=== PATIENT | male | born 1950 | race Caucasian/White ===

== ENCOUNTER 2018-03-12 13:22 | Inpatient (IN) | payer MEDICARE, OTHER ==
[~2018-03-12] VITALS: Ht 172.7 cm; Wt 83.5 kg
[~2018-03-12 13:22] MED LIST: ACYCLOVIR200 MG PO; AMIODARONE HCL200 MG PO; ATENOLOL50 MG PO; CARVEDILOL12.5 MG PO; FAMOTIDINE10 MG PO; KEFLEX500 MG PO; LASIX40 MG PO; LISINOPRIL10 MG PO; POTASSIUM CHLO20 ME1 PO; REVATIO20 MG PO; TESSALON PERLE100 MG PO; TRAZODONE HCL50 MG PO; WARFARIN SODIUM3 MG PO
--- OUTSIDE RECORDS SUMMARY | 2018-03-12 13:25 | XMS REPORT | Clinical Summary ---
Author Author [facility] Organization [facility] Address Unknown Phone Unavailable Care Team Providers Care Statistical Geneticist Name Role Phone Esequiel Mattson MD PCP Allergies Active Allergy Reactions Severity Noted Date Comments Penicillins Rash Medium 04/01/2017 Patient stated the allergy to Penicillin was when he was 3 years old. Current Medications Prescription Sig. Disp. Refills Start End Date Status Date warfarin (COUMADIN) 6 MG Take 6 mg by mouth daily. Active tablet traMADol (ULTRAM) 50 mg Take 50 mg by mouth every Active tablet 6 (six) hours as needed for moderate pain. lisinopril Take 1 tablet (5 mg 30 tablet 0 08/18/20 Active (PRINIVIL,ZESTRIL) 5 mg total) by mouth daily for 17 tablet 30 days. warfarin (COUMADIN) 6 MG Take one tablet daily. 30 tablet 0 08/18/20 08/18/20 Active tablet 17 18 carvedilol (COREG) 12.5 Take 1 tablet (12.5 mg 60 tablet 0 04/03/20 05/03/20 MG tablet total) by mouth 2 (two) 17 17 times a day for 30 days. lisinopril Take 1 tablet (20 mg 30 tablet 0 04/03/20 06/25/20 Discontin (PRINIVIL,ZESTRIL) 20 mg total) by mouth daily for 17 17 ued tablet 30 days. furosemide (LASIX) 20 mg Take 1 tablet (20 mg 30 tablet 0 04/03/20 05/03/20 tablet total) by mouth daily for 17 17 30 days. potassium chloride Take 1 tablet (8 mEq 30 tablet 0 04/03/20 (KLOR-CON) 8 MEQ CR total) by mouth daily for 17 17 tablet 30 days. sildenafil (REVATIO) 20 Take 1 tablet (20 mg 90 tablet 0 04/03/20 mg tablet total) by mouth 3 (three) 17 17 times a day for 30 days. sildenafil (REVATIO) 20 Take 20 mg by mouth 3 08/18/20 Discontin mg tablet (three) times a day. 17 ued carvedilol (COREG) 12.5 Take 12.5 mg by mouth 2 06/25/20 Discontin MG tablet (two) times a day with 17 ued meals. furosemide (LASIX) 20 mg Take 60 mg by mouth 06/25/20 Discontin tablet daily. 17 ued acetaminophen-codeine Take 1 tablet by mouth 3 08/18/20 Discontin (TYLENOL WITH CODEINE #3) (three) times a day. 17 ued 300-30 mg per tablet potassium chloride Take 20 mEq by mouth 2 08/18/20 Discontin (K-DUR,KLOR-CON) 10 MEQ (two) times a day. 17 ued CR tablet lisinopril Take 1 tablet (5 mg 30 tablet 0 06/25/20 08/18/20 Discontin (PRINIVIL,ZESTRIL) 5 mg total) by mouth daily for 17 17 ued tablet 30 days. nadolol (CORGARD) 20 MG Take 1 tablet (20 mg 60 tablet 0 06/25/20 tablet total) by mouth 2 (two) 17 17 times a day for 30 days. furosemide (LASIX) 40 mg Take 1 tablet (40 mg 60 tablet 0 06/25/20 07/25/20 tablet total) by mouth 2 (two) 17 17 times a day for 30 days. acetaminophen-codeine Take 1-2 tablets by mouth 40 tablet 0 06/25/20 07/05/20 (TYLENOL WITH CODEINE #3) every 4 (four) hours as 17 17 300-30 mg per tablet needed for moderate pain for up to 10 days. furosemide (LASIX) 40 mg Take 1 tablet (40 mg 60 tablet 0 06/25/20 07/25/20 tablet total) by mouth 2 (two) 17 17 times a day for 30 days. potassium chloride Take 2 tablets (20 mEq 120 tablet 0 09/01/20 10/ 01/20 (KLOR-CON) 10 MEQ CR total) by mouth 2 (two) 17 17 tablet times a day for 30 days. albuterol (ACCUNEB) 1.25 Take 1 ampule by 08/18/20 Discontin mg/3 mL nebulizer nebulization every 6 17 ued solution (six) hours as needed for wheezing. ATENOLOL ORAL Take 10 mg by mouth 2 08/18/20 Discontin (two) times a day. 17 ued furosemide (LASIX) 20 mg Take 20 mg by mouth 3 08/18/20 Discontin tablet (three) times a day. 17 ued albuterol (ACCUNEB) 1.25 Take 3 mL (1.25 mg total) 75 mL 12 08/18/20 09/17/20 mg/3 mL nebulizer by nebulization every 6 17 17 solution (six) hours as needed for wheezing for up to 30 days. atenolol (TENORMIN) 25 MG Take 0.5 tablets (12.5 mg 30 tablet 0 09/17/20 tablet total) by mouth 2 (two) 17 17 times a day for 30 days. acetaminophen-codeine Take 1 tablet by mouth 30 tablet 0 08/18/20 (TYLENOL WITH CODEINE #3) every 6 (six) hours as 17 17 300-30 mg per tablet needed for moderate pain for up to 10 days. potassium chloride Take 2 tablets (20 mEq 120 tablet 0 08/18/20 (K-DUR,KLOR-CON) 10 MEQ total) by mouth 2 (two) 17 17 CR tablet times a day for 30 days. sildenafil (REVATIO) 20 Take 1 tablet (20 mg 90 tablet 0 08/18/20 mg tablet total) by mouth 3 (three) 17 17 times a day for 30 days. Active Problems Problem Noted Date Pneumonia due to infectious organism 08/16/2017 Atrial fibrillation with RVR 06/16/2017 ICD (implantable cardioverter-defibrillator) malfunction 04/01/2017 Encounters Date Type Specialty Care Team Description 08/15/2017 [facility] General Internal Medicine Jeffery Freire, Pneumonia due to - Encounter infectious organism, 08/18/2017 Lindsey Ruth unspecified laterality, MD Priscila unspecified part of lung (Primary Dx); SOB (shortness of breath); Acute bronchitis, unspecified organism 06/29/2017 [facility] Hector Dodson, PharmD Outreach 06/18/2017 Procedure Pass Procedural Cardiology 06/18/2017 Surgery Procedural Cardiology Raquel Olmos, Ep ablation av node MD [83815 (CPT )] 06/18/2017 Procedure Pass Procedural Cardiology 06/16/2017 [facility] General Internal Medicine Nayan Saenz MD Atrial fibrillation with - Encounter Lindsey Ruth RVR (Primary Dx); 06/25/2017 MD Priscila Right upper quadrant abdominal pain; Weakness 04/02/2017 Procedure Pass Procedural Cardiology 04/02/2017 Surgery Procedural Cardiology Michael Dhaliwal, Lead Revision and MD generator change out [08405 (CPT )] 04/01/2017 [facility] General Surgery Trisha Banuelos MD - Encounter 04/04/2017 after 03/11/2017 Immunizations Name Dates Previously Given Next Due Pneumococcal Conjugate 06/25/2017 13-Valent Family History Medical History Relation Name Comments Alzheimer's disease Father Leukemia Father Relation Name Status Comments Father Social History Tobacco Use Types Packs/Day Years Used Date Never Smoker Tobacco Cessation: Counseling Given: No Alcohol Use Drinks/Week oz/Week Comments Yes "drinks alcohol frequently." Sex Assigned at Date Recorded Not on file Last Filed Vital Signs Vital Sign Reading Time Taken Blood Pressure 97/53 08/18/2017 3:36 PM CDT Pulse 61 08/18/2017 3:36 PM CDT Temperature 36.4 C (97.5 F) 08/18/2017 3:36 PM CDT Respiratory Rate 18 08/18/2017 3:36 PM CDT Oxygen Saturation 98% 08/18/2017 3:36 PM CDT Inhaled Oxygen - - Concentration Weight 99.1 kg (218 lb 6.4 oz) 08/18/2017 6:27 AM CDT Height 172.7 cm (5' 8") 08/16/2017 4:37 AM CDT Body Mass Index 33.21 08/18/2017 6:27 AM CDT Plan of Treatment Health Maintenance Due Date Last Done Comments COLON CANCER SCREENING 1998 SHINGRIX VACCINE (#1) 1998 ZOSTER VACCINE 2008 PNEUMOCOCCAL 2013 POLYSACCHARIDE VACCINE AGE 65 AND OVER INFLUENZA VACCINE 05/25/2018 PNEUMOCOCCAL-13 Completed 06/25/2017 Implants Implanted Type Area Skin Carver Device Expiration Model / Identifier Date Serial / Lot Durata Df4 - Active Tbp Single Defibrilla N/A: N/A [employer] 2016 [id number] 65 / Shock, Icd Leads, Model 7120q-65 - tors MEDICAL [id number] Devices / Implanted: 04/02/2017 (Quantity not ICD and [id number] on file) Related Products Dariela Zhong Next Generation Dr DAIGLE N/A: N/A [employer] 11/24/2018 [id number] [id number] 40 Df4 Connector - [id number] CARDIAC MEDICAL / Implanted: 04/02/2017 (Quantity not DEFIB [id number] / on file) [id number] Pacemaker Pacemaker Procedures Procedure Name Priority Date/Time Associated Diagnosis Comments [place] [facility]IT[facility], E/M Routine 08/16/2017 Results for this 30-74 MINUTES 3:59 AM CDT procedure are in the results section. EP ABLATION AV NODE Routine 06/18/2017 9:16 AM CDT ECHOCARDIOGRAM 2D Routine 06/17/2017 Results for this COMPLETE W MMODE SPECTRAL 3:58 PM CDT procedure are in the COLOR DOPPLER (70296) results section. EP AICD IMPLANT SINGLE Routine 04/02/2017 DUAL BI VENT 6:53 PM CDT after 03/11/2017 Results * XR Chest 2 Vw (08/18/2017 8:16 AM) Only the most recent of 4 results within the time period is included. Specimen Performing Laboratory [facility] [address] [place] [address] Narrative Examination: XR CHEST 2 VW Clinical history: Pneumonia, SHORTNESS OF BREATH Comparison: August 15 Impression: 1. Marked enlargement of the cardiac silhouette which may be related to cardiac enlargement or pericardial effusion is similar to the prior exam. 2. Vasculature is not frankly congested. There is no significant pleural fluid. 3. There is no confluent infiltrate. 4. Sternal wires and AICD are stable. [id number] Procedure Note Interface, Radiology Results Incoming - 08/18/2017 8:25 AM CDT Examination: XR CHEST 2 VW Clinical history: Pneumonia, SHORTNESS OF BREATH Comparison: August 15 Impression: 1. Marked enlargement of the cardiac silhouette which may be related to cardiac enlargement or pericardial effusion is similar to the prior exam. 2. Vasculature is not frankly congested. There is no significant pleural fluid. 3. There is no confluent infiltrate. 4. Sternal wires and AICD are stable. [id number] * Estimated GFR (08/18/2017 6:25 AM) Only the most recent of 11 results within the time period is included. Component Value Ref Range GFR Non Af Amer 60 mL/min/1.73 m2 GFR Af Amer 73 mL/min/1.73 m2 Comment: Chronic kidney disease: <60 mL/min/1.73m2 Kidney failure: <15 mL/min/1.73m2 The estimated GFR is calculated from the IDMS-traceable Modification of Diet in Renal Disease Equation. The accuracy of the calculation is poor when the creatinine is normal. Calculated values >90 mL/min/1.73m2 are not reported. This equation has not been validated in children (<18 years), women, the elderly (>70 years), or ethnic groups other than Caucasians and Americans. Specimen Performing Laboratory Plasma specimen [facility] [place] DEPARTMENT OF PATHOLOGY AND GENOMIC MEDICINE [address] [place] [address] * Basic metabolic panel (08/18/2017 6:25 AM) Only the most recent of 10 results within the time period is included. Component Value Ref Range Sodium 135 135 - 150 mEq/L Potassium 4.1 3.5 - 5.0 mEq/L Chloride 100 100 - 109 mEq/L CO2 27 24 - 32 mmol/L Anion gap 8 7 - 15 mEq/L Comment: Starting from January , anion gap calculation no longer incorporates potassium. Please note the change. BUN 15 7 - 18 mg/dL Creatinine 1.2 0.8 - 1.5 mg/dL Glucose 113 (H) 65 - 100 mg/dL Calcium 7.8 (L) 8.6 - 10.7 mg/dL Specimen Performing Laboratory Plasma specimen [facility] [place] DEPARTMENT OF PATHOLOGY AND GENOMIC MEDICINE [address] [place] [address] * Prothrombin time with INR (08/17/2017 5:41 AM) Only the most recent of 9 results within the time period is included. Component Value Ref Range Prothrombin time 19.6 (H) 12.0 - 15.0 sec INR 1.63 (H) 0.92 - 1.12 Comment: For patients on anticoagulant therapy, reference ranges below: Indication: INR Value Treatment of Venous Thrombosis, 2.0-3.0 pulmonary emboli, or prophylaxis of a venous thrombosis, or systemic emboli. High dose, high risk patients 3.0-4.5 with mechanical valves. NOTE: INR values over 3.0 are sometimes associated with gastrointestinal hemorrhage, especially values over 4.0. Specimen Performing Laboratory Blood [facility] [place] DEPARTMENT OF PATHOLOGY AND GENOMIC MEDICINE [address] [place] [address] * CBC with platelet and differential (08/17/2017 5:41 AM) Only the most recent of 8 results within the time period is included. Component Value Ref Range WBC 6.4 4.2 - 11.0 k/uL RBC 3.31 (L) 4.04 - 5.86 m/uL HGB 9.2 (L) 13.0 - 17.3 g/dL HCT 28.9 (L) 34.0 - 45.0 % MCV 87.3 80.0 - 98.0 fL MCH 27.8 27.0 - 34.0 pg MCHC 31.8 31.5 - 36.5 g/dL RDW - SD 53.4 (H) 37.0 - 51.0 fL MPV 11.0 (H) 7.4 - 10.4 fL Platelet count 81 (L) 150 - 400 k/uL Nucleated RBC 0.00 /100 WBC Neutrophils 78.9 (H) 36.0 - 66.0 % Lymphocytes 9.8 (L) 24.0 - 44.0 % Monocytes 8.6 (H) 0.0 - 6.0 % Eosinophils 1.9 0.0 - 6.0 % Basophils 0.3 0.0 - 1.2 % Immature granulocytes 0.5 0.0 - 1.0 % Specimen Performing Laboratory Blood [facility] [place] DEPARTMENT OF PATHOLOGY AND GENOMIC MEDICINE [address] [place] [address] * B natriuretic peptide (08/17/2017 5:41 AM) Only the most recent of 2 results within the time period is included. Component Value Ref Range BNP 175 (H) 0 - 100 pg/mL Specimen Performing Laboratory [facility] [place] DEPARTMENT OF PATHOLOGY AND GENOMIC MEDICINE [address] [place] [address] * Anti Xa, unfractionated (08/16/2017 6:48 PM) Only the most recent of 3 results within the time period is included. Component Value Ref Range Anti Xa, unfractionated <0.10 (L)Comment: Therapeutic Range: 0.30 - 0.70 0.30 - 0.70 U/mL U/mL Specimen Performing Laboratory Blood [facility] [place] DEPARTMENT OF PATHOLOGY AND GENOMIC MEDICINE [address] [place] [address] * Troponin (08/16/2017 5:42 AM) Only the most recent of 7 results within the time period is included. Component Value Ref Range Troponin 0.03 0.00 - 0.60 ng/mL Comment: 0.11 - 1.49 ng/ml May indicate increased risk of acute coronary syndrome. >=1.5 ng/ml Consistent with acute myocardial infarction. The diagnostic value of a single normal or non-diagnostic result is questionable. Serial samples at 2-6 hour intervals are required to rule out acute myocardial injury. Specimen Performing Laboratory Plasma specimen [facility] [place] DEPARTMENT OF PATHOLOGY AND GENOMIC MEDICINE [address] [place] [address] * Partial thromboplastin time, activated (08/16/2017 5:42 AM) Only the most recent of 3 results within the time period is included. Component Value Ref Range PTT 26.1 23.0 - 36.0 sec Comment: PTT therapeutic range for unfractionated heparin is 61.0-112.0 seconds which corresponds to Anti-Xa 0.3-0.7 U/ml. Note: Change in Panic Value The PTT Panic Value is changing from 110 sec. to 100 sec. due to new instrumentation and reagents. Correlation studies have been performed to validate this result. Specimen Performing Laboratory Blood [facility] [place] DEPARTMENT OF PATHOLOGY AND GENOMIC MEDICINE [address] [place] [address] * ECG ED Preliminary Interpretation - NOT AN ORDER (08/16/2017 3:59 AM) Only the most recent of 2 results within the time period is included. Mahamed Freire MD 08/16/20173:59 AM ECG ED Preliminary Interpretation - Not an Order Performed by: CHARANJIT FREIRE Authorized by: CHARANJIT FREIRE ECG reviewed by ED Physician in the absence of a unit support representative: yes Previous ECG: Previous ECG:Unavailable Rate: ECG rate:60 ECG rate assessment: normal Rhythm: Rhythm: paced Pacing: Type of pacing:Ventricular Ectopy: Ectopy: none QRS: QRS axis:Normal QRS intervals:Normal Conduction: Conduction: normal ST segments: ST segments:Normal T waves: T waves: normal * CRITICAL CARE (08/16/2017 3:59 AM) Narrative Charanjit Freire MD 08/16/20173:59 AM Critical Care Performed by: CHARANJIT FREIRE Authorized by: CHARANJIT FREIRE Critical care provider statement: Critical care time (minutes):32 Critical care time was exclusive of:Separately billable procedures and treating other patients Critical care was necessary to treat or prevent imminent or life-threatening deterioration of the following conditions:Circulatory failure and dehydration Critical care was time spent personally by me on the following activities:Ordering and review of laboratory studies, ordering and review of radiographic studies, pulse oximetry, re-evaluation of patient's condition, discussions with primary provider and examination of patient * CT Angiogram Pe Chest (08/16/2017 3:28 AM) Specimen Performing Laboratory [facility] [address] [place] [address] Narrative EXAMINATION:CT ANGIOGRAM PE CHEST CLINICAL HISTORY: SHORTNESS OF BREATH, elevated D-Dimer. TECHNIQUE:CT angiographic images of the chest were obtained during intravenous administration of iodinated contrast. Computerized reformatted images and 3-D MIP images were also obtained and archived (CT pulmonary embolus protocol).CT scans are performed using radiation dose reduction techniques.Technical factors are evaluated and adjusted to ensure appropriate moderation of exposure. Automated dose management technology is applied to adjust radiation exposure while achieving a diagnostic quality image. COMPARISON:None. Findings: There are no filling defects within the pulmonary arterial system to suggest a pulmonary embolus. Evaluation for dissection is not possible on this phase of contrast. No consolidation or pleural effusion is seen. No pneumothorax is seen. No pulmonary mass or nodule is seen. No mediastinal lymphadenopathy is seen. Marked left atrial enlargement is unchanged. Visualized upper abdomen shows slight nodular contour of the liver. IMPRESSION: 1. No evidence of pulmonary embolus. 2. Severe left atrial enlargement is unchanged. 3. Otherwise no acute abnormality identified in the chest. 4. Nodular contour of the liver may be related to intrinsic hepatic disease or cirrhosis. [id number] Procedure Note [facility], Radiology Results Incoming - 08/16/2017 3:43 AM CDT EXAMINATION: CT ANGIOGRAM PE CHEST CLINICAL HISTORY: SHORTNESS OF BREATH, elevated D-Dimer. TECHNIQUE: CT angiographic images of the chest were obtained during intravenous administration of iodinated contrast. Computerized reformatted images and 3-D MIP images were also obtained and archived (CT pulmonary embolus protocol). CT scans are performed using radiation dose reduction techniques. Technical factors are evaluated and adjusted to ensure appropriate moderation of exposure. Automated dose management technology is applied to adjust radiation exposure while achieving a diagnostic quality image. COMPARISON: None. Findings: There are no filling defects within the pulmonary arterial system to suggest a pulmonary embolus. Evaluation for dissection is not possible on this phase of contrast. No consolidation or pleural effusion is seen. No pneumothorax is seen. No pulmonary mass or nodule is seen. No mediastinal lymphadenopathy is seen. Marked left atrial enlargement is unchanged. Visualized upper abdomen shows slight nodular contour of the liver. IMPRESSION: 1. No evidence of pulmonary embolus. 2. Severe left atrial enlargement is unchanged. 3. Otherwise no acute abnormality identified in the chest. 4. Nodular contour of the liver may be related to intrinsic hepatic disease or cirrhosis. [id number] * Blood culture, aerobic & anaerobic (08/16/2017 1:28 AM) Only the most recent of 2 results within the time period is included. Component Value Ref Range Blood culture isolate Staphylococcus epidermidis Aer/Nikkie bottles: The performance characteristics of this assay on this isolate were validated by the Microbiology Laboratory at [facility]. This source has not been approved by the U.S. Food and Drug Administration. The results are not intended to be used as the sole means for clinical diagnosis or patient management. The Microbiology Laboratory is authorized under the clinical Laboratory Improvement Amendments of 1988 (CLIA-88) to perform high complexity testing. (A) Comment: Specimen Information Specimen Source: Blood Specimen Site: L Hand Specimen Performing Laboratory Blood [facility] DEPARTMENT OF PATHOLOGY AND GENOMIC MEDICINE [address] [place] [id number] Organism Antibiotic Method Susceptibility Staphylococcus Ampicillin PAUL mcg/mL: Resistant epidermidis Staphylococcus Clindamycin PAUL >2 mcg/mL: Resistant epidermidis Staphylococcus Erythromycin PAUL >4 mcg/mL: Resistant epidermidis Staphylococcus Levofloxacin PAUL >4 mcg/mL: Resistant epidermidis Staphylococcus Linezolid PAUL <=1 mcg/mL: Susceptible epidermidis Staphylococcus Minocycline PAUL <=1 mcg/mL: Susceptible epidermidis Staphylococcus Oxacillin PAUL >1 mcg/mL: Resistant epidermidis Staphylococcus Penicillin G PAUL >1 mcg/mL: Resistant epidermidis Staphylococcus Tetracycline PAUL 1 mcg/mL: Susceptible epidermidis Staphylococcus Vancomycin PAUL 2 mcg/mL: Susceptible epidermidis Staphylococcus Trimethoprim/Sulfamethoxa PAUL >2/38 mcg/mL: Resistant epidermidis isabelle * D-dimer (08/16/2017 12:24 AM) Component Value Ref Range D-dimer 1.11 (H) 0.00 - 0.40 ug/mL FEU Comment: Units are ug/ml Fibrinogen Equivalent Unit. When combined with low clinical probability, D-dimer results of less than 0.5 ug/ml FEU have a good negative predictive value in excluding PE or DVT. For D-dimer results greater than 0.5 ug/ml FEU further testing is indicated if PE or DVT is suspected clinically. Elevated D-dimer results have been reported in DVT, PE, and DIC cases and may indicate the presence of a clot. D-dimer results may be elevated due to old age, , inflammatory diseases, trauma, post-operative states, sepsis, and malignancies. Specimen Performing Laboratory Blood [facility] DEPARTMENT OF PATHOLOGY AND GENOMIC MEDICINE [facility] [place][note 2] [place] [address] * Venous blood gas (08/16/2017 12:24 AM) Component Value Ref Alteration Tailor JPXG Collection site LAC O2 therapy Room Air pH, venous 7.436 (H) 7.320 - 7.420 units pCO2, venous 36.0 (L) 45.0 - 51.0 mmHg pO2, venous 32.9 25.0 - 40.0 mmHg O2 saturation, venous 60.8 40.0 - 70.0 % Bicarbonate 24.2 21.0 - 28.0 mEq/L O2 content 8.0 VOL% FiO2, inspired O2% 21.0 % Carboxyhemoglobin 1.5 (H) 0.0 - 1.4 % Comment: Reference Ranges: Carboxyhemoglobin Non smoker: 0.0 - 2.0% Smoker: 2.1 - 5.0% Heavy smoker: 5.1 - 9% Methemoglobin 0.1 0.0 - 1.0 % Hemoglobin, blood gas 9.4 (L) 14.0 - 18.0 g/dL Specimen Performing Laboratory Blood [facility] DEPARTMENT OF PATHOLOGY AND GENOMIC MEDICINE [address] [place] [address] * Creatine kinase, total (CPK) (08/16/2017 12:24 AM) Component Value Ref Range Creatine kinase 30 (L) 61 - 224 U/L Specimen Performing Laboratory Plasma specimen [facility] DEPARTMENT OF PATHOLOGY AND GENOMIC MEDICINE [address] [facility] [place] [address] * Comprehensive metabolic panel (08/16/2017 12:24 AM) Component Value Ref Range Sodium 132 (L) 135 - 150 mEq/L Potassium 4.7 3.5 - 5.0 mEq/L Chloride 101 100 - 109 mEq/L CO2 24 24 - 32 mmol/L Anion gap 7 7 - 15 mEq/L Comment: Starting from January , anion gap calculation no longer incorporates potassium. Please note the change. BUN 26 (H) 7 - 18 mg/dL Creatinine 1.3 0.8 - 1.5 mg/dL Glucose 121 (H) 65 - 100 mg/dL Calcium 7.8 (L) 8.6 - 10.7 mg/dL Protein 7.5 6.3 - 8.2 g/dL Albumin 3.1 (L) 3.2 - 5.0 g/dL A/G ratio 0.7 0.7 - 3.8 Alkaline phosphatase 95 30 - 120 U/L AST 19 15 - 37 U/L ALT 15 (L) 30 - 65 U/L Total bilirubin 0.7 0.2 - 1.2 mg/dL Specimen Performing Laboratory Plasma specimen [facility] DEPARTMENT OF PATHOLOGY AND GENOMIC MEDICINE [address] [place] [address]. [place] [address] * ECG 12 lead (08/16/2017 12:10 AM) Only the most recent of 7 results within the time period is included. Component Value Ref Range Ventricular rate 60 Atrial rate 62 QRSD interval 154 QT interval 474 QTC interval 474 QRS axis 1 -84 T wave axis 92 EKG impression Electronic ventricular pacemaker-In automated comparison with ECG of 18-JUN-2017 18:08,-No significant change was found- Specimen Performing Laboratory [facility] [address] [place] [address] * Manual differential (06/22/2017 4:40 AM) Only the most recent of 4 results within the time period is included. Component Value Ref Range Manual differential PERFORMED Neutrophils 62.0 36.0 - 66.0 % Lymphocytes 34.0 24.0 - 44.0 % Monocytes 1.0 0.0 - 6.0 % Eosinophils 2.0 0.0 - 6.0 % Basophils 0.0 0.0 - 1.2 % Metamyelocytes 0 0 - 1 % Promyelocytes 0 0 - 1 % Reactive lymphocytes 1.0 Platelet slide review Javy slt decr Anisocytosis slight Ovalocytes few Enlarged platelets rare Specimen Performing Laboratory [facility] [place] DEPARTMENT OF PATHOLOGY AND GENOMIC MEDICINE [address] [place] [address] * CT Cervical Spine Wo Contrast (06/21/2017 6:33 PM) Specimen Performing Laboratory [facility] [address] [place] [address] Narrative EXAMINATION:CT CERVICAL SPINE WO CONTRAST CLINICAL HISTORY:SPINAL STENOSIS COMPARISON:None. TECHNIQUE: Axial helical CT images throughout the cervical spine were performed without IV contrast. Sagittal and coronal reformatted images were generated. All CT images were acquired using low-dose technique with automated exposure control. FINDINGS: There is no evidence of acute fracture, subluxation, or dislocation. There is normal cervical lordosis and alignment. Vertebral bodies are preserved. There is no evidence of paraspinal hematoma. No significant cervical spondylosis is appreciated. There is ankylosis and fusion of the disc space at C5-C6 level. IMPRESSION: No acute cervical spine bony abnormality. [id number] Procedure Note Interface, Radiology Results Incoming - 06/21/2017 6:51 PM CDT EXAMINATION: CT CERVICAL SPINE WO CONTRAST CLINICAL HISTORY: SPINAL STENOSIS COMPARISON: None. TECHNIQUE: Axial helical CT images throughout the cervical spine were performed without IV contrast. Sagittal and coronal reformatted images were generated. All CT images were acquired using low-dose technique with automated exposure control. FINDINGS: There is no evidence of acute fracture, subluxation, or dislocation. There is normal cervical lordosis and alignment. Vertebral bodies are preserved. There is no evidence of paraspinal hematoma. No significant cervical spondylosis is appreciated. There is ankylosis and fusion of the disc space at C5-C6 level. IMPRESSION: No acute cervical spine bony abnormality. [id number] * T3, free (06/20/2017 6:23 AM) Component Value Ref Range T3, free 1.65 (L) 2.18 - 3.98 pmol/L Specimen Performing Laboratory Plasma specimen [facility] [place] DEPARTMENT OF PATHOLOGY AND GENOMIC MEDICINE [address] [place] [address] * Thyroid stimulating hormone (06/20/2017 6:23 AM) Only the most recent of 2 results within the time period is included. Component Value Ref Range TSH 2.30 0.38 - 4.82 uIU/mL Specimen Performing Laboratory Plasma specimen [facility] [place] DEPARTMENT OF PATHOLOGY AND GENOMIC MEDICINE [address] [place] [address] * T4, free (06/20/2017 6:23 AM) Component Value Ref Range T4, free 1.19 0.70 - 1.61 ng/dL Specimen Performing Laboratory Plasma specimen [facility] [place] DEPARTMENT OF PATHOLOGY AND GENOMIC MEDICINE [address] [place] [address] * Cv electrophysiology procedure (06/18/2017 9:16 AM) Specimen Performing Laboratory [facility] [address] [place] [address] * Echocardiogram complete w contrast and 3D if needed (06/17/2017 3:58 PM) Component Value Ref Range AoV Mean PG 4.62 mmHg MV valve area p 1/2 5.48 cm2 method E/A ratio 1.99 E wave decelartion time 138.46 msec LVOT Diam,S 2.38 cm LVOT area 4.45 cm2 AoV Peak PG 8.13 mmHg MV Peak E Harish 1.55 m/s MV stenosis pressure 1/2 40.15 ms time MV Peak A Harish 0.78 m/s AoV Vmax 1.43 m/s Left Atrium Dimension 10.31 cm Anterior RVSP (TR) 66.03 mmHg TR Vpeak 3.89 mm/s MV E A ratio 1.99 mmHg TR pk grad 56.03 mmHg RVSP 66.03 mmHg LA area s A4C 152.73 cm2 LA Vol MOD A4C 1,135.50 ml AoV Vmn 1.02 AoV VTI 0.26 m MV AE ratio 0.50 MAX Pred HR 151.31 85 of MPHR 128.61 Calc MPHR 151.31 bpm MV Decel slope 11.21 m/s2 Pred Exer Dur R1 7.37 Pred METS R1 7.70 Specimen Performing Laboratory [facility] [address] [place] [address] Narrative The left ventricle chamber size is normal. Left Ventricular ejection fraction is 45 - 50%. Left atrium size is severely dilated. 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 The valve is calcified. Right ventricular size is upper limits of normal. Right atrium size moderately dilated. No pericardial effusion Moderate tricuspid valve stenosis. * Urine culture (06/16/2017 10:11 PM) Component Value Ref Range Urine culture SEE COMMENTComment: Bacteriuria screen negative. Specimen Performing Laboratory [facility] [place] DEPARTMENT OF PATHOLOGY AND GENOMIC MEDICINE [address] [address] * Urinalysis screen and microscopy, with reflex to culture (06/16/2017 10:09 PM) Component Value Ref Range Specimen site Clean catch Color, UA Yellow Appearance, UA Clear Specific gravity, UA 1.017 1.001 - 1.035 pH, UA 5.0 5.0 - 8.5 Protein, UA 1+ (A) Negative Glucose, UA Negative Negative Ketones, UA Negative Negative Bilirubin, UA Negative Negative Blood, UA Negative Negative Nitrite, UA Negative Negative Urobilinogen, UA Negative <2.0 Leukocyte esterase, UA Negative Negative WBC, UA <1 0 - 1 /HPF RBC, UA <1 0 - 1 /HPF Bacteria, UA None seen None seen Yeast, UA None seen Yeast with pseudohyphae, None seen UA Hyaline casts, UA 8 /LPF Specimen Performing Laboratory Urine [facility] [place] DEPARTMENT OF PATHOLOGY AND GENOMIC MEDICINE [address] [place] [address] * CT Abdomen Pelvis W Contrast (06/16/2017 8:35 PM) Specimen Performing Laboratory [address] [address] Narrative EXAMINATION:CT ABDOMEN PELVIS W CONTRAST CLINICAL HISTORY:RUQ pain s p cholecystectomy 6 months ago. TECHNIQUE: Multiple axial images of the abdomen and pelvis were obtained following intravenous administration of iodinated contrast. Sagittal and coronal computerized reformatted images were also obtained. Approximately 60 cc of Omnipaque [address] scan performed using radiation dose reduction techniques. Technical factors are evaluated and adjusted to ensure appropriate moderation of exposure. Automated dose management technology is applied to adjust the radiation dose to minimize expose whileachieving a diagnostic quality image. COMPARISON:04/03/2017 FINDINGS: Lung bases: Bibasilar compressive atelectasis is noted.. Cardiomegaly with marked enlargement of the left atrium is seen.. Liver: Nodular in contour of the liver is again seen, suggesting of hepatitic cirrhosis. An approximately 8 mm subcapsular cyst is again seen within the posterior aspect of the right lobe of the liver. No enhancing hepatitic mass is seen. There is no evidence of intrahepatic biliary dilatation.. Gallbladder: Surgically absent. Pancreas: The pancreas is normal in caliber and attenuation. No inflammatory process. The pancreatic duct is within normal limits. Spleen: Collaterals are again noted the splenic hilum. The spleen is otherwise unremarkable.. Kidneys and ureters: The kidneys function symmetrically. An approximately 2.2 cm cortical cyst is seen within the midpole of the right kidney. Another approximately 2.5 cm exophytic cyst is seen within the lower pole of the right kidney. An approximately 1.1 cm exophytic cyst is seen within the anterior aspect of the mid to lower pole of the right kidney. Approximately 1.2 cm hyperdense exophytic cyst is seen within the midpole of the left kidney. Approximately 8 mm exophytic cyst within the lower pole of the left kidney. Approximately 8 mm cortical cyst is seen within the lower pole of the left kidney. These are unchanged compared to prior exam. There is no enhancing renal lesion. No hydronephrosis or renal stone. The ureters are normal in course and caliber. Adrenal glands: Unremarkable. GI tract: The small bowel is normal in course and caliber. Scattered diverticulas are seen of the descending colon. Partial contraction of the descending colon is seen. The colon is otherwise unremarkable. No bowel wall thickening is identified. There is no acute inflammatory process. The appendix is not seen. No right lower quadrant inflammation is seen. The stomach is unremarkable. Ascites: None. Pelvis: The urinary bladder is within normal limits. Limited evaluation of the prostate gland is unremarkable.. Bones: Right iliac wing sclerotic lesion left posterior L4 sclerotic lesion are unchanged.. Retroperitoneum: No retroperitoneal or mesenteric lymphadenopathy is seen. Scattered atherosclerotic disease is seen.The abdominal aorta is normal in course and caliber. The visceral and mesenteric vascular branches are patent. Abdominal wall: Unremarkable. IMPRESSION: Mild diverticulosis. No CT evidence of colitis or bowel obstruction. Stable Bosniak category I/II bilateral renal cysts. Stable hepatitic cirrhosis. [id number] Procedure Note [facility], Radiology Results - 06/16/2017 9:00 PM CDT EXAMINATION: CT ABDOMEN PELVIS W CONTRAST CLINICAL HISTORY: RUQ pain s p cholecystectomy 6 months ago. TECHNIQUE: Multiple axial images of the abdomen and pelvis were obtained following intravenous administration of iodinated contrast. Sagittal and coronal computerized reformatted images were also obtained. Approximately 60 cc of Omnipaque [address] scan performed using radiation dose reduction techniques. Technical factors are evaluated and adjusted to ensure appropriate moderation of exposure. Automated dose management technology is applied to adjust the radiation dose to minimize expose while achieving a diagnostic quality image. COMPARISON: 04/03/2017 FINDINGS: Lung bases: Bibasilar compressive atelectasis is noted.. Cardiomegaly with marked enlargement of the left atrium is seen.. Liver: Nodular in contour of the liver is again seen, suggesting of hepatitic cirrhosis. An approximately 8 mm subcapsular cyst is again seen within the posterior aspect of the right lobe of the liver. No enhancing hepatitic mass is seen. There is no evidence of intrahepatic biliary dilatation.. Gallbladder: Surgically absent. Pancreas: The pancreas is normal in caliber and attenuation. No inflammatory process. The pancreatic duct is within normal limits. Spleen: Collaterals are again noted the splenic hilum. The spleen is otherwise unremarkable.. Kidneys and ureters: The kidneys function symmetrically. An approximately 2.2 cm cortical cyst is seen within the midpole of the right kidney. Another approximately 2.5 cm exophytic cyst is seen within the lower pole of the right kidney. An approximately 1.1 cm exophytic cyst is seen within the anterior aspect of the mid to lower pole of the right kidney. Approximately 1.2 cm hyperdense exophytic cyst is seen within the midpole of the left kidney. Approximately 8 mm exophytic cyst within the lower pole of the left kidney. Approximately 8 mm cortical cyst is seen within the lower pole of the left kidney. These are unchanged compared to prior exam. There is no enhancing renal lesion. No hydronephrosis or renal stone. The ureters are normal in course and caliber. Adrenal glands: Unremarkable. GI tract: The small bowel is normal in course and caliber. Scattered diverticulas are seen of the descending colon. Partial contraction of the descending colon is seen. The colon is otherwise unremarkable. No bowel wall thickening is identified. There is no acute inflammatory process. The appendix is not seen. No right lower quadrant inflammation is seen. The stomach is unremarkable. Ascites: None. Pelvis: The urinary bladder is within normal limits. Limited evaluation of the prostate gland is unremarkable.. Bones: Right iliac wing sclerotic lesion left posterior L4 sclerotic lesion are unchanged.. Retroperitoneum: No retroperitoneal or mesenteric lymphadenopathy is seen. Scattered atherosclerotic disease is seen. The abdominal aorta is normal in course and caliber. The visceral and mesenteric vascular branches are patent. Abdominal wall: Unremarkable. IMPRESSION: Mild diverticulosis. No CT evidence of colitis or bowel obstruction. Stable Bosniak category I/II bilateral renal cysts. Stable hepatitic cirrhosis. [id number] * Magnesium level (06/16/2017 7:20 PM) Only the most recent of 2 results within the time period is included. Component Value Ref Range Magnesium 2.20 1.60 - 2.40 mg/dL Specimen Performing Laboratory Plasma specimen [facility] [place] DEPARTMENT OF PATHOLOGY AND GENOMIC MEDICINE [address] [place] [address] * CT Abdomen Pelvis Wo Contrast (04/03/2017 6:15 PM) Specimen Performing Laboratory [facility] [address] [place] [address] Narrative EXAMINATION:CT ABDOMEN PELVIS WO CONTRAST CLINICAL HISTORY:ABDOMINAL PAIN TECHNIQUE: Multiple axial images of the abdomen and pelvis were obtained without intravenous administration of iodinated contrast. Sagittal and coronal computerized reformatted images were also obtained. The lack of intravenous contrast reduces the sensitivity of detecting solid organ disease. CT imaging was performed with iterative reconstruction technique and/or automated exposure control to reduce radiation dose. COMPARISON:Noncontrast CT abdomen and pelvis December 06, 2016 FINDINGS: Diffuse cardiomyopathy similar in appearance. Minimal linear scarring left lung base unchanged. No free peritoneal air or fluid. Abdomen: Liver remains diminutive in appearance without obvious focal solid lesion. Likely benign 1 cm cyst. The liver margin right lobe segment 5 as on previous. No intra or extrahepatic biliary dilatation. Cholecystectomy clips as before. Spleen grossly normal size. Some prominent splenic vessels about the hilum question varices similar in appearance of previous Adrenal glands normal size. Pancreas grossly unremarkable. No obvious mass. No peripancreatic inflammation or fluid collections. Abdominal aorta normal caliber with extensive atherosclerosis. 2.4 cm benign renal cortical cyst right mid kidney similar to previous. 2.3 cm slightly hyperdense cyst off the inferior pole of the right kidney unchanged measuring 25 Hounsfield units. Hyperdense 13 mm mid right renal cyst unchanged medially. There are 2 benign appearing cortical cyst on the left kidney mid renal level measuring in the 14 mm range similar to previous radiation noted benign- appearing 1 similar cortical cyst left mid kidney laterally is no longer seen. There is some perinephric scarring in this region possibly secondary to cyst rupture. No tract calculi. No obvious solid lesions. Considerable fecal material in the cecum and right colon. No bowel obstruction. No small bowel distention in the abdomen. Pelvis: The appendix is not definitively seen. There is no bowel obstruction. There is moderate scattered fecal material throughout the colon. No diverticulitis. Few scattered diverticular changes in the descending colon. Bladder and prostate grossly unremarkable. No sidewall adenopathy. Dense sclerotic locus posterior aspect of L4 vertebral body to the left measuring 13.9 mm unchanged compared to previous. Dense sclerotic focus right iliac wing measuring 2 cm unchanged. 5.8 mm sclerotic focus left ilium near the SI joint stable IMPRESSION: Cardiomyopathy unchanged. Diminutive appearing liver question cirrhosis. Small benign cyst suspected right lobe inferiorly. No obvious solid lesion. 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 No obvious solid lesion. No calculus or hydronephrosis. Moderate fecal material right colon without evidence of obstruction. Scattered diverticulosis. No diverticulitis. Appendix not seen. Status post cholecystectomy. Sclerotic bony densities in the pelvis and at L4 unchanged. Suspect bone islands. Bone scan correlation to exclude the possibility of blastic bony metastatic lesions may be helpful [id number] Procedure Note [facility], Radiology Results - 04/03/2017 6:58 PM CDT EXAMINATION: CT ABDOMEN PELVIS WO CONTRAST CLINICAL HISTORY: ABDOMINAL PAIN TECHNIQUE: Multiple axial images of the abdomen and pelvis were obtained without intravenous administration of iodinated contrast. Sagittal and coronal computerized reformatted images were also obtained. The lack of intravenous contrast reduces the sensitivity of detecting solid organ disease. CT imaging was performed with iterative reconstruction technique and/or automated exposure control to reduce radiation dose. COMPARISON: Noncontrast CT abdomen and pelvis December 06, 2016 FINDINGS: Diffuse cardiomyopathy similar in appearance. Minimal linear scarring left lung base unchanged. No free peritoneal air or fluid. Abdomen: Liver remains diminutive in appearance without obvious focal solid lesion. Likely benign 1 cm cyst. The liver margin right lobe segment 5 as on previous. No intra or extrahepatic biliary dilatation. Cholecystectomy clips as before. Spleen grossly normal size. Some prominent splenic vessels about the hilum question varices similar in appearance of previous Adrenal glands normal size. Pancreas grossly unremarkable. No obvious mass. No peripancreatic inflammation or fluid collections. Abdominal aorta normal caliber with extensive atherosclerosis. 2.4 cm benign renal cortical cyst right mid kidney similar to previous. 2.3 cm slightly hyperdense cyst off the inferior pole of the right kidney unchanged measuring 25 Hounsfield units. Hyperdense 13 mm mid right renal cyst unchanged medially. There are 2 benign appearing cortical cyst on the left kidney mid renal level measuring in the 14 mm range similar to previous radiation noted benign- appearing 1 similar cortical cyst left mid kidney laterally is no longer seen. There is some perinephric scarring in this region possibly secondary to cyst rupture. No tract calculi. No obvious solid lesions. Considerable fecal material in the cecum and right colon. No bowel obstruction. No small bowel distention in the abdomen. Pelvis: The appendix is not definitively seen. There is no bowel obstruction. There is moderate scattered fecal material throughout the colon. No diverticulitis. Few scattered diverticular changes in the descending colon. Bladder and prostate grossly unremarkable. No sidewall adenopathy. Dense sclerotic locus posterior aspect of L4 vertebral body to the left measuring 13.9 mm unchanged compared to previous. Dense sclerotic focus right iliac wing measuring 2 cm unchanged. 5.8 mm sclerotic focus left ilium near the SI joint stable IMPRESSION: Cardiomyopathy unchanged. Diminutive appearing liver question cirrhosis. Small benign cyst suspected right lobe inferiorly. No obvious solid lesion. 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 No obvious solid lesion. No calculus or hydronephrosis. Moderate fecal material right colon without evidence of obstruction. Scattered diverticulosis. No diverticulitis. Appendix not seen. Status post cholecystectomy. Sclerotic bony densities in the pelvis and at L4 unchanged. Suspect bone islands. Bone scan correlation to exclude the possibility of blastic bony metastatic lesions may be helpful [id number] * XR Chest 1 Vw Portable (04/02/2017 8:13 PM) Specimen Performing Laboratory [facility] [address] [place] [address] Narrative EXAMINATION:XR CHEST 1 VW PORTABLE CLINICAL HISTORY:Pneumothorax, Post device implant COMPARISON:November 12, 2016 chest radiograph IMPRESSION: Gross cardiac enlargement similar to previous. Left lower lobe atelectasis and small effusion similar as well. AICD has been replaced. Leads extend to the right ventricle. No pneumothorax [id number] Procedure Note Interface, Radiology Results Incoming - 04/02/2017 8:19 PM CDT EXAMINATION: XR CHEST 1 VW PORTABLE CLINICAL HISTORY: Pneumothorax, Post device implant COMPARISON: November 12, 2016 chest radiograph IMPRESSION: Gross cardiac enlargement similar to previous. Left lower lobe atelectasis and small effusion similar as well. AICD has been replaced. Leads extend to the right ventricle. No pneumothorax [id number] * Cv electrophysiology procedure (04/02/2017 6:53 PM) Specimen Performing Laboratory [facility] [address] [place] [address] * CBC hemogram (04/01/2017 5:17 PM) Component Value Ref Range WBC 4.5 4.2 - 11.0 k/uL RBC 4.36 4.04 - 5.86 m/uL HGB 12.7 (L) 13.0 - 17.3 g/dL HCT 38.1 34.0 - 45.0 % MCV 87.4 80.0 - 98.0 fL MCH 29.1 27.0 - 34.0 pg MCHC 33.3 31.5 - 36.5 g/dL RDW - SD 45.5 37.0 - 51.0 fL MPV 10.7 (H) 7.4 - 10.4 fL Platelet count 94 (L) 150 - 400 k/uL Nucleated RBC 0.00 /100 WBC Specimen Performing Laboratory Blood [facility] [place] DEPARTMENT OF PATHOLOGY AND GENOMIC MEDICINE [address] [place] [address] after 03/11/2017 Insurance Payer Benefit Subscriber ID Type Phone Address Plan / Group [employer] MEDICARE AETNA xxxxxxxx HMO MEDICARE HMO/PPO [facility] [place] [address]
--- OUTSIDE RECORDS SUMMARY | 2018-03-12 13:26 | XMS REPORT | Clinical Summary ---
Author Author [facility]AC [facility] CenterBlackLine Systems Organization [facility] Address Unknown Phone Unavailable Care Team Providers Care Wool Sorter Name Role Phone PCP Unavailable Allergies Active Allergy Reactions Severity Noted Date Comments Clarithromycin 12/19/2017 Penicillins 12/19/2017 Current Medications Prescription Sig. Disp. Refills Start End Date Status Date ferrous sulfate 325 (65 Take 325 mg by mouth 3 Active FE) MG tablet (three) times daily with meals. multivitamin capsule Take 1 capsule by mouth Active daily. calcium carbonate-vitamin Take 1 tablet by mouth 2 Active D3 (CALCIUM-VITAMIN D) (two) times daily with 500 mg(1,250mg) -200 unit breakfast and dinner. per tablet ascorbic acid, vitamin C, Take 500 mg by mouth 2 Active (ASCORBIC ACID WITH AMISHA (two) times daily. HIPS) 500 MG tablet pantoprazole (PROTONIX) Take 1 tablet (40 mg 01/29/20 Active 40 MG tablet total) by mouth daily. 18 bumetanide (BUMEX) 2 MG Take 0.5 tablets (1 mg 0 02/02/20 02/02/20 Active tablet total) by mouth 2 (two) 18 19 times daily. aspirin 81 MG chewable Take 1 tablet (81 mg 0 02/02/20 02/02/20 Active tablet total) by mouth daily. 18 19 atorvastatin (LIPITOR) 40 Take 1 tablet (40 mg 0 02/02/20 02/02/20 Active MG tablet total) by mouth daily. 18 19 warfarin (COUMADIN) 10 MG Take 1 tablet (10 mg 0 02/02/20 02/02/20 Active tablet total) by mouth daily. 18 19 warfarin (COUMADIN) 6 MG Take 6 mg by mouth daily. 01/14/20 Discontin tablet 18 ued potassium chloride Take 20 mEq by mouth 3 01/14/20 Discontin (KLOR-CON) 20 mEq packet (three) times daily. 18 ued lisinopril Take 20 mg by mouth 01/14/20 Discontin (PRINIVIL,ZESTRIL) 20 MG daily. 18 ued tablet furosemide (LASIX) 20 MG Take 10 mg by mouth 3 01/14/20 Discontin tablet (three) times daily. 18 ued sildenafil Take 20 mg by mouth 3 01/29/20 Discontin (REVATIO,VIAGRA) 20 mg (three) times daily. 18 ued tablet DAPTOmycin (CUBICIN) 500 Inject 6 mg/kg 01/14/20 Discontin mg injection intravenously daily. 18 ued acetaminophen-codeine Take 2 tablets by mouth 30 tablet 0 01/14/20 01/14/20 Discontin (TYLENOL #3) 300-30 mg every 4 (four) hours as 18 18 ued per tablet needed for up to 10 days. Max Daily Amount: 12 tablets albuterol (PROVENTIL) 2.5 Take 0.5 mLs (2.5 mg 0 01/14/20 01/14/20 Discontin mg/0.5 mL Nebu nebulizer total) by nebulization 18 18 ued solution every 4 (four) hours as needed. bisacodyl (DULCOLAX) 5 mg Take 2 tablets (10 mg 30 tablet 0 01/14/20 01/14/20 Discontin EC tablet total) by mouth daily as 18 18 ued needed for Constipation for up to 30 days. warfarin (COUMADIN) 5 MG Take 1 tablet (5 mg 01/14/20 01/14/20 Discontin tablet total) by mouth daily. 18 18 ued sterile water for Inject 2 g intravenously 0 01/14/20 01/14/20 Discontin injection Soln 15 mL with every 8 (eight) hours for 18 18 ued ceFAZolin 1 gram SolR 2 g 19 days. rifAMPin (RIFADIN) 300 MG Take 1 capsule (300 mg 57 capsule 0 01/14/20 Discontin capsule total) by mouth every 8 18 18 ued (eight) hours for 19 days. furosemide (LASIX) 40 MG Take 1 tablet (40 mg 03/22/20 03/22/20 Discontin tablet total) by mouth 2 (two) 18 18 ued times daily. lisinopril Take 1 tablet (10 mg 01/14/20 01/14/20 Discontin (PRINIVIL,ZESTRIL) 10 MG total) by mouth daily. 18 18 ued tablet acetaminophen-codeine Take 2 tablets by mouth 30 tablet 0 01/14/20/04/13 Discontin (TYLENOL #3) 300-30 mg every 4 (four) hours as 18 18 ued per tablet needed for up to 10 days. Max Daily Amount: 12 tablets albuterol (PROVENTIL) 2.5 Take 0.5 mLs (2.5 mg 0 01/14/20 02/02/20 Discontin mg/0.5 mL Nebu nebulizer total) by nebulization 18 18 ued solution every 4 (four) hours as needed. bisacodyl (DULCOLAX) 5 mg Take 2 tablets (10 mg 30 tablet 0 01/14/20 02/13/20 EC tablet total) by mouth daily as 18 18 needed for Constipation for up to 30 days. rifAMPin (RIFADIN) 300 MG Take 1 capsule (300 mg 57 capsule 0 02/02/20 Discontin capsule total) by mouth every 8 18 18 ued (eight) hours for 19 days. sterile water for Inject 2 g intravenously 0 01/14/20 01/20/20 Discontin injection Soln 15 mL with every 8 (eight) hours for 18 18 ued ceFAZolin 1 gram SolR 2 g 19 days. furosemide (LASIX) 40 MG Take 1 tablet (40 mg 0 01/14/20 01/29/20 Discontin tablet total) by mouth 2 (two) 18 18 ued times daily. lisinopril Take 1 tablet (10 mg 0 01/14/20 02/02/20 Discontin (PRINIVIL,ZESTRIL) 10 MG total) by mouth daily. 18 18 ued tablet warfarin (COUMADIN) 5 MG Take 1 tablet (5 mg 0 01/14/20 02/02/20 Discontin tablet total) by mouth daily. 18 18 ued diphenhydrAMINE Take 25 mg by mouth every 02/02/20 Discontin (BENADRYL) 25 mg 6 (six) hours as needed 18 ued capsuleIndications: for Itching. Pruritus of Skin sodium chloride 0.9% (NS) Inject 2 g intravenously 02/02/20 Discontin PF Soln 15 mL with every 8 (eight) hours 18 ued ceFAZolin 1 gram SolR 2 mssa bacteria and gIndications: infected infected ICD x 19 days ICD 01/14-02/02/2018 . multivitamin with Take 1 tablet by mouth 02/02/20 Discontin minerals tablet daily. 18 ued pantoprazole (PROTONIX) Take 20 mg by mouth 01/29/20 Discontin 20 MG tablet daily. 18 ued acetaminophen-codeine Take 2 tablets by mouth 30 tablet 0 01/29/20 02/02/20 Discontin (TYLENOL #3) 300-30 mg every 4 (four) hours as 18 18 ued per tablet needed for up to 10 days. Max Daily Amount: 12 tablets aspirin 81 MG chewable Take 1 tablet (81 mg 0 01/30/20 02/02/20 Discontin tablet total) by mouth daily. 18 18 ued atorvastatin (LIPITOR) 40 Take 1 tablet (40 mg 0 01/30/20 02/02/20 Discontin MG tablet total) by mouth daily. 18 18 ued bumetanide (BUMEX) 2 MG Take 1 tablet (2 mg 0 01/29/20 02/02/20 Discontin tablet total) by mouth 2 (two) 18 18 ued times daily. sterile water for Inject 2 g intravenously 0 01/29/20 02/02/20 Discontin injection Soln 15 mL with every 8 (eight) hours for 18 18 ued ceFAZolin 1 gram SolR 2 g 4 days. metOLazone (ZAROXOLYN) Take 2.5 mg three times a 0 01/29/20 02/02/20 Discontin 2.5 MG tablet week (wed, wed, Wednesday). 18 18 ued mirtazapine (REMERON Take 1 tablet (15 mg 0 01/29/20 02/28/20 THERESA-TAB) 15 MG total) by mouth nightly 18 18 disintegrating tablet for 30 days. sterile water for Inject 2 g intravenously 0 02/02/20 02/02/20 Discontin injection Soln 15 mL with every 8 (eight) hours for 18 18 ued ceFAZolin 1 gram SolR 2 g 1 day. rifAMPin (RIFADIN) 300 MG Take 1 capsule (300 mg 0 02/02/20 02/02/20 Discontin capsule total) by mouth every 8 18 18 ued (eight) hours for 1 day. docusate sodium (COLACE) Take 1 capsule (100 mg 20 capsule 0 02/18/20 02/28/20 100 MG capsule total) by mouth every 12 18 18 (twelve) hours for 10 days. Hospital, Clinic, or Ordered Dose Route Frequency Start End Date Status Other Facility Date Administered Medication bumetanide (BUMEX) 2 MG IV Once 02/18/20 02/18/20 Ended injection 2 mg 18 18 Active Problems Problem Noted Date (HFpEF) heart failure with preserved ejection fraction (HCC) 01/31/2018 Anemia 01/20/2018 H/O cardiac arrest 01/20/2018 Sepsis due to methicillin susceptible Staphylococcus aureus ([facility]) 12/19/2017 ICD (implantable cardioverter-defibrillator) infection ([facility]) 12/19/2017 Moderate protein-calorie malnutrition ([facility]) 12/19/2017 Chronic atrial fibrillation ([facility]) Coronary artery disease Hypertension Ischemic cardiomyopathy Pulmonary hypertension ([facility]) Resolved Problems Problem Noted Date Resolved Date MARIA ISABEL (acute kidney injury) ([facility]) 01/31/2018 02/17/2018 ICD (implantable cardioverter-defibrillator) malfunction 01/20/20182017 Physical deconditioning 01/20/2018 02/17/2018 Chest pain 01/19/2018 02/17/2018 Shock liver 12/23/2017 02/17/2018 MARIA ISABEL (acute kidney injury) ([facility]) 12/23/2017 02/17/2018 Septic shock ([facility]) 12/23/2017 02/17/2018 Cardiac arrest ([facility]) 12/22/2017 01/20/2018 Acute hypoxemic respiratory failure ([facility]) 12/22/2017 02/17/2018 Acute pulmonary edema (HCC) 12/22/2017 02/17/2018 Respiratory insufficiency 12/21/2017 02/17/2018 Sepsis ([facility]) 12/19/2017 02/17/2018 Encounters Date Type Specialty Care Team Description 02/17/2018 Emergency Emergency Medicine Philip Gonzalez MD Generalized abdominal pain (Primary Dx);History of congestive heart failure;History of constipation;CAD in [place] artery;Pulmonary hypertension (HCC) 02/17/2018 Office Visit Cardiology Alexander Bradford NP Acute on chronic diastolic heart failure (HCC) (Primary Dx);SOB (shortness of breath);Lower abdominal pain 02/17/2018 Orders Only General Internal Medicine 01/24/2018 Procedure Pass 01/24/2018 Surgery Shannen Robles R & L HEART CATH ONLY - MD Florentin NO ANGIOS 01/18/2018 [facility] Milton Weiss MD Chest pain, unspecified - Encounter Araseli Ceja MD type (Primary Dx);Chronic 02/01/2018 Theron Donato MD atrial fibrillation Gwendolyn Tirado MD (HCC);AICD (automatic cardioverter/defibrillato r) present;Essential hypertension;Infection involving implantable cardioverter-defibrillato r (ICD), initial encounter (HCC);Ischemic cardiomyopathy;Moderate protein-calorie malnutrition (HCC);Pulmonary hypertension (HCC);Acute pulmonary edema (HCC);Physical deconditioning 01/12/2018 Anesthesia Sanjay Nelson, Event MD 01/12/2018 Procedure Pass 01/12/2018 Surgery Stevie Garcia MD AICD GENERATOR & LEADS - INSERTION W/ GENERAL ANESTHESIA (SING/DUAL/MULT) 01/04/2018 Procedure Pass 01/04/2018 Surgery Stevie Garcia MD LEADLESS PACEMAKER INSERTION W/ MAC ANESTHESIA 01/04/2018 Procedure Pass 12/31/2017 Anesthesia Raquel Ledezma MD Event 12/22/2017 Procedure Pass 12/22/2017 Surgery Stevie Garcia MD PACEMAKER GENERATOR - INSERTION W/ EXISTING LEAD (SINGLE) 12/21/2017 Anesthesia Cardiology Alejandro Macario MD Event 12/21/2017 Anesthesia Sami Sanders, Event AA 12/21/2017 Procedure Pass 12/21/2017 Surgery Stevie Garcia MD LASER EXTRACTION,LEAD 12/19/2017 [facility] Stiven Ramirez MD Sepsis due to methicillin - Encounter Eitan Conner MD susceptible 01/13/2018 Staci, Staphylococcus aureus MD Debbie (HCC);Chronic atrial Kiesha Chirinos MD fibrillation Álvaro Tom MD (HCC);Infection involving implantable cardioverter-defibrillato r (ICD), initial encounter (HCC);Ischemic cardiomyopathy;Pulmonary hypertension (HCC);Respiratory insufficiency;Acute hypoxemic respiratory failure (HCC);Acute pulmonary edema (HCC);Cardiac arrest (HCC);MARIA ISABEL (acute kidney injury) (HCC);Physical deconditioning;Hypoxemia* * 12/19/2017 Orders Only General Internal Medicine after 03/11/2017 Family History Medical History Relation Name Comments Heart disease Sister Relation Name Status Comments Sister Social History Tobacco Use Types Packs/Day Years Used Date Former Smoker Smokeless Tobacco: Never Used Alcohol Use Drinks/Week oz/Week Comments No Sex Assigned at Date Recorded Not on file Last Filed Vital Signs Vital Sign Reading Time Taken Blood Pressure 149/74 02/17/2018 7:40 PM CDT Pulse 60 02/17/2018 7:40 PM CDT Temperature 36.7 C (98 F) 02/17/2018 3:32 PM CDT Respiratory Rate 18 02/17/2018 7:40 PM CDT Oxygen Saturation 98% 02/17/2018 7:40 PM CDT Inhaled Oxygen - - Concentration Weight 77.1 kg (170 lb) 02/17/2018 3:32 PM CDT Height 172.7 cm (5' 8") 02/17/2018 3:32 PM CDT Body Mass Index 25.85 02/17/2018 3:32 PM CDT Plan of Treatment Health Maintenance Due Date Last Done Comments INFLUENZA VACCINE 07/25/2018 Implants Implanted Type Area Fruit Grading Supervisor Device Expiration Model / Identifier Date Serial / Lot Generator Lead Cardiovasc N/A: Heart MEDTRONIC 11/03/2019 / Implanted: Qty: 1 on 01/12/2018 by alex [id number] Stevie Garcia MD / Env Absrb Antibact Tyrx Lg [id number] Cardiovasc N/A: Chest [employer]: CARD 01/22/2018 [id number] / - [id number] alex RHY:DISEASE MGT / Implanted: Qty: 1 on 01/12/2018 by [id number] Stevie Garcia MD Icd Visia Af Mri Surescan Df4 Defibrilla N/A: Chest [employer]:CARD [id number] / [id number] - [id number] tors RHY:DISEASE MGT [id number] Implanted: Qty: 1 on 01/12/2018 by / Stevie Garcia MD Lead Pacemkr Capsur Novus [id number] Pacemaker N/A: Heart [employer]:CARD [id number] / [id number] - [id number] Lead RHY:DISEASE MGT [id number] Implanted: Qty: 1 on 12/21/2017 by / Stevie Garcia MD X Micra Pacemakers Chest [employer] 03/21/2019 [id number] Implanted: Qty: 1 on 01/04/2018 by / Stevie Garcia MD [id number] / Procedures Procedure Name Priority Date/Time Associated Diagnosis Comments R & L HEART CATH ONLY - 01/24/2018 chest pain NO ANGIOS 9:04 PM CDT AICD GENERATOR & LEADS - 01/12/2018 I49.01 INSERTION W/ GENERAL 10:49 AM CDT ANESTHESIA (SING/DUAL/MULT) Case Notes 2CASE [id number] [employer] / SINGLENEW IMPLANT. 574mGy LEADLESS PACEMAKER 01/04/2018 CP INSERTION W/ MAC 10:49 AM CDT ANESTHESIA Case Notes RM [id number] PACEMAKER GENERATOR - 12/22/2017 chest pain INSERTION W/ EXISTING 7:25 AM OIL GAS AND PIPE TESTER LEAD (SINGLE) TIA 12/21/2017 ICD POCKET INFECTION 7:30 AM OIL GAS AND PIPE TESTER LASER EXTRACTION,LEAD 12/21/2017 ICD POCKET INFECTION 7:30 AM OIL GAS AND PIPE TESTER after 03/11/2017 Results * CT abdomen pelvis without contrast (02/17/2018 5:08 PM) Specimen Performing Laboratory [facility] Narrative FINAL REPORT HISTORY : ABDOMINAL PAIN Technique: Multiple axial images of the abdomen and pelvis were performed without the administration of IV or oral contrast. This exam was performed according to our departmental dose optimization program which includes automated exposure control, adjustment of the mA and/or kV according to patient size and/or use of iterative reconstructive technique. COMPARISON :01/10/2018 COMMENT : There is massive cardiomegaly. There is a partially visualized small right-sided pleural effusion. The visualized spleen, adrenal glands, pancreas, stomach and duodenum are within normal limits. In the lower pole of the right kidney, there is an approximately 1.6 cm stable hyperdense lesion that could represent a hemorrhagic cyst. This can be better assessed with a CT/MRI, renal mass protocol, to exclude the possibility of a mass. In the right interpolar kidney, there is a 2.1 cm likely cyst. A larger cyst is seen in the lower pole of the right kidney. There is cirrhotic morphology of the liver. The patient is status post cholecystectomy. There is distention of the IVC and hepatic veins, more likely secondary to right-sided cardiac dysfunction/failure. There is atherosclerotic vascular disease. There is no abdominal, retroperitoneal or pelvic lymphadenopathy. In the right iliac bone, there is a stable sclerotic focus measuring up to 2.0 cm. An additional stable small sclerotic focus is seen in the left iliac bone. Multilevel degenerative disc changes of the lumbar spine are seen. A sclerotic focus is seen in the L4 vertebral body. No free air is identified in the abdomen or pelvis. There is a small amount of free fluid/ascites in the abdomen and pelvis. No findings of any bowel obstruction. The small bowel is within normal limits. There is colonic diverticulosis. There are no CT findings to suggest diverticulitis, however. The appendix is visualized and is within normal limits. The prostate gland as well as the seminal vesicles are within normal limits. There is some nonspecific infiltration of the omentum laterally in the left abdomen of unclear etiology/significance. This could represent some trace localized ascitic fluid in the abdomen. Other omental etiology/processes/masses cannot be entirely excluded. This finding can be either followed or correlated with a PET-CT scan. There is some nonspecific diffuse thickening of the bladder wall that could be related to underdistention. A cystitis or other infiltrative process cannot be entirely excluded. Impression: 1. Examination limited without the administration of IV or oral contrast. 2. Massive cardiomegaly. There are findings suggestive of right-sided cardiac dysfunction/failure. 3. Cirrhotic morphology of the liver. 4. Partially visualized small right-sided pleural effusion. 5. Small amount of abdominal ascites. 6. Right renal cysts. There is also a possible hemorrhagic cyst in the lower pole of the right kidney. Please see above. 7. Nonspecific edema/infiltration of the omentum/peritoneum in the left mid-upper abdomen. Please see above for details. Signed: Lyndsay Ledbetter MD Report Verified Date/Time:02/17/2018 17:19:40 Reading Location: [facility] Diagnostic Imaging Reading Room - [place] [id number] Procedure Note Interface, External Ris In - 02/17/2018 5:21 PM CDT FINAL REPORT HISTORY : ABDOMINAL PAIN Technique: Multiple axial images of the abdomen and pelvis were performed without the administration of IV or oral contrast. This exam was performed according to our departmental dose optimization program which includes automated exposure control, adjustment of the mA and/or kV according to patient size and/or use of iterative reconstructive technique. COMPARISON : 01/10/2018 COMMENT : There is massive cardiomegaly. There is a partially visualized small right-sided pleural effusion. The visualized spleen, adrenal glands, pancreas, stomach and duodenum are within normal limits. In the lower pole of the right kidney, there is an approximately 1.6 cm stable hyperdense lesion that could represent a hemorrhagic cyst. This can be better assessed with a CT/MRI, renal mass protocol, to exclude the possibility of a mass. In the right interpolar kidney, there is a 2.1 cm likely cyst. A larger cyst is seen in the lower pole of the right kidney. There is cirrhotic morphology of the liver. The patient is status post cholecystectomy. There is distention of the IVC and hepatic veins, more likely secondary to right-sided cardiac dysfunction/failure. There is atherosclerotic vascular disease. There is no abdominal, retroperitoneal or pelvic lymphadenopathy. In the right iliac bone, there is a stable sclerotic focus measuring up to 2.0 cm. An additional stable small sclerotic focus is seen in the left iliac bone. Multilevel degenerative disc changes of the lumbar spine are seen. A sclerotic focus is seen in the L4 vertebral body. No free air is identified in the abdomen or pelvis. There is a small amount of free fluid/ascites in the abdomen and pelvis. No findings of any bowel obstruction. The small bowel is within normal limits. There is colonic diverticulosis. There are no CT findings to suggest diverticulitis, however. The appendix is visualized and is within normal limits. The prostate gland as well as the seminal vesicles are within normal limits. There is some nonspecific infiltration of the omentum laterally in the left abdomen of unclear etiology/significance. This could represent some trace localized ascitic fluid in the abdomen. Other omental etiology/processes/masses cannot be entirely excluded. This finding can be either followed or correlated with a PET-CT scan. There is some nonspecific diffuse thickening of the bladder wall that could be related to underdistention. A cystitis or other infiltrative process cannot be entirely excluded. Impression: 1. Examination limited without the administration of IV or oral contrast. 2. Massive cardiomegaly. There are findings suggestive of right-sided cardiac dysfunction/failure. 3. Cirrhotic morphology of the liver. 4. Partially visualized small right-sided pleural effusion. 5. Small amount of abdominal ascites. 6. Right renal cysts. There is also a possible hemorrhagic cyst in the lower pole of the right kidney. Please see above. 7. Nonspecific edema/infiltration of the omentum/peritoneum in the left mid-upper abdomen. Please see above for details. Signed: Lyndsay Ledbetter MD Report Verified Date/Time: 02/17/2018 17:19:40 Reading Location: [facility] Diagnostic Imaging Reading Room - [place] [id number] * XR chest PA or AP 1 view in dept (02/17/2018 5:06 PM) Specimen Performing Laboratory GE RIS Narrative FINAL REPORT AP chest, two images HISTORY: Evaluate for pulmonary edema COMPARISON: 01/21/2018 IMPRESSION: Marked cardiomegaly similar to previous. AICD present with intact leads. No evidence for significant pulmonary edema. No large effusion. No pneumothorax. Signed: Kris Varghese MD Report Verified Date/Time:02/17/2018 17:11:19 Reading Location: [facility] [employer] Reading Room Procedure Note Interface, External Ris In - 02/17/2018 5:13 PM CDT FINAL REPORT AP chest, two images HISTORY: Evaluate for pulmonary edema COMPARISON: 01/21/2018 IMPRESSION: Marked cardiomegaly similar to previous. AICD present with intact leads. No evidence for significant pulmonary edema. No large effusion. No pneumothorax. Signed: Kris Varghese MD Report Verified Date/Time: 02/17/2018 17:11:19 Reading Location: [facility] [place] Reading Room * CBC (Hemogram only) (02/17/2018 3:14 PM) Only the most recent of 16 results within the time period is included. Component Value Ref Range WBC 5.1 3.5 - 10.5 K/ L RBC 3.51 (L) 4.63 - 6.08 M/ L Hemoglobin 10.3 (L) 13.7 - 17.5 GM/DL Hematocrit 33.0 (L) 40.1 - 51.0 % MCV 94.0 (H) 79.0 - 92.2 fL MCH 29.3 25.7 - 32.2 pg MCHC 31.2 (L) 32.3 - 36.5 GM/DL RDW 20.4 (H) 11.6 - 14.4 % Platelets 110 (L) 150 - 450 K/CU MM MPV 10.2 9.4 - 12.4 fL nRBC 0 0 - 0 /100 WBC Specimen Performing Laboratory Blood [address] [address] * B N P (02/17/2018 3:14 PM) Only the most recent of 4 results within the time period is included. Component Value Ref Range BNP 556 (H) 0 - 100 pg/mL Specimen Performing Laboratory Blood [address] [address] * Magnesium (02/17/2018 3:14 PM) Only the most recent of 44 results within the time period is included. Component Value Ref Range Magnesium 2.6 1.6 - 2.6 mg/dL Specimen Performing Laboratory Blood [address] [address] * Basic Metabolic Panel (02/17/2018 3:14 PM) Only the most recent of 39 results within the time period is included. Component Value Ref Range Sodium 141 136 - 145 meq/L Potassium 3.9 3.5 - 5.1 meq/L Chloride 100 98 - 107 meq/L CO2 29 22 - 29 meq/L BUN 33 (H) 7 - 21 mg/dL Creatinine 1.35 (H) 0.57 - 1.25 mg/dL Glucose 135 (H) 70 - 105 mg/dL Calcium 9.4 8.4 - 10.2 mg/dL EGFR 52Comment: ESTIMATED GFR IS NOT ACCURATE mL/min/1.73 sq m CREATININE CLEARANCE IN PREDICTING GLOMERULAR FILTRATION RATE. ESTIMATED GFR IS NOT APPLICABLE FOR DIALYSIS PATIENTS. Specimen Performing Laboratory Blood [address] [address] * ECG 12 lead (02/17/2018 2:34 PM) Only the most recent of 5 results within the time period is included. Specimen Performing Laboratory GE MUSE Narrative Ventricular Rate 66 BPM Atrial Rate 59 BPM QRS Duration 176 ms Q-T Interval 558 ms QTC Calculation(Bazett) 584 ms R En[place] -79 degrees T [place] 103 degrees Ventricular-paced rhythm Abnormal ECG When compared with ECG of 18-JAN-2018 22:30, Vent. rate has increased BY10 BPM Confirmed by MD STEPHANIE, IHAB ([id number]) on 02/17/2018 11:08:42 PM Procedure Note Interface, External Ris In - 02/17/2018 11:08 PM CDT Ventricular Rate 66 BPM Atrial Rate 59 BPM QRS Duration 176 ms Q-T Interval 558 ms QTC Calculation(Bazett) 584 ms R [place] -79 degrees T [place] 103 degrees Ventricular-paced rhythm Abnormal ECG When compared with ECG of 18-JAN-2018 22:30, Vent. rate has increased BY 10 BPM Confirmed by MD STEPHANIE, IHAB ([id number]) on 02/17/2018 11:08:42 PM * ARRYTHMIA IMPLANT REPORT - SCAN (02/04/2018 10:20 AM) Only the most recent of 5 results within the time period is included. * RHYTHM STRIP - SCAN (02/02/2018 11:00 AM) Only the most recent of 4 results within the time period is included. * CBC with platelet count + automated diff (02/01/2018 4:32 AM) Only the most recent of 35 results within the time period is included. Component Value Ref Range WBC 4.2 3.5 - 10.5 K/ L RBC 2.75 (L) 4.63 - 6.08 M/ L Hemoglobin 8.0 (L) 13.7 - 17.5 GM/DL Hematocrit 24.3 (L) 40.1 - 51.0 % MCV 88.4 79.0 - 92.2 fL MCH 29.1 25.7 - 32.2 pg MCHC 32.9 32.3 - 36.5 GM/DL RDW 18.4 (H) 11.6 - 14.4 % Platelets 100 (L) 150 - 450 K/CU MM MPV 10.6 9.4 - 12.4 fL nRBC 0 0 - 0 /100 WBC % Neutros 58 % % Lymphs 22 % % Monos 13 % % Eos 6 % % Baso 0 % # Neutros 2.44 1.78 - 5.38 K/ L # Lymphs 0.94 (L) 1.32 - 3.57 K/ L # Monos 0.56 0.30 - 0.82 K/ L # Eos 0.25 0.04 - 0.54 K/ L # Baso 0.01 0.01 - 0.08 K/ L Immature 1 0 - 1 % Granulocytes-Relative Specimen Performing Laboratory Blood [address] [address] * Daily Prothrombin time/INR while on warfarin (02/01/2018 4:32 AM) Only the most recent of 44 results within the time period is included. Component Value Ref Range Protime 22.6 (H) 11.7 - 14.7 seconds INR 2.0 <=5.9 Specimen Performing Laboratory Blood [address] [address] Narrative RECOMMENDED COUMADIN/WARFARIN INR THERAPY RANGES STANDARD DOSE: 2.0 - 3.0 Includes: PROPHYLAXIS for venous thrombosis, systemic embolization; TREATMENT for venous thrombosis and/or pulmonary embolus. HIGH RISK: Target INR is 2.5-3.5 for patients with mechanical heart valves. While on warfarin. * CBC with platelet count + automated diff (02/01/2018 4:32 AM) Only the most recent of 35 results within the time period is included. Specimen Performing Laboratory Blood Narrative The following orders were created for panel order CBC with platelet count + automated diff. Procedure Abnormality Status --------- - ------ CBC with platelet count ...[[id number]]AbnormalFinal result Please view results for these tests on the individual orders. * CARDIAC CATH REPORT - SCAN (01/27/2018 8:00 PM) Only the most recent of 4 results within the time period is included. * XR chest 1 view portable / bedside (01/21/2018 9:54 AM) Only the most recent of 17 results within the time period is included. Specimen Performing Laboratory [facility] Narrative FINAL REPORT Chest one view INDICATION: Dyspnea COMPARISON: 01/18/2018 IMPRESSION: Median sternotomy changes, pacing device, loop recorder, and left PICC line are again noted. Right greater than left dependent pleural effusions have redistributed or increased with lower lung airspace disease, atelectasis versus pneumonitis. Pulmonary edema is similar in appearance with dilated central pulmonary arteries. The enlarged cardiac silhouette is partially obscured. No pneumothorax is seen. Signed: Aislinn Murphy MD Report Verified Date/Time:01/21/2018 10:10:33 Reading Location: [facility] Radiology Reading Room Procedure Note Interface, External Ris In - 01/22/2018 9:23 AM CDT FINAL REPORT Chest one view INDICATION: Dyspnea COMPARISON: 01/18/2018 IMPRESSION: Median sternotomy changes, pacing device, loop recorder, and left PICC line are again noted. Right greater than left dependent pleural effusions have redistributed or increased with lower lung airspace disease, atelectasis versus pneumonitis. Pulmonary edema is similar in appearance with dilated central pulmonary arteries. The enlarged cardiac silhouette is partially obscured. No pneumothorax is seen. Signed: Aislinn Murphy MD Report Verified Date/Time: 01/21/2018 10:10:33 Reading Location: [facility] Radiology Reading Room * Hepatic function panel (01/21/2018 5:48 AM) Only the most recent of 5 results within the time period is included. Component Value Ref Range Protein, Total 7.4 6.0 - 8.3 gm/dL Albumin 2.5 (L) 3.5 - 5.0 g/dL Total Bilirubin 0.8 0.2 - 1.2 mg/dL Bilirubin, Direct 0.5 0.1 - 0.5 mg/dL Alkaline Phosphatase 82 40 - 150 U/L AST 16 5 - 34 U/L ALT <6 (L) 6 - 55 U/L Specimen Performing Laboratory Blood [address] [address] * Phosphorus (01/20/2018 6:34 AM) Only the most recent of 6 results within the time period is included. Component Value Ref Range Phosphorus 3.5 2.3 - 4.7 mg/dL Specimen Performing Laboratory Blood [facility] [address] [place] [address] * Troponin I (01/19/2018 2:35 PM) Only the most recent of 5 results within the time period is included. Component Value Ref Range Troponin I 0.04 (H) 0.00 - 0.03 ng/mL Specimen Performing Laboratory Blood - Central Venous [facility] Line [address] [place] [address] Narrative Troponin I (TnI) levels must be interpreted in the context of the presenting symptoms and the clinical findings. Elevated TnI levels indicate myocardial damage, but are not specific for ischemic heart disease. Elevated TnI levels are seen in patients with other cardiac conditions (including myocarditis and congestive heart failure), and slight TnI elevations occur in patients with other conditions, including sepsis, renal failure, acidosis, acute neurological disease, and persistent tachyarrhythmia. * ED ECG Interpretation (01/19/2018 3:37 AM) Narrative Milton Weiss MD 01/19/20183:37 AM ECG/EKG Interpretation Date/Time: 01/18/2018 11:00 PM Performed by: MILTON WEISS Authorized by: MILTON WEISS The ECG was interpreted by ED physician. This ECG was not compared with previous ECG(s).The ECG is interpreted as paced. Rate is normal rate. Pacin% capture observed. Clinical Impression: non-specific ECGECG reviewed and does not meet STEMI criteria. Patient tolerance: Patient tolerated the procedure well with no immediate complications * CT chest PE test design (01/19/2018 12:33 AM) Only the most recent of 2 results within the time period is included. Specimen Performing Laboratory [employer] Narrative FINAL REPORT CT, CHEST WITH IV CONTRAST- PE TEST DESIGN INDICATION: Chest pain, acute, pulmonary origin CHEST PAIN COMPARISON: January 10, 2018 TECHNIQUE: Contrast enhanced CT examination of the chest in the pulmonary arterial phase from the bases to the apices. Orthogonal reformatted images as well as coronal maximum intensity projection images were obtained. DOSE REDUCTION: Dose modulation, iterative reconstruction, and/or weight-based adjustment of the mA/kV was utilized to reduce the radiation dose to as low as reasonably achievable. FINDINGS: Lungs and pleura: Trace left effusion. [id number] right effusion. Associated minimal relaxation atelectasis. Remaining portions of the air spaces demonstrate no consolidation. No effusion or pneumothorax. Central airways: Patent. Mediastinum: No adenopathy. Heart and pericardium: Stable marked cardiac enlargement. Severe dilation of the atria, left greater than right. Great vessels: Prominent calibers of the pulmonary trunk and main pulmonary arteries. Pulmonary embolism: None. Regional skeletal structures: Intact. Included upper abdomen: Contrast reflux into the hepatic veins. Nodular hepatic appearance stable compared to prior. Small sliding hiatal hernia. Additional findings: None. IMPRESSION: No pulmonary embolism. Marked cardiomegaly and asymmetric (left greater than right) atrial dilation. Findings compatible with advanced heart failure. Small to moderate right an trace left pleural effusions. Signed: JR Mccann Robert MD Report Verified Date/Time:01/19/2018 00:48:46 Reading Location: [facility] C013Y CT Body Reading Room Procedure Note Interface, External Ris In - 01/19/2018 12:50 AM CDT FINAL REPORT CT, CHEST WITH IV CONTRAST- PE TEST DESIGN INDICATION: Chest pain, acute, pulmonary origin CHEST PAIN COMPARISON: January 10, 2018 TECHNIQUE: Contrast enhanced CT examination of the chest in the pulmonary arterial phase from the bases to the apices. Orthogonal reformatted images as well as coronal maximum intensity projection images were obtained. DOSE REDUCTION: Dose modulation, iterative reconstruction, and/or weight-based adjustment of the mA/kV was utilized to reduce the radiation dose to as low as reasonably achievable. FINDINGS: Lungs and pleura: Trace left effusion. [id number] right effusion. Associated minimal relaxation atelectasis. Remaining portions of the air spaces demonstrate no consolidation. No effusion or pneumothorax. Central airways: Patent. Mediastinum: No adenopathy. Heart and pericardium: Stable marked cardiac enlargement. Severe dilation of the atria, left greater than right. Great vessels: Prominent calibers of the pulmonary trunk and main pulmonary arteries. Pulmonary embolism: None. Regional skeletal structures: Intact. Included upper abdomen: Contrast reflux into the hepatic veins. Nodular hepatic appearance stable compared to prior. Small sliding hiatal hernia. Additional findings: None. IMPRESSION: No pulmonary embolism. Marked cardiomegaly and asymmetric (left greater than right) atrial dilation. Findings compatible with advanced heart failure. Small to moderate right an trace left pleural effusions. Signed: JR Mccann Robert MD Report Verified Date/Time: 01/19/2018 00:48:46 Reading Location: [facility] B1 C013Y CT Body Reading Room * PT/PTT (01/18/2018 10:52 PM) Only the most recent of 3 results within the time period is included. Component Value Ref Range Protime 19.7 (H) 11.7 - 14.7 seconds INR 1.7 <=5.9 PTT 32.4 22.5 - 36.0 seconds [place] [address] Narrative RECOMMENDED COUMADIN/WARFARIN INR THERAPY RANGES STANDARD DOSE: 2.0 - 3.0 Includes: PROPHYLAXIS for venous thrombosis, systemic embolization; TREATMENT for venous thrombosis and/or pulmonary embolus. HIGH RISK: Target INR is 2.5-3.5 for patients with mechanical heart valves. * PERMANENT LAB REPORT - SCAN (01/17/2018 11:20 AM) * TRANSFUSION SERVICE REPORT - SCAN (01/13/2018 5:42 PM) Only the most recent of 7 results within the time period is included. * POC-Glucose meter (01/12/2018 9:54 PM) Only the most recent of 66 results within the time period is included. Component Value Ref Range POC-Glucose Meter 142 (H)Comment: TESTED AT [address] 70 - 110 mg /dL [place] [address] Specimen [place] [address] * Type and screen, automated (01/12/2018 1:04 AM) Only the most recent of 4 results within the time period is included. Component Value Ref Range ABO/RH AUTOMATED (BEAKER) A POSITIVE Ab Scrn NEGATIVE [place] [address] * Pacemaker Check (01/11/2018 9:40 AM) Narrative Catina Aguero RN 01/11/20189:40 AM Device interrogation performed by [employer] rep.Preliminary report placed under cardiac studies in chart. CATINA AUGERO RN 01/11/2018 9:39 AM [id number] * CT abdomen/pelvis with IV contrast (01/10/2018 3:21 AM) Specimen Performing Laboratory [employer] Narrative Addendum Begins REPORT STATUS:A / Signed: Todd Hoover MD Report Verified Date/Time:01/10/2018 03:45:00 Reading Location: [address] Reading Room Addendum Ends FINAL REPORT CT, CHEST WITH IV CONTRAST- PE TEST DESIGN, CT, ABDOMEN \\T\\ PELVIS, WITH IV CONTRAST INDICATION: "Chest pain, acute, PE suspected, low pretest prob" COMPARISON: None TECHNIQUE:Post contrast axially oriented images were obtained from the thoracic inlet through the pelvis. Chest imaging was performed in the angiographic phase with contrast bolus timing optimized to opacify the pulmonary arteries. 3-D MIP reformats were created. Coronal and sagittal reformats were provided. DOSE REDUCTION: Dose modulation, iterative reconstruction, and/or weight-based adjustment of the mA/kV was utilized to reduce the radiation dose to as low as reasonably achievable. FINDINGS: CHEST: No pulmonary or some. Massive cardiomegaly predominantly involving the atria. No pathologic adenopathy in the chest per CT size criteria. Small right and trace left-sided effusion with adjacent airspace disease. 8 mm nodular opacity in the right upper lobe. 6.2 x 4.8 cm ovoid expansion of the left pectoralis musculature. Findings probably reflecting hematoma. 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 Borderline splenomegaly 13 cm. Surgically absent gallbladder. Normal adrenal glands. Simple cyst in the right kidney. Incompletely characterized hypodensities in the left kidney which also probably reflect simple cysts. Unremarkable pancreas. No acute abnormality of the hollow abdominal viscera. Large colonic stool burden. Normal appendix. No focal lytic or destructive bony process. IMPRESSION: No pulmonary embolism. Massive cardiomegaly. 8 mm right upper lobe pulmonary nodule. The Fleischner Society guidelines for followup of an incidentally detected 6 to 8 mm pulmonary nodule are as follows:LOW RISK patient (minimal or absent history of smoking and other known risk factors): follow-up CT in 16-12 months; then consider follow-up at 18-24 months. HIGH RISK patient (history of smoking or other risk factors):follow-up CT at 6-12 months, then again at 18-24 months if no change. Probable hematoma of the left pectoralis muscle. Recommend clinical follow-up to ensure resolution. 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 No acute abnormality in the abdomen or pelvis. Signed: Todd Hoover MD Report Verified Date/Time:01/10/2018 03:42:51 Reading Location: [address] Reading Room Procedure Note Interface, External Ris In - 01/10/2018 3:47 AM CDT Addendum Begins REPORT STATUS:A / Signed: Todd Hoover MD Report Verified Date/Time: 01/10/2018 03:45:00 Reading Location: [address] Reading Room Addendum Ends FINAL REPORT CT, CHEST WITH IV CONTRAST- PE TEST DESIGN, CT, ABDOMEN \\T\\ PELVIS, WITH IV CONTRAST INDICATION: "Chest pain, acute, PE suspected, low pretest prob" COMPARISON: None TECHNIQUE: Post contrast axially oriented images were obtained from the thoracic inlet through the pelvis. Chest imaging was performed in the angiographic phase with contrast bolus timing optimized to opacify the pulmonary arteries. 3-D MIP reformats were created. Coronal and sagittal reformats were provided. DOSE REDUCTION: Dose modulation, iterative reconstruction, and/or weight-based adjustment of the mA/kV was utilized to reduce the radiation dose to as low as reasonably achievable. FINDINGS: CHEST: No pulmonary or some. Massive cardiomegaly predominantly involving the atria. No pathologic adenopathy in the chest per CT size criteria. Small right and trace left-sided effusion with adjacent airspace disease. 8 mm nodular opacity in the right upper lobe. 6.2 x 4.8 cm ovoid expansion of the left pectoralis musculature. Findings probably reflecting hematoma. 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 Borderline splenomegaly 13 cm. Surgically absent gallbladder. Normal adrenal glands. Simple cyst in the right kidney. Incompletely characterized hypodensities in the left kidney which also probably reflect simple cysts. Unremarkable pancreas. No acute abnormality of the hollow abdominal viscera. Large colonic stool burden. Normal appendix. No focal lytic or destructive bony process. IMPRESSION: No pulmonary embolism. Massive cardiomegaly. 8 mm right upper lobe pulmonary nodule. The Fleischner Society guidelines for followup of an incidentally detected 6 to 8 mm pulmonary nodule are as follows: LOW RISK patient (minimal or absent history of smoking and other known risk factors): follow-up CT in 16-12 months; then consider follow-up at 18-24 months. HIGH RISK patient (history of smoking or other risk factors):follow-up CT at 6-12 months, then again at 18-24 months if no change. Probable hematoma of the left pectoralis muscle. Recommend clinical follow-up to ensure resolution. 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 No acute abnormality in the abdomen or pelvis. Signed: Todd Hoover MD Report Verified Date/Time: 01/10/2018 03:42:51 Reading Location: [address] Reading Room * aPTT (01/09/2018 5:30 AM) Only the most recent of 34 results within the time period is included. Component Value Ref Range PTT 36.4 (H) 22.5 - 36.0 seconds Specimen Performing Laboratory Blood - PICC [address] [address] Narrative While on warfarin. * Blood gas, arterial (01/08/2018 12:02 PM) Only the most recent of 8 results within the time period is included. Component Value Ref Range pH, Arterial 7.52 (H) 7.35 - 7.45 pCO2, Arterial 46 (H) 35 - 45 mmHg pO2, Arterial 90 80 - 90 mmHg O2 Sat, Arterial 97.5 (H) 96.0 - 97.0 % HCO3, Arterial 37 (H) 21 - 29 mmol/L Base Excess, Arterial 12.3 (H) -2.0 - 3.0 mmol/L Patient Temperature 36.7 C FIO2 28.0 % Specimen Performing Laboratory Blood, Arterial - Arm, [facility] Right [address] [place] [address] * BUN and Creatinine (01/06/2018 5:25 AM) Only the most recent of 2 results within the time period is included. Component Value Ref Range BUN 13 7 - 21 mg/dL Creatinine 0.96 0.57 - 1.25 mg/dL EGFR 78Comment: ESTIMATED GFR IS NOT ACCURATE mL/min/1.73 sq m CREATININE CLEARANCE IN PREDICTING GLOMERULAR FILTRATION RATE. ESTIMATED GFR IS NOT APPLICABLE FOR DIALYSIS PATIENTS. Specimen [place] [address] * Urinalysis w/Microscopic (01/05/2018 12:35 PM) Only the most recent of 2 results within the time period is included. Component Value Ref Range Color, UA Yellow Clarity, UA Hazy Specific [place], UA 1.018 1.001 - 1.035 pH, UA 6.0 5.0 - 8.0 Protein, UA 100 mg/dL (A) Negative Glucose, UA Negative Negative Ketones, UA Negative Negative Bilirubin, UA Negative Negative Blood, UA Small (A) Negative Nitrite, UA Negative Negative Leukocytes, UA Negative Negative Urobilinogen, UA 0.2 0.2 - 1.0 mg/dL RBC, UA 1 /HPF WBC, UA 2 /HPF Bacteria, UA Rare Mucus Rare Squam Epithel, UA 1 /HPF Hyaline Casts, UA 35 /LPF Amorphous Crystals Occasional Specimen Source Urine, Voided Specimen Performing Laboratory Urine - Urine, [place] [address] * Prepare Leuko-Red RBC (01/04/2018 11:54 PM) Only the most recent of 2 results within the time period is included. Component Value Ref Range CROSSMATCH COMPATIBLE Unit ABO A Pos UNIT NUMBER [id number] Status TRANSFUSED Blood Bank Product RED BLOOD CELLS PRODUCT CODE [id number] Specimen Performing Laboratory Other [employer] [place] * POC ACTIVATED CLOTTING TIME (01/04/2018 12:29 PM) Component Value Ref Range Activated Clotting Time 263Comment: TESTED AT [address] [address] Specimen Performing Laboratory Blood [address] [address] * Transfuse Leuko-Red RBC (01/03/2018 5:06 PM) Only the most recent of 5 results within the time period is included. * IR PICC Line Placement (01/03/2018 9:45 AM) Specimen Performing Laboratory [facility] Narrative FINAL REPORT Left upper extremity PICC exchange History: Malpositioned left upper cavity PICC. Hospitality Associate:Freddie Schwab MD. Blast Furnace Operator: Gt Cervantes. Modality: Fluoroscopy Sedation: None. Anesthesia:Two percent Lidocaine without epinephrine. Approach:Left upper extremity vein Estimated blood loss:< 5 cc. Specimen: None. Fluoroscopy Time: 1.3 min. Reference Air Kerma (Ka, r): 22.5 mGy. Technique: Informed written consent was obtained. Discussion of risks, benefits, and alternatives were made with the patient. The patient expressed understanding and agreed to proceed.A universal timeout was performed prior to starting the procedure.All elements maximal sterile barrier technique was utilized for this procedure, including utilization of sterile scrub solution for skin prep, a large sterile sheet to cover the areas of the patient that were not prepped, and hand hygiene, mask, head covering, and sterile gown for performing radiologist and scrub technologist. A spot fluoroscopic radiograph of the patient's chest demonstrated that the previously placed left upper extremity PICC tip overlies the right subclavian vein. A 0.018 inch Glidewire was inserted through the existing right upper extremity PICC which was retracted into the left brachiocephalic vein. The Glidewire tip was directed into the right atrium. The old PICC was then removed over the Glidewire and a new 5 Yemeni dual-lumen PICC was trimmed to 43 cm. A 5 Yemeni peel-away sheath was placed. The new PICC was then advanced over the guidewire and the distal tip was positioned in the right atrium. The peel-away sheath was removed. The ports were flushed and aspirated easily following placement.The PICC line was secured with suture material. Vital signs were monitored throughout the procedure by a nurse, and remained stable.The patient tolerated the procedure well and left the department in the same condition. Results:Spot radiograph of the chest demonstrates the new left upper extremity PICC line to lie in the expected position with its tip overlying the cavoatrial junction. Impression: Successful, uncomplicated postoperative change of a left upper extremity PICC. The catheter is ready for immediate use. Signed: Freddie Schwab MD Report Verified Date/Time:01/03/2018 14:30:30 Reading Location: [facility] P048 Angio Body Reading Room Procedure Note Interface, External Ris In - 01/03/2018 2:32 PM CDT FINAL REPORT Left upper extremity PICC exchange History: Malpositioned left upper cavity PICC. Hospitality Associate: Freddie Schwab MD. Blast Furnace Operator: Gt Cervantes. Modality: Fluoroscopy Sedation: None. Anesthesia: Two percent Lidocaine without epinephrine. Approach: Left upper extremity vein Estimated blood loss: < 5 cc. Specimen: None. Fluoroscopy Time: 1.3 min. Reference Air Kerma (Ka, r): 22.5 mGy. Technique: Informed written consent was obtained. Discussion of risks, benefits, and alternatives were made with the patient. The patient expressed understanding and agreed to proceed. A universal timeout was performed prior to starting the procedure. All elements maximal sterile barrier technique was utilized for this procedure, including utilization of sterile scrub solution for skin prep, a large sterile sheet to cover the areas of the patient that were not prepped, and hand hygiene, mask, head covering, and sterile gown for performing radiologist and scrub technologist. A spot fluoroscopic radiograph of the patient's chest demonstrated that the previously placed left upper extremity PICC tip overlies the right subclavian vein. A 0.018 inch Glidewire was inserted through the existing right upper extremity PICC which was retracted into the left brachiocephalic vein. The Glidewire tip was directed into the right atrium. The old PICC was then removed over the Glidewire and a new 5 Yemeni dual-lumen PICC was trimmed to 43 cm. A 5 Yemeni peel-away sheath was placed. The new PICC was then advanced over the guidewire and the distal tip was positioned in the right atrium. The peel-away sheath was removed. The ports were flushed and aspirated easily following placement. The PICC line was secured with suture material. Vital signs were monitored throughout the procedure by a nurse, and remained stable. The patient tolerated the procedure well and left the department in the same condition. Results: Spot radiograph of the chest demonstrates the new left upper extremity PICC line to lie in the expected position with its tip overlying the cavoatrial junction. Impression: Successful, uncomplicated postoperative change of a left upper extremity PICC. The catheter is ready for immediate use. Signed: Freddei Schwab MD Report Verified Date/Time: 01/03/2018 14:30:30 Reading Location: [place] [address] Angio Body Reading Room * Comprehensive metabolic panel (01/03/2018 4:56 AM) Only the most recent of 3 results within the time period is included. Component Value Ref Range Protein, Total 7.9 6.0 - 8.3 gm/dL Albumin 2.3 (L) 3.5 - 5.0 g/dL Alkaline Phosphatase 99 40 - 150 U/L Total Bilirubin 1.3 (H) 0.2 - 1.2 mg/dL Sodium 131 (L) 136 - 145 meq/L Potassium 4.0 3.5 - 5.1 meq/L Chloride 92 (L) 98 - 107 meq/L CO2 28 22 - 29 meq/L BUN 15 7 - 21 mg/dL Creatinine 1.08 0.57 - 1.25 mg/dL Glucose 114 (H) 70 - 105 mg/dL Calcium 8.2 (L) 8.4 - 10.2 mg/dL AST 26 5 - 34 U/L ALT <6 (L) 6 - 55 U/L EGFR 68Comment: ESTIMATED GFR IS NOT ACCURATE mL/min/1.73 sq m CREATININE CLEARANCE IN PREDICTING GLOMERULAR FILTRATION RATE. ESTIMATED GFR IS NOT APPLICABLE FOR DIALYSIS PATIENTS. Specimen Performing Laboratory Blood - Arm, Right [address] [address] * Platelet count (01/01/2018 12:14 PM) Component Value Ref Range Platelets 116 (L) 150 - 450 K/CU MM Specimen Performing Laboratory Blood [address] [address] * Vitamin B12 and Folate (01/01/2018 4:21 AM) Component Value Ref Range Vitamin B12 >2000 (H) 213 - 816 pg/mL Folate 8.0 >=7.0 ng/mL Specimen Performing Laboratory Blood - Central Venous [facility] Line [address] [place] [address] * Iron, TIBC, % sat. (without ferritin) (01/01/2018 4:21 AM) Component Value Ref Range Iron 47 40 - 160 ug/dL TIBC 149 (L) 250 - 450 ug/dL Iron % Saturation 32 20 - 55 % Specimen Performing Laboratory Blood - Central Venous [facility] Line [address] [place] [address] * Hemoglobin and hematocrit (12/31/2017 9:05 PM) Component Value Ref Range Hemoglobin 8.1 (L) 13.7 - 17.5 GM/DL Hematocrit 25.4 (L) 40.1 - 51.0 % Specimen Performing Laboratory Blood - Central Venous [facility] Line [address] [place] [address] * Gentamicin level, trough (12/30/2017 9:08 AM) Only the most recent of 2 results within the time period is included. Component Value Ref Range Gentamicin Trough 1.1 (H) 0.5 - 1.0 ug/mL Specimen Performing Laboratory Blood [address] [address] Narrative Dosing Target Level (mcg/mL) 1-1.5 mg/kg q 8-12 HR 0.5-1.0 3-7 mg/kg q 24 HR<0.5 * Potassium (12/28/2017 5:29 PM) Component Value Ref Range Potassium 3.2 (L)Comment: Specimen slightly hemolyzed 3.5 - 5.1 meq/L Specimen Performing Laboratory Blood [address] [address] * Blood culture (12/28/2017 4:59 AM) Only the most recent of 7 results within the time period is included. Component Value Ref Range Result No growth in 5 days Specimen Performing Laboratory Blood - Central Venous [facility] Line [address] [place] [address] * Oxygen saturation, measured (12/24/2017 10:43 AM) Only the most recent of 2 results within the time period is included. Component Value Ref Range O2 Saturation (Measured) 70.4 % Specimen Performing Laboratory Blood - Central Venous [facility] Line [address] [place] [address] * Calcium, Ionized (12/24/2017 7:15 AM) Only the most recent of 5 results within the time period is included. Component Value Ref Range Calcium, Ion 1.07 (L) 1.12 - 1.27 mmol/L pH, Blood 7.38 Specimen Performing Laboratory Blood [address] [address] * Lactic acid, arterial, whole blood (12/23/2017 4:31 PM) Only the most recent of 6 results within the time period is included. Component Value Ref Range Lactate, Art 1.1 0.5 - 2.2 mmol/L Specimen Performing Laboratory Blood, Arterial - Line, [facility] Arterial [address] [place] [address] Narrative Effective 02/26/2016: Units/Reference Range Change New: 0.5-2.2 mmol/LPrevious: 5-20 mg/dL * BCID (12/23/2017 9:33 AM) Only the most recent of 2 results within the time period is included. Component Value Ref Range Scan Result Specimen Performing Laboratory Blood [address] [address] Narrative Result comments: METHICILLIN-SUSCEPTIBLE STAPH. AUREUS (MSSA) DETECTED Staphylococcus aureus DETECTED MecA NOT DETECTED First line therapy: cefazolin or nafcillin (nafcillin preferred if Central Nervous System Infection) [facility] policy mandates Infectious Disease consultation for all patients with Staph. aureus bacteremia. Other organisms and resistance markers not contained in this PCR panel cannot be excluded and follow-up of traditional culture results is required. This sample was tested at the [facility] Clinical Microbiology Laboratory using the [employer] Blood Culture ID Panel. This test is FDA cleared for in vitro diagnostic use and has been verified and approved by the [facility] Clinical Microbiology laboratory for clinical use. Reference Range: Not Detected * Creatine Kinase (CK), Total and MB (12/23/2017 4:30 AM) Only the most recent of 2 results within the time period is included. Component Value Ref Range Total CK 156 29 - 200 U/L CK-MB 8.3 (H) 0.0 - 6.6 ng/mL MB Relative Index 5.3 % Specimen Performing Laboratory Blood - Line, Arterial [address] [address] Narrative CK-MB Reference Range: <6.7Normal 6.7-10.0Borderline >10.0 Abnormal * Thromboelastograph (TEG) (12/22/2017 5:58 PM) Only the most recent of 2 results within the time period is included. Component Value Ref Range TEG Activated Clotting 7.1 (H) 4.0 - 7.0 minutes Time TEG Fibrinogen Activity 68.9 61.0 - 73.0 degrees TEG Platelet Aggregation 61.7 55.0 - 65.0 MM TEG Fibrinolysis 0.0 0.0 - 5.0 % TEG-H Activated Clotting 6.5 4.0 - 7.0 minutes Time TEG-H Fibrinogen Activity 70.8 61.0 - 73.0 degrees TEG-H Platelet 55.8 55.0 - 65.0 MM Aggregation TEG-H Fibrinolysis 0.0 0.0 - 5.0 % Specimen Performing Laboratory Blood - Line, [address] [address] * Fibrinogen (12/22/2017 5:58 PM) Only the most recent of 3 results within the time period is included. Component Value Ref Range Fibrinogen 266 225 - 434 mg/dl Specimen Performing Laboratory Blood - Line, [address] [address] * ECHOCARDIOGRAM REPORT - SCAN (12/22/2017 4:20 PM) Only the most recent of 3 results within the time period is included. * Limited 2D Echocardiogram (12/22/2017 1:05 PM) Component Value Ref Range Ejection Fraction Specimen Performing Laboratory [facility] CP[facility] Narrative Transthoracic Echocardiography Report (TTE) Demographics Patient NameAnisha ROBLERO of Study2017 Gender Male Visit [id number] Race Number [id number] Number Date of 1950 Referring PhysicianLeigh Ann CARLSON Age 67 year(s) Rod Buster Aylin Simon [facility] Record Tester AriadnaInterpreting Abdulaziz Spence MD ContrerasPhysician Procedure Type of Study TTE procedure:LIMITED 2D ECHOCARDIOGRAM (DOLORES) Indications:Suspected Pericardial conditions. Clinical History HGB 9.1 HCT 28.5 % ANEMIA, A-FIB, CHF, CAD, HTN, AICD (2016), ICMO, PHTN, MV REPLACEMENT (2012) Height: 68 inches Weight: 84.37 kg (186 lbs) BSA: 1.98 m^2 BMI: 28.28 kg/m^2 HR: 80 bpm BP: 155/61 mmHg Summary Limited 2D study No significant pericardial effusion is visualized. Signature Findings Technical Quality: Limited visualization Left Ventricle The LV endocardium is adequately visualized. The left ventricle is chamber size (by vol index) is normal (male - LVED vol - 34- 74ml/m2). Mild concentric LV hypertrophy. All of the LV segments contract normally . Left AtriumLA size is severely enlarged (>48 ml/m2) . Giant LA Dense spontaneous echocontrast Right VentricleThe right ventricular chamber size and systolic function are within normal limits. RV pacing wire is visualized . Right Atrium RA size is severely dilated.Giant RA RA pacing wire is visualized . spontaneous echocontrast Atrial SeptumHypermobile, redundant interatrial septum is noted. Aortic Valve Mild AoV cusp thickening. Mild AoV cusp calcification. AoV cusp mobility is moderately decreased . Mitral Valve A biologic MV prosthesis is visualized with indeterminate function (no Doppler) Echodensity is again seen on MV bioprosthesis, refer to recent TIA Tricuspid ValveMild TV leaflet thickening. Pulmonic Valve Normal PV structure. AortaAortic root size (SInus of Valsalva diameter) is moderate to severely dilated . PericardiumNo significant pericardial effusion is visualized. IVC/SVC/PA/PV/PleuralA left pleural effusion is noted. The pulmonary artery appears moderately dilated. Dilated coronary sinus. 2.2 cm Chambers/Structures Left Atrium LA Dimension: 7.49 cmLA Area: 146.74 cm^2 LA Volume: 262.32 ml LA Vol. Index: 132 ml/m^2 Left Ventricle LVIDd: 4.88 cm LVIDs: 3.39 cm LV Septum Diastolic: 1.14 cm LV PW Diastolic: 1.29 cmLV FS: 30.5 % LVEDV Antoine's:55.4 ml LVESV Antoine's:36.92 mlLVEDVI: 28 ml/m ^2 LVEF Antoine's: 54.1 %LVESVI: 19 ml /m^2 LVOT Diameter: 2.01 cm Right Atrium RA Vol. (Sngl Plane): 226 ml Aorta Ao Root S of Yael.: 4.95 cmAscending Aorta: 4.99 cm Pulmonary Artery Main PA: 3.91 cmRight PA: 2.86 cm Left PA: 2.96 cm Doppler/Quantitative Measurements LVOT LVOT Diameter: 2.01 cm LVOT Area: 3.17 cm^2 Procedure Note Interface, External Ris In - 12/22/2017 3:34 PM [employer] PIPE TESTER Transthoracic Echocardiography Report (TTE) Demographics Patient Name RAQUEL ROBLERO Date of Study 12/22/2017 Gender Male Visit Number [id number] Race Room Number [id number] Number Date of 1950 Referring Physician Leigh Ann CARLSON Age 67 year(s) Rod Buster Aylin Simon [facility] Record Tester [facility] Interpreting Abdulaziz Spence MD Brooks Physician Procedure Type of Study TTE procedure:LIMITED 2D ECHOCARDIOGRAM (DOLORES) Indications:Suspected Pericardial conditions. Clinical History HGB 9.1 HCT 28.5 % ANEMIA, A-FIB, CHF, CAD, HTN, AICD (2016), ICMO, PHTN, MV REPLACEMENT (2012) Height: 68 inches Weight: 84.37 kg (186 lbs) BSA: 1.98 m^2 BMI: 28.28 kg/m^2 HR: 80 bpm BP: 155/61 mmHg Summary Limited 2D study No significant pericardial effusion is visualized. Signature Findings Technical Quality: Limited visualization Left Ventricle The LV endocardium is adequately visualized. The left ventricle is chamber size (by vol index) is normal (male - LVED vol - 34-74ml/m2). Mild concentric LV hypertrophy. All of the LV segments contract normally . Left Atrium LA size is severely enlarged (>48 ml/m2) . Giant LA Dense spontaneous echocontrast Right Ventricle The right ventricular chamber size and systolic function are within normal limits. RV pacing wire is visualized . Right Atrium RA size is severely dilated.Giant RA RA pacing wire is visualized . spontaneous echocontrast Atrial Septum Hypermobile, redundant interatrial septum is noted. Aortic Valve Mild AoV cusp thickening. Mild AoV cusp calcification. AoV cusp mobility is moderately decreased . Mitral Valve A biologic MV prosthesis is visualized with indeterminate function (no Doppler) Echodensity is again seen on MV bioprosthesis, refer to recent TIA Tricuspid Valve Mild TV leaflet thickening. Pulmonic Valve Normal PV structure. Aorta Aortic root size (SInus of Valsalva diameter) is moderate to severely dilated . Pericardium No significant pericardial effusion is visualized. IVC/SVC/PA/PV/Pleural A left pleural effusion is noted. The pulmonary artery appears moderately dilated. Dilated coronary sinus. 2.2 cm Chambers/Structures Left Atrium LA Dimension: 7.49 cm LA Area: 146.74 cm^2 LA Volume: 262.32 ml LA Vol. Index: 132 ml/m^2 Left Ventricle LVIDd: 4.88 cm LVIDs: 3.39 cm LV Septum Diastolic: 1.14 cm LV PW Diastolic: 1.29 cm LV FS: 30.5 % LVEDV Antoine's:55.4 ml LVESV Antoine's:36.92 ml LVEDVI: 28 ml/m^2 LVEF Antoine's: 54.1 % LVESVI: 19 ml/m^2 LVOT Diameter: 2.01 cm Right Atrium RA Vol. (Sngl Plane): 226 ml Aorta Ao Root S of Yael.: 4.95 cm Ascending Aorta: 4.99 cm Pulmonary Artery Main PA: 3.91 cm Right PA: 2.86 cm Left PA: 2.96 cm Doppler/Quantitative Measurements LVOT LVOT Diameter: 2.01 cm LVOT Area: 3.17 cm^2 * Manual Differential (12/21/2017 11:50 PM) Component Value Ref Range % Neutros (manual) 76 % % Lymphs (manual) 10 % % Monos (manual) 4 % % Eos (manual) 1 % % Metamyelo (manual) 1 (H) 0 - 0 % % Bands (manual) 8 0 - 10 % # Neutros (manual) 10.41 (H) 1.80 - 8.00 K/ L # Lymphs (manual) 1.37 (L) 1.48 - 4.50 K/ L # Monos (manual) 0.55 0.00 - 1.30 K/ L # Eos (manual) 0.14 0.00 - 0.50 K/ L # Metamyelo (manual) 0.14 (H) 0.00 - 0.00 K/ L # Bands (manual) 1.1 (H) 0.0 - 0.8 K/ L Total Counted 100 Bands plus Segmented 11.51 Neutrophils WBC Morphology Normal Platelet Morphology Normal Anisocytosis 1+ few Ovalocytes 1+ few Poikilocytes 1+ few Spherocytes 1+ few Specimen Performing Laboratory Blood [address] [address] * POCT-HEMATOCRIT (12/21/2017 11:46 PM) Component Value Ref Range POC-Hematocrit 28 (L)Comment: TESTED AT [address] 40 - 50 % [place] [address] Specimen Performing Laboratory Blood [address] [address] * POCT-HEMOGLOBIN (12/21/2017 11:46 PM) Component Value Ref Range POC-Hemoglobin 9.5 (L)Comment: TESTED AT [address] 13.0 - 16.8 g/ dL [place] [address] Specimen Performing Laboratory Blood [place] [id number] * POCT-GLUCOSE (12/21/2017 11:46 PM) Component Value Ref Range POC-Glucose 163 (H)Comment: TESTED AT [address] 70 - 110 mg/dL [place] [address] Specimen [place] [address] * POC-Sodium (12/21/2017 11:46 PM) Component Value Ref Range POC-Sodium 133 (L)Comment: TESTED AT [address] 135 - 148 meq/L [place] [address] Specimen [place]forming [place] [address] * POC-Potassium (12/21/2017 11:46 PM) Component Value Ref Range POC-Potassium 4.5Comment: TESTED AT [address] 3.6 - 5.5 meq/L [place] [address] Specimen Performing [place] [address] * POC-Calcium ionized (12/21/2017 11:46 PM) Component Value Ref Range POC-Calcium Ionized 1.17Comment: TESTED AT [address] 1.12 - 1.27 mmol/L [place] [address] Specimen Performing [place] [address] * POC-Blood gases, venous (12/21/2017 11:46 PM) Component Value Ref Range Temp. Celsius-POC 37.0 FIO2-POC Comment: TESTED AT [place] [address] pH, Venous-POC 7.297 (L) 7.320 - 7.420 PCO2, Venous-POC 49.6 41.0 - 51.0 mm Hg PO2, Venous-POC 49.0 (H) 25.0 - 40.0 mm Hg SO2, Venous-POC 79.0 (H) 40.0 - 70.0 % HCO3, Venous-POC 24.3 21.0 - 29.0 meq/L BE, Venous-POC -2.0 -2.0 - 3.0 meq/L Specimen [place] [address] * Urine culture (12/21/2017 3:59 PM) Only the most recent of 2 results within the time period is included. Component Value Ref Range Result No growth Gram Stain Result No WBCs Gram Stain Result No organisms seen Specimen [place] [address] * Potassium-Stat Lab (12/21/2017 12:36 PM) Component Value Ref Range Potassium 3.1 (L) 3.6 - 5.5 meq/L Specimen Performing Laboratory Blood, [address] [address] * Sodium Na-Stat Lab (12/21/2017 12:36 PM) Component Value Ref Range Sodium 133 (L) 135 - 148 meq/L Specimen Performing Laboratory Blood, [address] [address] * Glucose-Stat Lab (12/21/2017 12:36 PM) Component Value Ref Range Glucose 107 70 - 110 mg/dL Specimen Performing Laboratory Blood, [address] [address] * HGB/HCT (H&H)-Stat Lab (12/21/2017 12:36 PM) Component Value Ref Range Hemoglobin 8.9 (L) 13.0 - 16.8 g/dL Hematocrit 26.0 (L) 40.0 - 50.0 % Specimen Performing Laboratory Blood, [address] [address] * Procalcitonin (12/21/2017 12:26 PM) Component Value Ref Range Procalcitonin 1.47 (H) <0.05 ng/mL Specimen [place] [address] Narrative SEPSIS RISK (ng/mL) Low:0.05-0.50 Intermediate: 0.51-2.00 High: >=2.01 * [facility] CRITICAL LABS (ABG,NA,K,H&H,GLUCOSE) (12/21/2017 12:25 PM) Specimen Performing Laboratory Blood, Arterial Narrative The following orders were created for panel order [facility] CRITICAL LAB[facility] (ABG,NA,K,H& H,GLUCOSE). Procedure Abnormality Status --------- - ------ Blood gas, arterial[[id number]]Abnormal Final result Sodium Na-Stat Lab[[id number]] Abnormal Final result Potassium-Stat Lab[[id number]] Abnormal Final result Glucose-Stat Lab[[id number]] Normal Final result HGB/HCT (H&H)-Stat Lab[[id number]] Abnormal Final result Please view results for these tests on the individual orders. * Prepare RBC (12/21/2017 12:12 PM) Component Value Ref Range CROSSMATCH COMPATIBLE Unit ABO A Pos UNIT NUMBER [id number] Status RETURNED FROM ISSUE Blood Bank Product RED BLOOD CELLS PRODUCT CODE [id number] CROSSMATCH COMPATIBLE Unit ABO A Pos UNIT NUMBER [id number] Status RETURNED FROM ISSUE Blood Bank Product RED BLOOD CELLS PRODUCT CODE [id number] Specimen Performing Laboratory [facility] [place] * AFB culture + smear (12/21/2017 10:18 AM) Only the most recent of 2 results within the time period is included. Component Value Ref Range Result No acid-fast bacilli isolated in 42 days AFB Smear No acid fast bacilli seen Specimen Performing Laboratory Abscess - Chest, [address] [address] * Anaerobic culture (12/21/2017 10:18 AM) Only the most recent of 2 results within the time period is included. Component Value Ref Range Result No anaerobes isolated Specimen Performing Laboratory Abscess - Chest, [address] [address] * Surgically obtained culture + gram stain (12/21/2017 10:18 AM) Only the most recent of 2 results within the time period is included. Component Value Ref Range Result Result 2+ Same organism has been isolated from cultures(s) of the same body site and collection date. Repeat identification and susceptibility testing performed only after consultation with the clinical microbiology laboratory. (A) Comment: Refer to previous culture of Staphylococcus aureus Gram Stain Result 4+ White blood cells seen Gram Stain Result No organisms seen Specimen Performing Laboratory Abscess - Chest, [address] [address] * Fungus culture + smear (12/21/2017 10:18 AM) Only the most recent of 2 results within the time period is included. Component Value Ref Range Result No fungus isolated in 28 days Fungus Smear No fungi seen Specimen Performing Laboratory Abscess - Chest, [address] [address] * SPIN/CONCENTRATION CHARGE (12/21/2017 10:18 AM) Only the most recent of 2 results within the time period is included. Component Value Ref Range Concentration charged Done Specimen Performing Laboratory Abscess - Chest, Left [facility] [address] [address] * Transesophageal echo (12/20/2017 3:38 PM) Component Value Ref Range Ejection Fraction Specimen Performing Laboratory [facility] MKELSY CPACS Narrative Transesophageal Echocardiography Report (TIA) Demographics Patient NameRAQUEL ROBLERO Date of Study12/20/2017 Male Visit [id number] Unknown Room NumberSCPR Number Date of 1950Referring Omid Ball Age 67 year(s)Rod Buster Ron Anne Interpreting Sanchez Small MD Physician FellowDaniel Farr The procedure was explained in detail to the patient. Risks, complications and alternative treatments were reviewed. Written consent was obtained. Procedure Type of Study TIA procedure:TRANSESOPHAGEAL ECHO Indications:Endocarditis. Clinical History ANEMIA,A-FIB,CHF,CAD,HTN,DEFIBRILLATOR,ICMP,PHTN Height: 68 inches Weight: 65.77 kg (145 lbs) BSA: 1.78 m^2 BMI: 22.05 kg/m^2 HR: 6 bpm BP: 134/78 mmHg Procedure Informed Consent Procedure consent form obtained. Airway assessment performed. TIA procedure notes The patient was counseled and informed consent was obtained. Topical and intravenous anesthesia was administered. The esophagus was intubated without difficulty. The probe was passed and all standard echocardiographic views were obtained. IV saline contrast echo examination was performed with TIA. The patient tolerated the procedure well. Class 3: Soft and hard palate and base of the uvula are visible. Able to breathe and cough freely. Non-difficult airway. Moderate sedation by performing MD using 3 mg IV versed and 50 mcg IV fentanyl. . Mallampati Score: 3. - See IV sedation record Summary Well seated bioprosthetic mitral valve. Mean mitral gradient of 3 mmHg. No significant mitral regurgitation. There is a linear density on LA side of the anterior leaflet which may represent suture material but endocarditis can not be ruled out. Severe tricuspid regurgitation. Estimated peak systolic PA pressure is 50-55 mmHg plus CVP . No pericardial effusion is visualized. Signature Findings Left Ventricle Small left ventricular chamber size. Normal wall thickness. Normal overall left ventricular systolic function. No apparent segmental wall motion abnormalities. Left AtriumLA size is severely enlarged with smoke artifact noted. Right VentricleThe right ventricular chamber size is small and systolic function is normal. Right Atrium RA size is moderately dilated. Atrial SeptumNormal interatrial septum by available views. Atrial septal position continuously bows [id number], consistent with elevated LA pressure . Aortic Valve There is mild aortic stenosis with restricted leaflet opening. There is mild aortic regurgitation. Mitral Valve Well seated bioprosthetic mitral valve. Mean mitral gradient of 3 mmHg. No significant mitral regurgitation. There is a linear density on LA side of the anterior leaflet which may represent suture material but endocarditis can not be ruled out. Tricuspid ValveSevere tricuspid regurgitation. Estimated peak systolic PA pressure is 50-55 mmHg plus CVP . Pulmonic Valve Normal PV structure and function. AortaAortic root size (SInus of Valsalva diameter) is normal . PericardiumNo pericardial effusion is visualized. IVC/SVC/PA/PV/PleuralPleural effusion noted. Procedure Note Interface, External Ris In - 12/21/2017 8:09 AM OIL G[employer] AND PIPE TESTER Transesophageal Echocardiography Report (TIA) Demographics Patient Name RAQUEL ROBLERO Date of Study 12/20/2017 Gender Male Visit Number [id number] Race Unknown Room Number SCPR Number Date of 1950 Referring Physician Omid Koehler Age 67 year(s) Rod Buster Ron Anne Interpreting Sanchez Small MD Physician Fellow Daniel Farr The procedure was explained in detail to the patient. Risks, complications and alternative treatments were reviewed. Written consent was obtained. Procedure Type of Study TIA procedure:TRANSESOPHAGEAL ECHO Indications:Endocarditis. Clinical History ANEMIA,A-FIB,CHF,CAD,HTN,DEFIBRILLATOR,ICMP,PHTN Height: 68 inches Weight: 65.77 kg (145 lbs) BSA: 1.78 m^2 BMI: 22.05 kg/m^2 HR: 6 bpm BP: 134/78 mmHg Procedure Informed Consent Procedure consent form obtained. Airway assessment performed. TIA procedure notes The patient was counseled and informed consent was obtained. Topical and intravenous anesthesia was administered. The esophagus was intubated without difficulty. The probe was passed and all standard echocardiographic views were obtained. IV saline contrast echo examination was performed with TIA. The patient tolerated the procedure well. Class 3: Soft and hard palate and base of the uvula are visible. Able to breathe and cough freely. Non-difficult airway. Moderate sedation by performing MD using 3 mg IV versed and 50 mcg IV fentanyl. . Mallampati Score: 3. - See IV sedation record Summary Well seated bioprosthetic mitral valve. Mean mitral gradient of 3 mmHg. No significant mitral regurgitation. There is a linear density on LA side of the anterior leaflet which may represent suture material but endocarditis can not be ruled out. Severe tricuspid regurgitation. Estimated peak systolic PA pressure is 50-55 mmHg plus CVP . No pericardial effusion is visualized. Signature Findings Left Ventricle Small left ventricular chamber size. Normal wall thickness. Normal overall left ventricular systolic function. No apparent segmental wall motion abnormalities. Left Atrium LA size is severely enlarged with smoke artifact noted. Right Ventricle The right ventricular chamber size is small and systolic function is normal. Right Atrium RA size is moderately dilated. Atrial Septum Normal interatrial septum by available views. Atrial septal position continuously bows [id number], consistent with elevated LA pressure . Aortic Valve There is mild aortic stenosis with restricted leaflet opening. There is mild aortic regurgitation. Mitral Valve Well seated bioprosthetic mitral valve. Mean mitral gradient of 3 mmHg. No significant mitral regurgitation. There is a linear density on LA side of the anterior leaflet which may represent suture material but endocarditis can not be ruled out. Tricuspid Valve Severe tricuspid regurgitation. Estimated peak systolic PA pressure is 50-55 mmHg plus CVP . Pulmonic Valve Normal PV structure and function. Aorta Aortic root size (SInus of Valsalva diameter) is normal . Pericardium No pericardial effusion is visualized. IVC/SVC/PA/PV/Pleural Pleural effusion noted. * 2D Echo W/Doppler(CW/PW/Color) (12/19/2017 5:44 PM) Component Value Ref Range Ejection Fraction Specimen Performing Laboratory [facility] CP[facility] Narrative Transthoracic Echocardiography Report (TTE) Demographics Patient NameAnisha ROBLERO of Study12/19/2017 Gender Male Visit [id number] Race Unknown [id number] Number Date of 1960 Referring Physician Age 57 year(s) Rod Buster Gabo Escobar RD Interpreting [facility] Needs to be Pre Physician Read Sanchez Small MD FellowROBYN Blackman Procedure Type of Study TTE procedure:2DECHO W DOPPLER(CW/PW/COLOR) (STAT) Indications:Suspected infective endocarditis with positive cultures or new murmur. Clinical History HGB 9.9 HCT 30.8 % Anemia Atrial Fibrillation/flutter Congestive Heart Failure Coronary Artery Disease Hypertension ICD Ischemic Cardiomyopathy Pulmonary hypertension MVR 2012 Height: 68 inches Weight: 65.77 kg (145 lbs) BSA: 1.78 m^2 BMI: 22.05 kg/m^2 HR: 60 bpm BP: 123/66 mmHg Summary Parasternal long axis measurements not possible. Global LV systolic function normal . All of the LV segments contract normally . Septal motion is abnormal, likely related to prior cardiac surgery . Estimated LVEF by qualitative assessment is normal (55-60%) . A stentless biologic MV prosthesis is visualized . Prosthetic MV regurgitation is mild. MG 5 mmHg at 60 bpm. Moderate tricuspid regurgitation. Estimated peak systolic PA pressure is 65-70 mmHg . The estimated RA pressure by IVC dynamics 16-20mmHg . Mild aortic stenosis. No significant pericardial effusion is visualized. Aortic root size (Sinus of Valsalva diameter) is moderate to severely dilated. 5.0 cm Giant left atrium (698 ml/m2) . Previous Study No prior exam available for comparison. Signature Findings Left Ventricle Parasternal long axis measurements not possible. Global LV systolic function normal . All of the LV segments contract normally . Septal motion is abnormal, likely related to prior cardiac surgery . Estimated LVEF by qualitative assessment is normal (55-60%) . Left AtriumGiant left atrium (698 ml/m2) . Right VentricleRV pacing wire is visualized . Global RV systolic function is normal . Right Atrium RA size is severely dilated. Aortic Valve Mild aortic regurgitation. Mild aortic stenosis. Mitral Valve A stentless biologic MV prosthesis is visualized . Prosthetic MV regurgitation is mild. MG 5 mmHg at 60 bpm. Tricuspid ValveModerate tricuspid regurgitation. Estimated peak systolic PA pressure is 65-70 mmHg . Pulmonic Valve PV is not well visualized; function appears normal by Doppler visualized. AortaAortic root size (Sinus of Valsalva diameter) is moderate to severely dilated. 5.0 cm PericardiumNo significant pericardial effusion is visualized. IVC/SVC/PA/PV/PleuralThe estimated RA pressure by IVC dynamics 16-20mmHg . Chambers/Structures Left Atrium LA Volume: 1242.94 mlLA Area: 141.5 cm^ 2 LA Vol. Index: 698 ml/m^2 Left Ventricle LVOT Diameter: 2.2 cm Doppler/Quantitative Measurements Mitral Valve Mean Velocity: 1.02 m/s Mean Gradient: 4.99 mmHg Area (continuity): 1.25 cm^2 MV VTI: 61.67 cm MV Harish. Peak: 1.92 m/s Aortic Valve Peak Velocity: 2.53 m/sMean Velocity: 1.61 m/s Peak Gradient: 25.61 mmHgMean Gradient: 12.55 mmHg AV Area (continuity): 1.72 cm^2 AV VTI: 44.99 cm AV DVI: 0.45 LVOT Peak Velocity: 1.18 m/s Peak Gradient: 5.61 mmHg Mean Velocity: 0.75 m/s Mean Gradient: 2.7 mmHg LVOT Diameter: 2.2 cm LVOT VTI: 20.32 cm LVOT Area: 3.8 cm^2 LVOT SV:77.2 ml LVOT CO: 4.63 l/min LVOT CI: 2.6 l/min/m^2 Tricuspid Valve TR Velocity: 3.42 m/s TR Gradient: 46.68 mmHg Procedure Note Interface, External Ris In - 12/20/2017 10:24 AM [employer] Transthoracic Echocardiography Report (TTE) Demographics Patient Name RAQUEL ROBLERO Date of Study 12/19/2017 Gender Male Visit Number [id number] Race Unknown Room Number 1160 Number Date of 1960 Referring Physician Age 57 year(s) Rod Buster Gabo Escobar [facility] Interpreting [facility] Needs to be Pre Physician Read Sanchez Small MD Fellow ROBYN Blackman Procedure Type of Study TTE procedure:2DECHO W DOPPLER(CW/PW/COLOR) (STAT) Indications:Suspected infective endocarditis with positive cultures or new murmur. Clinical History HGB 9.9 HCT 30.8 % Anemia Atrial Fibrillation/flutter Congestive Heart Failure Coronary Artery Disease Hypertension ICD Ischemic Cardiomyopathy Pulmonary hypertension MVR 2012 Height: 68 inches Weight: 65.77 kg (145 lbs) BSA: 1.78 m^2 BMI: 22.05 kg/m^2 HR: 60 bpm BP: 123/66 mmHg Summary Parasternal long axis measurements not possible. Global LV systolic function normal . All of the LV segments contract normally . Septal motion is abnormal, likely related to prior cardiac surgery . Estimated LVEF by qualitative assessment is normal (55-60%) . A stentless biologic MV prosthesis is visualized . Prosthetic MV regurgitation is mild. MG 5 mmHg at 60 bpm. Moderate tricuspid regurgitation. Estimated peak systolic PA pressure is 65-70 mmHg . The estimated RA pressure by IVC dynamics 16-20mmHg . Mild aortic stenosis. No significant pericardial effusion is visualized. Aortic root size (Sinus of Valsalva diameter) is moderate to severely dilated. 5.0 cm Giant left atrium (698 ml/m2) . Previous Study No prior exam available for comparison. Signature Findings Left Ventricle Parasternal long axis measurements not possible. Global LV systolic function normal . All of the LV segments contract normally . Septal motion is abnormal, likely related to prior cardiac surgery . Estimated LVEF by qualitative assessment is normal (55-60%) . Left Atrium Giant left atrium (698 ml/m2) . Right Ventricle RV pacing wire is visualized . Global RV systolic function is normal . Right Atrium RA size is severely dilated. Aortic Valve Mild aortic regurgitation. Mild aortic stenosis. Mitral Valve A stentless biologic MV prosthesis is visualized . Prosthetic MV regurgitation is mild. MG 5 mmHg at 60 bpm. Tricuspid Valve Moderate tricuspid regurgitation. Estimated peak systolic PA pressure is 65-70 mmHg . Pulmonic Valve PV is not well visualized; function appears normal by Doppler visualized. Aorta Aortic root size (Sinus of Valsalva diameter) is moderate to severely dilated. 5.0 cm Pericardium No significant pericardial effusion is visualized. IVC/SVC/PA/PV/Pleural The estimated RA pressure by IVC dynamics 16-20mmHg . Chambers/Structures Left Atrium LA Volume: 1242.94 ml LA Area: 141.5 cm^2 LA Vol. Index: 698 ml/m^2 Left Ventricle LVOT Diameter: 2.2 cm Doppler/Quantitative Measurements Mitral Valve Mean Velocity: 1.02 m/s Mean Gradient: 4.99 mmHg Area (continuity): 1.25 cm^2 MV VTI: 61.67 cm MV Harish. Peak: 1.92 m/s Aortic Valve Peak Velocity: 2.53 m/s Mean Velocity: 1.61 m/s Peak Gradient: 25.61 mmHg Mean Gradient: 12.55 mmHg AV Area (continuity): 1.72 cm^2 AV VTI: 44.99 cm AV DVI: 0.45 LVOT Peak Velocity: 1.18 m/s Peak Gradient: 5.61 mmHg Mean Velocity: 0.75 m/s Mean Gradient: 2.7 mmHg LVOT Diameter: 2.2 cm LVOT VTI: 20.32 cm LVOT Area: 3.8 cm^2 LVOT SV:77.2 ml LVOT CO: 4.63 l/min LVOT CI: 2.6 l/min/m^2 Tricuspid Valve TR Velocity: 3.42 m/s TR Gradient: 46.68 mmHg * Lactic acid, venous, whole blood (12/19/2017 3:42 PM) Component Value Ref Range Lactate, Venous 1.2 0.5 - 2.2 mmol/L Specimen Performing Laboratory Blood - Line, Venous [address] [address] Narrative Effective 02/26/2016: Units/Reference Range Change New: 0.5-2.2 mmol/LPrevious: 5-20 mg/dL * Hemoglobin A1c (12/19/2017 3:22 PM) Component Value Ref Range Hemoglobin A1C 5.9 4.3 - 6.1 % Specimen Performing Laboratory Blood - Arm, Left [address] [id number] after 03/11/2017
--- OUTSIDE RECORDS SUMMARY | 2018-03-12 13:28 | XMS REPORT ---
Author Author [facility] Address Unknown Phone Unavailable Care Team Providers Care Adoption Services Manager Name Role Phone BEULAH SIMEON Unavailable Unavailable MILTON WEISS Unavailable Unavailable ERIN, UMTONY Unavailable Unavailable Problems This patient has no known problems. Allergies, Adverse Reactions, Alerts This patient has no known allergies or adverse reactions. Medications This patient has no known medications. Results Test Description Test Time Test Comments Text Results Atomic Results Result Comments CT, ABDOMEN 2018-02-17 17:19:00 FINAL REPORT HISTORY : ABDOMINAL PAIN Technique: [...] visualized small right-sided pleural effusion. The visualized spleen , adrenal glands, pancreas, stomach and duodenum are [...] ascitic fluid in the abdomen. Other omental etiology/processes/ masses cannot be entirely excluded. This finding can [...] There are findings suggestive of right-sided cardiac dysfunction/ failure. 3. Cirrhotic morphology of the liver. 4. Partially visualized small right-sided pleural effusion. 5. Small amount of abdominal ascites. 6. Right renal cysts. There is also a possible hemorrhagic cyst in the lower pole of the right kidney. Please see above. 7. Nonspecific edema/infiltration of the omentum /peritoneum in the left mid-upper abdomen. Please see above for details. Signed : Lyndsay Ledbetter Verified Date/Time: 02/17/2018 17:19:40 Reading Location: [facility] Diagnostic Imaging Reading Room - [place] [address] , CHEST, PA OR AP, 1 VIEW 2018-02-17 17:11:00 Reason for exam:-> EVALUATION FOR PUL EDEMA FINAL REPORT AP chest, two images HISTORY: Evaluate for pulmonary edema COMPARISON: 01/21/2018 IMPRESSION: Marked cardiomegaly similar to previous. AICD present with intact leads. No evidence for significant pulmonary edema. No large effusion. No pneumothorax. Signed: Kris Varghese Verified Date/Time: 02/17/2018 17:11:19 Reading Location: [facility] Mammo Reading Room B-TYPE NATRIURETIC FACTOR (BNP) 2018-02-17 15:52:00 B-TYPE NATRIURETIC PEPTIDE (BEAKER) (test znwb=339) 556 pg/mL 0-100 [id number] 15:44:00* Test Item Value Reference Range Comments MAGNESIUM (BEAKER) (test vayz=458) 2.6 mg/dL 1.6-2.6 BASIC METABOLIC [id number] 15:44:00* Test Item Value Reference Range Comments SODIUM (BEAKER) (test efbt=799) 141 meq/L 136-145 POTASSIUM (BEAKER) (test putf=043) 3.9 meq/L 3.5-5.1 CHLORIDE (BEAKER) (test hlkl=771) 100 meq/L 98-107 CO2 (BEAKER) (test xdmp=723) 29 meq/L 22-29 BLOOD UREA NITROGEN (BEAKER) (test nemc=552) 33 mg/dL 7-21 CREATININE (BEAKER) (test tkbg=687) 1.35 mg/dL 0.57-1.25 GLUCOSE RANDOM (BEAKER) (test qmcm=953) 135 mg/dL 70-105 CALCIUM (BEAKER) (test fdre=901) 9.4 mg/dL 8.4-10.2 EGFR (BEAKER) (test rbhy=5305) 52 mL/min/1.73 sq m ESTIMATED GFR IS NOT ACCURATE CREATININE CLEARANCE IN PREDICTING GLOMERULAR FILTRATION RATE. ESTIMATED GFR IS NOT APPLICABLE FOR DIALYSIS PATIENTS. CBC (HEMOGRAM ONLY)2018-02-17 15:21:00* Test Item Value Reference Range Comments WHITE BLOOD CELL COUNT (BEAKER) (test lrjj=100) 5.1 K/ L 3.5-10.5 RED BLOOD CELL COUNT (BEAKER) (test fndn=184) 3.51 M/ L 4.63-6.08 HEMOGLOBIN (BEAKER) (test wkpn=166) 10.3 GM/DL 13.7-17.5 HEMATOCRIT (BEAKER) (test mvyb=558) 33.0 % 40.1-51.0 MEAN CORPUSCULAR VOLUME (BEAKER) (test iryv=476) 94.0 fL 79.0-92.2 MEAN CORPUSCULAR HEMOGLOBIN (BEAKER) (test orxd=736) 29.3 pg 25.7-32.2 MEAN CORPUSCULAR HEMOGLOBIN CONC (BEAKER) (test twfg=131) 31.2 GM/DL 32.3- 36.5 RED CELL DISTRIBUTION WIDTH (BEAKER) (test pvtb=834) 20.4 % 11.6-14.4 PLATELET COUNT (BEAKER) (test kibr=141) 110 K/CU MM 150-450 MEAN PLATELET VOLUME (BEAKER) (test ktjs=328) 10.2 fL 9.4-12.4 NUCLEATED RED BLOOD CELLS (BEAKER) (test bwxp=134) 0 /100 WBC 0-0 AFB CULTURE + [id number] 18:59:00* Test Item Value Reference Range Comments CULTURE (BEAKER) (test ikbj=4970) No acid-fast bacilli isolated in 42 days AFB SMEAR (BEAKER) (test qanv=283) No acid fast bacilli seen AFB CULTURE + [id number] 18:59:00* Test Item Value Reference Range Comments CULTURE (BEAKER) (test trzk=0354) No acid-fast bacilli isolated in 42 days AFB SMEAR (BEAKER) (test iwcc=673) No acid fast bacilli seen [id number] 06:08:00* Test Item Value Reference Range Comments MAGNESIUM (BEAKER) (test wdzd=388) 1.9 mg/dL 1.6-2.6 BASIC METABOLIC [id number] 06:08:00* Test Item Value Reference Range Comments SODIUM (BEAKER) (test pmfe=565) 129 meq/L 136-145 POTASSIUM (BEAKER) (test gdbh=434) 4.1 meq/L 3.5-5.1 CHLORIDE (BEAKER) (test abnt=065) 92 meq/L 98-107 CO2 (BEAKER) (test qdjc=577) 31 meq/L 22-29 BLOOD UREA NITROGEN (BEAKER) (test stvy=140) 30 mg/dL 7-21 CREATININE (BEAKER) (test anoo=418) 1.05 mg/dL 0.57-1.25 GLUCOSE RANDOM (BEAKER) (test txbc=598) 106 mg/dL 70-105 CALCIUM (BEAKER) (test munl=620) 8.2 mg/dL 8.4-10.2 EGFR (BEAKER) (test vzpg=6996) 70 mL/min/1.73 sq m ESTIMATED GFR IS NOT ACCURATE CREATININE CLEARANCE IN PREDICTING GLOMERULAR FILTRATION RATE. ESTIMATED GFR IS NOT APPLICABLE FOR DIALYSIS PATIENTS. PROTHROMBIN TIME/[id number] 05:55:00* Test Item Value Reference Range Comments PROTIME (BEAKER) (test roai=563) 22.6 seconds 11.7-14.7 INR (BEAKER) (test keow=195) 2.0 <=5.9 RECOMMENDED COUMADIN/WARFARIN INR THERAPY RANGESSTANDARD DOSE: 2.0 - 3.0 Includes: PROPHYLAXIS for venous thrombosis, systemic embolization; TREATMENT for venous thrombosis and/or pulmonary embolus.HIGH RISK: Target INR is 2.5-3.5 for patients with mechanical heart valves.While on warfarin.CBC W/PLT COUNT & AUTO [id number] 05:33:00* Test Item Value Reference Range Comments WHITE BLOOD CELL COUNT (BEAKER) (test rpeu=627) 4.2 K/ L 3.5-10.5 RED BLOOD CELL COUNT (BEAKER) (test bars=728) 2.75 M/ L 4.63-6.08 HEMOGLOBIN (BEAKER) (test vdsx=997) 8.0 GM/DL 13.7-17.5 HEMATOCRIT (BEAKER) (test yrqx=686) 24.3 % 40.1-51.0 MEAN CORPUSCULAR VOLUME (BEAKER) (test lidl=645) 88.4 fL 79.0-92.2 MEAN CORPUSCULAR HEMOGLOBIN (BEAKER) (test vnkp=656) 29.1 pg 25.7-32.2 MEAN CORPUSCULAR HEMOGLOBIN CONC (BEAKER) (test ejao=721) 32.9 GM/DL 32.3- 36.5 RED CELL DISTRIBUTION WIDTH (BEAKER) (test vonv=557) 18.4 % 11.6-14.4 PLATELET COUNT (BEAKER) (test gswb=431) 100 K/CU MM 150-450 MEAN PLATELET VOLUME (BEAKER) (test deex=333) 10.6 fL 9.4-12.4 NUCLEATED RED BLOOD CELLS (BEAKER) (test ojiv=187) 0 /100 WBC 0-0 NEUTROPHILS RELATIVE PERCENT (BEAKER) (test vzum=847) 58 % LYMPHOCYTES RELATIVE PERCENT (BEAKER) (test mfiy=704) 22 % MONOCYTES RELATIVE PERCENT (BEAKER) (test feur=385) 13 % EOSINOPHILS RELATIVE PERCENT (BEAKER) (test vtkv=893) 6 % BASOPHILS RELATIVE PERCENT (BEAKER) (test whah=571) 0 % NEUTROPHILS ABSOLUTE COUNT (BEAKER) (test ykjv=615) 2.44 K/ L 1.78-5.38 LYMPHOCYTES ABSOLUTE COUNT (BEAKER) (test vkob=491) 0.94 K/ L 1.32-3.57 MONOCYTES ABSOLUTE COUNT (BEAKER) (test epqx=219) 0.56 K/ L 0.30-0.82 EOSINOPHILS ABSOLUTE COUNT (BEAKER) (test svod=968) 0.25 K/ L 0.04-0.54 BASOPHILS ABSOLUTE COUNT (BEAKER) (test ttte=526) 0.01 K/ L 0.01-0.08 IMMATURE GRANULOCYTES-RELATIVE PERCENT (BEAKER) (test hjjb=6639) 1 % 0-1 [id number] 07:00:00* Test Item Value Reference Range Comments MAGNESIUM (BEAKER) (test lvfw=840) 1.8 mg/dL 1.6-2.6 BASIC METABOLIC [id number] 07:00:00* Test Item Value Reference Range Comments SODIUM (BEAKER) (test daxq=052) 129 meq/L 136-145 POTASSIUM (BEAKER) (test dgyj=744) 4.0 meq/L 3.5-5.1 CHLORIDE (BEAKER) (test jzec=791) 91 meq/L 98-107 CO2 (BEAKER) (test okln=025) 29 meq/L 22-29 BLOOD UREA NITROGEN (BEAKER) (test cobi=918) 32 mg/dL 7-21 CREATININE (BEAKER) (test irec=686) 1.33 mg/dL 0.57-1.25 GLUCOSE RANDOM (BEAKER) (test qcul=147) 86 mg/dL 70-105 CALCIUM (BEAKER) (test wysq=490) 8.5 mg/dL 8.4-10.2 EGFR (BEAKER) (test uvws=4943) 53 mL/min/1.73 sq m ESTIMATED GFR IS NOT ACCURATE CREATININE CLEARANCE IN PREDICTING GLOMERULAR FILTRATION RATE. ESTIMATED GFR IS NOT APPLICABLE FOR DIALYSIS PATIENTS. PROTHROMBIN TIME/[id number] 06:55:00* Test Item Value Reference Range Comments PROTIME (BEAKER) (test dhte=446) 22.2 seconds 11.7-14.7 INR (BEAKER) (test yomx=049) 2.0 <=5.9 RECOMMENDED COUMADIN/WARFARIN INR THERAPY RANGESSTANDARD DOSE: 2.0 - 3.0 Includes: PROPHYLAXIS for venous thrombosis, systemic embolization; TREATMENT for venous thrombosis and/or pulmonary embolus.HIGH RISK: Target INR is 2.5-3.5 for patients with mechanical heart valves.While on warfarin.CBC W/PLT COUNT & AUTO [id number] 06:30:00* Test Item Value Reference Range Comments WHITE BLOOD CELL COUNT (BEAKER) (test gjju=602) 4.9 K/ L 3.5-10.5 RED BLOOD CELL COUNT (BEAKER) (test ixff=125) 2.86 M/ L 4.63-6.08 HEMOGLOBIN (BEAKER) (test ivba=099) 8.4 GM/DL 13.7-17.5 HEMATOCRIT (BEAKER) (test webp=257) 25.1 % 40.1-51.0 MEAN CORPUSCULAR VOLUME (BEAKER) (test xkpg=487) 87.8 fL 79.0-92.2 MEAN CORPUSCULAR HEMOGLOBIN (BEAKER) (test ooxe=843) 29.4 pg 25.7-32.2 MEAN CORPUSCULAR HEMOGLOBIN CONC (BEAKER) (test ebeb=963) 33.5 GM/DL 32.3- 36.5 RED CELL DISTRIBUTION WIDTH (BEAKER) (test fmuw=468) 18.6 % 11.6-14.4 PLATELET COUNT (BEAKER) (test cbrz=206) 114 K/CU MM 150-450 MEAN PLATELET VOLUME (BEAKER) (test vvqz=754) 10.2 fL 9.4-12.4 NUCLEATED RED BLOOD CELLS (BEAKER) (test vprs=483) 0 /100 WBC 0-0 NEUTROPHILS RELATIVE PERCENT (BEAKER) (test kmyl=677) 56 % LYMPHOCYTES RELATIVE PERCENT (BEAKER) (test rulp=442) 23 % MONOCYTES RELATIVE PERCENT (BEAKER) (test tysh=237) 14 % EOSINOPHILS RELATIVE PERCENT (BEAKER) (test ngjb=643) 6 % BASOPHILS RELATIVE PERCENT (BEAKER) (test jgqq=712) 1 % NEUTROPHILS ABSOLUTE COUNT (BEAKER) (test ttzx=355) 2.73 K/ L 1.78-5.38 LYMPHOCYTES ABSOLUTE COUNT (BEAKER) (test dlhh=182) 1.11 K/ L 1.32-3.57 MONOCYTES ABSOLUTE COUNT (BEAKER) (test bupd=840) 0.70 K/ L 0.30-0.82 EOSINOPHILS ABSOLUTE COUNT (BEAKER) (test qybm=185) 0.29 K/ L 0.04-0.54 BASOPHILS ABSOLUTE COUNT (BEAKER) (test lcrf=597) 0.03 K/ L 0.01-0.08 IMMATURE GRANULOCYTES-RELATIVE PERCENT (BEAKER) (test zzyj=0689) 0 % 0-1 [id number] 06:39:00* Test Item Value Reference Range Comments MAGNESIUM (BEAKER) (test sbqg=373) 1.9 mg/dL 1.6-2.6 BASIC METABOLIC [id number] 06:39:00* Test Item Value Reference Range Comments SODIUM (BEAKER) (test vuee=801) 131 meq/L 136-145 POTASSIUM (BEAKER) (test qayz=008) 4.1 meq/L 3.5-5.1 CHLORIDE (BEAKER) (test pkcm=626) 92 meq/L 98-107 CO2 (BEAKER) (test hlga=430) 31 meq/L 22-29 BLOOD UREA NITROGEN (BEAKER) (test xztq=664) 24 mg/dL 7-21 CREATININE (BEAKER) (test vcdg=072) 1.27 mg/dL 0.57-1.25 GLUCOSE RANDOM (BEAKER) (test spng=206) 92 mg/dL 70-105 CALCIUM (BEAKER) (test wcbm=511) 8.9 mg/dL 8.4-10.2 EGFR (BEAKER) (test xzvi=9777) 56 mL/min/1.73 sq m ESTIMATED GFR IS NOT ACCURATE CREATININE CLEARANCE IN PREDICTING GLOMERULAR FILTRATION RATE. ESTIMATED GFR IS NOT APPLICABLE FOR DIALYSIS PATIENTS. PROTHROMBIN TIME/[id number] 05:09:00* Test Item Value Reference Range Comments PROTIME (BEAKER) (test waef=114) 21.1 seconds 11.7-14.7 INR (BEAKER) (test dqsy=414) 1.8 <=5.9 RECOMMENDED COUMADIN/WARFARIN INR THERAPY RANGESSTANDARD DOSE: 2.0 - 3.0 Includes: PROPHYLAXIS for venous thrombosis, systemic embolization; TREATMENT for venous thrombosis and/or pulmonary embolus.HIGH RISK: Target INR is 2.5-3.5 for patients with mechanical heart valves.While on warfarin.CBC W/PLT COUNT & AUTO [id number] 04:38:00* Test Item Value Reference Range Comments WHITE BLOOD CELL COUNT (BEAKER) (test oirq=883) 5.2 K/ L 3.5-10.5 RED BLOOD CELL COUNT (BEAKER) (test jocy=262) 3.09 M/ L 4.63-6.08 HEMOGLOBIN (BEAKER) (test cwtc=059) 8.8 GM/DL 13.7-17.5 HEMATOCRIT (BEAKER) (test ugmj=077) 27.3 % 40.1-51.0 MEAN CORPUSCULAR VOLUME (BEAKER) (test yeuh=087) 88.3 fL 79.0-92.2 MEAN CORPUSCULAR HEMOGLOBIN (BEAKER) (test kjes=761) 28.5 pg 25.7-32.2 MEAN CORPUSCULAR HEMOGLOBIN CONC (BEAKER) (test bohr=028) 32.2 GM/DL 32.3- 36.5 RED CELL DISTRIBUTION WIDTH (BEAKER) (test ejxj=568) 19.0 % 11.6-14.4 PLATELET COUNT (BEAKER) (test tula=961) 117 K/CU MM 150-450 MEAN PLATELET VOLUME (BEAKER) (test bhyx=817) 10.2 fL 9.4-12.4 NUCLEATED RED BLOOD CELLS (BEAKER) (test hhtz=901) 0 /100 WBC 0-0 NEUTROPHILS RELATIVE PERCENT (BEAKER) (test heql=174) 56 % LYMPHOCYTES RELATIVE PERCENT (BEAKER) (test ipjh=664) 23 % MONOCYTES RELATIVE PERCENT (BEAKER) (test wkoj=324) 15 % EOSINOPHILS RELATIVE PERCENT (BEAKER) (test lgvk=335) 6 % BASOPHILS RELATIVE PERCENT (BEAKER) (test rvbw=593) 1 % NEUTROPHILS ABSOLUTE COUNT (BEAKER) (test poqq=147) 2.91 K/ L 1.78-5.38 LYMPHOCYTES ABSOLUTE COUNT (BEAKER) (test pumt=118) 1.22 K/ L 1.32-3.57 MONOCYTES ABSOLUTE COUNT (BEAKER) (test unod=891) 0.77 K/ L 0.30-0.82 EOSINOPHILS ABSOLUTE COUNT (BEAKER) (test malo=419) 0.29 K/ L 0.04-0.54 BASOPHILS ABSOLUTE COUNT (BEAKER) (test sejz=703) 0.03 K/ L 0.01-0.08 IMMATURE GRANULOCYTES-RELATIVE PERCENT (BEAKER) (test izod=0040) 0 % 0-1 PROTHROMBIN TIME/[id number] 10:20:00* Test Item Value Reference Range Comments PROTIME (BEAKER) (test vvuf=498) 19.5 seconds 11.7-14.7 INR (BEAKER) (test maxl=742) 1.7 <=5.9 RECOMMENDED COUMADIN/WARFARIN INR THERAPY RANGESSTANDARD DOSE: 2.0 - 3.0 Includes: PROPHYLAXIS for venous thrombosis, systemic embolization; TREATMENT for venous thrombosis and/or pulmonary embolus.HIGH RISK: Target INR is 2.5-3.5 for patients with mechanical heart valves.[id number] 07:34:00* Test Item Value Reference Range Comments MAGNESIUM (BEAKER) (test lxkm=300) 1.9 mg/dL 1.6-2.6 BASIC METABOLIC [id number] 07:34:00* Test Item Value Reference Range Comments SODIUM (BEAKER) (test rztf=546) 132 meq/L 136-145 POTASSIUM (BEAKER) (test mbbh=286) 4.0 meq/L 3.5-5.1 CHLORIDE (BEAKER) (test upkg=566) 92 meq/L 98-107 CO2 (BEAKER) (test tofk=353) 30 meq/L 22-29 BLOOD UREA NITROGEN (BEAKER) (test xlku=323) 19 mg/dL 7-21 CREATININE (BEAKER) (test smvo=088) 1.08 mg/dL 0.57-1.25 GLUCOSE RANDOM (BEAKER) (test daeo=638) 87 mg/dL 70-105 CALCIUM (BEAKER) (test mkul=798) 8.4 mg/dL 8.4-10.2 EGFR (BEAKER) (test jlbb=3072) 68 mL/min/1.73 sq m ESTIMATED GFR IS NOT ACCURATE CREATININE CLEARANCE IN PREDICTING GLOMERULAR FILTRATION RATE. ESTIMATED GFR IS NOT APPLICABLE FOR DIALYSIS PATIENTS. PROTHROMBIN TIME/[id number] 07:03:00* Test Item Value Reference Range Comments PROTIME (BEAKER) (test jsas=305) 40.9 seconds 11.7-14.7 INR (BEAKER) (test jvez=121) 4.3 <=5.9 RECOMMENDED COUMADIN/WARFARIN INR THERAPY RANGESSTANDARD DOSE: 2.0 - 3.0 Includes: PROPHYLAXIS for venous thrombosis, systemic embolization; TREATMENT for venous thrombosis and/or pulmonary embolus.HIGH RISK: Target INR is 2.5-3.5 for patients with mechanical heart valves.While on warfarin.CBC W/PLT COUNT & AUTO [id number] 06:43:00* Test Item Value Reference Range Comments WHITE BLOOD CELL COUNT (BEAKER) (test rqlx=737) 5.9 K/ L 3.5-10.5 RED BLOOD CELL COUNT (BEAKER) (test dqmx=027) 3.06 M/ L 4.63-6.08 HEMOGLOBIN (BEAKER) (test ezos=149) 8.7 GM/DL 13.7-17.5 HEMATOCRIT (BEAKER) (test ciam=715) 27.3 % 40.1-51.0 MEAN CORPUSCULAR VOLUME (BEAKER) (test obkb=373) 89.2 fL 79.0-92.2 MEAN CORPUSCULAR HEMOGLOBIN (BEAKER) (test ylhp=512) 28.4 pg 25.7-32.2 MEAN CORPUSCULAR HEMOGLOBIN CONC (BEAKER) (test nyrw=428) 31.9 GM/DL 32.3- 36.5 RED CELL DISTRIBUTION WIDTH (BEAKER) (test pclf=540) 19.4 % 11.6-14.4 PLATELET COUNT (BEAKER) (test bxjx=908) 125 K/CU MM 150-450 MEAN PLATELET VOLUME (BEAKER) (test mzjt=919) 10.8 fL 9.4-12.4 NUCLEATED RED BLOOD CELLS (BEAKER) (test dysv=095) 0 /100 WBC 0-0 NEUTROPHILS RELATIVE PERCENT (BEAKER) (test rhtg=977) 61 % LYMPHOCYTES RELATIVE PERCENT (BEAKER) (test dtei=379) 20 % MONOCYTES RELATIVE PERCENT (BEAKER) (test vinp=543) 13 % EOSINOPHILS RELATIVE PERCENT (BEAKER) (test wvyw=949) 5 % BASOPHILS RELATIVE PERCENT (BEAKER) (test yosr=731) 1 % NEUTROPHILS ABSOLUTE COUNT (BEAKER) (test kska=032) 3.58 K/ L 1.78-5.38 LYMPHOCYTES ABSOLUTE COUNT (BEAKER) (test dzru=774) 1.18 K/ L 1.32-3.57 MONOCYTES ABSOLUTE COUNT (BEAKER) (test wmaa=938) 0.79 K/ L 0.30-0.82 EOSINOPHILS ABSOLUTE COUNT (BEAKER) (test fjwh=085) 0.29 K/ L 0.04-0.54 BASOPHILS ABSOLUTE COUNT (BEAKER) (test cuks=446) 0.03 K/ L 0.01-0.08 IMMATURE GRANULOCYTES-RELATIVE PERCENT (BEAKER) (test tjzs=9776) 0 % 0-1 [id number] 05:11:00* Test Item Value Reference Range Comments MAGNESIUM (BEAKER) (test zzxk=479) 2.1 mg/dL 1.6-2.6 BASIC METABOLIC [id number] 05:11:00* Test Item Value Reference Range Comments SODIUM (BEAKER) (test ucmq=688) 132 meq/L 136-145 POTASSIUM (BEAKER) (test bnll=837) 3.9 meq/L 3.5-5.1 CHLORIDE (BEAKER) (test snyq=126) 94 meq/L 98-107 CO2 (BEAKER) (test mdks=359) 30 meq/L 22-29 BLOOD UREA NITROGEN (BEAKER) (test kava=867) 16 mg/dL 7-21 CREATININE (BEAKER) (test veln=262) 0.93 mg/dL 0.57-1.25 GLUCOSE RANDOM (BEAKER) (test aknr=967) 103 mg/dL 70-105 CALCIUM (BEAKER) (test mblc=012) 8.0 mg/dL 8.4-10.2 EGFR (BEAKER) (test rvwd=6759) 81 mL/min/1.73 sq m ESTIMATED GFR IS NOT ACCURATE CREATININE CLEARANCE IN PREDICTING GLOMERULAR FILTRATION RATE. ESTIMATED GFR IS NOT APPLICABLE FOR DIALYSIS PATIENTS. PROTHROMBIN TIME/[id number] 05:04:00* Test Item Value Reference Range Comments PROTIME (BEAKER) (test fowy=094) 18.0 seconds 11.7-14.7 INR (BEAKER) (test vsrm=637) 1.5 <=5.9 RECOMMENDED COUMADIN/WARFARIN INR THERAPY RANGESSTANDARD DOSE: 2.0 - 3.0 Includes: PROPHYLAXIS for venous thrombosis, systemic embolization; TREATMENT for venous thrombosis and/or pulmonary embolus.HIGH RISK: Target INR is 2.5-3.5 for patients with mechanical heart valves.While on warfarin.CBC W/PLT COUNT & AUTO [id number] 04:42:00* Test Item Value Reference Range Comments WHITE BLOOD CELL COUNT (BEAKER) (test ubqe=652) 6.2 K/ L 3.5-10.5 RED BLOOD CELL COUNT (BEAKER) (test pepq=992) 2.92 M/ L 4.63-6.08 HEMOGLOBIN (BEAKER) (test yhsg=116) 8.5 GM/DL 13.7-17.5 HEMATOCRIT (BEAKER) (test eqry=685) 26.3 % 40.1-51.0 MEAN CORPUSCULAR VOLUME (BEAKER) (test pojx=802) 90.1 fL 79.0-92.2 MEAN CORPUSCULAR HEMOGLOBIN (BEAKER) (test iahn=832) 29.1 pg 25.7-32.2 MEAN CORPUSCULAR HEMOGLOBIN CONC (BEAKER) (test itqs=813) 32.3 GM/DL 32.3- 36.5 RED CELL DISTRIBUTION WIDTH (BEAKER) (test kznc=132) 19.6 % 11.6-14.4 PLATELET COUNT (BEAKER) (test syaq=320) 106 K/CU MM 150-450 MEAN PLATELET VOLUME (BEAKER) (test jeiw=024) 10.3 fL 9.4-12.4 NUCLEATED RED BLOOD CELLS (BEAKER) (test rcvw=433) 0 /100 WBC 0-0 NEUTROPHILS RELATIVE PERCENT (BEAKER) (test xphb=565) 65 % LYMPHOCYTES RELATIVE PERCENT (BEAKER) (test srtw=502) 17 % MONOCYTES RELATIVE PERCENT (BEAKER) (test vfkp=057) 12 % EOSINOPHILS RELATIVE PERCENT (BEAKER) (test foax=867) 4 % BASOPHILS RELATIVE PERCENT (BEAKER) (test ocfx=160) 1 % NEUTROPHILS ABSOLUTE COUNT (BEAKER) (test ctar=465) 4.04 K/ L 1.78-5.38 LYMPHOCYTES ABSOLUTE COUNT (BEAKER) (test lyct=778) 1.07 K/ L 1.32-3.57 MONOCYTES ABSOLUTE COUNT (BEAKER) (test qhkt=904) 0.76 K/ L 0.30-0.82 EOSINOPHILS ABSOLUTE COUNT (BEAKER) (test tuxp=766) 0.27 K/ L 0.04-0.54 BASOPHILS ABSOLUTE COUNT (BEAKER) (test whry=470) 0.03 K/ L 0.01-0.08 IMMATURE GRANULOCYTES-RELATIVE PERCENT (BEAKER) (test jbtf=1548) 0 % 0-1 [id number] 07:13:00* Test Item Value Reference Range Comments MAGNESIUM (BEAKER) (test htvy=730) 1.8 mg/dL 1.6-2.6 BASIC METABOLIC [id number] 07:13:00* Test Item Value Reference Range Comments SODIUM (BEAKER) (test ojaz=212) 134 meq/L 136-145 POTASSIUM (BEAKER) (test gvie=351) 4.3 meq/L 3.5-5.1 CHLORIDE (BEAKER) (test nnun=051) 94 meq/L 98-107 CO2 (BEAKER) (test yytr=451) 32 meq/L 22-29 BLOOD UREA NITROGEN (BEAKER) (test plhy=329) 18 mg/dL 7-21 CREATININE (BEAKER) (test ydbm=383) 0.93 mg/dL 0.57-1.25 GLUCOSE RANDOM (BEAKER) (test nxjr=377) 93 mg/dL 70-105 CALCIUM (BEAKER) (test xmfx=819) 8.5 mg/dL 8.4-10.2 EGFR (BEAKER) (test dtbc=6020) 81 mL/min/1.73 sq m ESTIMATED GFR IS NOT ACCURATE CREATININE CLEARANCE IN PREDICTING GLOMERULAR FILTRATION RATE. ESTIMATED GFR IS NOT APPLICABLE FOR DIALYSIS PATIENTS. PROTHROMBIN TIME/[id number] 07:09:00* Test Item Value Reference Range Comments PROTIME (BEAKER) (test ladw=332) 17.7 seconds 11.7-14.7 INR (BEAKER) (test ejmm=192) 1.5 <=5.9 RECOMMENDED COUMADIN/WARFARIN INR THERAPY RANGESSTANDARD DOSE: 2.0 - 3.0 Includes: PROPHYLAXIS for venous thrombosis, systemic embolization; TREATMENT for venous thrombosis and/or pulmonary embolus.HIGH RISK: Target INR is 2.5-3.5 for patients with mechanical heart valves.While on warfarin.CBC W/PLT COUNT & AUTO [id number] 06:52:00* Test Item Value Reference Range Comments WHITE BLOOD CELL COUNT (BEAKER) (test zgri=573) 6.4 K/ L 3.5-10.5 RED BLOOD CELL COUNT (BEAKER) (test dfni=528) 2.91 M/ L 4.63-6.08 HEMOGLOBIN (BEAKER) (test fvoc=506) 8.3 GM/DL 13.7-17.5 HEMATOCRIT (BEAKER) (test tjbp=340) 26.3 % 40.1-51.0 MEAN CORPUSCULAR VOLUME (BEAKER) (test gqdv=742) 90.4 fL 79.0-92.2 MEAN CORPUSCULAR HEMOGLOBIN (BEAKER) (test ckoe=986) 28.5 pg 25.7-32.2 MEAN CORPUSCULAR HEMOGLOBIN CONC (BEAKER) (test cori=616) 31.6 GM/DL 32.3- 36.5 RED CELL DISTRIBUTION WIDTH (BEAKER) (test qidj=519) 19.5 % 11.6-14.4 PLATELET COUNT (BEAKER) (test ewnh=817) 102 K/CU MM 150-450 MEAN PLATELET VOLUME (BEAKER) (test karf=365) 11.2 fL 9.4-12.4 NUCLEATED RED BLOOD CELLS (BEAKER) (test dwvw=484) 0 /100 WBC 0-0 NEUTROPHILS RELATIVE PERCENT (BEAKER) (test somo=778) 66 % LYMPHOCYTES RELATIVE PERCENT (BEAKER) (test gsfk=019) 18 % MONOCYTES RELATIVE PERCENT (BEAKER) (test ktke=485) 12 % EOSINOPHILS RELATIVE PERCENT (BEAKER) (test toxr=509) 4 % BASOPHILS RELATIVE PERCENT (BEAKER) (test gwwz=373) 0 % NEUTROPHILS ABSOLUTE COUNT (BEAKER) (test uslm=806) 4.19 K/ L 1.78-5.38 LYMPHOCYTES ABSOLUTE COUNT (BEAKER) (test zpsj=213) 1.14 K/ L 1.32-3.57 MONOCYTES ABSOLUTE COUNT (BEAKER) (test fulb=556) 0.77 K/ L 0.30-0.82 EOSINOPHILS ABSOLUTE COUNT (BEAKER) (test wein=517) 0.26 K/ L 0.04-0.54 BASOPHILS ABSOLUTE COUNT (BEAKER) (test xdak=487) 0.02 K/ L 0.01-0.08 IMMATURE GRANULOCYTES-RELATIVE PERCENT (BEAKER) (test sklx=4142) 0 % 0-1 [id number] 10:48:00* Test Item Value Reference Range Comments MAGNESIUM (BEAKER) (test wbsz=727) 1.9 mg/dL 1.6-2.6 BASIC METABOLIC [id number] 10:48:00* Test Item Value Reference Range Comments SODIUM (BEAKER) (test vkai=391) 134 meq/L 136-145 POTASSIUM (BEAKER) (test zkfh=483) 3.9 meq/L 3.5-5.1 CHLORIDE (BEAKER) (test pjgz=952) 94 meq/L 98-107 CO2 (BEAKER) (test rsjh=208) 32 meq/L 22-29 BLOOD UREA NITROGEN (BEAKER) (test xlyk=000) 13 mg/dL 7-21 CREATININE (BEAKER) (test wywm=997) 0.87 mg/dL 0.57-1.25 GLUCOSE RANDOM (BEAKER) (test kpzt=929) 97 mg/dL 70-105 CALCIUM (BEAKER) (test nlpm=657) 8.5 mg/dL 8.4-10.2 EGFR (BEAKER) (test awqc=5944) 87 mL/min/1.73 sq m ESTIMATED GFR IS NOT ACCURATE CREATININE CLEARANCE IN PREDICTING GLOMERULAR FILTRATION RATE. ESTIMATED GFR IS NOT APPLICABLE FOR DIALYSIS PATIENTS. PROTHROMBIN TIME/[id number] 06:45:00* Test Item Value Reference Range Comments PROTIME (BEAKER) (test qipz=330) 18.1 seconds 11.7-14.7 INR (BEAKER) (test qugg=274) 1.5 <=5.9 RECOMMENDED COUMADIN/WARFARIN INR THERAPY RANGESSTANDARD DOSE: 2.0 - 3.0 Includes: PROPHYLAXIS for venous thrombosis, systemic embolization; TREATMENT for venous thrombosis and/or pulmonary embolus.HIGH RISK: Target INR is 2.5-3.5 for patients with mechanical heart valves.While on warfarin.CBC (HEMOGRAM ONLY) 2018-01-26 05:54:00* Test Item Value Reference Range Comments WHITE BLOOD CELL COUNT (BEAKER) (test zfbg=886) 5.9 K/ L 3.5-10.5 RED BLOOD CELL COUNT (BEAKER) (test zjfp=033) 2.82 M/ L 4.63-6.08 HEMOGLOBIN (BEAKER) (test yrpj=620) 8.2 GM/DL 13.7-17.5 HEMATOCRIT (BEAKER) (test gign=305) 25.6 % 40.1-51.0 MEAN CORPUSCULAR VOLUME (BEAKER) (test dkzc=866) 90.8 fL 79.0-92.2 MEAN CORPUSCULAR HEMOGLOBIN (BEAKER) (test equl=568) 29.1 pg 25.7-32.2 MEAN CORPUSCULAR HEMOGLOBIN CONC (BEAKER) (test whsz=217) 32.0 GM/DL 32.3- 36.5 RED CELL DISTRIBUTION WIDTH (BEAKER) (test kojz=619) 19.7 % 11.6-14.4 PLATELET COUNT (BEAKER) (test qwfo=265) 80 K/CU MM 150-450 MEAN PLATELET VOLUME (BEAKER) (test efqg=609) 11.2 fL 9.4-12.4 NUCLEATED RED BLOOD CELLS (BEAKER) (test nurr=459) 0 /100 WBC 0-0 CBC (HEMOGRAM ONLY)2018-01-25 06:07:00* Test Item Value Reference Range Comments WHITE BLOOD CELL COUNT (BEAKER) (test ikgg=466) 5.3 K/ L 3.5-10.5 RED BLOOD CELL COUNT (BEAKER) (test gsdx=274) 2.87 M/ L 4.63-6.08 HEMOGLOBIN (BEAKER) (test uwri=309) 8.0 GM/DL 13.7-17.5 HEMATOCRIT (BEAKER) (test dvcs=411) 25.9 % 40.1-51.0 MEAN CORPUSCULAR VOLUME (BEAKER) (test khns=953) 90.2 fL 79.0-92.2 MEAN CORPUSCULAR HEMOGLOBIN (BEAKER) (test dpfz=298) 27.9 pg 25.7-32.2 MEAN CORPUSCULAR HEMOGLOBIN CONC (BEAKER) (test gcol=823) 30.9 GM/DL 32.3- 36.5 RED CELL DISTRIBUTION WIDTH (BEAKER) (test txkg=495) 19.6 % 11.6-14.4 PLATELET COUNT (BEAKER) (test vpdp=406) 78 K/CU MM 150-450 MEAN PLATELET VOLUME (BEAKER) (test mmkj=149) 11.5 fL 9.4-12.4 NUCLEATED RED BLOOD CELLS (BEAKER) (test khqb=688) 0 /100 WBC 0-0 PROTHROMBIN TIME/[id number] 06:02:00* Test Item Value Reference Range Comments PROTIME (BEAKER) (test vsyv=331) 18.1 seconds 11.7-14.7 INR (BEAKER) (test kmtf=863) 1.5 <=5.9 RECOMMENDED COUMADIN/WARFARIN INR THERAPY RANGESSTANDARD DOSE: 2.0 - 3.0 Includes: PROPHYLAXIS for venous thrombosis, systemic embolization; TREATMENT for venous thrombosis and/or pulmonary embolus.HIGH RISK: Target INR is 2.5-3.5 for patients with mechanical heart valves.While on warfarin.[id number] 05:56:00* Test Item Value Reference Range Comments MAGNESIUM (BEAKER) (test tnur=781) 1.7 mg/dL 1.6-2.6 BASIC METABOLIC [id number] 05:56:00* Test Item Value Reference Range Comments SODIUM (BEAKER) (test esww=316) 135 meq/L 136-145 POTASSIUM (BEAKER) (test phke=654) 4.2 meq/L 3.5-5.1 CHLORIDE (BEAKER) (test sble=674) 94 meq/L 98-107 CO2 (BEAKER) (test xnsx=732) 34 meq/L 22-29 BLOOD UREA NITROGEN (BEAKER) (test ulyl=103) 15 mg/dL 7-21 CREATININE (BEAKER) (test nlgi=718) 0.84 mg/dL 0.57-1.25 GLUCOSE RANDOM (BEAKER) (test qmxh=963) 130 mg/dL 70-105 CALCIUM (BEAKER) (test jqfg=174) 8.3 mg/dL 8.4-10.2 EGFR (BEAKER) (test ckyf=2251) 91 mL/min/1.73 sq m ESTIMATED GFR IS NOT ACCURATE CREATININE CLEARANCE IN PREDICTING GLOMERULAR FILTRATION RATE. ESTIMATED GFR IS NOT APPLICABLE FOR DIALYSIS PATIENTS. [id number] 05:41:00* Test Item Value Reference Range Comments MAGNESIUM (BEAKER) (test ephy=644) 1.9 mg/dL 1.6-2.6 BASIC METABOLIC [id number] 05:41:00* Test Item Value Reference Range Comments SODIUM (BEAKER) (test pyfn=281) 134 meq/L 136-145 POTASSIUM (BEAKER) (test dzby=041) 4.3 meq/L 3.5-5.1 CHLORIDE (BEAKER) (test vhnz=902) 95 meq/L 98-107 CO2 (BEAKER) (test kexm=459) 35 meq/L 22-29 BLOOD UREA NITROGEN (BEAKER) (test rkpi=855) 14 mg/dL 7-21 CREATININE (BEAKER) (test ioyb=623) 0.79 mg/dL 0.57-1.25 GLUCOSE RANDOM (BEAKER) (test zthf=024) 95 mg/dL 70-105 CALCIUM (BEAKER) (test vefx=936) 8.1 mg/dL 8.4-10.2 EGFR (BEAKER) (test pxjq=7759) 97 mL/min/1.73 sq m ESTIMATED GFR IS NOT ACCURATE CREATININE CLEARANCE IN PREDICTING GLOMERULAR FILTRATION RATE. ESTIMATED GFR IS NOT APPLICABLE FOR DIALYSIS PATIENTS. PROTHROMBIN TIME/[id number] 05:39:00* Test Item Value Reference Range Comments PROTIME (BEAKER) (test sxsg=530) 18.0 seconds 11.7-14.7 INR (BEAKER) (test wvlh=739) 1.5 <=5.9 RECOMMENDED COUMADIN/WARFARIN INR THERAPY RANGESSTANDARD DOSE: 2.0 - 3.0 Includes: PROPHYLAXIS for venous thrombosis, systemic embolization; TREATMENT for venous thrombosis and/or pulmonary embolus.HIGH RISK: Target INR is 2.5-3.5 for patients with mechanical heart valves.While on warfarin.CBC (HEMOGRAM ONLY) 2018-01-24 05:15:00* Test Item Value Reference Range Comments WHITE BLOOD CELL COUNT (BEAKER) (test fqze=908) 5.0 K/ L 3.5-10.5 RED BLOOD CELL COUNT (BEAKER) (test wfmw=603) 2.77 M/ L 4.63-6.08 HEMOGLOBIN (BEAKER) (test xebc=216) 7.9 GM/DL 13.7-17.5 HEMATOCRIT (BEAKER) (test xkid=511) 25.1 % 40.1-51.0 MEAN CORPUSCULAR VOLUME (BEAKER) (test pzli=567) 90.6 fL 79.0-92.2 MEAN CORPUSCULAR HEMOGLOBIN (BEAKER) (test xnpc=459) 28.5 pg 25.7-32.2 MEAN CORPUSCULAR HEMOGLOBIN CONC (BEAKER) (test svwi=502) 31.5 GM/DL 32.3- 36.5 RED CELL DISTRIBUTION WIDTH (BEAKER) (test sqdb=235) 19.9 % 11.6-14.4 PLATELET COUNT (BEAKER) (test hrqs=390) 84 K/CU MM 150-450 MEAN PLATELET VOLUME (BEAKER) (test owke=706) 10.7 fL 9.4-12.4 NUCLEATED RED BLOOD CELLS (BEAKER) (test plyp=017) 0 /100 WBC 0-0 [id number] 06:46:00* Test Item Value Reference Range Comments MAGNESIUM (BEAKER) (test sikp=312) 2.1 mg/dL 1.6-2.6 BASIC METABOLIC [id number] 06:46:00* Test Item Value Reference Range Comments SODIUM (BEAKER) (test jnhf=110) 134 meq/L 136-145 POTASSIUM (BEAKER) (test qbqj=108) 4.2 meq/L 3.5-5.1 CHLORIDE (BEAKER) (test zwjz=342) 94 meq/L 98-107 CO2 (BEAKER) (test gsqe=948) 33 meq/L 22-29 BLOOD UREA NITROGEN (BEAKER) (test ugux=964) 14 mg/dL 7-21 CREATININE (BEAKER) (test ogqt=644) 0.75 mg/dL 0.57-1.25 GLUCOSE RANDOM (BEAKER) (test trcu=794) 99 mg/dL 70-105 CALCIUM (BEAKER) (test wqfk=464) 8.2 mg/dL 8.4-10.2 EGFR (BEAKER) (test zxyz=5356) 103 mL/min/1.73 sq m ESTIMATED GFR IS NOT ACCURATE CREATININE CLEARANCE IN PREDICTING GLOMERULAR FILTRATION RATE. ESTIMATED GFR IS NOT APPLICABLE FOR DIALYSIS PATIENTS. PROTHROMBIN TIME/[id number] 06:42:00* Test Item Value Reference Range Comments PROTIME (BEAKER) (test nvrb=487) 18.1 seconds 11.7-14.7 INR (BEAKER) (test pzkn=344) 1.5 <=5.9 RECOMMENDED COUMADIN/WARFARIN INR THERAPY RANGESSTANDARD DOSE: 2.0 - 3.0 Includes: PROPHYLAXIS for venous thrombosis, systemic embolization; TREATMENT for venous thrombosis and/or pulmonary embolus.HIGH RISK: Target INR is 2.5-3.5 for patients with mechanical heart valves.While on warfarin.[id number] 06:58:00* Test Item Value Reference Range Comments MAGNESIUM (BEAKER) (test qxza=062) 1.7 mg/dL 1.6-2.6 BASIC METABOLIC [id number] 06:58:00* Test Item Value Reference Range Comments SODIUM (BEAKER) (test esyu=782) 134 meq/L 136-145 POTASSIUM (BEAKER) (test lalx=552) 3.7 meq/L 3.5-5.1 CHLORIDE (BEAKER) (test bnlk=787) 95 meq/L 98-107 CO2 (BEAKER) (test vhtg=849) 33 meq/L 22-29 BLOOD UREA NITROGEN (BEAKER) (test axra=175) 14 mg/dL 7-21 CREATININE (BEAKER) (test kbcq=544) 0.82 mg/dL 0.57-1.25 GLUCOSE RANDOM (BEAKER) (test uuda=160) 97 mg/dL 70-105 CALCIUM (BEAKER) (test fnkm=331) 8.0 mg/dL 8.4-10.2 EGFR (BEAKER) (test ishs=3666) 93 mL/min/1.73 sq m ESTIMATED GFR IS NOT ACCURATE CREATININE CLEARANCE IN PREDICTING GLOMERULAR FILTRATION RATE. ESTIMATED GFR IS NOT APPLICABLE FOR DIALYSIS PATIENTS. PROTHROMBIN TIME/[id number] 06:24:00* Test Item Value Reference Range Comments PROTIME (BEAKER) (test wcmc=570) 19.4 seconds 11.7-14.7 INR (BEAKER) (test wxok=318) 1.6 <=5.9 RECOMMENDED COUMADIN/WARFARIN INR THERAPY RANGESSTANDARD DOSE: 2.0 - 3.0 Includes: PROPHYLAXIS for venous thrombosis, systemic embolization; TREATMENT for venous thrombosis and/or pulmonary embolus.HIGH RISK: Target INR is 2.5-3.5 for patients with mechanical heart valves.While on warfarin.CBC (HEMOGRAM ONLY) 2018-01-22 06:07:00* Test Item Value Reference Range Comments WHITE BLOOD CELL COUNT (BEAKER) (test cisb=342) 5.3 K/ L 3.5-10.5 RED BLOOD CELL COUNT (BEAKER) (test xbes=527) 2.84 M/ L 4.63-6.08 HEMOGLOBIN (BEAKER) (test ksft=915) 8.1 GM/DL 13.7-17.5 HEMATOCRIT (BEAKER) (test tazl=791) 25.4 % 40.1-51.0 MEAN CORPUSCULAR VOLUME (BEAKER) (test iblj=549) 89.4 fL 79.0-92.2 MEAN CORPUSCULAR HEMOGLOBIN (BEAKER) (test noub=134) 28.5 pg 25.7-32.2 MEAN CORPUSCULAR HEMOGLOBIN CONC (BEAKER) (test alfg=007) 31.9 GM/DL 32.3- 36.5 RED CELL DISTRIBUTION WIDTH (BEAKER) (test fkpt=990) 19.6 % 11.6-14.4 PLATELET COUNT (BEAKER) (test tjyl=361) 96 K/CU MM 150-450 MEAN PLATELET VOLUME (BEAKER) (test koav=192) 10.8 fL 9.4-12.4 NUCLEATED RED BLOOD CELLS (BEAKER) (test krsj=854) 0 /100 WBC 0-0 RAD, CHEST, 1 VIEW, NON [id number] 10:10:00Reason for exam:->dspneaShould this be performed at the bedside?->YesFINAL REPORT Chest one view INDICATION: Dyspnea COMPARISON: [...] No pneumothorax is seen. Signed: Aislinn Murphy Verified Date/Time: 01/21/2018 10:10:33 Reading Location: [facility] Radiology Reading Room ( HEMOGRAM ONLY)2018-01-21 07:01:00* Test Item Value Reference Range Comments WHITE BLOOD CELL COUNT (BEAKER) (test wrjh=305) 4.9 K/ L 3.5-10.5 RED BLOOD CELL COUNT (BEAKER) (test rybl=370) 2.76 M/ L 4.63-6.08 HEMOGLOBIN (BEAKER) (test lsyo=594) 7.8 GM/DL 13.7-17.5 HEMATOCRIT (BEAKER) (test zrfv=263) 25.1 % 40.1-51.0 MEAN CORPUSCULAR VOLUME (BEAKER) (test szbn=907) 90.9 fL 79.0-92.2 MEAN CORPUSCULAR HEMOGLOBIN (BEAKER) (test hopm=490) 28.3 pg 25.7-32.2 MEAN CORPUSCULAR HEMOGLOBIN CONC (BEAKER) (test oggt=501) 31.1 GM/DL 32.3- 36.5 RED CELL DISTRIBUTION WIDTH (BEAKER) (test vrts=693) 19.5 % 11.6-14.4 PLATELET COUNT (BEAKER) (test tpep=981) 82 K/CU MM 150-450 MEAN PLATELET VOLUME (BEAKER) (test ewce=165) 11.4 fL 9.4-12.4 NUCLEATED RED BLOOD CELLS (BEAKER) (test ygij=649) 0 /100 WBC 0-0 HEPATIC FUNCTION [id number] 06:59:00* Test Item Value Reference Range Comments TOTAL PROTEIN (BEAKER) (test xvrg=390) 7.4 gm/dL 6.0-8.3 ALBUMIN (BEAKER) (test amao=5244) 2.5 g/dL 3.5-5.0 BILIRUBIN TOTAL (BEAKER) (test bzej=276) 0.8 mg/dL 0.2-1.2 BILIRUBIN DIRECT (BEAKER) (test qgeo=408) 0.5 mg/dL 0.1-0.5 ALKALINE PHOSPHATASE (BEAKER) (test dihe=145) 82 U/L 40-150 AST (SGOT) (BEAKER) (test jisw=834) 16 U/L 5-34 ALT (SGPT) (BEAKER) (test uudo=523) < U/L 6-55 [id number] 06:56:00* Test Item Value Reference Range Comments MAGNESIUM (BEAKER) (test gzlr=350) 2.0 mg/dL 1.6-2.6 BASIC METABOLIC [id number] 06:56:00* Test Item Value Reference Range Comments SODIUM (BEAKER) (test clck=822) 134 meq/L 136-145 POTASSIUM (BEAKER) (test ahwk=350) 4.0 meq/L 3.5-5.1 CHLORIDE (BEAKER) (test hpth=800) 95 meq/L 98-107 CO2 (BEAKER) (test erqe=528) 34 meq/L 22-29 BLOOD UREA NITROGEN (BEAKER) (test amxg=367) 12 mg/dL 7-21 CREATININE (BEAKER) (test rurk=944) 0.79 mg/dL 0.57-1.25 GLUCOSE RANDOM (BEAKER) (test iqgh=879) 97 mg/dL 70-105 CALCIUM (BEAKER) (test hpua=541) 8.0 mg/dL 8.4-10.2 EGFR (BEAKER) (test unvp=7666) 97 mL/min/1.73 sq m ESTIMATED GFR IS NOT ACCURATE CREATININE CLEARANCE IN PREDICTING GLOMERULAR FILTRATION RATE. ESTIMATED GFR IS NOT APPLICABLE FOR DIALYSIS PATIENTS. PROTHROMBIN TIME/[id number] 06:37:00* Test Item Value Reference Range Comments PROTIME (BEAKER) (test bdwo=249) 20.2 seconds 11.7-14.7 INR (BEAKER) (test opzm=039) 1.7 <=5.9 RECOMMENDED COUMADIN/WARFARIN INR THERAPY RANGESSTANDARD DOSE: 2.0 - 3.0 Includes: PROPHYLAXIS for venous thrombosis, systemic embolization; TREATMENT for venous thrombosis and/or pulmonary embolus.HIGH RISK: Target INR is 2.5-3.5 for patients with mechanical heart valves.While on warfarin.FUNGUS CULTURE + [id number] 22:44:00* Test Item Value Reference Range Comments CULTURE (BEAKER) (test uech=9729) No fungus isolated in 28 days FUNGUS SMEAR (BEAKER) (test apkd=3461) No fungi seen FUNGUS CULTURE + [id number] 22:44:00* Test Item Value Reference Range Comments CULTURE (BEAKER) (test lvpo=6092) No fungus isolated in 28 days FUNGUS SMEAR (BEAKER) (test fuag=9527) No fungi seen [id number] 07:43:00* Test Item Value Reference Range Comments PHOSPHORUS (BEAKER) (test daqd=888) 3.5 mg/dL 2.3-4.7 [id number] 07:43:00* Test Item Value Reference Range Comments MAGNESIUM (BEAKER) (test qwvl=454) 1.8 mg/dL 1.6-2.6 BASIC METABOLIC [id number] 07:43:00* Test Item Value Reference Range Comments SODIUM (BEAKER) (test xyye=063) 133 meq/L 136-145 POTASSIUM (BEAKER) (test xiho=215) 3.9 meq/L 3.5-5.1 CHLORIDE (BEAKER) (test tkmv=037) 95 meq/L 98-107 CO2 (BEAKER) (test hhbg=818) 33 meq/L 22-29 BLOOD UREA NITROGEN (BEAKER) (test ptsy=286) 13 mg/dL 7-21 CREATININE (BEAKER) (test vqkk=075) 0.83 mg/dL 0.57-1.25 GLUCOSE RANDOM (BEAKER) (test itfx=308) 94 mg/dL 70-105 CALCIUM (BEAKER) (test cihy=861) 8.3 mg/dL 8.4-10.2 EGFR (BEAKER) (test beuy=7692) 92 mL/min/1.73 sq m ESTIMATED GFR IS NOT ACCURATE CREATININE CLEARANCE IN PREDICTING GLOMERULAR FILTRATION RATE. ESTIMATED GFR IS NOT APPLICABLE FOR DIALYSIS PATIENTS. PROTHROMBIN TIME/[id number] 07:12:00* Test Item Value Reference Range Comments PROTIME (BEAKER) (test mxwg=074) 18.0 seconds 11.7-14.7 INR (BEAKER) (test ucvk=775) 1.5 <=5.9 RECOMMENDED COUMADIN/WARFARIN INR THERAPY RANGESSTANDARD DOSE: 2.0 - 3.0 Includes: PROPHYLAXIS for venous thrombosis, systemic embolization; TREATMENT for venous thrombosis and/or pulmonary embolus.HIGH RISK: Target INR is 2.5-3.5 for patients with mechanical heart valves.While on warfarin.CBC (HEMOGRAM ONLY) 2018-01-20 06:57:00* Test Item Value Reference Range Comments WHITE BLOOD CELL COUNT (BEAKER) (test qfjn=384) 4.4 K/ L 3.5-10.5 RED BLOOD CELL COUNT (BEAKER) (test vzsg=266) 2.80 M/ L 4.63-6.08 HEMOGLOBIN (BEAKER) (test haat=711) 7.9 GM/DL 13.7-17.5 HEMATOCRIT (BEAKER) (test ojvn=478) 25.3 % 40.1-51.0 MEAN CORPUSCULAR VOLUME (BEAKER) (test swgu=082) 90.4 fL 79.0-92.2 MEAN CORPUSCULAR HEMOGLOBIN (BEAKER) (test wrgs=047) 28.2 pg 25.7-32.2 MEAN CORPUSCULAR HEMOGLOBIN CONC (BEAKER) (test cclf=736) 31.2 GM/DL 32.3- 36.5 RED CELL DISTRIBUTION WIDTH (BEAKER) (test cmuu=239) 19.5 % 11.6-14.4 PLATELET COUNT (BEAKER) (test kwme=040) 83 K/CU MM 150-450 MEAN PLATELET VOLUME (BEAKER) (test dnyb=874) 10.6 fL 9.4-12.4 NUCLEATED RED BLOOD CELLS (BEAKER) (test nmgg=244) 0 /100 WBC 0-0 TROPONIN [id number] 15:17:00* Test Item Value Reference Range Comments TROPONIN I (BEAKER) (test ypld=514) 0.04 ng/mL 0.00-0.03 Troponin I (TnI) levels must be interpreted [...] failure, acidosis, acute neurological disease, and persistent tachyarrhythmia.TROPONIN [id number] 07:39:00* Test Item Value Reference Range Comments TROPONIN I (BEAKER) (test qnoy=974) 0.05 ng/mL 0.00-0.03 Troponin I (TnI) levels must be interpreted [...] failure, acidosis, acute neurological disease, and persistent tachyarrhythmia.CT, CHEST WITH IV CONTRAST- PE TEST [id number] 00:48:00Reason for exam:->CHEST PAINWhat is the patient's sedation requirement?->No SedationFINAL REPORT CT, CHEST WITH IV CONTRAST- PE TEST DESIGN INDICATION: Chest pain, acute, pulmonary originCHEST PAIN COMPARISON: January 10, 2018 TECHNIQUE: Contrast [...] FINDINGS: Lungs and pleura: Trace left effusion. Pvqfl-bi-lvjnxepl right effusion. Associated minimal relaxation atelectasis. Remaining portions of the air spaces demonstrate no consolidation. No effusion or pneumothorax.Central airways: Patent.Mediastinum: No adenopathy.Heart and pericardium: Stable marked cardiac enlargement. Severe dilation of the atria, left greater than right. Great vessels: Prominent calibers of the pulmonary trunk and main pulmonary arteries.Pulmonary embolism: None. Regional skeletal structures: Intact. Included upper abdomen: Contrast reflux into the hepatic veins. Nodular hepatic appearance stable compared to prior. Small sliding hiatal hernia. Additional findings: None. IMPRESSION: No pulmonary embolism. Marked cardiomegaly and asymmetric (left greater than right) atrial dilation. Findings compatible with advanced heart failure. Small to moderate right an trace left pleural effusions. Signed: JR Mccann [facility] Verified Date/Time: 2017 00:48:46 Reading Location: [facility] B1 C013Y CT Body Reading Room ONIN [id number] 23:37:00* Test Item Value Reference Range Comments TROPONIN I (BEAKER) (test cctq=784) 0.05 ng/mL 0.00-0.03 Troponin I (TnI) levels must be interpreted [...] failure, acidosis, acute neurological disease, and persistent tachyarrhythmia.RAD, CHEST, 1 VIEW, NON [id number] 23:25:00Reason for exam:->CHEST PAINFINAL REPORT RAD, CHEST, 1 VIEW, NON DEPT INDICATION: CHEST PAIN COMPARISON: January 13, 2018 FINDINGS: Portable frontal view of the chest. IMPRESSION: Support Lines: Stable positioning of pacer apparatus. Stable left PICC.Lungs and pleura: Persistent small to moderate right effusion. Left costophrenic sulcus reveals small effusion. Mild interstitial congestion may reflect edema or atypical infection. No pneumothorax.Heart and mediastinum: Persistent marked enlargement of the cardiac silhouette. Stable surgical changes. Stable surgical changes.Additional findings: None. Signed: JR Mccann [facility] Verified Date/Time: 01/18/2018 23:25:02 Reading Location: [facility] C013Y CT Body Reading Room B-TYPE NATRIURETIC FACTOR (BNP)2018-01-18 23:21:00* Test Item Value Reference Range Comments B-TYPE NATRIURETIC PEPTIDE (BEAKER) (test qpsz=986) 322 pg/mL 0-100 [id number] 23:13:00* Test Item Value Reference Range Comments MAGNESIUM (BEAKER) (test oaim=974) 1.5 mg/dL 1.6-2.6 BASIC METABOLIC [id number] 23:13:00* Test Item Value Reference Range Comments SODIUM (BEAKER) (test sowd=443) 134 meq/L 136-145 POTASSIUM (BEAKER) (test kqws=993) 3.9 meq/L 3.5-5.1 CHLORIDE (BEAKER) (test avda=440) 95 meq/L 98-107 CO2 (BEAKER) (test avdx=602) 32 meq/L 22-29 BLOOD UREA NITROGEN (BEAKER) (test dynx=209) 14 mg/dL 7-21 CREATININE (BEAKER) (test vikt=234) 0.85 mg/dL 0.57-1.25 GLUCOSE RANDOM (BEAKER) (test fsnp=883) 91 mg/dL 70-105 CALCIUM (BEAKER) (test cdhu=812) 8.3 mg/dL 8.4-10.2 EGFR (BEAKER) (test cndd=0302) 89 mL/min/1.73 sq m ESTIMATED GFR IS NOT ACCURATE CREATININE CLEARANCE IN PREDICTING GLOMERULAR FILTRATION RATE. ESTIMATED GFR IS NOT APPLICABLE FOR DIALYSIS PATIENTS. PT/[id number] 23:12:00* Test Item Value Reference Range Comments PROTIME (BEAKER) (test mguo=887) 19.7 seconds 11.7-14.7 INR (BEAKER) (test jxxi=203) 1.7 <=5.9 PARTIAL THROMBOPLASTIN TIME (BEAKER) (test jrjq=840) 32.4 seconds 22.5-36.0 RECOMMENDED COUMADIN/WARFARIN INR THERAPY RANGESSTANDARD DOSE: 2.0 - 3.0 Includes: PROPHYLAXIS for venous thrombosis, systemic embolization; TREATMENT for venous thrombosis and/or pulmonary embolus.HIGH RISK: Target INR is 2.5-3.5 for patients with mechanical heart valves.CBC W/PLT COUNT & AUTO [id number] 22:58:00* Test Item Value Reference Range Comments WHITE BLOOD CELL COUNT (BEAKER) (test pegk=690) 4.9 K/ L 3.5-10.5 RED BLOOD CELL COUNT (BEAKER) (test qhuo=979) 2.78 M/ L 4.63-6.08 HEMOGLOBIN (BEAKER) (test yywo=989) 8.0 GM/DL 13.7-17.5 HEMATOCRIT (BEAKER) (test asmh=652) 25.2 % 40.1-51.0 MEAN CORPUSCULAR VOLUME (BEAKER) (test tzmw=279) 90.6 fL 79.0-92.2 MEAN CORPUSCULAR HEMOGLOBIN (BEAKER) (test bmwu=935) 28.8 pg 25.7-32.2 MEAN CORPUSCULAR HEMOGLOBIN CONC (BEAKER) (test zmbq=136) 31.7 GM/DL 32.3- 36.5 RED CELL DISTRIBUTION WIDTH (BEAKER) (test jdmi=148) 19.2 % 11.6-14.4 PLATELET COUNT (BEAKER) (test hzwn=904) 98 K/CU MM 150-450 MEAN PLATELET VOLUME (BEAKER) (test ebhl=117) 10.7 fL 9.4-12.4 NUCLEATED RED BLOOD CELLS (BEAKER) (test xied=493) 0 /100 WBC 0-0 NEUTROPHILS RELATIVE PERCENT (BEAKER) (test icsv=002) 67 % LYMPHOCYTES RELATIVE PERCENT (BEAKER) (test umtr=374) 16 % MONOCYTES RELATIVE PERCENT (BEAKER) (test uzzv=360) 14 % EOSINOPHILS RELATIVE PERCENT (BEAKER) (test shiy=564) 2 % BASOPHILS RELATIVE PERCENT (BEAKER) (test ghev=827) 0 % NEUTROPHILS ABSOLUTE COUNT (BEAKER) (test cini=849) 3.26 K/ L 1.78-5.38 LYMPHOCYTES ABSOLUTE COUNT (BEAKER) (test mfpw=892) 0.79 K/ L 1.32-3.57 MONOCYTES ABSOLUTE COUNT (BEAKER) (test rhlf=558) 0.68 K/ L 0.30-0.82 EOSINOPHILS ABSOLUTE COUNT (BEAKER) (test wnco=921) 0.10 K/ L 0.04-0.54 BASOPHILS ABSOLUTE COUNT (BEAKER) (test upmr=075) 0.01 K/ L 0.01-0.08 IMMATURE GRANULOCYTES-RELATIVE PERCENT (BEAKER) (test hwkn=0996) 0 % 0-1 PROTHROMBIN TIME/[id number] 06:20:00* Test Item Value Reference Range Comments PROTIME (BEAKER) (test lfsf=815) 21.9 seconds 11.7-14.7 INR (BEAKER) (test tezu=226) 1.9 <=5.9 RECOMMENDED COUMADIN/WARFARIN INR THERAPY RANGESSTANDARD DOSE: 2.0 - 3.0 Includes: PROPHYLAXIS for venous thrombosis, systemic embolization; TREATMENT for venous thrombosis and/or pulmonary embolus.HIGH RISK: Target INR is 2.5-3.5 for patients with mechanical heart valves.While on warfarin.RAD, CHEST, 1 VIEW, NON [id number] 03:52:00Reason for exam:->s/p ICDShould this be performed at the bedside?->YesFINAL REPORT RAD, CHEST, 1 VIEW, NON DEPT INDICATION: s/p ICD COMPARISON: Prior day's exam FINDINGS: Portable frontal view of the chest. IMPRESSION: Support Lines: Stable. Lungs and pleura: Unchanged airspace and pleural opacities. No pneumothorax.Heart and mediastinum: Stable contours. Stable surgical changes.Additional findings: New right subclavian approach. Generator. The distal pacer tip projects over the right ventricle. Signed: JR Ramy, Nitesh Velasco Verified Date/Time: 01/13/2018 03:52:55 Reading Location: [facility] C013Y CT Body Reading Room C METABOLIC [id number] 01:30:00* Test Item Value Reference Range Comments SODIUM (BEAKER) (test jfsd=717) 132 meq/L 136-145 POTASSIUM (BEAKER) (test wacz=997) 4.3 meq/L 3.5-5.1 CHLORIDE (BEAKER) (test owaq=282) 91 meq/L 98-107 CO2 (BEAKER) (test zece=740) 35 meq/L 22-29 BLOOD UREA NITROGEN (BEAKER) (test qrma=637) 15 mg/dL 7-21 CREATININE (BEAKER) (test zhtt=768) 1.03 mg/dL 0.57-1.25 GLUCOSE RANDOM (BEAKER) (test hxte=818) 133 mg/dL 70-105 CALCIUM (BEAKER) (test tsja=279) 7.9 mg/dL 8.4-10.2 EGFR (BEAKER) (test mweg=0092) 72 mL/min/1.73 sq m ESTIMATED GFR IS NOT ACCURATE CREATININE CLEARANCE IN PREDICTING GLOMERULAR FILTRATION RATE. ESTIMATED GFR IS NOT APPLICABLE FOR DIALYSIS PATIENTS. [id number] 01:26:00* Test Item Value Reference Range Comments MAGNESIUM (BEAKER) (test evut=031) 1.8 mg/dL 1.6-2.6 CBC (HEMOGRAM ONLY)2018-01-13 01:10:00* Test Item Value Reference Range Comments WHITE BLOOD CELL COUNT (BEAKER) (test qgft=938) 4.7 K/ L 3.5-10.5 RED BLOOD CELL COUNT (BEAKER) (test wlox=314) 2.80 M/ L 4.63-6.08 HEMOGLOBIN (BEAKER) (test urcw=105) 8.0 GM/DL 13.7-17.5 HEMATOCRIT (BEAKER) (test lack=681) 25.6 % 40.1-51.0 MEAN CORPUSCULAR VOLUME (BEAKER) (test llvp=231) 91.4 fL 79.0-92.2 MEAN CORPUSCULAR HEMOGLOBIN (BEAKER) (test bzlm=661) 28.6 pg 25.7-32.2 MEAN CORPUSCULAR HEMOGLOBIN CONC (BEAKER) (test eluj=832) 31.3 GM/DL 32.3- 36.5 RED CELL DISTRIBUTION WIDTH (BEAKER) (test tuzl=807) 19.1 % 11.6-14.4 PLATELET COUNT (BEAKER) (test entw=260) 136 K/CU MM 150-450 MEAN PLATELET VOLUME (BEAKER) (test gldg=543) 10.1 fL 9.4-12.4 NUCLEATED RED BLOOD CELLS (BEAKER) (test ftmh=152) 0 /100 WBC 0-0 POCT-GLUCOSE [id number] 22:03:00* Test Item Value Reference Range Comments POC-GLUCOSE METER (BEAKER) (test mlsp=9551) 142 mg/dL 70-110 [address]ED AT [address] [address] POCT-GLUCOSE [id number] 15:13:00* Test Item Value Reference Range Comments POC-GLUCOSE METER (BEAKER) (test tgcu=0929) 114 mg/dL 70-110 TESTED AT [address] [address] POCT-GLUCOSE [id number] 14:18:00* Test Item Value Reference Range Comments POC-GLUCOSE METER (BEAKER) (test xyuq=6362) 120 mg/dL 70-110 TESTED AT [address] [address] PROTHROMBIN [id number] 06:00:00* Test Item Value Reference Range Comments PROTIME (BEAKER) (test dxvc=330) 22.5 seconds 11.7-14.7 INR (BEAKER) (test zcfo=834) 2.0 <=5.9 RECOMMENDED COUMADIN/WARFARIN INR THERAPY RANGESSTANDARD DOSE: 2.0 - 3.0 Includes: PROPHYLAXIS for venous thrombosis, systemic embolization; TREATMENT for venous thrombosis and/or pulmonary embolus.HIGH RISK: Target INR is 2.5-3.5 for patients with mechanical heart valves.While on warfarin.CBC (HEMOGRAM ONLY) 2018-01-12 05:57:00* Test Item Value Reference Range Comments WHITE BLOOD CELL COUNT (BEAKER) (test jtfj=587) 4.3 K/ L 3.5-10.5 RED BLOOD CELL COUNT (BEAKER) (test oskd=071) 2.92 M/ L 4.63-6.08 HEMOGLOBIN (BEAKER) (test pbmz=664) 8.1 GM/DL 13.7-17.5 HEMATOCRIT (BEAKER) (test ktmp=331) 26.3 % 40.1-51.0 MEAN CORPUSCULAR VOLUME (BEAKER) (test phcq=332) 90.1 fL 79.0-92.2 MEAN CORPUSCULAR HEMOGLOBIN (BEAKER) (test cvkg=160) 27.7 pg 25.7-32.2 MEAN CORPUSCULAR HEMOGLOBIN CONC (BEAKER) (test vofg=397) 30.8 GM/DL 32.3- 36.5 RED CELL DISTRIBUTION WIDTH (BEAKER) (test iraq=885) 19.3 % 11.6-14.4 PLATELET COUNT (BEAKER) (test znuv=427) 154 K/CU MM 150-450 MEAN PLATELET VOLUME (BEAKER) (test exbs=353) 11.0 fL 9.4-12.4 NUCLEATED RED BLOOD CELLS (BEAKER) (test piho=658) 0 /100 WBC 0-0 PROTHROMBIN TIME/[id number] 01:39:00* Test Item Value Reference Range Comments PROTIME (BEAKER) (test jxeh=538) 22.7 seconds 11.7-14.7 INR (BEAKER) (test cbfi=357) 2.0 <=5.9 RECOMMENDED COUMADIN/WARFARIN INR THERAPY RANGESSTANDARD DOSE: 2.0 - 3.0 Includes: PROPHYLAXIS for venous thrombosis, systemic embolization; TREATMENT for venous thrombosis and/or pulmonary embolus.HIGH RISK: Target INR is 2.5-3.5 for patients with mechanical heart valves.Within 24 hours, if on [id number] 01:38:00* Test Item Value Reference Range Comments MAGNESIUM (BEAKER) (test nvwa=332) 1.9 mg/dL 1.6-2.6 BASIC METABOLIC [id number] 01:38:00* Test Item Value Reference Range Comments SODIUM (BEAKER) (test ihor=134) 132 meq/L 136-145 POTASSIUM (BEAKER) (test eqwx=966) 3.9 meq/L 3.5-5.1 CHLORIDE (BEAKER) (test bvip=227) 90 meq/L 98-107 CO2 (BEAKER) (test brde=162) 35 meq/L 22-29 BLOOD UREA NITROGEN (BEAKER) (test mmpd=821) 13 mg/dL 7-21 CREATININE (BEAKER) (test uvcw=193) 1.03 mg/dL 0.57-1.25 GLUCOSE RANDOM (BEAKER) (test hnqv=602) 102 mg/dL 70-105 CALCIUM (BEAKER) (test pvtb=255) 8.1 mg/dL 8.4-10.2 EGFR (BEAKER) (test awzg=0374) 72 mL/min/1.73 sq m ESTIMATED GFR IS NOT ACCURATE CREATININE CLEARANCE IN PREDICTING GLOMERULAR FILTRATION RATE. ESTIMATED GFR IS NOT APPLICABLE FOR DIALYSIS PATIENTS. POCT-GLUCOSE [id number] 23:12:00* Test Item Value Reference Range Comments POC-GLUCOSE METER (BEAKER) (test nxxs=4887) 111 mg/dL 70-110 TESTED AT [place] [id number] [facility] [address] POCT-GLUCOSE [id number] 11:50:00* Test Item Value Reference Range Comments POC-GLUCOSE METER (BEAKER) (test shbd=6279) 121 mg/dL 70-110 TESTED AT [place] [id number] [facility] [address] POCT-GLUCOSE [id number] 08:26:00* Test Item Value Reference Range Comments POC-GLUCOSE METER (BEAKER) (test ejfz=3445) 111 mg/dL 70-110 TESTED AT [place] [id number] [facility] [address] RAD, CHEST, 1 VIEW, NON [id number] 07:55:00Reason for exam:->concern for lead migrationShould this be performed at the bedside?->YesFINAL REPORT Chest one view AP 01/11/2018 7:55 AM CLINICAL INDICATION: concern for lead migration COMPARISON: 01/11/2018 at 0104 IMPRESSION: Support hardware is unchanged in position. The cardiac silhouette is enlarged, but stable. The central pulmonary vasculature is not engorged. There are small volume right and trace left pleural effusions with adjacent dependent atelectasis. Superimposed pneumonia should be excluded clinically. Signed: Dario Jaramillo Verified Date/Time: 01/11/2018 07:55:38 Reading Location: [facility] Radiology Reading Room Electronically signed by: DARIO JARAMILLO M.D. on 07:55 AM [id number] 06:49:00* Test Item Value Reference Range Comments MAGNESIUM (BEAKER) (test sqvk=871) 1.9 mg/dL 1.6-2.6 BASIC METABOLIC [id number] 06:49:00* Test Item Value Reference Range Comments SODIUM (BEAKER) (test oywl=497) 129 meq/L 136-145 POTASSIUM (BEAKER) (test hosx=784) 3.9 meq/L 3.5-5.1 CHLORIDE (BEAKER) (test zdtz=839) 89 meq/L 98-107 CO2 (BEAKER) (test vpyx=118) 36 meq/L 22-29 BLOOD UREA NITROGEN (BEAKER) (test loiv=367) 12 mg/dL 7-21 CREATININE (BEAKER) (test wjuo=134) 0.98 mg/dL 0.57-1.25 GLUCOSE RANDOM (BEAKER) (test olny=647) 106 mg/dL 70-105 CALCIUM (BEAKER) (test qfam=359) 8.1 mg/dL 8.4-10.2 EGFR (BEAKER) (test orkx=5446) 76 mL/min/1.73 sq m ESTIMATED GFR IS NOT ACCURATE CREATININE CLEARANCE IN PREDICTING GLOMERULAR FILTRATION RATE. ESTIMATED GFR IS NOT APPLICABLE FOR DIALYSIS PATIENTS. PROTHROMBIN TIME/[id number] 05:12:00* Test Item Value Reference Range Comments PROTIME (BEAKER) (test vzxi=564) 22.4 seconds 11.7-14.7 INR (BEAKER) (test gogn=072) 2.0 <=5.9 RECOMMENDED COUMADIN/WARFARIN INR THERAPY RANGESSTANDARD DOSE: 2.0 - 3.0 Includes: PROPHYLAXIS for venous thrombosis, systemic embolization; TREATMENT for venous thrombosis and/or pulmonary embolus.HIGH RISK: Target INR is 2.5-3.5 for patients with mechanical heart valves.While on warfarin.RAD, CHEST, 1 VIEW, NON [id number] 01:25:00Reason for exam:->micra placementShould this be performed at the bedside?->YesFINAL REPORT RAD, CHEST, 1 VIEW, NON DEPT INDICATION: micra placement COMPARISON: Prior day's exam TECHNIQUE: Portable frontal view of the chest. IMPRESSION: Stable PICC line.New leadless pacemaker projecting over the expected location of the right ventricle.Stable cardiomegaly.Stable vascular congestion.Stable bibasilar opacities likely reflecting a combination of pleural fluid and adjacent airspace disease.No acute osseous abnormality. Signed: Todd Hoover MDReport Verified Date/Time: 01/11/2018 01:25:55 Reading Location: [address] Reading Room Electronically signed by: TODD HOOVER MD on 01:25 AM POCT-GLUCOSE [id number] 21:20:00* Test Item Value Reference Range Comments POC-GLUCOSE METER (BEAKER) (test pnmb=6156) 100 mg/dL 70-110 TESTED AT [address] [address] POCT-GLUCOSE [id number] 17:22:00* Test Item Value Reference Range Comments POC-GLUCOSE METER (BEAKER) (test dfif=2002) 179 mg/dL 70-110 TESTED AT [address] [address] BASIC METABOLIC [id number] 16:41:00* Test Item Value Reference Range Comments SODIUM (BEAKER) (test ocoq=908) 131 meq/L 136-145 POTASSIUM (BEAKER) (test fdgj=386) 4.1 meq/L 3.5-5.1 CHLORIDE (BEAKER) (test nxxs=334) 88 meq/L 98-107 CO2 (BEAKER) (test hbzl=213) 33 meq/L 22-29 BLOOD UREA NITROGEN (BEAKER) (test vabd=283) 12 mg/dL 7-21 CREATININE (BEAKER) (test slqf=566) 0.97 mg/dL 0.57-1.25 GLUCOSE RANDOM (BEAKER) (test ehfc=754) 96 mg/dL 70-105 CALCIUM (BEAKER) (test rmiu=597) 8.4 mg/dL 8.4-10.2 EGFR (BEAKER) (test limm=2583) 77 mL/min/1.73 sq m ESTIMATED GFR IS NOT ACCURATE CREATININE CLEARANCE IN PREDICTING GLOMERULAR FILTRATION RATE. ESTIMATED GFR IS NOT APPLICABLE FOR DIALYSIS PATIENTS. POCT-GLUCOSE [id number] 11:40:00* Test Item Value Reference Range Comments POC-GLUCOSE METER (BEAKER) (test lupd=0229) 133 mg/dL 70-[address] [facility] [address] [facility] [address] POCT-GLUCOSE [id number] 07:55:00* Test Item Value Reference Range Comments POC-GLUCOSE METER (BEAKER) (test wgyd=0802) 119 mg/dL 70-[address] [facility] [address] [facility] [address] HEPATIC FUNCTION [id number] 07:08:00* Test Item Value Reference Range Comments TOTAL PROTEIN (BEAKER) (test hquh=214) 7.8 gm/dL 6.0-8.3 ALBUMIN (BEAKER) (test cqrc=0680) 2.5 g/dL 3.5-5.0 BILIRUBIN TOTAL (BEAKER) (test fkxv=995) 0.9 mg/dL 0.2-1.2 BILIRUBIN DIRECT (BEAKER) (test vfvi=181) 0.6 mg/dL 0.1-0.5 ALKALINE PHOSPHATASE (BEAKER) (test uzrf=485) 102 U/L 40-150 AST (SGOT) (BEAKER) (test dhna=193) 17 U/L 5-34 ALT (SGPT) (BEAKER) (test fcxy=001) < U/L 6-55 [id number] 06:37:00* Test Item Value Reference Range Comments MAGNESIUM (BEAKER) (test zxhf=091) 1.5 mg/dL 1.6-2.6 PROTHROMBIN TIME/[id number] 05:25:00* Test Item Value Reference Range Comments PROTIME (BEAKER) (test npst=856) 20.5 seconds 11.7-14.7 INR (BEAKER) (test invt=731) 1.8 <=5.9 RECOMMENDED COUMADIN/WARFARIN INR THERAPY RANGESSTANDARD DOSE: 2.0 - 3.0 Includes: PROPHYLAXIS for venous thrombosis, systemic embolization; TREATMENT for venous thrombosis and/or pulmonary embolus.HIGH RISK: Target INR is 2.5-3.5 for patients with mechanical heart valves.While on warfarin.CBC (HEMOGRAM ONLY) 2018-01-10 05:24:00* Test Item Value Reference Range Comments WHITE BLOOD CELL COUNT (BEAKER) (test ngpb=080) 4.6 K/ L 3.5-10.5 RED BLOOD CELL COUNT (BEAKER) (test aaek=583) 2.86 M/ L 4.63-6.08 HEMOGLOBIN (BEAKER) (test gywg=511) 7.8 GM/DL 13.7-17.5 HEMATOCRIT (BEAKER) (test tdys=471) 25.6 % 40.1-51.0 MEAN CORPUSCULAR VOLUME (BEAKER) (test kuai=773) 89.5 fL 79.0-92.2 MEAN CORPUSCULAR HEMOGLOBIN (BEAKER) (test blon=028) 27.3 pg 25.7-32.2 MEAN CORPUSCULAR HEMOGLOBIN CONC (BEAKER) (test vcud=932) 30.5 GM/DL 32.3- 36.5 RED CELL DISTRIBUTION WIDTH (BEAKER) (test vwtj=242) 19.3 % 11.6-14.4 PLATELET COUNT (BEAKER) (test buif=580) 148 K/CU MM 150-450 MEAN PLATELET VOLUME (BEAKER) (test xcwz=810) 11.0 fL 9.4-12.4 NUCLEATED RED BLOOD CELLS (BEAKER) (test lttq=673) 0 /100 WBC 0-0 CT, [id number] 03:45:00Addendum BeginsREPORT STATUS:A / Signed: Todd Hoover MDReport Verified Date/Time: 01/10/2018 03: 45:00 Reading Location: [address] Reading RoomAddendum EndsFINAL REPORT CT, CHEST WITH IV CONTRAST- PE [...] to as low as reasonably achievable. FINDINGS: CHEST:No pulmonary or some.Massive cardiomegaly predominantly involving the atria.No pathologic adenopathy in the chest per CT size criteria. Small right and trace left-sided effusion with adjacent airspace disease.8 mm nodular opacity in the right upper lobe. 6.2 x 4.8 cm ovoid expansion of the left pectoralis musculature. Findings probably reflecting hematoma. 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 Incompletely characterized hypodensities in the left kidney which also probably reflect simple cysts.Unremarkable pancreas. No acute abnormality of the hollow abdominal viscera.Large colonic stool burden.Normal appendix. No focal lytic or destructive bony process. IMPRESSION:No pulmonary embolism.Massive cardiomegaly.8 mm right upper lobe pulmonary nodule. The [...] then again at 18-24 months if no change.Probable hematoma of the left pectoralis muscle. 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 Signed: Todd Hooverort Verified Date/Time: 01/10/2018 03:42:51 Reading Location: [address] Reading Room 03: [address], CHEST WITH IV CONTRAST- PE TEST [id number] 03:45:00Addendum BeginsREPORT STATUS:A / Signed: Todd Hoover Verified Date/Time: 01/10/2018 03:45:00 Reading Location: [address] Reading RoomAddendum EndsFINAL REPORT CT, CHEST WITH IV CONTRAST- PE [...] reasonably achievable. FINDINGS: CHEST: No pulmonary or some.Massive cardiomegaly predominantly involving the atria.No pathologic adenopathy in the chest per CT size criteria. Small right and trace left-sided effusion with adjacent airspace disease.8 mm nodular opacity in the right upper lobe. 6.2 x 4.8 cm ovoid expansion of the left pectoralis musculature. Findings probably reflecting hematoma. 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 Incompletely characterized hypodensities in the left kidney which also probably reflect simple cysts.Unremarkable pancreas. No acute abnormality of the hollow abdominal viscera.Large colonic stool burden.Normal appendix. No focal lytic or destructive bony process. IMPRESSION:No pulmonary embolism.Massive cardiomegaly.8 mm right upper lobe pulmonary nodule. The Fleischner Society guidelines for followup of an incidentally detected 6 to 8 mm pulmonary nodule are as follows: LOW RISK patient (minimal or absent history of smoking and other known risk factors): follow-up CT in 16-12 months; then consider follow- up at 18-24 months. HIGH RISK patient (history of smoking or other risk factors) :follow-up CT at 6-12 months, then again at 18-24 months if no change.Probable hematoma of the left pectoralis muscle. 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 Signed: Todd Hoover MDReport Verified Date/Time: 01/10/2018 03: 42:51 Reading Location: [address] Reading Room - GLUCOSE [id number] 21:50:00* Test Item Value Reference Range Comments POC-GLUCOSE METER (BEAKER) (test snyo=9047) 135 mg/dL 70-[address] [facility] [address] [facility] [address] POCT-GLUCOSE [id number] 12:47:00* Test Item Value Reference Range Comments POC-GLUCOSE METER (BEAKER) (test zodd=8652) 129 mg/dL 70-[address] [facility] [address] [facility] [address] BASIC METABOLIC [id number] 06:55:00* Test Item Value Reference Range Comments SODIUM (BEAKER) (test whar=384) 133 meq/L 136-145 POTASSIUM (BEAKER) (test rtxu=236) 3.8 meq/L 3.5-5.1 CHLORIDE (BEAKER) (test zbap=917) 93 meq/L 98-107 CO2 (BEAKER) (test jahy=916) 34 meq/L 22-29 BLOOD UREA NITROGEN (BEAKER) (test brnr=796) 12 mg/dL 7-21 CREATININE (BEAKER) (test qpey=994) 0.99 mg/dL 0.57-1.25 GLUCOSE RANDOM (BEAKER) (test hcqn=128) 117 mg/dL 70-105 CALCIUM (BEAKER) (test bliv=976) 8.2 mg/dL 8.4-10.2 EGFR (BEAKER) (test gcew=6916) 75 mL/min/1.73 sq m ESTIMATED GFR IS NOT ACCURATE CREATININE CLEARANCE IN PREDICTING GLOMERULAR FILTRATION RATE. ESTIMATED GFR IS NOT APPLICABLE FOR DIALYSIS PATIENTS. [id number] 06:37:00* Test Item Value Reference Range Comments MAGNESIUM (BEAKER) (test pcri=956) 1.6 mg/dL 1.6-2.6 PROTHROMBIN TIME/[id number] 06:16:00* Test Item Value Reference Range Comments PROTIME (BEAKER) (test fizt=302) 21.5 seconds 11.7-14.7 INR (BEAKER) (test qyjy=743) 1.9 <=5.9 RECOMMENDED COUMADIN/WARFARIN INR THERAPY RANGESSTANDARD DOSE: 2.0 - 3.0 Includes: PROPHYLAXIS for venous thrombosis, systemic embolization; TREATMENT for venous thrombosis and/or pulmonary embolus.HIGH RISK: Target INR is 2.5-3.5 for patients with mechanical heart valves.While on warfarin.[id number] 06:16 :00* Test Item Value Reference Range Comments PARTIAL THROMBOPLASTIN TIME (BEAKER) (test okir=623) 36.4 seconds 22.5-36.0 While on warfarin.CBC (HEMOGRAM ONLY)2018-01-09 05:58:00* Test Item Value Reference Range Comments WHITE BLOOD CELL COUNT (BEAKER) (test ezrl=327) 4.6 K/ L 3.5-10.5 RED BLOOD CELL COUNT (BEAKER) (test nldj=401) 2.84 M/ L 4.63-6.08 HEMOGLOBIN (BEAKER) (test ceul=660) 7.8 GM/DL 13.7-17.5 HEMATOCRIT (BEAKER) (test xzef=785) 25.3 % 40.1-51.0 MEAN CORPUSCULAR VOLUME (BEAKER) (test amke=936) 89.1 fL 79.0-92.2 MEAN CORPUSCULAR HEMOGLOBIN (BEAKER) (test xjyu=109) 27.5 pg 25.7-32.2 MEAN CORPUSCULAR HEMOGLOBIN CONC (BEAKER) (test efdb=833) 30.8 GM/DL 32.3- 36.5 RED CELL DISTRIBUTION WIDTH (BEAKER) (test oevl=783) 19.1 % 11.6-14.4 PLATELET COUNT (BEAKER) (test bmca=437) 138 K/CU MM 150-450 MEAN PLATELET VOLUME (BEAKER) (test bqyo=128) 11.0 fL 9.4-12.4 NUCLEATED RED BLOOD CELLS (BEAKER) (test ajlt=797) 0 /100 WBC 0-0 POCT-GLUCOSE [id number] 21:30:00* Test Item Value Reference Range Comments POC-GLUCOSE METER (BEAKER) (test ixxr=0646) 137 mg/dL 70-[address] [facility] [address] [facility] [address] BLOOD GAS, [id number] 12:17:00* Test Item Value Reference Range Comments PH ARTERIAL (BEAKER) (test rokq=931) 7.52 7.35-7.45 PCO2 ARTERIAL (BEAKER) (test cuoh=742) 46 mmHg 35-45 PO2 ARTERIAL (BEAKER) (test tpsc=980) 90 mmHg 80-90 O2 SATURATION ARTERIAL (BEAKER) (test rkxo=640) 97.5 % 96.0-97.0 HCO3 ARTERIAL (BEAKER) (test diwx=634) 37 mmol/L 21-29 BASE EXCESS ARTERIAL (BEAKER) (test nftf=848) 12.3 mmol/L -2.0-3.0 PATIENT TEMPERATURE (BEAKER) (test tffo=9327) 36.7 C FIO2 (BEAKER) (test oreo=2749) 28.0 % RAD, CHEST, 1 VIEW, NON [id number] 11:42:00Reason for exam:->SOBShould this be performed at the bedside?->YesFINAL REPORT Chest dated 01/08/2018 COMPARISON: January 06, 2018 Clinical Information: SOB Comment: Heart remains enlarged. Pulmonary vasculature is indistinct. Interstitial disease is seen bilaterally suggestive of vascular congestion improved since prior study. There is trace bilateral pleural effusion. Left PICC line and right subclavian central venous catheter are present. Impression: Cardiomegaly and improved interstitial disease and bilateral pleural effusion. Signed: Raquel Marxeport Verified Date/Time: 01/08/2018 11:42:10 Reading Location: [facility] C0X Ortho Consult Reading Room [id number] 05:50:00* Test Item Value Reference Range Comments MAGNESIUM (BEAKER) (test pvir=039) 1.5 mg/dL 1.6-2.6 [id number] 05:39:00* Test Item Value Reference Range Comments PARTIAL THROMBOPLASTIN TIME (BEAKER) (test sqhu=916) 42.7 seconds 22.5-36.0 While on warfarin.PROTHROMBIN TIME/[id number] 05:38:00* Test Item Value Reference Range Comments PROTIME (BEAKER) (test ftud=709) 27.8 seconds 11.7-14.7 INR (BEAKER) (test coep=615) 2.6 <=5.9 RECOMMENDED COUMADIN/WARFARIN INR THERAPY RANGESSTANDARD DOSE: 2.0 - 3.0 Includes: PROPHYLAXIS for venous thrombosis, systemic embolization; TREATMENT for venous thrombosis and/or pulmonary embolus.HIGH RISK: Target INR is 2.5-3.5 for patients with mechanical heart valves.While on warfarin.CBC (HEMOGRAM ONLY) 2018-01-08 05:25:00* Test Item Value Reference Range Comments WHITE BLOOD CELL COUNT (BEAKER) (test xfkk=756) 4.4 K/ L 3.5-10.5 RED BLOOD CELL COUNT (BEAKER) (test ozhu=460) 2.90 M/ L 4.63-6.08 HEMOGLOBIN (BEAKER) (test mbbf=169) 8.1 GM/DL 13.7-17.5 HEMATOCRIT (BEAKER) (test nybt=843) 25.6 % 40.1-51.0 MEAN CORPUSCULAR VOLUME (BEAKER) (test rjkn=181) 88.3 fL 79.0-92.2 MEAN CORPUSCULAR HEMOGLOBIN (BEAKER) (test acej=149) 27.9 pg 25.7-32.2 MEAN CORPUSCULAR HEMOGLOBIN CONC (BEAKER) (test mnbx=087) 31.6 GM/DL 32.3- 36.5 RED CELL DISTRIBUTION WIDTH (BEAKER) (test ttxz=027) 18.8 % 11.6-14.4 PLATELET COUNT (BEAKER) (test xbwl=679) 143 K/CU MM 150-450 MEAN PLATELET VOLUME (BEAKER) (test inca=697) 10.6 fL 9.4-12.4 NUCLEATED RED BLOOD CELLS (BEAKER) (test fqsm=045) 0 /100 WBC 0-0 POCT-GLUCOSE [id number] 12:21:00* Test Item Value Reference Range Comments POC-GLUCOSE METER (BEAKER) (test xssy=4350) 104 mg/dL 70-[address] [facility] [address] [facility] [address] PROTHROMBIN TIME/[id number] 07:21:00* Test Item Value Reference Range Comments PROTIME (BEAKER) (test xfgh=517) 28.6 seconds 11.7-14.7 INR (BEAKER) (test grhg=358) 2.7 <=5.9 RECOMMENDED COUMADIN/WARFARIN INR THERAPY RANGESSTANDARD DOSE: 2.0 - 3.0 Includes: PROPHYLAXIS for venous thrombosis, systemic embolization; TREATMENT for venous thrombosis and/or pulmonary embolus.HIGH RISK: Target INR is 2.5-3.5 for patients with mechanical heart valves.[id number] 07:19:00* Test Item Value Reference Range Comments MAGNESIUM (BEAKER) (test edtu=667) 1.6 mg/dL 1.6-2.6 BASIC METABOLIC [id number] 07:19:00* Test Item Value Reference Range Comments SODIUM (BEAKER) (test vluf=686) 130 meq/L 136-145 POTASSIUM (BEAKER) (test xgig=892) 3.5 meq/L 3.5-5.1 CHLORIDE (BEAKER) (test sudf=440) 92 meq/L 98-107 CO2 (BEAKER) (test jegs=113) 32 meq/L 22-29 BLOOD UREA NITROGEN (BEAKER) (test yzov=539) 12 mg/dL 7-21 CREATININE (BEAKER) (test utbc=635) 0.94 mg/dL 0.57-1.25 GLUCOSE RANDOM (BEAKER) (test ogrc=316) 90 mg/dL 70-105 CALCIUM (BEAKER) (test mjky=609) 8.0 mg/dL 8.4-10.2 EGFR (BEAKER) (test ruqw=1471) 80 mL/min/1.73 sq m ESTIMATED GFR IS NOT ACCURATE CREATININE CLEARANCE IN PREDICTING GLOMERULAR FILTRATION RATE. ESTIMATED GFR IS NOT APPLICABLE FOR DIALYSIS PATIENTS. CBC (HEMOGRAM ONLY)2018-01-07 07:05:00* Test Item Value Reference Range Comments WHITE BLOOD CELL COUNT (BEAKER) (test lkru=435) 4.2 K/ L 3.5-10.5 RED BLOOD CELL COUNT (BEAKER) (test qtmf=516) 2.86 M/ L 4.63-6.08 HEMOGLOBIN (BEAKER) (test ljyj=402) 8.0 GM/DL 13.7-17.5 HEMATOCRIT (BEAKER) (test yupx=443) 25.4 % 40.1-51.0 MEAN CORPUSCULAR VOLUME (BEAKER) (test fswe=405) 88.8 fL 79.0-92.2 MEAN CORPUSCULAR HEMOGLOBIN (BEAKER) (test ogpt=986) 28.0 pg 25.7-32.2 MEAN CORPUSCULAR HEMOGLOBIN CONC (BEAKER) (test sfcg=693) 31.5 GM/DL 32.3- 36.5 RED CELL DISTRIBUTION WIDTH (BEAKER) (test qxvz=869) 18.6 % 11.6-14.4 PLATELET COUNT (BEAKER) (test mave=330) 131 K/CU MM 150-450 MEAN PLATELET VOLUME (BEAKER) (test jijf=293) 11.4 fL 9.4-12.4 NUCLEATED RED BLOOD CELLS (BEAKER) (test fysb=283) 0 /100 WBC 0-0 [id number] 06:51:00* Test Item Value Reference Range Comments PARTIAL THROMBOPLASTIN TIME (BEAKER) (test mymb=291) 75.1 seconds 22.5-36.0 POCT-GLUCOSE [id number] 23:23:00* Test Item Value Reference Range Comments POC-GLUCOSE METER (BEAKER) (test sbti=3320) 102 mg/dL 70-110 TESTED AT [place] [id number] [facility] [address] RAD, CHEST, 1 VIEW, NON [id number] 22:49:00Reason for exam:->pacemaker position Should this be performed at the bedside?->YesFINAL REPORT RAD, CHEST, 1 VIEW, NON DEPT INDICATION: pacemaker position COMPARISON: Chest x-ray 4 days ago TECHNIQUE: Portable frontal view of the chest. IMPRESSION: Leadless cardiac pacer projects over its expected location in the lower left hemithorax. Interval repositioning of the left-sided PICC line which now terminates near the atriocaval junction.Stable right IJ line.Stable cardiomegaly.Stable interstitial edema.No pneumothorax.Slight increase in size of the bilateral effusions.No acute osseous abnormality. Signed : Todd Hoover MDReport Verified Date/Time: 01/06/2018 22:49:01 Reading Location: [address] Reading Room -GLUCOSE [id number] 17:49:00 * Test Item Value Reference Range Comments POC-GLUCOSE METER (BEAKER) (test oqfr=0041) 176 mg/dL 70-[address] [facility] [address] [facility] [address] POCT-GLUCOSE [id number] 12:58:00* Test Item Value Reference Range Comments POC-GLUCOSE METER (BEAKER) (test torg=7676) 166 mg/dL 70-[address] [facility] [address] [facility] [address] POCT-GLUCOSE [id number] 08:14:00* Test Item Value Reference Range Comments POC-GLUCOSE METER (BEAKER) (test wvux=3637) 146 mg/dL 70-[address] [facility] [address] [facility] [address] BASIC METABOLIC [id number] 06:49:00* Test Item Value Reference Range Comments SODIUM (BEAKER) (test nbks=152) 130 meq/L 136-145 POTASSIUM (BEAKER) (test ravi=422) 3.5 meq/L 3.5-5.1 CHLORIDE (BEAKER) (test xsqh=762) 93 meq/L 98-107 CO2 (BEAKER) (test uzpq=123) 32 meq/L 22-29 BLOOD UREA NITROGEN (BEAKER) (test bqzp=095) 13 mg/dL 7-21 CREATININE (BEAKER) (test pbqa=260) 0.96 mg/dL 0.57-1.25 GLUCOSE RANDOM (BEAKER) (test fcrt=339) 92 mg/dL 70-105 CALCIUM (BEAKER) (test hbnq=935) 7.9 mg/dL 8.4-10.2 EGFR (BEAKER) (test flgh=1562) 78 mL/min/1.73 sq m ESTIMATED GFR IS NOT ACCURATE CREATININE CLEARANCE IN PREDICTING GLOMERULAR FILTRATION RATE. ESTIMATED GFR IS NOT APPLICABLE FOR DIALYSIS PATIENTS. [id number] 06:36:00* Test Item Value Reference Range Comments MAGNESIUM (BEAKER) (test urlv=850) 1.8 mg/dL 1.6-2.6 BUN AND [id number] 06:36:00* Test Item Value Reference Range Comments BLOOD UREA NITROGEN (BEAKER) (test qavj=682) 13 mg/dL 7-21 CREATININE (BEAKER) (test vgco=364) 0.96 mg/dL 0.57-1.25 EGFR (BEAKER) (test icjn=5457) 78 mL/min/1.73 sq m ESTIMATED GFR IS NOT ACCURATE CREATININE CLEARANCE IN PREDICTING GLOMERULAR FILTRATION RATE. ESTIMATED GFR IS NOT APPLICABLE FOR DIALYSIS PATIENTS. CBC W/PLT COUNT & AUTO [id number] 06:12:00* Test Item Value Reference Range Comments WHITE BLOOD CELL COUNT (BEAKER) (test qkdg=620) 4.2 K/ L 3.5-10.5 RED BLOOD CELL COUNT (BEAKER) (test qeoc=742) 2.90 M/ L 4.63-6.08 HEMOGLOBIN (BEAKER) (test gdzk=488) 8.1 GM/DL 13.7-17.5 HEMATOCRIT (BEAKER) (test egzv=586) 25.6 % 40.1-51.0 MEAN CORPUSCULAR VOLUME (BEAKER) (test vcmm=870) 88.3 fL 79.0-92.2 MEAN CORPUSCULAR HEMOGLOBIN (BEAKER) (test yyyn=894) 27.9 pg 25.7-32.2 MEAN CORPUSCULAR HEMOGLOBIN CONC (BEAKER) (test kjax=487) 31.6 GM/DL 32.3- 36.5 RED CELL DISTRIBUTION WIDTH (BEAKER) (test cwvu=753) 18.4 % 11.6-14.4 PLATELET COUNT (BEAKER) (test ztkv=891) 129 K/CU MM 150-450 MEAN PLATELET VOLUME (BEAKER) (test epbw=077) 11.1 fL 9.4-12.4 NUCLEATED RED BLOOD CELLS (BEAKER) (test cpoe=565) 0 /100 WBC 0-0 NEUTROPHILS RELATIVE PERCENT (BEAKER) (test kvdx=814) 57 % LYMPHOCYTES RELATIVE PERCENT (BEAKER) (test kaob=222) 22 % MONOCYTES RELATIVE PERCENT (BEAKER) (test lvfw=271) 16 % EOSINOPHILS RELATIVE PERCENT (BEAKER) (test szwg=554) 4 % BASOPHILS RELATIVE PERCENT (BEAKER) (test qamp=372) 1 % NEUTROPHILS ABSOLUTE COUNT (BEAKER) (test hvfv=457) 2.37 K/ L 1.78-5.38 LYMPHOCYTES ABSOLUTE COUNT (BEAKER) (test kfzx=868) 0.93 K/ L 1.32-3.57 MONOCYTES ABSOLUTE COUNT (BEAKER) (test mgfg=924) 0.67 K/ L 0.30-0.82 EOSINOPHILS ABSOLUTE COUNT (BEAKER) (test aelm=431) 0.15 K/ L 0.04-0.54 BASOPHILS ABSOLUTE COUNT (BEAKER) (test pbkv=129) 0.03 K/ L 0.01-0.08 IMMATURE GRANULOCYTES-RELATIVE PERCENT (BEAKER) (test jglp=9364) 0 % 0-1 [id number] 06:10:00* Test Item Value Reference Range Comments PARTIAL THROMBOPLASTIN TIME (BEAKER) (test ukzp=825) 71.8 seconds 22.5-36.0 PROTHROMBIN TIME/[id number] 06:09:00* Test Item Value Reference Range Comments PROTIME (BEAKER) (test jlim=644) 21.1 seconds 11.7-14.7 INR (BEAKER) (test keki=217) 1.8 <=5.9 RECOMMENDED COUMADIN/WARFARIN INR THERAPY RANGESSTANDARD DOSE: 2.0 - 3.0 Includes: PROPHYLAXIS for venous thrombosis, systemic embolization; TREATMENT for venous thrombosis and/or pulmonary embolus.HIGH RISK: Target INR is 2.5-3.5 for patients with mechanical heart valves.PROTHROMBIN TIME/[id number] 06:08: 00* Test Item Value Reference Range Comments PROTIME (BEAKER) (test cjxy=909) 20.8 seconds 11.7-14.7 INR (BEAKER) (test xyjv=083) 1.8 <=5.9 RECOMMENDED COUMADIN/WARFARIN INR THERAPY RANGESSTANDARD DOSE: 2.0 - 3.0 Includes: PROPHYLAXIS for venous thrombosis, systemic embolization; TREATMENT for venous thrombosis and/or pulmonary embolus.HIGH RISK: Target INR is 2.5-3.5 for patients with mechanical heart valves.While on warfarin.POCT-GLUCOSE [id number] 21:14:00* Test Item Value Reference Range Comments POC-GLUCOSE METER (BEAKER) (test vduh=2570) 131 mg/dL 70-110 TESTED AT [place] [id number] [facility] [address] POCT-GLUCOSE [id number] 17:48:00* Test Item Value Reference Range Comments POC-GLUCOSE METER (BEAKER) (test zela=4577) 122 mg/dL 70-110 TESTED AT [place] [id number] [facility] [address] URINALYSIS W/ [id number] 13:23:00* Test Item Value Reference Range Comments COLOR (BEAKER) (test ogwj=134) Yellow CLARITY (BEAKER) (test bsxk=657) Hazy SPECIFIC GRAVITY UA (BEAKER) (test dkhp=457) 1.018 1.001-1.035 PH UA (BEAKER) (test htrt=614) 6.0 5.0-8.0 PROTEIN UA (BEAKER) (test ymrh=203) 100 mg/dL Negative GLUCOSE UA (BEAKER) (test brkx=514) Negative Negative KETONES UA (BEAKER) (test bhtb=103) Negative Negative BILIRUBIN UA (BEAKER) (test lmer=358) Negative Negative BLOOD UA (BEAKER) (test yoqk=217) Small Negative NITRITE UA (BEAKER) (test ytlp=483) Negative Negative LEUKOCYTE ESTERASE UA (BEAKER) (test scra=346) Negative Negative UROBILINOGEN UA (BEAKER) (test fokl=811) 0.2 mg/dL 0.2-1.0 RBC UA (BEAKER) (test sbqp=226) 1 /HPF WBC UA (BEAKER) (test rfxu=732) 2 /HPF BACTERIA (BEAKER) (test bqrf=554) Rare MUCUS (BEAKER) (test dxoe=9740) Rare SQUAMOUS EPITHELIAL (BEAKER) (test uool=310) 1 /HPF HYALINE CASTS (BEAKER) (test jlsz=586) 35 /LPF AMORPHOUS CRYSTALS (BEAKER) (test zyhh=8293) Occasional SOURCE(BEAKER) (test ngjv=3723) Urine, Voided [id number] 13:02:00* Test Item Value Reference Range Comments PARTIAL THROMBOPLASTIN TIME (BEAKER) (test iryz=587) 74.0 seconds 22.5-36.0 CBC (HEMOGRAM ONLY)2018-01-05 12:53:00* Test Item Value Reference Range Comments WHITE BLOOD CELL COUNT (BEAKER) (test rklb=671) 4.1 K/ L 3.5-10.5 RED BLOOD CELL COUNT (BEAKER) (test bvdx=225) 3.07 M/ L 4.63-6.08 HEMOGLOBIN (BEAKER) (test ejwi=389) 8.3 GM/DL 13.7-17.5 HEMATOCRIT (BEAKER) (test fcpk=242) 26.8 % 40.1-51.0 MEAN CORPUSCULAR VOLUME (BEAKER) (test oawm=032) 87.3 fL 79.0-92.2 MEAN CORPUSCULAR HEMOGLOBIN (BEAKER) (test jjdd=645) 27.0 pg 25.7-32.2 MEAN CORPUSCULAR HEMOGLOBIN CONC (BEAKER) (test uktr=213) 31.0 GM/DL 32.3- 36.5 RED CELL DISTRIBUTION WIDTH (BEAKER) (test delp=257) 18.5 % 11.6-14.4 PLATELET COUNT (BEAKER) (test kpqt=017) 114 K/CU MM 150-450 MEAN PLATELET VOLUME (BEAKER) (test fmtb=000) 11.1 fL 9.4-12.4 NUCLEATED RED BLOOD CELLS (BEAKER) (test mbqg=977) 0 /100 WBC 0-0 POCT-GLUCOSE [id number] 11:53:00* Test Item Value Reference Range Comments POC-GLUCOSE METER (BEAKER) (test ekzb=9819) 101 mg/dL 70-[address] [facility] [address] [place] [address] BASIC METABOLIC [id number] 08:04:00* Test Item Value Reference Range Comments SODIUM (BEAKER) (test spge=460) 131 meq/L 136-145 POTASSIUM (BEAKER) (test tusy=001) 3.8 meq/L 3.5-5.1 CHLORIDE (BEAKER) (test dybo=139) 92 meq/L 98-107 CO2 (BEAKER) (test kdyh=747) 34 meq/L 22-29 BLOOD UREA NITROGEN (BEAKER) (test fbda=774) 14 mg/dL 7-21 CREATININE (BEAKER) (test fagv=810) 1.05 mg/dL 0.57-1.25 GLUCOSE RANDOM (BEAKER) (test xklu=415) 142 mg/dL 70-105 CALCIUM (BEAKER) (test lzca=058) 7.9 mg/dL 8.4-10.2 EGFR (BEAKER) (test azli=0537) 70 mL/min/1.73 sq m ESTIMATED GFR IS NOT ACCURATE CREATININE CLEARANCE IN PREDICTING GLOMERULAR FILTRATION RATE. ESTIMATED GFR IS NOT APPLICABLE FOR DIALYSIS PATIENTS. [id number] 08:00:00* Test Item Value Reference Range Comments MAGNESIUM (BEAKER) (test ztuy=290) 1.9 mg/dL 1.6-2.6 BUN AND [id number] 08:00:00* Test Item Value Reference Range Comments BLOOD UREA NITROGEN (BEAKER) (test eogb=181) 14 mg/dL 7-21 CREATININE (BEAKER) (test ihaj=224) 1.05 mg/dL 0.57-1.25 EGFR (BEAKER) (test qqet=3978) 70 mL/min/1.73 sq m ESTIMATED GFR IS NOT ACCURATE CREATININE CLEARANCE IN PREDICTING GLOMERULAR FILTRATION RATE. ESTIMATED GFR IS NOT APPLICABLE FOR DIALYSIS PATIENTS. POCT-GLUCOSE [id number] 07:59:00* Test Item Value Reference Range Comments POC-GLUCOSE METER (BEAKER) (test wvip=1635) 145 mg/dL 70-[address] [facility] [address] [facility] [address] CBC W/PLT COUNT & AUTO [id number] 07:21:00* Test Item Value Reference Range Comments WHITE BLOOD CELL COUNT (BEAKER) (test yfkc=473) 4.1 K/ L 3.5-10.5 RED BLOOD CELL COUNT (BEAKER) (test izsf=832) 3.07 M/ L 4.63-6.08 HEMOGLOBIN (BEAKER) (test nowq=849) 8.3 GM/DL 13.7-17.5 HEMATOCRIT (BEAKER) (test ooga=933) 27.0 % 40.1-51.0 MEAN CORPUSCULAR VOLUME (BEAKER) (test sthr=854) 87.9 fL 79.0-92.2 MEAN CORPUSCULAR HEMOGLOBIN (BEAKER) (test djqr=482) 27.0 pg 25.7-32.2 MEAN CORPUSCULAR HEMOGLOBIN CONC (BEAKER) (test hfjr=399) 30.7 GM/DL 32.3- 36.5 RED CELL DISTRIBUTION WIDTH (BEAKER) (test acvf=915) 18.5 % 11.6-14.4 PLATELET COUNT (BEAKER) (test tewe=070) 107 K/CU MM 150-450 MEAN PLATELET VOLUME (BEAKER) (test szfh=760) 11.3 fL 9.4-12.4 NUCLEATED RED BLOOD CELLS (BEAKER) (test fwwa=087) 0 /100 WBC 0-0 NEUTROPHILS RELATIVE PERCENT (BEAKER) (test lvpt=485) 61 % LYMPHOCYTES RELATIVE PERCENT (BEAKER) (test myal=980) 19 % MONOCYTES RELATIVE PERCENT (BEAKER) (test odkg=493) 16 % EOSINOPHILS RELATIVE PERCENT (BEAKER) (test mbqp=580) 2 % BASOPHILS RELATIVE PERCENT (BEAKER) (test mztd=232) 1 % NEUTROPHILS ABSOLUTE COUNT (BEAKER) (test rpti=029) 2.53 K/ L 1.78-5.38 LYMPHOCYTES ABSOLUTE COUNT (BEAKER) (test pwdw=920) 0.80 K/ L 1.32-3.57 MONOCYTES ABSOLUTE COUNT (BEAKER) (test wsmf=673) 0.65 K/ L 0.30-0.82 EOSINOPHILS ABSOLUTE COUNT (BEAKER) (test shhe=970) 0.10 K/ L 0.04-0.54 BASOPHILS ABSOLUTE COUNT (BEAKER) (test vylg=055) 0.03 K/ L 0.01-0.08 IMMATURE GRANULOCYTES-RELATIVE PERCENT (BEAKER) (test nfxr=8051) 1 % 0-1 [id number] 07:09:00* Test Item Value Reference Range Comments PARTIAL THROMBOPLASTIN TIME (BEAKER) (test ybxl=526) 66.7 seconds 22.5-36.0 PROTHROMBIN TIME/[id number] 07:08:00* Test Item Value Reference Range Comments PROTIME (BEAKER) (test ksny=029) 17.7 seconds 11.7-14.7 INR (BEAKER) (test hmzf=826) 1.5 <=5.9 RECOMMENDED COUMADIN/WARFARIN INR THERAPY RANGESSTANDARD DOSE: 2.0 - 3.0 Includes: PROPHYLAXIS for venous thrombosis, systemic embolization; TREATMENT for venous thrombosis and/or pulmonary embolus.HIGH RISK: Target INR is 2.5-3.5 for patients with mechanical heart valves.[id number] 00:36:00* Test Item Value Reference Range Comments PARTIAL THROMBOPLASTIN TIME (BEAKER) (test xosl=257) 55.2 seconds 22.5-36.0 POCT-GLUCOSE [id number] 21:58:00* Test Item Value Reference Range Comments POC-GLUCOSE METER (BEAKER) (test ucnk=1789) 138 mg/dL 70-[address] [facility] [address] [facility] [address] [id number] 19:22:00* Test Item Value Reference Range Comments PARTIAL THROMBOPLASTIN TIME (BEAKER) (test uwfc=807) 35.0 seconds 22.5-36.0 Prior to initiating [id number] 13:15:00* Test Item Value Reference Range Comments ACTIVATED CLOTTING TIME (BEAKER) (test vvuh=242) [address] [facility] [address] [facility] [address] POCT-GLUCOSE [id number] 09:31:00* Test Item Value Reference Range Comments POC-GLUCOSE METER (BEAKER) (test pjrj=0265) 108 mg/dL 70-[address] [facility] [address] [facility] [address] [id number] 04:28:00* Test Item Value Reference Range Comments MAGNESIUM (BEAKER) (test renq=254) 1.6 mg/dL 1.6-2.6 [id number] 04:24:00* Test Item Value Reference Range Comments PARTIAL THROMBOPLASTIN TIME (BEAKER) (test bqim=780) 78.3 seconds 22.5-36.0 PROTHROMBIN TIME/[id number] 04:22:00* Test Item Value Reference Range Comments PROTIME (BEAKER) (test pynh=806) 17.2 seconds 11.7-14.7 INR (BEAKER) (test nkca=282) 1.4 <=5.9 RECOMMENDED COUMADIN/WARFARIN INR THERAPY RANGESSTANDARD DOSE: 2.0 - 3.0 Includes: PROPHYLAXIS for venous thrombosis, systemic embolization; TREATMENT for venous thrombosis and/or pulmonary embolus.HIGH RISK: Target INR is 2.5-3.5 for patients with mechanical heart valves.CBC W/PLT COUNT & AUTO [id number] 04:07:00* Test Item Value Reference Range Comments WHITE BLOOD CELL COUNT (BEAKER) (test tbij=499) 4.6 K/ L 3.5-10.5 RED BLOOD CELL COUNT (BEAKER) (test ggik=031) 3.00 M/ L 4.63-6.08 HEMOGLOBIN (BEAKER) (test pzjc=108) 8.3 GM/DL 13.7-17.5 HEMATOCRIT (BEAKER) (test qkzh=696) 26.0 % 40.1-51.0 MEAN CORPUSCULAR VOLUME (BEAKER) (test jpaj=125) 86.7 fL 79.0-92.2 MEAN CORPUSCULAR HEMOGLOBIN (BEAKER) (test nedt=198) 27.7 pg 25.7-32.2 MEAN CORPUSCULAR HEMOGLOBIN CONC (BEAKER) (test fvbz=939) 31.9 GM/DL 32.3- 36.5 RED CELL DISTRIBUTION WIDTH (BEAKER) (test bgcu=487) 18.6 % 11.6-14.4 PLATELET COUNT (BEAKER) (test yysh=372) 124 K/CU MM 150-450 MEAN PLATELET VOLUME (BEAKER) (test osxy=416) 11.6 fL 9.4-12.4 NUCLEATED RED BLOOD CELLS (BEAKER) (test zpza=960) 0 /100 WBC 0-0 NEUTROPHILS RELATIVE PERCENT (BEAKER) (test hsoh=370) 58 % LYMPHOCYTES RELATIVE PERCENT (BEAKER) (test lgnn=114) 22 % MONOCYTES RELATIVE PERCENT (BEAKER) (test sbrg=740) 17 % EOSINOPHILS RELATIVE PERCENT (BEAKER) (test wsyd=887) 3 % BASOPHILS RELATIVE PERCENT (BEAKER) (test kmsi=260) 0 % NEUTROPHILS ABSOLUTE COUNT (BEAKER) (test pwox=856) 2.66 K/ L 1.78-5.38 LYMPHOCYTES ABSOLUTE COUNT (BEAKER) (test jhhm=464) 1.01 K/ L 1.32-3.57 MONOCYTES ABSOLUTE COUNT (BEAKER) (test seqc=054) 0.76 K/ L 0.30-0.82 EOSINOPHILS ABSOLUTE COUNT (BEAKER) (test gcjs=570) 0.12 K/ L 0.04-0.54 BASOPHILS ABSOLUTE COUNT (BEAKER) (test demd=084) 0.02 K/ L 0.01-0.08 IMMATURE GRANULOCYTES-RELATIVE PERCENT (BEAKER) (test yozi=3705) 0 % 0-1 POCT-GLUCOSE [id number] 22:03:00* Test Item Value Reference Range Comments POC-GLUCOSE METER (BEAKER) (test xcxp=2912) 133 mg/dL 70-110 TESTED AT [address] [address] [id number] 18:40:00* Test Item Value Reference Range Comments PARTIAL THROMBOPLASTIN TIME (BEAKER) (test kgln=327) 70.3 seconds 22.5-36.0 POCT-GLUCOSE [id number] 17:57:00* Test Item Value Reference Range Comments POC-GLUCOSE METER (BEAKER) (test vxow=8523) 131 mg/dL 70-110 TESTED AT [address] [address] ANG, NON-TUNNELED CATH/PICC >5 Y.O.2018-01-03 14:30:00Reason for exam:-> Reposition PICC lineFINAL REPORT Left upper extremity PICC exchange History: Malpositioned left upper cavity PICC. 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 Modality: Fluoroscopy Sedation: None. Anesthesia: Two percent Lidocaine without epinephrine. Approach: Left upper extremity vein Estimated blood loss: < 5 cc. Specimen: None. Fluoroscopy Time: 1.3 min.Reference Air Kerma ( Ka, r): 22.5 mGy. Technique: Informed written consent [...] over the Glidewire and a new 5 Iranian dual-lumen PICC was trimmed to 43 cm. A 5 Iranian peel-away sheath was placed. The new PICC [...] is ready for immediate use. Signed: Freddie Schwabeport Verified Date/Time: 01/03/2018 14:30:30 Reading Location: [place] [id number] Angio Body Reading Room Electronically signed by: FREDDIE SCHWAB on 2017 02:30 PM POCT-GLUCOSE [id number] 12:13:00* Test Item Value Reference Range Comments POC-GLUCOSE METER (BEAKER) (test apio=3055) 97 mg/dL 70-[address] [facility] [address] [facility] [address] [id number] 12:07:00* Test Item Value Reference Range Comments PARTIAL THROMBOPLASTIN TIME (BEAKER) (test icdo=182) 76.1 seconds 22.5-36.0 COMPREHENSIVE METABOLIC [id number] 08:42:00* Test Item Value Reference Range Comments TOTAL PROTEIN (BEAKER) (test tpzv=747) 7.9 gm/dL 6.0-8.3 ALBUMIN (BEAKER) (test tczg=9474) 2.3 g/dL 3.5-5.0 ALKALINE PHOSPHATASE (BEAKER) (test kbmu=573) 99 U/L 40-150 BILIRUBIN TOTAL (BEAKER) (test tipi=991) 1.3 mg/dL 0.2-1.2 SODIUM (BEAKER) (test adxj=229) 131 meq/L 136-145 POTASSIUM (BEAKER) (test ofgx=118) 4.0 meq/L 3.5-5.1 CHLORIDE (BEAKER) (test azak=269) 92 meq/L 98-107 CO2 (BEAKER) (test gcws=861) 28 meq/L 22-29 BLOOD UREA NITROGEN (BEAKER) (test breq=170) 15 mg/dL 7-21 CREATININE (BEAKER) (test ojyy=053) 1.08 mg/dL 0.57-1.25 GLUCOSE RANDOM (BEAKER) (test xdrd=108) 114 mg/dL 70-105 CALCIUM (BEAKER) (test nbdp=971) 8.2 mg/dL 8.4-10.2 AST (SGOT) (BEAKER) (test rdfh=816) 26 U/L 5-34 ALT (SGPT) (BEAKER) (test ibgg=966) < U/L 6-55 EGFR (BEAKER) (test gbcj=9633) 68 mL/min/1.73 sq m ESTIMATED GFR IS NOT ACCURATE CREATININE CLEARANCE IN PREDICTING GLOMERULAR FILTRATION RATE. ESTIMATED GFR IS NOT APPLICABLE FOR DIALYSIS PATIENTS. [id number] 08:40:00* Test Item Value Reference Range Comments MAGNESIUM (BEAKER) (test jqko=113) 1.8 mg/dL 1.6-2.6 CBC W/PLT COUNT & AUTO [id number] 05:56:00* Test Item Value Reference Range Comments WHITE BLOOD CELL COUNT (BEAKER) (test lkrz=259) 4.5 K/ L 3.5-10.5 RED BLOOD CELL COUNT (BEAKER) (test rmso=889) 3.18 M/ L 4.63-6.08 HEMOGLOBIN (BEAKER) (test bhlr=625) 8.7 GM/DL 13.7-17.5 HEMATOCRIT (BEAKER) (test ppnl=259) 27.8 % 40.1-51.0 MEAN CORPUSCULAR VOLUME (BEAKER) (test ufig=952) 87.4 fL 79.0-92.2 MEAN CORPUSCULAR HEMOGLOBIN (BEAKER) (test jdng=265) 27.4 pg 25.7-32.2 MEAN CORPUSCULAR HEMOGLOBIN CONC (BEAKER) (test gxqd=173) 31.3 GM/DL 32.3- 36.5 RED CELL DISTRIBUTION WIDTH (BEAKER) (test zpqh=208) 18.2 % 11.6-14.4 PLATELET COUNT (BEAKER) (test mgos=020) 122 K/CU MM 150-450 MEAN PLATELET VOLUME (BEAKER) (test irmb=995) 11.6 fL 9.4-12.4 NUCLEATED RED BLOOD CELLS (BEAKER) (test qsay=879) 0 /100 WBC 0-0 NEUTROPHILS RELATIVE PERCENT (BEAKER) (test fztr=089) 58 % LYMPHOCYTES RELATIVE PERCENT (BEAKER) (test nqol=352) 21 % MONOCYTES RELATIVE PERCENT (BEAKER) (test ghoj=868) 16 % EOSINOPHILS RELATIVE PERCENT (BEAKER) (test oobr=480) 3 % BASOPHILS RELATIVE PERCENT (BEAKER) (test tvqx=003) 1 % NEUTROPHILS ABSOLUTE COUNT (BEAKER) (test tnrd=560) 2.60 K/ L 1.78-5.38 LYMPHOCYTES ABSOLUTE COUNT (BEAKER) (test euas=615) 0.96 K/ L 1.32-3.57 MONOCYTES ABSOLUTE COUNT (BEAKER) (test wohe=382) 0.73 K/ L 0.30-0.82 EOSINOPHILS ABSOLUTE COUNT (BEAKER) (test wnse=626) 0.13 K/ L 0.04-0.54 BASOPHILS ABSOLUTE COUNT (BEAKER) (test yjdz=755) 0.04 K/ L 0.01-0.08 IMMATURE GRANULOCYTES-RELATIVE PERCENT (BEAKER) (test kgym=8539) 1 % 0-1 [id number] 05:39:00* Test Item Value Reference Range Comments PARTIAL THROMBOPLASTIN TIME (BEAKER) (test qfmy=168) 50.6 seconds 22.5-36.0 PROTHROMBIN TIME/[id number] 05:38:00* Test Item Value Reference Range Comments PROTIME (BEAKER) (test zhpm=084) 16.7 seconds 11.7-14.7 INR (BEAKER) (test uhop=968) 1.4 <=5.9 RECOMMENDED COUMADIN/WARFARIN INR THERAPY RANGESSTANDARD DOSE: 2.0 - 3.0 Includes: PROPHYLAXIS for venous thrombosis, systemic embolization; TREATMENT for venous thrombosis and/or pulmonary embolus.HIGH RISK: Target INR is 2.5-3.5 for patients with mechanical heart valves.CBC (HEMOGRAM ONLY)2018-01-03 05:22:00 * Test Item Value Reference Range Comments WHITE BLOOD CELL COUNT (BEAKER) (test okcv=870) 4.5 K/ L 3.5-10.5 RED BLOOD CELL COUNT (BEAKER) (test jrnm=255) 3.18 M/ L 4.63-6.08 HEMOGLOBIN (BEAKER) (test nuqe=750) 8.7 GM/DL 13.7-17.5 HEMATOCRIT (BEAKER) (test lxwv=654) 27.8 % 40.1-51.0 MEAN CORPUSCULAR VOLUME (BEAKER) (test mcjh=501) 87.4 fL 79.0-92.2 MEAN CORPUSCULAR HEMOGLOBIN (BEAKER) (test pxde=727) 27.4 pg 25.7-32.2 MEAN CORPUSCULAR HEMOGLOBIN CONC (BEAKER) (test iygj=161) 31.3 GM/DL 32.3- 36.5 RED CELL DISTRIBUTION WIDTH (BEAKER) (test jpgr=682) 18.2 % 11.6-14.4 PLATELET COUNT (BEAKER) (test rgzx=004) 122 K/CU MM 150-450 MEAN PLATELET VOLUME (BEAKER) (test oypn=495) 11.6 fL 9.4-12.4 NUCLEATED RED BLOOD CELLS (BEAKER) (test kqhd=385) 0 /100 WBC 0-0 POCT-GLUCOSE [id number] 21:11:00* Test Item Value Reference Range Comments POC-GLUCOSE METER (BEAKER) (test xfkv=6787) 163 mg/dL 70-[address] [facility] [address] [facility] [address] POCT-GLUCOSE [id number] 17:37:00* Test Item Value Reference Range Comments POC-GLUCOSE METER (BEAKER) (test murz=4339) 101 mg/dL 70-[address] [facility] [address] [facility] [address] RAD, CHEST, 1 VIEW, NON [id number] 16:37:00Reason for exam:->PICC line placement Should this be performed at the bedside?->YesFINAL REPORT Comparison: 12/30/2017 TECHNIQUE: Single view of the chest FINDINGS: Recently placed left-sided PICC line projects in the right subclavian vein. Repositioning recommended. No other significant change. Signed: Iain Phoenix Verified Date/Time: 01/02/2018 16:37:51 Reading Location: [address] Transitional Reading Room D [id number] 11:00:00* Test Item Value Reference Range Comments CULTURE (BEAKER) (test tmoo=2021) No growth in 5 days POCT-GLUCOSE [id number] 08:23:00* Test Item Value Reference Range Comments POC-GLUCOSE METER (BEAKER) (test unah=4584) 113 mg/dL 70-[address] [facility] [address] [facility] [address] [id number] 07:00:00* Test Item Value Reference Range Comments MAGNESIUM (BEAKER) (test loak=540) 1.8 mg/dL 1.6-2.6 COMPREHENSIVE METABOLIC [id number] 07:00:00* Test Item Value Reference Range Comments TOTAL PROTEIN (BEAKER) (test xrmo=137) 7.5 gm/dL 6.0-8.3 ALBUMIN (BEAKER) (test xuxp=8278) 2.2 g/dL 3.5-5.0 ALKALINE PHOSPHATASE (BEAKER) (test usna=381) 100 U/L 40-150 BILIRUBIN TOTAL (BEAKER) (test cxsl=566) 1.2 mg/dL 0.2-1.2 SODIUM (BEAKER) (test hwhk=756) 131 meq/L 136-145 POTASSIUM (BEAKER) (test vyhs=646) 3.7 meq/L 3.5-5.1 CHLORIDE (BEAKER) (test ajuu=436) 93 meq/L 98-107 CO2 (BEAKER) (test snsn=954) 35 meq/L 22-29 BLOOD UREA NITROGEN (BEAKER) (test oyex=123) 16 mg/dL 7-21 CREATININE (BEAKER) (test bcnr=023) 1.07 mg/dL 0.57-1.25 GLUCOSE RANDOM (BEAKER) (test rvow=631) 122 mg/dL 70-105 CALCIUM (BEAKER) (test cvtm=329) 8.1 mg/dL 8.4-10.2 AST (SGOT) (BEAKER) (test nslb=848) 30 U/L 5-34 ALT (SGPT) (BEAKER) (test nepj=774) < U/L 6-55 EGFR (BEAKER) (test pflt=7645) 69 mL/min/1.73 sq m ESTIMATED GFR IS NOT ACCURATE CREATININE CLEARANCE IN PREDICTING GLOMERULAR FILTRATION RATE. ESTIMATED GFR IS NOT APPLICABLE FOR DIALYSIS PATIENTS. CBC W/PLT COUNT & AUTO [id number] 06:56:00* Test Item Value Reference Range Comments WHITE BLOOD CELL COUNT (BEAKER) (test ewsm=802) 4.7 K/ L 3.5-10.5 RED BLOOD CELL COUNT (BEAKER) (test cbsq=663) 3.00 M/ L 4.63-6.08 HEMOGLOBIN (BEAKER) (test kgte=921) 8.2 GM/DL 13.7-17.5 HEMATOCRIT (BEAKER) (test ccuy=542) 26.0 % 40.1-51.0 MEAN CORPUSCULAR VOLUME (BEAKER) (test juuv=669) 86.7 fL 79.0-92.2 MEAN CORPUSCULAR HEMOGLOBIN (BEAKER) (test ckal=099) 27.3 pg 25.7-32.2 MEAN CORPUSCULAR HEMOGLOBIN CONC (BEAKER) (test lwjp=141) 31.5 GM/DL 32.3- 36.5 RED CELL DISTRIBUTION WIDTH (BEAKER) (test pojj=740) 18.0 % 11.6-14.4 PLATELET COUNT (BEAKER) (test kehl=410) 117 K/CU MM 150-450 MEAN PLATELET VOLUME (BEAKER) (test ogyo=773) 10.8 fL 9.4-12.4 NUCLEATED RED BLOOD CELLS (BEAKER) (test ipus=757) 0 /100 WBC 0-0 NEUTROPHILS RELATIVE PERCENT (BEAKER) (test kljl=482) 61 % LYMPHOCYTES RELATIVE PERCENT (BEAKER) (test hkqt=180) 19 % MONOCYTES RELATIVE PERCENT (BEAKER) (test dfld=036) 17 % EOSINOPHILS RELATIVE PERCENT (BEAKER) (test splh=907) 2 % BASOPHILS RELATIVE PERCENT (BEAKER) (test xsjc=688) 0 % NEUTROPHILS ABSOLUTE COUNT (BEAKER) (test lwza=237) 2.84 K/ L 1.78-5.38 LYMPHOCYTES ABSOLUTE COUNT (BEAKER) (test nlgv=247) 0.88 K/ L 1.32-3.57 MONOCYTES ABSOLUTE COUNT (BEAKER) (test wazm=819) 0.81 K/ L 0.30-0.82 EOSINOPHILS ABSOLUTE COUNT (BEAKER) (test qtfa=047) 0.10 K/ L 0.04-0.54 BASOPHILS ABSOLUTE COUNT (BEAKER) (test dvcg=767) 0.02 K/ L 0.01-0.08 IMMATURE GRANULOCYTES-RELATIVE PERCENT (BEAKER) (test buac=6656) 0 % 0-1 [id number] 06:15:00* Test Item Value Reference Range Comments PARTIAL THROMBOPLASTIN TIME (BEAKER) (test fjji=958) 67.9 seconds 22.5-36.0 PROTHROMBIN TIME/[id number] 06:14:00* Test Item Value Reference Range Comments PROTIME (BEAKER) (test tfbw=981) 18.6 seconds 11.7-14.7 INR (BEAKER) (test jmrw=752) 1.6 <=5.9 RECOMMENDED COUMADIN/WARFARIN INR THERAPY RANGESSTANDARD DOSE: 2.0 - 3.0 Includes: PROPHYLAXIS for venous thrombosis, systemic embolization; TREATMENT for venous thrombosis and/or pulmonary embolus.HIGH RISK: Target INR is 2.5-3.5 for patients with mechanical heart valves.CBC (HEMOGRAM ONLY)2018-01-02 05:56:00 * Test Item Value Reference Range Comments WHITE BLOOD CELL COUNT (BEAKER) (test zbcg=332) 4.7 K/ L 3.5-10.5 RED BLOOD CELL COUNT (BEAKER) (test xfrq=554) 3.00 M/ L 4.63-6.08 HEMOGLOBIN (BEAKER) (test hiua=779) 8.2 GM/DL 13.7-17.5 HEMATOCRIT (BEAKER) (test cbhb=655) 26.0 % 40.1-51.0 MEAN CORPUSCULAR VOLUME (BEAKER) (test ltbo=276) 86.7 fL 79.0-92.2 MEAN CORPUSCULAR HEMOGLOBIN (BEAKER) (test qpme=268) 27.3 pg 25.7-32.2 MEAN CORPUSCULAR HEMOGLOBIN CONC (BEAKER) (test mczv=954) 31.5 GM/DL 32.3- 36.5 RED CELL DISTRIBUTION WIDTH (BEAKER) (test uigp=500) 18.0 % 11.6-14.4 PLATELET COUNT (BEAKER) (test kkwi=625) 117 K/CU MM 150-450 MEAN PLATELET VOLUME (BEAKER) (test aecn=918) 10.8 fL 9.4-12.4 NUCLEATED RED BLOOD CELLS (BEAKER) (test pdxh=445) 0 /100 WBC 0-0 [id number] 21:20:00* Test Item Value Reference Range Comments PARTIAL THROMBOPLASTIN TIME (BEAKER) (test jvts=458) 68.7 seconds 22.5-36.0 POCT-GLUCOSE [id number] 20:54:00* Test Item Value Reference Range Comments POC-GLUCOSE METER (BEAKER) (test xrqq=1223) 143 mg/dL 70-[address] [facility] [address] [facility] [address] POCT-GLUCOSE [id number] 17:04:00* Test Item Value Reference Range Comments POC-GLUCOSE METER (BEAKER) (test vksb=9195) 148 mg/dL 70-110 TESTED AT [address] [address] [id number] 12:38:00* Test Item Value Reference Range Comments PARTIAL THROMBOPLASTIN TIME (BEAKER) (test zulq=040) 38.9 seconds 22.5-36.0 Prior to initiating heparinPLATELET [id number] 12:23:00* Test Item Value Reference Range Comments PLATELET COUNT (BEAKER) (test oaif=557) 116 K/CU MM 150-450 POCT-GLUCOSE [id number] 12:04:00* Test Item Value Reference Range Comments POC-GLUCOSE METER (BEAKER) (test vdop=9705) 146 mg/dL 70-110 TESTED AT [address] [address] POCT-GLUCOSE [id number] 07:43:00* Test Item Value Reference Range Comments POC-GLUCOSE METER (BEAKER) (test gjrp=3174) 89 mg/dL 70-110 TESTED AT [address] [address] VITAMIN B12 AND [id number] 06:11:00* Test Item Value Reference Range Comments VITAMIN B12 (BEAKER) (test zvkh=416) > pg/mL 213-816 FOLATE (BEAKER) (test puka=419) 8.0 ng/mL >=7.0 BASIC METABOLIC [id number] 05:48:00* Test Item Value Reference Range Comments SODIUM (BEAKER) (test riza=464) 128 meq/L 136-145 POTASSIUM (BEAKER) (test nzbn=165) 3.7 meq/L 3.5-5.1 CHLORIDE (BEAKER) (test bxxx=883) 91 meq/L 98-107 CO2 (BEAKER) (test snpz=792) 33 meq/L 22-29 BLOOD UREA NITROGEN (BEAKER) (test tkww=461) 15 mg/dL 7-21 CREATININE (BEAKER) (test jbct=255) 1.14 mg/dL 0.57-1.25 GLUCOSE RANDOM (BEAKER) (test yaps=818) 78 mg/dL 70-105 CALCIUM (BEAKER) (test eemk=227) 7.6 mg/dL 8.4-10.2 EGFR (BEAKER) (test gngq=8073) 64 mL/min/1.73 sq m ESTIMATED GFR IS NOT ACCURATE CREATININE CLEARANCE IN PREDICTING GLOMERULAR FILTRATION RATE. ESTIMATED GFR IS NOT APPLICABLE FOR DIALYSIS PATIENTS. [id number] 05:43:00* Test Item Value Reference Range Comments MAGNESIUM (BEAKER) (test stfl=070) 1.8 mg/dL 1.6-2.6 IRON, TIBC, % SAT. (WITHOUT FERRITIN)2018-01-01 05:38:00* Test Item Value Reference Range Comments IRON (BEAKER) (test hdyg=010) 47 ug/dL 40-160 TOTAL IRON BINDING CAPACITY (BEAKER) (test pjfh=952) 149 ug/dL 250-450 IRON % SATURATION (2) (BEAKER) (test jwqw=0481) 32 % 20-55 [id number] 05:26:00* Test Item Value Reference Range Comments PARTIAL THROMBOPLASTIN TIME (BEAKER) (test rgtv=070) 45.2 seconds 22.5-36.0 PROTHROMBIN TIME/[id number] 05:22:00* Test Item Value Reference Range Comments PROTIME (BEAKER) (test mhnq=843) 20.4 seconds 11.7-14.7 INR (BEAKER) (test xfvi=128) 1.7 <=5.9 RECOMMENDED COUMADIN/WARFARIN INR THERAPY RANGESSTANDARD DOSE: 2.0 - 3.0 Includes: PROPHYLAXIS for venous thrombosis, systemic embolization; TREATMENT for venous thrombosis and/or pulmonary embolus.HIGH RISK: Target INR is 2.5-3.5 for patients with mechanical heart valves.CBC W/PLT COUNT & AUTO [id number] 05:04:00* Test Item Value Reference Range Comments WHITE BLOOD CELL COUNT (BEAKER) (test dgnq=874) 4.6 K/ L 3.5-10.5 RED BLOOD CELL COUNT (BEAKER) (test tayn=158) 2.86 M/ L 4.63-6.08 HEMOGLOBIN (BEAKER) (test znsg=539) 7.9 GM/DL 13.7-17.5 HEMATOCRIT (BEAKER) (test ssca=232) 24.5 % 40.1-51.0 MEAN CORPUSCULAR VOLUME (BEAKER) (test yyte=895) 85.7 fL 79.0-92.2 MEAN CORPUSCULAR HEMOGLOBIN (BEAKER) (test mvme=311) 27.6 pg 25.7-32.2 MEAN CORPUSCULAR HEMOGLOBIN CONC (BEAKER) (test rmlp=912) 32.2 GM/DL 32.3- 36.5 RED CELL DISTRIBUTION WIDTH (BEAKER) (test fheh=682) 17.9 % 11.6-14.4 PLATELET COUNT (BEAKER) (test zbsa=160) 113 K/CU MM 150-450 MEAN PLATELET VOLUME (BEAKER) (test kxvw=630) 10.9 fL 9.4-12.4 NUCLEATED RED BLOOD CELLS (BEAKER) (test rtvh=083) 0 /100 WBC 0-0 NEUTROPHILS RELATIVE PERCENT (BEAKER) (test avgn=740) 60 % LYMPHOCYTES RELATIVE PERCENT (BEAKER) (test znxq=804) 19 % MONOCYTES RELATIVE PERCENT (BEAKER) (test rrez=238) 17 % EOSINOPHILS RELATIVE PERCENT (BEAKER) (test ljyq=158) 3 % BASOPHILS RELATIVE PERCENT (BEAKER) (test fzor=980) 1 % NEUTROPHILS ABSOLUTE COUNT (BEAKER) (test klvg=829) 2.78 K/ L 1.78-5.38 LYMPHOCYTES ABSOLUTE COUNT (BEAKER) (test cgos=921) 0.88 K/ L 1.32-3.57 MONOCYTES ABSOLUTE COUNT (BEAKER) (test jfih=953) 0.78 K/ L 0.30-0.82 EOSINOPHILS ABSOLUTE COUNT (BEAKER) (test tapf=228) 0.12 K/ L 0.04-0.54 BASOPHILS ABSOLUTE COUNT (BEAKER) (test brao=155) 0.03 K/ L 0.01-0.08 IMMATURE GRANULOCYTES-RELATIVE PERCENT (BEAKER) (test wuet=8614) 0 % 0-1 POCT-GLUCOSE [id number] 21:52:00* Test Item Value Reference Range Comments POC-GLUCOSE METER (BEAKER) (test frcd=1745) 96 mg/dL 70-[address] [facility] [address] [facility] [address] HEMOGLOBIN AND [id number] 21:37:00* Test Item Value Reference Range Comments HEMOGLOBIN (BEAKER) (test vlxv=438) 8.1 GM/DL 13.7-17.5 HEMATOCRIT (BEAKER) (test wmzn=786) 25.4 % 40.1-51.0 POCT-GLUCOSE [id number] 11:49:00* Test Item Value Reference Range Comments POC-GLUCOSE METER (BEAKER) (test dzst=1520) 101 mg/dL 70-[address] [facility] [address] [facility] [address] PROTHROMBIN TIME/[id number] 10:34:00* Test Item Value Reference Range Comments PROTIME (BEAKER) (test mjxk=097) 22.4 seconds 11.7-14.7 INR (BEAKER) (test dgpk=388) 2.0 <=5.9 RECOMMENDED COUMADIN/WARFARIN INR THERAPY RANGESSTANDARD DOSE: 2.0 - 3.0 Includes: PROPHYLAXIS for venous thrombosis, systemic embolization; TREATMENT for venous thrombosis and/or pulmonary embolus.HIGH RISK: Target INR is 2.5-3.5 for patients with mechanical heart valves.Within 24 hours, if on CoumadinPOCT- GLUCOSE [id number] 08:10:00* Test Item Value Reference Range Comments POC-GLUCOSE METER (BEAKER) (test skie=3636) 95 mg/dL 70-110 TESTED AT [address] [address] BASIC METABOLIC [id number] 04:55:00* Test Item Value Reference Range Comments SODIUM (BEAKER) (test stez=356) 130 meq/L 136-145 POTASSIUM (BEAKER) (test sjgu=463) 3.8 meq/L 3.5-5.1 CHLORIDE (BEAKER) (test gypu=919) 91 meq/L 98-107 CO2 (BEAKER) (test kjee=994) 34 meq/L 22-29 BLOOD UREA NITROGEN (BEAKER) (test faal=926) 16 mg/dL 7-21 CREATININE (BEAKER) (test lmtw=853) 1.15 mg/dL 0.57-1.25 GLUCOSE RANDOM (BEAKER) (test bkdl=803) 87 mg/dL 70-105 CALCIUM (BEAKER) (test bcmq=046) 7.8 mg/dL 8.4-10.2 EGFR (BEAKER) (test lzdi=1306) 63 mL/min/1.73 sq m ESTIMATED GFR IS NOT ACCURATE CREATININE CLEARANCE IN PREDICTING GLOMERULAR FILTRATION RATE. ESTIMATED GFR IS NOT APPLICABLE FOR DIALYSIS PATIENTS. [id number] 04:50:00* Test Item Value Reference Range Comments MAGNESIUM (BEAKER) (test quev=334) 1.8 mg/dL 1.6-2.6 [id number] 04:44:00* Test Item Value Reference Range Comments PARTIAL THROMBOPLASTIN TIME (BEAKER) (test duqa=407) 51.4 seconds 22.5-36.0 PROTHROMBIN TIME/[id number] 04:43:00* Test Item Value Reference Range Comments PROTIME (BEAKER) (test wabx=587) 22.7 seconds 11.7-14.7 INR (BEAKER) (test ayjv=765) 2.0 <=5.9 RECOMMENDED COUMADIN/WARFARIN INR THERAPY RANGESSTANDARD DOSE: 2.0 - 3.0 Includes: PROPHYLAXIS for venous thrombosis, systemic embolization; TREATMENT for venous thrombosis and/or pulmonary embolus.HIGH RISK: Target INR is 2.5-3.5 for patients with mechanical heart valves.CBC W/PLT COUNT & AUTO [id number] 04:39:00* Test Item Value Reference Range Comments WHITE BLOOD CELL COUNT (BEAKER) (test mpfy=313) 4.2 K/ L 3.5-10.5 RED BLOOD CELL COUNT (BEAKER) (test zrjh=547) 2.62 M/ L 4.63-6.08 HEMOGLOBIN (BEAKER) (test aulh=328) 7.1 GM/DL 13.7-17.5 HEMATOCRIT (BEAKER) (test xika=933) 22.5 % 40.1-51.0 MEAN CORPUSCULAR VOLUME (BEAKER) (test vayi=648) 85.9 fL 79.0-92.2 MEAN CORPUSCULAR HEMOGLOBIN (BEAKER) (test vaug=685) 27.1 pg 25.7-32.2 MEAN CORPUSCULAR HEMOGLOBIN CONC (BEAKER) (test ykqd=487) 31.6 GM/DL 32.3- 36.5 RED CELL DISTRIBUTION WIDTH (BEAKER) (test drao=840) 18.6 % 11.6-14.4 PLATELET COUNT (BEAKER) (test mpqp=114) 122 K/CU MM 150-450 MEAN PLATELET VOLUME (BEAKER) (test tlpy=528) 10.8 fL 9.4-12.4 NUCLEATED RED BLOOD CELLS (BEAKER) (test luxl=624) 0 /100 WBC 0-0 NEUTROPHILS RELATIVE PERCENT (BEAKER) (test jlaq=308) 58 % LYMPHOCYTES RELATIVE PERCENT (BEAKER) (test xdlx=064) 19 % MONOCYTES RELATIVE PERCENT (BEAKER) (test npil=915) 20 % EOSINOPHILS RELATIVE PERCENT (BEAKER) (test owwl=057) 2 % BASOPHILS RELATIVE PERCENT (BEAKER) (test roow=398) 1 % NEUTROPHILS ABSOLUTE COUNT (BEAKER) (test ypos=216) 2.45 K/ L 1.78-5.38 LYMPHOCYTES ABSOLUTE COUNT (BEAKER) (test uscj=941) 0.81 K/ L 1.32-3.57 MONOCYTES ABSOLUTE COUNT (BEAKER) (test enrb=229) 0.83 K/ L 0.30-0.82 EOSINOPHILS ABSOLUTE COUNT (BEAKER) (test huya=742) 0.07 K/ L 0.04-0.54 BASOPHILS ABSOLUTE COUNT (BEAKER) (test caxm=426) 0.03 K/ L 0.01-0.08 IMMATURE GRANULOCYTES-RELATIVE PERCENT (BEAKER) (test snqz=9319) 1 % 0-1 BLOOD [id number] 23:00:00* Test Item Value Reference Range Comments CULTURE (BEAKER) (test kufv=1078) No growth in 5 days BLOOD [id number] 23:00:00* Test Item Value Reference Range Comments CULTURE (BEAKER) (test tzzg=7060) No growth in 5 days POCT-GLUCOSE [id number] 22:09:00* Test Item Value Reference Range Comments POC-GLUCOSE METER (BEAKER) (test wxdh=8539) 146 mg/dL 70-[address] [facility] [address] [facility] [address] POCT-GLUCOSE [id number] 17:35:00* Test Item Value Reference Range Comments POC-GLUCOSE METER (BEAKER) (test rtrg=7116) 105 mg/dL 70-110 TESTED AT [place] [id number] [facility] [address] RAD, CHEST, 1 VIEW, NON [id number] 12:49:00Reason for exam:->hypoxiaShould this be performed at the bedside?->YesFINAL REPORT CLINICAL HISTORY: hypoxia TECHNIQUE: 1 view of the chest. COMPARISON: 12/28/2017 IMPRESSION: There is a new right central line in the right atrium. There is no pneumothorax. Pulmonary vascular congestion is again seen with bilateral airspace opacities and small pleural effusions. Cardiomegaly is again seen poststernotomy with a right chest wall pacemaker. Signed: Sharmila Barba MDReport Verified Date/Time: 12/30/2017 12:49:31 Reading Location: [facility] Radiology Reading Room -GLUCOSE [id number] 11:55:00* Test Item Value Reference Range Comments POC-GLUCOSE METER (BEAKER) (test ohao=6352) 122 mg/dL 70-110 TESTED AT [address] [address] GENTAMICIN LEVEL, [id number] 11:35:00* Test Item Value Reference Range Comments GENTAMICIN TROUGH (BEAKER) (test eamm=667) 1.1 ug/mL 0.5-1.0 Dosing Target Level (mcg/mL)1-1.5 mg/kg q 8-12 HR 0.5- 1.03-7 mg/kg q 24 HR <0.5POCT-GLUCOSE [id number] 09:21:00* Test Item Value Reference Range Comments POC-GLUCOSE METER (BEAKER) (test vyhb=3533) 92 mg/dL 70-110 TESTED AT [place] [id number] [facility] [address] [id number] 04:51:00* Test Item Value Reference Range Comments MAGNESIUM (BEAKER) (test ajnx=448) 2.0 mg/dL 1.6-2.6 BASIC METABOLIC [id number] 04:51:00* Test Item Value Reference Range Comments SODIUM (BEAKER) (test aece=885) 130 meq/L 136-145 POTASSIUM (BEAKER) (test ntsj=731) 3.7 meq/L 3.5-5.1 CHLORIDE (BEAKER) (test mhuh=799) 89 meq/L 98-107 CO2 (BEAKER) (test ehlr=237) 35 meq/L 22-29 BLOOD UREA NITROGEN (BEAKER) (test vaid=875) 16 mg/dL 7-21 CREATININE (BEAKER) (test bpxp=790) 1.06 mg/dL 0.57-1.25 GLUCOSE RANDOM (BEAKER) (test jcxo=078) 90 mg/dL 70-105 CALCIUM (BEAKER) (test qyxu=517) 7.8 mg/dL 8.4-10.2 EGFR (BEAKER) (test puuz=8575) 69 mL/min/1.73 sq m ESTIMATED GFR IS NOT ACCURATE CREATININE CLEARANCE IN PREDICTING GLOMERULAR FILTRATION RATE. ESTIMATED GFR IS NOT APPLICABLE FOR DIALYSIS PATIENTS. CBC W/PLT COUNT & AUTO [id number] 04:28:00* Test Item Value Reference Range Comments WHITE BLOOD CELL COUNT (BEAKER) (test jghe=287) 5.1 K/ L 3.5-10.5 RED BLOOD CELL COUNT (BEAKER) (test wzdq=175) 2.69 M/ L 4.63-6.08 HEMOGLOBIN (BEAKER) (test fpoo=431) 7.2 GM/DL 13.7-17.5 HEMATOCRIT (BEAKER) (test cisq=515) 23.0 % 40.1-51.0 MEAN CORPUSCULAR VOLUME (BEAKER) (test oimg=152) 85.5 fL 79.0-92.2 MEAN CORPUSCULAR HEMOGLOBIN (BEAKER) (test plra=660) 26.8 pg 25.7-32.2 MEAN CORPUSCULAR HEMOGLOBIN CONC (BEAKER) (test hwda=693) 31.3 GM/DL 32.3- 36.5 RED CELL DISTRIBUTION WIDTH (BEAKER) (test qtbw=849) 18.6 % 11.6-14.4 PLATELET COUNT (BEAKER) (test dhgx=386) 138 K/CU MM 150-450 MEAN PLATELET VOLUME (BEAKER) (test jckb=106) 11.1 fL 9.4-12.4 NUCLEATED RED BLOOD CELLS (BEAKER) (test biqe=441) 0 /100 WBC 0-0 NEUTROPHILS RELATIVE PERCENT (BEAKER) (test rksv=900) 63 % LYMPHOCYTES RELATIVE PERCENT (BEAKER) (test qwey=699) 17 % MONOCYTES RELATIVE PERCENT (BEAKER) (test mxoe=212) 17 % EOSINOPHILS RELATIVE PERCENT (BEAKER) (test owbj=522) 1 % BASOPHILS RELATIVE PERCENT (BEAKER) (test fgrh=649) 1 % NEUTROPHILS ABSOLUTE COUNT (BEAKER) (test ndyl=882) 3.23 K/ L 1.78-5.38 LYMPHOCYTES ABSOLUTE COUNT (BEAKER) (test snis=975) 0.87 K/ L 1.32-3.57 MONOCYTES ABSOLUTE COUNT (BEAKER) (test sahm=015) 0.88 K/ L 0.30-0.82 EOSINOPHILS ABSOLUTE COUNT (BEAKER) (test uubb=627) 0.07 K/ L 0.04-0.54 BASOPHILS ABSOLUTE COUNT (BEAKER) (test krtf=054) 0.03 K/ L 0.01-0.08 IMMATURE GRANULOCYTES-RELATIVE PERCENT (BEAKER) (test lotd=7690) 0 % 0-1 [id number] 04:28:00* Test Item Value Reference Range Comments PARTIAL THROMBOPLASTIN TIME (BEAKER) (test vgef=775) 73.4 seconds 22.5-36.0 PROTHROMBIN TIME/[id number] 04:27:00* Test Item Value Reference Range Comments PROTIME (BEAKER) (test szcu=993) 24.8 seconds 11.7-14.7 INR (BEAKER) (test ebkf=098) 2.2 <=5.9 RECOMMENDED COUMADIN/WARFARIN INR THERAPY RANGESSTANDARD DOSE: 2.0 - 3.0 Includes: PROPHYLAXIS for venous thrombosis, systemic embolization; TREATMENT for venous thrombosis and/or pulmonary embolus.HIGH RISK: Target INR is 2.5-3.5 for patients with mechanical heart valves.POCT-GLUCOSE [id number] 22:00:00 * Test Item Value Reference Range Comments POC-GLUCOSE METER (BEAKER) (test rone=4491) 188 mg/dL 70-110 TESTED AT [address] [address] POCT-GLUCOSE [id number] 17:54:00* Test Item Value Reference Range Comments POC-GLUCOSE METER (BEAKER) (test lztl=6103) 145 mg/dL 70-110 TESTED AT [address] [address] POCT-GLUCOSE [id number] 12:32:00* Test Item Value Reference Range Comments POC-GLUCOSE METER (BEAKER) (test cbnn=7855) 153 mg/dL 70-110 TESTED AT [address] [address] POCT-GLUCOSE [id number] 07:40:00* Test Item Value Reference Range Comments POC-GLUCOSE METER (BEAKER) (test gzvk=6430) 101 mg/dL 70-[address] [facility] [address] [place] [address] CBC W/PLT COUNT & AUTO [id number] 06:16:00* Test Item Value Reference Range Comments WHITE BLOOD CELL COUNT (BEAKER) (test ndgs=851) 5.4 K/ L 3.5-10.5 RED BLOOD CELL COUNT (BEAKER) (test gtvp=552) 2.75 M/ L 4.63-6.08 HEMOGLOBIN (BEAKER) (test kuhl=559) 7.5 GM/DL 13.7-17.5 HEMATOCRIT (BEAKER) (test blxg=028) 23.4 % 40.1-51.0 MEAN CORPUSCULAR VOLUME (BEAKER) (test opjd=001) 85.1 fL 79.0-92.2 MEAN CORPUSCULAR HEMOGLOBIN (BEAKER) (test bnhy=436) 27.3 pg 25.7-32.2 MEAN CORPUSCULAR HEMOGLOBIN CONC (BEAKER) (test uqus=762) 32.1 GM/DL 32.3- 36.5 RED CELL DISTRIBUTION WIDTH (BEAKER) (test wift=901) 18.2 % 11.6-14.4 PLATELET COUNT (BEAKER) (test ddbv=749) 130 K/CU MM 150-450 MEAN PLATELET VOLUME (BEAKER) (test avpo=947) 10.8 fL 9.4-12.4 NUCLEATED RED BLOOD CELLS (BEAKER) (test viwe=236) 0 /100 WBC 0-0 NEUTROPHILS RELATIVE PERCENT (BEAKER) (test xglx=497) 68 % LYMPHOCYTES RELATIVE PERCENT (BEAKER) (test hezy=021) 14 % MONOCYTES RELATIVE PERCENT (BEAKER) (test xnsa=551) 16 % EOSINOPHILS RELATIVE PERCENT (BEAKER) (test bmiq=277) 1 % BASOPHILS RELATIVE PERCENT (BEAKER) (test gqmp=717) 0 % NEUTROPHILS ABSOLUTE COUNT (BEAKER) (test htmh=533) 3.67 K/ L 1.78-5.38 LYMPHOCYTES ABSOLUTE COUNT (BEAKER) (test sqxy=544) 0.76 K/ L 1.32-3.57 MONOCYTES ABSOLUTE COUNT (BEAKER) (test hlem=049) 0.88 K/ L 0.30-0.82 EOSINOPHILS ABSOLUTE COUNT (BEAKER) (test onrd=881) 0.06 K/ L 0.04-0.54 BASOPHILS ABSOLUTE COUNT (BEAKER) (test rgsh=990) 0.02 K/ L 0.01-0.08 IMMATURE GRANULOCYTES-RELATIVE PERCENT (BEAKER) (test fizd=8258) 0 % 0-1 [id number] 05:52:00* Test Item Value Reference Range Comments PARTIAL THROMBOPLASTIN TIME (BEAKER) (test heix=705) 43.1 seconds 22.5-36.0 PROTHROMBIN TIME/[id number] 05:51:00* Test Item Value Reference Range Comments PROTIME (BEAKER) (test vmet=638) 23.6 seconds 11.7-14.7 INR (BEAKER) (test neto=802) 2.1 <=5.9 RECOMMENDED COUMADIN/WARFARIN INR THERAPY RANGESSTANDARD DOSE: 2.0 - 3.0 Includes: PROPHYLAXIS for venous thrombosis, systemic embolization; TREATMENT for venous thrombosis and/or pulmonary embolus.HIGH RISK: Target INR is 2.5-3.5 for patients with mechanical heart valves.BASIC METABOLIC [id number] 05:48: 00* Test Item Value Reference Range Comments SODIUM (BEAKER) (test bpbn=149) 133 meq/L 136-145 POTASSIUM (BEAKER) (test nook=736) 3.7 meq/L 3.5-5.1 CHLORIDE (BEAKER) (test hgen=807) 89 meq/L 98-107 CO2 (BEAKER) (test ueyi=679) 39 meq/L 22-29 BLOOD UREA NITROGEN (BEAKER) (test qxhw=629) 14 mg/dL 7-21 CREATININE (BEAKER) (test shqy=403) 1.04 mg/dL 0.57-1.25 GLUCOSE RANDOM (BEAKER) (test bqbc=204) 93 mg/dL 70-105 CALCIUM (BEAKER) (test pthy=143) 7.8 mg/dL 8.4-10.2 EGFR (BEAKER) (test flfs=3815) 71 mL/min/1.73 sq m ESTIMATED GFR IS NOT ACCURATE CREATININE CLEARANCE IN PREDICTING GLOMERULAR FILTRATION RATE. ESTIMATED GFR IS NOT APPLICABLE FOR DIALYSIS PATIENTS. [id number] 05:46:00* Test Item Value Reference Range Comments MAGNESIUM (BEAKER) (test kveh=060) 1.8 mg/dL 1.6-2.6 POCT-GLUCOSE [id number] 21:52:00* Test Item Value Reference Range Comments POC-GLUCOSE METER (BEAKER) (test slbu=5695) 148 mg/dL 70-110 TESTED AT [address] [address] [id number] 18:21:00* Test Item Value Reference Range Comments PARTIAL THROMBOPLASTIN TIME (BEAKER) (test vguw=852) 45.3 seconds 22.5-36.0 [id number] 18:13:00* Test Item Value Reference Range Comments MAGNESIUM (BEAKER) (test mrht=988) 1.8 mg/dL 1.6-2.6 Specimen slightly hemolyzed [id number] 18:13:00* Test Item Value Reference Range Comments POTASSIUM (BEAKER) (test dqgq=112) 3.2 meq/L 3.5-5.1 Specimen slightly hemolyzed POCT-GLUCOSE [id number] 17:14:00* Test Item Value Reference Range Comments POC-GLUCOSE METER (BEAKER) (test wxow=3877) 133 mg/dL 70-110 TESTED AT [place] [address] BLOOD [id number] 17:00:00* Test Item Value Reference Range Comments CULTURE (BEAKER) (test hnzx=0765) No growth in 5 days POCT-GLUCOSE [id number] 11:22:00* Test Item Value Reference Range Comments POC-GLUCOSE METER (BEAKER) (test huqp=9031) 162 mg/dL 70-110 TESTED AT [address] [address] RAD, CHEST, 1 VIEW, NON [id number] 09:45:00Reason for exam:->PULMONARY EDEMAShould this be performed at the bedside?->YesFINAL REPORT TECHNIQUE: Frontal chest radiograph dated 12/28/2017. CLINICAL HISTORY: Pulmonary edema COMPARISON STUDY: Chest radiograph dated 12/24/2017 IMPRESSION: Right-sided pacemaker is unchanged in position. There are small bilateral pleural effusions with associated atelectasis. There is stable pulmonary vascular congestion. No pneumothorax. There is stable moderate to severe cardiomegaly. Midline sternotomy wires are intact and well aligned. No fracture. Signed: Nandini Diane MDReport Verified Date/Time: 12/28/2017 09 :45:08 Reading Location: [facility] Radiology Reading Room C METABOLIC [id number] 05:54:00* Test Item Value Reference Range Comments SODIUM (BEAKER) (test queg=494) 134 meq/L 136-145 POTASSIUM (BEAKER) (test iznf=862) 3.3 meq/L 3.5-5.1 CHLORIDE (BEAKER) (test peev=505) 90 meq/L 98-107 CO2 (BEAKER) (test rtjr=099) 39 meq/L 22-29 BLOOD UREA NITROGEN (BEAKER) (test citq=092) 14 mg/dL 7-21 CREATININE (BEAKER) (test lafj=320) 0.93 mg/dL 0.57-1.25 GLUCOSE RANDOM (BEAKER) (test yvrr=066) 96 mg/dL 70-105 CALCIUM (BEAKER) (test vtde=638) 7.6 mg/dL 8.4-10.2 EGFR (BEAKER) (test gpbo=8484) 81 mL/min/1.73 sq m ESTIMATED GFR IS NOT ACCURATE CREATININE CLEARANCE IN PREDICTING GLOMERULAR FILTRATION RATE. ESTIMATED GFR IS NOT APPLICABLE FOR DIALYSIS PATIENTS. [id number] 05:52:00* Test Item Value Reference Range Comments MAGNESIUM (BEAKER) (test pmqd=036) 1.8 mg/dL 1.6-2.6 BLOOD [id number] 05:43:00* Test Item Value Reference Range Comments CULTURE (BEAKER) (test zlnl=7264) Clindamycin (test code=10) Erythromycin (test code=4) Linezolid (test code=40) Nitrofurantoin (test code=23) Oxacillin (test code=14) Rifampin (test code=43) Tetracycline (test code=2) Tigecycline (test ymsi=703) Trimethoprim + Sulfamethoxazole (test code=47) Vancomycin (test code=13) CULTURE (BEAKER) (test ukha=4792) From Aerobic Bottle Only Staphylococcus aureus GRAM STAIN RESULT (BEAKER) (test dwbg=0226) From aerobic bottle only: gram positive cocci in clusters METHICILLIN-SUSCEPTIBLE STAPH. AUREUS (MSSA) DETECTEDStaphylococcus aureus DETECTED MecA NOT DETECTEDFirst line therapy: cefazolin or nafcillin (nafcillin preferred if Central Nervous System Infection)[facility] policy mandates Infectious Disease consultation for all patients with Staph. aureus bacteremia.Other organisms and resistance markers not contained in this PCR panel cannot be excluded and follow-up of traditional culture results is required. This sample was tested at the [facility] using the Confer Blood Culture ID Panel. This test is FDA cleared for in vitro diagnostic use and has been verified and approved by the [facility] for clinical use. Reference Range: Not DetectedPROTHROMBIN [id number] 05:35:00* Test Item Value Reference Range Comments PROTIME (BEAKER) (test dfid=401) 26.4 seconds 11.7-14.7 INR (BEAKER) (test yohw=252) 2.4 <=5.9 RECOMMENDED COUMADIN/WARFARIN INR THERAPY RANGESSTANDARD DOSE: 2.0 - 3.0 Includes: PROPHYLAXIS for venous thrombosis, systemic embolization; TREATMENT for venous thrombosis and/or pulmonary embolus.HIGH RISK: Target INR is 2.5-3.5 for patients with mechanical heart valves.[id number] 05:35:00* Test Item Value Reference Range Comments PARTIAL THROMBOPLASTIN TIME (BEAKER) (test zyox=770) 48.6 seconds 22.5-36.0 CBC W/PLT COUNT & AUTO [id number] 05:26:00* Test Item Value Reference Range Comments WHITE BLOOD CELL COUNT (BEAKER) (test nkxl=133) 6.1 K/ L 3.5-10.5 RED BLOOD CELL COUNT (BEAKER) (test trnt=152) 2.78 M/ L 4.63-6.08 HEMOGLOBIN (BEAKER) (test pifh=538) 7.4 GM/DL 13.7-17.5 HEMATOCRIT (BEAKER) (test nvit=449) 23.5 % 40.1-51.0 MEAN CORPUSCULAR VOLUME (BEAKER) (test wieh=779) 84.5 fL 79.0-92.2 MEAN CORPUSCULAR HEMOGLOBIN (BEAKER) (test ezat=133) 26.6 pg 25.7-32.2 MEAN CORPUSCULAR HEMOGLOBIN CONC (BEAKER) (test qfoo=781) 31.5 GM/DL 32.3- 36.5 RED CELL DISTRIBUTION WIDTH (BEAKER) (test tlbd=102) 17.9 % 11.6-14.4 PLATELET COUNT (BEAKER) (test uqio=854) 131 K/CU MM 150-450 MEAN PLATELET VOLUME (BEAKER) (test alrx=227) 10.7 fL 9.4-12.4 NUCLEATED RED BLOOD CELLS (BEAKER) (test ssom=655) 0 /100 WBC 0-0 NEUTROPHILS RELATIVE PERCENT (BEAKER) (test yzhr=269) 72 % LYMPHOCYTES RELATIVE PERCENT (BEAKER) (test qhcx=135) 13 % MONOCYTES RELATIVE PERCENT (BEAKER) (test vnoz=408) 13 % EOSINOPHILS RELATIVE PERCENT (BEAKER) (test zadp=029) 1 % BASOPHILS RELATIVE PERCENT (BEAKER) (test xwtu=755) 0 % NEUTROPHILS ABSOLUTE COUNT (BEAKER) (test abmb=849) 4.40 K/ L 1.78-5.38 LYMPHOCYTES ABSOLUTE COUNT (BEAKER) (test lfgo=692) 0.78 K/ L 1.32-3.57 MONOCYTES ABSOLUTE COUNT (BEAKER) (test tegd=889) 0.79 K/ L 0.30-0.82 EOSINOPHILS ABSOLUTE COUNT (BEAKER) (test somr=630) 0.06 K/ L 0.04-0.54 BASOPHILS ABSOLUTE COUNT (BEAKER) (test tsxq=198) 0.02 K/ L 0.01-0.08 IMMATURE GRANULOCYTES-RELATIVE PERCENT (BEAKER) (test gfyc=9917) 1 % 0-1 POCT-GLUCOSE [id number] 21:36:00* Test Item Value Reference Range Comments POC-GLUCOSE METER (BEAKER) (test hfjs=6428) 137 mg/dL 70-110 TESTED AT [place] [id number] [place] [id number] POCT-GLUCOSE [id number] 17:53:00* Test Item Value Reference Range Comments POC-GLUCOSE METER (BEAKER) (test tlbz=5175) 153 mg/dL 70-110 TESTED AT [place] [id number] [facility] [address] [id number] 16:43:00* Test Item Value Reference Range Comments PARTIAL THROMBOPLASTIN TIME (BEAKER) (test zezy=870) 51.3 seconds 22.5-36.0 MISCELLANEOUS LAB [id number] 13:22:00* Test Item Value Reference Range Comments SCAN RESULT (test koeq=[id number]) Result comments: METHICILLIN-SUSCEPTIBLE STAPH. AUREUS (MSSA) DETECTED Staphylococcus aureus DETECTED MecA NOT DETECTED First line therapy: cefazolin or nafcillin (nafcillin preferred if Central Nervous System Infection) [facility] policy mandates Infectious Disease consultation for all patients with Staph. aureus bacteremia. Other organisms and resistance markers not contained in this PCR panel cannot be excluded and follow-up of traditional culture results is required. This sample was tested at the [facility] using the Confer Blood Culture ID Panel. This test is FDA cleared for in vitro diagnostic use and has been verified and approved by the [facility] for clinical use. Reference Range: Not DetectedPOCT-GLUCOSE [id number] 12:28:00 * Test Item Value Reference Range Comments POC-GLUCOSE METER (BEAKER) (test xhsr=2913) 141 mg/dL 70-[address] [facility] [address] [facility] [address] POCT-GLUCOSE [id number] 07:51:00* Test Item Value Reference Range Comments POC-GLUCOSE METER (BEAKER) (test anbo=3884) 105 mg/dL 70-110 TESTED AT [address] [address] BASIC METABOLIC [id number] 06:52:00* Test Item Value Reference Range Comments SODIUM (BEAKER) (test qfht=740) 133 meq/L 136-145 POTASSIUM (BEAKER) (test curn=489) 3.5 meq/L 3.5-5.1 CHLORIDE (BEAKER) (test thmm=045) 92 meq/L 98-107 CO2 (BEAKER) (test xjcv=834) 35 meq/L 22-29 BLOOD UREA NITROGEN (BEAKER) (test joef=188) 13 mg/dL 7-21 CREATININE (BEAKER) (test skpm=142) 0.94 mg/dL 0.57-1.25 GLUCOSE RANDOM (BEAKER) (test mjrb=467) 93 mg/dL 70-105 CALCIUM (BEAKER) (test pcqs=852) 7.4 mg/dL 8.4-10.2 EGFR (BEAKER) (test gffe=8049) 80 mL/min/1.73 sq m ESTIMATED GFR IS NOT ACCURATE CREATININE CLEARANCE IN PREDICTING GLOMERULAR FILTRATION RATE. ESTIMATED GFR IS NOT APPLICABLE FOR DIALYSIS PATIENTS. Specimen slightly [id number] 06:51:00* Test Item Value Reference Range Comments MAGNESIUM (BEAKER) (test iqqo=062) 2.1 mg/dL 1.6-2.6 [id number] 06:45:00* Test Item Value Reference Range Comments PARTIAL THROMBOPLASTIN TIME (BEAKER) (test xkvy=108) 53.7 seconds 22.5-36.0 PROTHROMBIN TIME/[id number] 06:44:00* Test Item Value Reference Range Comments PROTIME (BEAKER) (test uvib=608) 31.9 seconds 11.7-14.7 INR (BEAKER) (test tqgl=213) 3.1 <=5.9 RECOMMENDED COUMADIN/WARFARIN INR THERAPY RANGESSTANDARD DOSE: 2.0 - 3.0 Includes: PROPHYLAXIS for venous thrombosis, systemic embolization; TREATMENT for venous thrombosis and/or pulmonary embolus.HIGH RISK: Target INR is 2.5-3.5 for patients with mechanical heart valves.CBC W/PLT COUNT & AUTO [id number] 06:27:00* Test Item Value Reference Range Comments WHITE BLOOD CELL COUNT (BEAKER) (test ozjf=817) 6.2 K/ L 3.5-10.5 RED BLOOD CELL COUNT (BEAKER) (test bteq=202) 2.76 M/ L 4.63-6.08 HEMOGLOBIN (BEAKER) (test hlsi=061) 7.6 GM/DL 13.7-17.5 HEMATOCRIT (BEAKER) (test eaci=952) 23.6 % 40.1-51.0 MEAN CORPUSCULAR VOLUME (BEAKER) (test dgnm=503) 85.5 fL 79.0-92.2 MEAN CORPUSCULAR HEMOGLOBIN (BEAKER) (test kyhk=530) 27.5 pg 25.7-32.2 MEAN CORPUSCULAR HEMOGLOBIN CONC (BEAKER) (test rulz=495) 32.2 GM/DL 32.3- 36.5 RED CELL DISTRIBUTION WIDTH (BEAKER) (test dziu=144) 17.4 % 11.6-14.4 PLATELET COUNT (BEAKER) (test gect=489) 122 K/CU MM 150-450 MEAN PLATELET VOLUME (BEAKER) (test wbjh=169) 10.9 fL 9.4-12.4 NUCLEATED RED BLOOD CELLS (BEAKER) (test xqfq=006) 0 /100 WBC 0-0 NEUTROPHILS RELATIVE PERCENT (BEAKER) (test wzgw=054) 73 % LYMPHOCYTES RELATIVE PERCENT (BEAKER) (test oybh=595) 11 % MONOCYTES RELATIVE PERCENT (BEAKER) (test lytk=170) 14 % EOSINOPHILS RELATIVE PERCENT (BEAKER) (test bpvd=347) 1 % BASOPHILS RELATIVE PERCENT (BEAKER) (test qgdt=536) 0 % NEUTROPHILS ABSOLUTE COUNT (BEAKER) (test myqt=498) 4.56 K/ L 1.78-5.38 LYMPHOCYTES ABSOLUTE COUNT (BEAKER) (test jtfb=563) 0.71 K/ L 1.32-3.57 MONOCYTES ABSOLUTE COUNT (BEAKER) (test prmm=591) 0.84 K/ L 0.30-0.82 EOSINOPHILS ABSOLUTE COUNT (BEAKER) (test axpk=047) 0.06 K/ L 0.04-0.54 BASOPHILS ABSOLUTE COUNT (BEAKER) (test xhwy=199) 0.02 K/ L 0.01-0.08 IMMATURE GRANULOCYTES-RELATIVE PERCENT (BEAKER) (test bdxf=0993) 1 % 0-1 POCT-GLUCOSE [id number] 21:39:00* Test Item Value Reference Range Comments POC-GLUCOSE METER (BEAKER) (test mkxa=6019) 109 mg/dL 70-[address] [facility] [address] [place] [address] CBC W/PLT COUNT & AUTO [id number] 21:39:00* Test Item Value Reference Range Comments WHITE BLOOD CELL COUNT (BEAKER) (test lgtp=221) 5.3 K/ L 3.5-10.5 RED BLOOD CELL COUNT (BEAKER) (test qopa=059) 2.95 M/ L 4.63-6.08 HEMOGLOBIN (BEAKER) (test wfkj=284) 7.8 GM/DL 13.7-17.5 HEMATOCRIT (BEAKER) (test hbqg=714) 24.7 % 40.1-51.0 MEAN CORPUSCULAR VOLUME (BEAKER) (test pbyv=757) 83.7 fL 79.0-92.2 MEAN CORPUSCULAR HEMOGLOBIN (BEAKER) (test uvdv=279) 26.4 pg 25.7-32.2 MEAN CORPUSCULAR HEMOGLOBIN CONC (BEAKER) (test xgcu=370) 31.6 GM/DL 32.3- 36.5 RED CELL DISTRIBUTION WIDTH (BEAKER) (test hzun=418) 17.2 % 11.6-14.4 PLATELET COUNT (BEAKER) (test jleh=790) 135 K/CU MM 150-450 MEAN PLATELET VOLUME (BEAKER) (test ihjs=530) 11.4 fL 9.4-12.4 NUCLEATED RED BLOOD CELLS (BEAKER) (test buwg=773) 0 /100 WBC 0-0 NEUTROPHILS RELATIVE PERCENT (BEAKER) (test vino=497) 73 % LYMPHOCYTES RELATIVE PERCENT (BEAKER) (test qckr=002) 12 % MONOCYTES RELATIVE PERCENT (BEAKER) (test xynu=378) 13 % EOSINOPHILS RELATIVE PERCENT (BEAKER) (test lhky=771) 1 % BASOPHILS RELATIVE PERCENT (BEAKER) (test zpqj=533) 0 % NEUTROPHILS ABSOLUTE COUNT (BEAKER) (test kfrx=616) 3.88 K/ L 1.78-5.38 LYMPHOCYTES ABSOLUTE COUNT (BEAKER) (test fpkm=381) 0.64 K/ L 1.32-3.57 MONOCYTES ABSOLUTE COUNT (BEAKER) (test hhpi=657) 0.67 K/ L 0.30-0.82 EOSINOPHILS ABSOLUTE COUNT (BEAKER) (test smun=953) 0.06 K/ L 0.04-0.54 BASOPHILS ABSOLUTE COUNT (BEAKER) (test isdd=241) 0.01 K/ L 0.01-0.08 IMMATURE GRANULOCYTES-RELATIVE PERCENT (BEAKER) (test txey=0214) 1 % 0-1 POCT-GLUCOSE [id number] 17:45:00* Test Item Value Reference Range Comments POC-GLUCOSE METER (BEAKER) (test mwtd=7172) 107 mg/dL 70-[address] [facility] [address] [facility] [address] POCT-GLUCOSE [id number] 12:47:00* Test Item Value Reference Range Comments POC-GLUCOSE METER (BEAKER) (test ozas=2142) 131 mg/dL 70-[address] [facility] [address] [facility] [address] POCT-GLUCOSE [id number] 07:55:00* Test Item Value Reference Range Comments POC-GLUCOSE METER (BEAKER) (test zucq=6448) 114 mg/dL 70-[address] [facility] [address] [facility] [address] BASIC METABOLIC [id number] 05:34:00* Test Item Value Reference Range Comments SODIUM (BEAKER) (test rvjq=163) 135 meq/L 136-145 POTASSIUM (BEAKER) (test siti=031) 3.6 meq/L 3.5-5.1 CHLORIDE (BEAKER) (test xrrz=764) 97 meq/L 98-107 CO2 (BEAKER) (test dxiy=975) 34 meq/L 22-29 BLOOD UREA NITROGEN (BEAKER) (test qzof=538) 14 mg/dL 7-21 CREATININE (BEAKER) (test epol=188) 0.99 mg/dL 0.57-1.25 GLUCOSE RANDOM (BEAKER) (test sboo=758) 106 mg/dL 70-105 CALCIUM (BEAKER) (test mzaq=917) 7.5 mg/dL 8.4-10.2 EGFR (BEAKER) (test rbuj=2264) 75 mL/min/1.73 sq m ESTIMATED GFR IS NOT ACCURATE CREATININE CLEARANCE IN PREDICTING GLOMERULAR FILTRATION RATE. ESTIMATED GFR IS NOT APPLICABLE FOR DIALYSIS PATIENTS. Specimen slightly [id number] 05:27:00* Test Item Value Reference Range Comments MAGNESIUM (BEAKER) (test mhwd=912) 1.7 mg/dL 1.6-2.6 PROTHROMBIN TIME/[id number] 05:13:00* Test Item Value Reference Range Comments PROTIME (BEAKER) (test xrbl=703) 30.6 seconds 11.7-14.7 INR (BEAKER) (test tkaf=429) 2.9 <=5.9 RECOMMENDED COUMADIN/WARFARIN INR THERAPY RANGESSTANDARD DOSE: 2.0 - 3.0 Includes: PROPHYLAXIS for venous thrombosis, systemic embolization; TREATMENT for venous thrombosis and/or pulmonary embolus.HIGH RISK: Target INR is 2.5-3.5 for patients with mechanical heart valves.[id number] 05:13:00* Test Item Value Reference Range Comments PARTIAL THROMBOPLASTIN TIME (BEAKER) (test iaav=574) 44.4 seconds 22.5-36.0 CBC W/PLT COUNT & AUTO [id number] 04:47:00* Test Item Value Reference Range Comments WHITE BLOOD CELL COUNT (BEAKER) (test nysc=328) 6.0 K/ L 3.5-10.5 RED BLOOD CELL COUNT (BEAKER) (test febx=073) 2.85 M/ L 4.63-6.08 HEMOGLOBIN (BEAKER) (test ehup=996) 7.6 GM/DL 13.7-17.5 HEMATOCRIT (BEAKER) (test xxtu=069) 23.9 % 40.1-51.0 MEAN CORPUSCULAR VOLUME (BEAKER) (test yics=754) 83.9 fL 79.0-92.2 MEAN CORPUSCULAR HEMOGLOBIN (BEAKER) (test pzie=617) 26.7 pg 25.7-32.2 MEAN CORPUSCULAR HEMOGLOBIN CONC (BEAKER) (test gzat=979) 31.8 GM/DL 32.3- 36.5 RED CELL DISTRIBUTION WIDTH (BEAKER) (test jznz=405) 17.2 % 11.6-14.4 PLATELET COUNT (BEAKER) (test qyxr=867) 119 K/CU MM 150-450 MEAN PLATELET VOLUME (BEAKER) (test trom=566) 10.3 fL 9.4-12.4 NUCLEATED RED BLOOD CELLS (BEAKER) (test tccf=649) 0 /100 WBC 0-0 NEUTROPHILS RELATIVE PERCENT (BEAKER) (test vort=150) 70 % LYMPHOCYTES RELATIVE PERCENT (BEAKER) (test byns=134) 14 % MONOCYTES RELATIVE PERCENT (BEAKER) (test xdqy=503) 15 % EOSINOPHILS RELATIVE PERCENT (BEAKER) (test itcr=980) 1 % BASOPHILS RELATIVE PERCENT (BEAKER) (test kcyv=329) 0 % NEUTROPHILS ABSOLUTE COUNT (BEAKER) (test oxvz=051) 4.16 K/ L 1.78-5.38 LYMPHOCYTES ABSOLUTE COUNT (BEAKER) (test ptun=383) 0.83 K/ L 1.32-3.57 MONOCYTES ABSOLUTE COUNT (BEAKER) (test ztqd=698) 0.87 K/ L 0.30-0.82 EOSINOPHILS ABSOLUTE COUNT (BEAKER) (test dabi=659) 0.07 K/ L 0.04-0.54 BASOPHILS ABSOLUTE COUNT (BEAKER) (test qysz=287) 0.02 K/ L 0.01-0.08 IMMATURE GRANULOCYTES-RELATIVE PERCENT (BEAKER) (test kstu=0243) 1 % 0-1 POCT-GLUCOSE [id number] 22:13:00* Test Item Value Reference Range Comments POC-GLUCOSE METER (BEAKER) (test mxmd=6224) 117 mg/dL 70-[address] [facility] [address] [facility] [address] PROTHROMBIN [id number] 18:24:00* Test Item Value Reference Range Comments PROTIME (BEAKER) (test obzi=900) 29.0 seconds 11.7-14.7 INR (BEAKER) (test oank=645) 2.7 <=5.9 RECOMMENDED COUMADIN/WARFARIN INR THERAPY RANGESSTANDARD DOSE: 2.0 - 3.0 Includes: PROPHYLAXIS for venous thrombosis, systemic embolization; TREATMENT for venous thrombosis and/or pulmonary embolus.HIGH RISK: Target INR is 2.5-3.5 for patients with mechanical heart valves.[id number] 18:23:00* Test Item Value Reference Range Comments PARTIAL THROMBOPLASTIN TIME (BEAKER) (test lpzw=777) 44.5 seconds 22.5-36.0 CBC W/PLT COUNT & AUTO [id number] 18:16:00* Test Item Value Reference Range Comments WHITE BLOOD CELL COUNT (BEAKER) (test bvuk=208) 6.7 K/ L 3.5-10.5 RED BLOOD CELL COUNT (BEAKER) (test jdex=523) 2.91 M/ L 4.63-6.08 HEMOGLOBIN (BEAKER) (test qazj=145) 7.8 GM/DL 13.7-17.5 HEMATOCRIT (BEAKER) (test kenj=618) 24.0 % 40.1-51.0 MEAN CORPUSCULAR VOLUME (BEAKER) (test wfps=105) 82.5 fL 79.0-92.2 MEAN CORPUSCULAR HEMOGLOBIN (BEAKER) (test umut=662) 26.8 pg 25.7-32.2 MEAN CORPUSCULAR HEMOGLOBIN CONC (BEAKER) (test fehh=557) 32.5 GM/DL 32.3- 36.5 RED CELL DISTRIBUTION WIDTH (BEAKER) (test kxzr=728) 17.0 % 11.6-14.4 PLATELET COUNT (BEAKER) (test fihg=529) 140 K/CU MM 150-450 MEAN PLATELET VOLUME (BEAKER) (test vbsa=842) 11.0 fL 9.4-12.4 NUCLEATED RED BLOOD CELLS (BEAKER) (test kwuc=310) 0 /100 WBC 0-0 NEUTROPHILS RELATIVE PERCENT (BEAKER) (test tsxr=139) 71 % LYMPHOCYTES RELATIVE PERCENT (BEAKER) (test otfa=659) 13 % MONOCYTES RELATIVE PERCENT (BEAKER) (test eiht=422) 14 % EOSINOPHILS RELATIVE PERCENT (BEAKER) (test svaa=316) 1 % BASOPHILS RELATIVE PERCENT (BEAKER) (test cabh=127) 0 % NEUTROPHILS ABSOLUTE COUNT (BEAKER) (test akbw=536) 4.72 K/ L 1.78-5.38 LYMPHOCYTES ABSOLUTE COUNT (BEAKER) (test gaym=691) 0.88 K/ L 1.32-3.57 MONOCYTES ABSOLUTE COUNT (BEAKER) (test cfxb=480) 0.94 K/ L 0.30-0.82 EOSINOPHILS ABSOLUTE COUNT (BEAKER) (test xlqm=081) 0.07 K/ L 0.04-0.54 BASOPHILS ABSOLUTE COUNT (BEAKER) (test waar=839) 0.01 K/ L 0.01-0.08 IMMATURE GRANULOCYTES-RELATIVE PERCENT (BEAKER) (test wjyn=4024) 1 % 0-1 POCT-GLUCOSE [id number] 17:48:00* Test Item Value Reference Range Comments POC-GLUCOSE METER (BEAKER) (test bjnk=5021) 102 mg/dL 70-110 TESTED AT [place] [id number] [facility] [address] POCT-GLUCOSE [id number] 12:05:00* Test Item Value Reference Range Comments POC-GLUCOSE METER (BEAKER) (test mijk=3177) 127 mg/dL 70-110 TESTED AT [address] [address] CBC W/PLT COUNT & AUTO [id number] 10:08:00* Test Item Value Reference Range Comments WHITE BLOOD CELL COUNT (BEAKER) (test hwsm=723) 6.9 K/ L 3.5-10.5 RED BLOOD CELL COUNT (BEAKER) (test jaso=052) 2.93 M/ L 4.63-6.08 HEMOGLOBIN (BEAKER) (test gsqi=598) 7.8 GM/DL 13.7-17.5 HEMATOCRIT (BEAKER) (test imsi=408) 23.8 % 40.1-51.0 MEAN CORPUSCULAR VOLUME (BEAKER) (test nigs=751) 81.2 fL 79.0-92.2 MEAN CORPUSCULAR HEMOGLOBIN (BEAKER) (test wzyj=675) 26.6 pg 25.7-32.2 MEAN CORPUSCULAR HEMOGLOBIN CONC (BEAKER) (test wjbf=261) 32.8 GM/DL 32.3- 36.5 RED CELL DISTRIBUTION WIDTH (BEAKER) (test dqpm=761) 16.9 % 11.6-14.4 PLATELET COUNT (BEAKER) (test azme=456) 134 K/CU MM 150-450 MEAN PLATELET VOLUME (BEAKER) (test psbv=130) 10.6 fL 9.4-12.4 NUCLEATED RED BLOOD CELLS (BEAKER) (test nltt=870) 0 /100 WBC 0-0 NEUTROPHILS RELATIVE PERCENT (BEAKER) (test lgui=685) 74 % LYMPHOCYTES RELATIVE PERCENT (BEAKER) (test ksuz=756) 13 % MONOCYTES RELATIVE PERCENT (BEAKER) (test pllq=084) 12 % EOSINOPHILS RELATIVE PERCENT (BEAKER) (test yvjw=937) 0 % BASOPHILS RELATIVE PERCENT (BEAKER) (test faqj=937) 0 % NEUTROPHILS ABSOLUTE COUNT (BEAKER) (test qfzd=091) 5.08 K/ L 1.78-5.38 LYMPHOCYTES ABSOLUTE COUNT (BEAKER) (test gzcy=106) 0.88 K/ L 1.32-3.57 MONOCYTES ABSOLUTE COUNT (BEAKER) (test kzui=510) 0.86 K/ L 0.30-0.82 EOSINOPHILS ABSOLUTE COUNT (BEAKER) (test refs=527) 0.03 K/ L 0.04-0.54 BASOPHILS ABSOLUTE COUNT (BEAKER) (test dsdr=045) 0.02 K/ L 0.01-0.08 IMMATURE GRANULOCYTES-RELATIVE PERCENT (BEAKER) (test tfum=9714) 1 % 0-1 SURGICALLY OBTAINED CULTURE + GRAM [id number] 08:05:00* Test Item Value Reference Range Comments CULTURE (BEAKER) (test leti=6712) 2+ Same organism has been isolated from cultures(s) of the same body site and collection date. Repeat identification and susceptibility testing performed only after consultation with the clinical microbiology laboratory.Refer to previous culture ofStaphylococcus aureus GRAM STAIN RESULT (BEAKER) (test cxaa=4489) 4+ White blood cells seen GRAM STAIN RESULT (BEAKER) (test ldwu=136264) No organisms seen SURGICALLY OBTAINED CULTURE + GRAM [id number] 08:01:00* Test Item Value Reference Range Comments CULTURE (BEAKER) (test fith=0525) Clindamycin (test code=10) Erythromycin (test code=4) Linezolid (test code=40) Nitrofurantoin (test code=23) Oxacillin (test code=14) Rifampin (test code=43) Tetracycline (test code=2) Trimethoprim + Sulfamethoxazole (test code=47) Vancomycin (test code=13) Minocycline (test code=35) CULTURE (BEAKER) (test btli=9194) 2+ Staphylococcus aureus GRAM STAIN RESULT (BEAKER) (test iosh=7075) 4+ White blood cells seen GRAM STAIN RESULT (BEAKER) (test bfdv=470670) 1+ gram positive cocci in clusters BASIC METABOLIC [id number] 06:27:00* Test Item Value Reference Range Comments SODIUM (BEAKER) (test rjhd=347) 137 meq/L 136-145 POTASSIUM (BEAKER) (test ynzr=299) 3.4 meq/L 3.5-5.1 CHLORIDE (BEAKER) (test ftlz=796) 101 meq/L 98-107 CO2 (BEAKER) (test zeez=433) 28 meq/L 22-29 BLOOD UREA NITROGEN (BEAKER) (test hbcu=471) 18 mg/dL 7-21 CREATININE (BEAKER) (test fgrj=150) 1.10 mg/dL 0.57-1.25 GLUCOSE RANDOM (BEAKER) (test xycg=365) 127 mg/dL 70-105 CALCIUM (BEAKER) (test fraq=357) 7.5 mg/dL 8.4-10.2 EGFR (BEAKER) (test idcl=1679) 66 mL/min/1.73 sq m ESTIMATED GFR IS NOT ACCURATE CREATININE CLEARANCE IN PREDICTING GLOMERULAR FILTRATION RATE. ESTIMATED GFR IS NOT APPLICABLE FOR DIALYSIS PATIENTS. Specimen slightly [id number] 06:19:00* Test Item Value Reference Range Comments MAGNESIUM (BEAKER) (test qddm=427) 1.4 mg/dL 1.6-2.6 [id number] 06:02:00* Test Item Value Reference Range Comments PARTIAL THROMBOPLASTIN TIME (BEAKER) (test lnii=479) 45.4 seconds 22.5-36.0 PROTHROMBIN TIME/[id number] 06:01:00* Test Item Value Reference Range Comments PROTIME (BEAKER) (test xhjt=228) 28.4 seconds 11.7-14.7 INR (BEAKER) (test wvfh=467) 2.7 <=5.9 RECOMMENDED COUMADIN/WARFARIN INR THERAPY RANGESSTANDARD DOSE: 2.0 - 3.0 Includes: PROPHYLAXIS for venous thrombosis, systemic embolization; TREATMENT for venous thrombosis and/or pulmonary embolus.HIGH RISK: Target INR is 2.5-3.5 for patients with mechanical heart valves.ANAEROBIC [id number] 04:55:00* Test Item Value Reference Range Comments CULTURE (BEAKER) (test cjan=3253) No anaerobes isolated ANAEROBIC [id number] 04:55:00* Test Item Value Reference Range Comments CULTURE (BEAKER) (test mhzo=2191) No anaerobes isolated POCT-GLUCOSE [id number] 02:23:00* Test Item Value Reference Range Comments POC-GLUCOSE METER (BEAKER) (test qcpy=9632) 135 mg/dL 70-110 TESTED AT [address] [address] [id number] 18:05:00* Test Item Value Reference Range Comments PARTIAL THROMBOPLASTIN TIME (BEAKER) (test ilcr=355) 46.8 seconds 22.5-36.0 PROTHROMBIN TIME/[id number] 18:04:00* Test Item Value Reference Range Comments PROTIME (BEAKER) (test ttcc=906) 26.1 seconds 11.7-14.7 INR (BEAKER) (test ujhb=790) 2.4 <=5.9 RECOMMENDED COUMADIN/WARFARIN INR THERAPY RANGESSTANDARD DOSE: 2.0 - 3.0 Includes: PROPHYLAXIS for venous thrombosis, systemic embolization; TREATMENT for venous thrombosis and/or pulmonary embolus.HIGH RISK: Target INR is 2.5-3.5 for patients with mechanical heart valves.CBC W/PLT COUNT & AUTO [id number] 17:51:00* Test Item Value Reference Range Comments WHITE BLOOD CELL COUNT (BEAKER) (test psuk=073) 9.7 K/ L 3.5-10.5 RED BLOOD CELL COUNT (BEAKER) (test copf=869) 2.85 M/ L 4.63-6.08 HEMOGLOBIN (BEAKER) (test kjoi=781) 7.7 GM/DL 13.7-17.5 HEMATOCRIT (BEAKER) (test zuaa=034) 23.0 % 40.1-51.0 MEAN CORPUSCULAR VOLUME (BEAKER) (test desf=269) 80.7 fL 79.0-92.2 MEAN CORPUSCULAR HEMOGLOBIN (BEAKER) (test vqxs=471) 27.0 pg 25.7-32.2 MEAN CORPUSCULAR HEMOGLOBIN CONC (BEAKER) (test mbuj=254) 33.5 GM/DL 32.3- 36.5 RED CELL DISTRIBUTION WIDTH (BEAKER) (test saie=281) 16.7 % 11.6-14.4 PLATELET COUNT (BEAKER) (test hmrx=836) 146 K/CU MM 150-450 MEAN PLATELET VOLUME (BEAKER) (test dbdx=564) 11.1 fL 9.4-12.4 NUCLEATED RED BLOOD CELLS (BEAKER) (test cfga=561) 0 /100 WBC 0-0 NEUTROPHILS RELATIVE PERCENT (BEAKER) (test xywm=611) 79 % LYMPHOCYTES RELATIVE PERCENT (BEAKER) (test rujh=191) 11 % MONOCYTES RELATIVE PERCENT (BEAKER) (test uqrr=600) 9 % EOSINOPHILS RELATIVE PERCENT (BEAKER) (test lztc=509) 0 % BASOPHILS RELATIVE PERCENT (BEAKER) (test ucuo=700) 0 % NEUTROPHILS ABSOLUTE COUNT (BEAKER) (test klgj=732) 7.67 K/ L 1.78-5.38 LYMPHOCYTES ABSOLUTE COUNT (BEAKER) (test gpcm=101) 1.04 K/ L 1.32-3.57 MONOCYTES ABSOLUTE COUNT (BEAKER) (test xbpq=912) 0.89 K/ L 0.30-0.82 EOSINOPHILS ABSOLUTE COUNT (BEAKER) (test cvuf=065) 0.03 K/ L 0.04-0.54 BASOPHILS ABSOLUTE COUNT (BEAKER) (test npox=675) 0.01 K/ L 0.01-0.08 IMMATURE GRANULOCYTES-RELATIVE PERCENT (BEAKER) (test nssl=0756) 1 % 0-1 POCT-GLUCOSE [id number] 17:39:00* Test Item Value Reference Range Comments POC-GLUCOSE METER (BEAKER) (test scoq=8603) 119 mg/dL 70-[address] [facility] [address] [facility] [address] POCT-GLUCOSE [id number] 12:01:00* Test Item Value Reference Range Comments POC-GLUCOSE METER (BEAKER) (test wfcb=2650) 170 mg/dL 70-110 TESTED AT [place] [id number] [facility] [address] OXYGEN SATURATION, [id number] 10:51:00* Test Item Value Reference Range Comments O2 SATURATION (MEASURED) (BEAKER) (test umil=8584) 70.4 % [id number] 10:41:00* Test Item Value Reference Range Comments PARTIAL THROMBOPLASTIN TIME (BEAKER) (test bdoc=643) 43.9 seconds 22.5-36.0 BASIC METABOLIC [id number] 10:30:00* Test Item Value Reference Range Comments SODIUM (BEAKER) (test szrc=210) 138 meq/L 136-145 POTASSIUM (BEAKER) (test qgxt=901) 4.3 meq/L 3.5-5.1 CHLORIDE (BEAKER) (test faoz=552) 105 meq/L 98-107 CO2 (BEAKER) (test bpwe=875) 23 meq/L 22-29 BLOOD UREA NITROGEN (BEAKER) (test xiwr=364) 12 mg/dL 7-21 CREATININE (BEAKER) (test bptg=322) 0.94 mg/dL 0.57-1.25 GLUCOSE RANDOM (BEAKER) (test hjrk=157) 94 mg/dL 70-105 CALCIUM (BEAKER) (test lpby=365) 9.3 mg/dL 8.4-10.2 EGFR (BEAKER) (test qiqw=9564) 80 mL/min/1.73 sq m ESTIMATED GFR IS NOT ACCURATE CREATININE CLEARANCE IN PREDICTING GLOMERULAR FILTRATION RATE. ESTIMATED GFR IS NOT APPLICABLE FOR DIALYSIS PATIENTS. RAD, CHEST, 1 VIEW, NON [id number] 10:27:00Reason for exam:->CHFShould this be performed at the bedside?->YesFINAL REPORT Chest one view compared to December 23, 2017 Discussion: Marked cardiomegaly and pulmonary edema are similar. There is probable small effusions. No pneumothorax. 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 IMPRESSIONS: No significant change. Signed: Liam Perezeport Verified Date/Time: 12/24/2017 10:27:29 Reading Location: [facility] Radiology Reading Room [id number] 10:23:00* Test Item Value Reference Range Comments MAGNESIUM (BEAKER) (test oatb=656) 2.1 mg/dL 1.6-2.6 CBC W/PLT COUNT & AUTO [id number] 09:41:00* Test Item Value Reference Range Comments WHITE BLOOD CELL COUNT (BEAKER) (test nxix=761) 14.5 K/ L 3.5-10.5 RED BLOOD CELL COUNT (BEAKER) (test dkck=333) 3.16 M/ L 4.63-6.08 HEMOGLOBIN (BEAKER) (test plge=197) 8.4 GM/DL 13.7-17.5 HEMATOCRIT (BEAKER) (test auwx=708) 25.8 % 40.1-51.0 MEAN CORPUSCULAR VOLUME (BEAKER) (test rioe=258) 81.6 fL 79.0-92.2 MEAN CORPUSCULAR HEMOGLOBIN (BEAKER) (test hgah=724) 26.6 pg 25.7-32.2 MEAN CORPUSCULAR HEMOGLOBIN CONC (BEAKER) (test obys=261) 32.6 GM/DL 32.3- 36.5 RED CELL DISTRIBUTION WIDTH (BEAKER) (test rjoc=997) 17.1 % 11.6-14.4 PLATELET COUNT (BEAKER) (test gopv=020) 175 K/CU MM 150-450 MEAN PLATELET VOLUME (BEAKER) (test kaam=427) 11.8 fL 9.4-12.4 NUCLEATED RED BLOOD CELLS (BEAKER) (test ribv=294) 0 /100 WBC 0-0 NEUTROPHILS RELATIVE PERCENT (BEAKER) (test jwki=889) 81 % LYMPHOCYTES RELATIVE PERCENT (BEAKER) (test niwb=205) 9 % MONOCYTES RELATIVE PERCENT (BEAKER) (test mvrk=598) 9 % EOSINOPHILS RELATIVE PERCENT (BEAKER) (test etpl=911) 0 % BASOPHILS RELATIVE PERCENT (BEAKER) (test yjmo=861) 0 % NEUTROPHILS ABSOLUTE COUNT (BEAKER) (test yntl=560) 11.71 K/ L 1.78-5.38 LYMPHOCYTES ABSOLUTE COUNT (BEAKER) (test kcrz=944) 1.30 K/ L 1.32-3.57 MONOCYTES ABSOLUTE COUNT (BEAKER) (test puwq=547) 1.24 K/ L 0.30-0.82 EOSINOPHILS ABSOLUTE COUNT (BEAKER) (test zewq=553) 0.02 K/ L 0.04-0.54 BASOPHILS ABSOLUTE COUNT (BEAKER) (test ilzd=242) 0.03 K/ L 0.01-0.08 IMMATURE GRANULOCYTES-RELATIVE PERCENT (BEAKER) (test gafd=1016) 1 % 0-1 CALCIUM, [id number] 07:30:00* Test Item Value Reference Range Comments CALCIUM IONIZED (BEAKER) (test mecb=018) 1.07 mmol/L 1.12-1.27 PH, BLOOD (BEAKER) (test jgpv=2781) 7.38 BLOOD GAS, [id number] 07:30:00* Test Item Value Reference Range Comments PH ARTERIAL (BEAKER) (test zjil=155) 7.38 7.35-7.45 PCO2 ARTERIAL (BEAKER) (test bfcp=413) 41 mmHg 35-45 PO2 ARTERIAL (BEAKER) (test nklc=255) 183 mmHg 80-90 O2 SATURATION ARTERIAL (BEAKER) (test aays=689) 99.2 % 96.0-97.0 HCO3 ARTERIAL (BEAKER) (test bjpe=691) 24 mmol/L 21-29 BASE EXCESS ARTERIAL (BEAKER) (test ozwq=400) -1.0 mmol/L -2.0-3.0 PATIENT TEMPERATURE (BEAKER) (test jrtw=5498) 37.0 C FIO2 (BEAKER) (test babz=7843) 100.0 % B-TYPE NATRIURETIC FACTOR (BNP)2017-12-24 07:28:00* Test Item Value Reference Range Comments B-TYPE NATRIURETIC PEPTIDE (BEAKER) (test ridv=355) 1048 pg/mL 0-100 POCT-GLUCOSE [id number] 07:22:00* Test Item Value Reference Range Comments POC-GLUCOSE METER (BEAKER) (test xkdc=9851) 137 mg/dL 70-[address] [facility] [address] [facility] [address] LACTIC ACID, ARTERIAL, WHOLE [id number] 17:01:00* Test Item Value Reference Range Comments LACTATE BLOOD ARTERIAL (2) (BEAKER) (test caps=3376) 1.1 mmol/L 0.5-2.2 Effective 02/26/2016: Units/Reference Range ChangeNew: 0.5-2.2 mmol/L Previous: 5 -20 mg/dLCBC W/PLT COUNT & AUTO [id number] 16:47:00* Test Item Value Reference Range Comments WHITE BLOOD CELL COUNT (BEAKER) (test bqjh=391) 18.3 K/ L 3.5-10.5 RED BLOOD CELL COUNT (BEAKER) (test kvba=259) 3.28 M/ L 4.63-6.08 HEMOGLOBIN (BEAKER) (test nivn=733) 8.7 GM/DL 13.7-17.5 HEMATOCRIT (BEAKER) (test lxio=783) 27.2 % 40.1-51.0 MEAN CORPUSCULAR VOLUME (BEAKER) (test zoxu=926) 82.9 fL 79.0-92.2 MEAN CORPUSCULAR HEMOGLOBIN (BEAKER) (test wrbh=125) 26.5 pg 25.7-32.2 MEAN CORPUSCULAR HEMOGLOBIN CONC (BEAKER) (test ycxi=085) 32.0 GM/DL 32.3- 36.5 RED CELL DISTRIBUTION WIDTH (BEAKER) (test jzkq=510) 17.0 % 11.6-14.4 PLATELET COUNT (BEAKER) (test djhp=149) 163 K/CU MM 150-450 MEAN PLATELET VOLUME (BEAKER) (test wuxh=748) 11.3 fL 9.4-12.4 NUCLEATED RED BLOOD CELLS (BEAKER) (test cdxz=536) 0 /100 WBC 0-0 NEUTROPHILS RELATIVE PERCENT (BEAKER) (test eeja=488) 86 % LYMPHOCYTES RELATIVE PERCENT (BEAKER) (test nxow=278) 6 % MONOCYTES RELATIVE PERCENT (BEAKER) (test jjxt=515) 6 % EOSINOPHILS RELATIVE PERCENT (BEAKER) (test vxge=924) 0 % BASOPHILS RELATIVE PERCENT (BEAKER) (test exda=059) 0 % NEUTROPHILS ABSOLUTE COUNT (BEAKER) (test jmzf=338) 15.79 K/ L 1.78-5.38 LYMPHOCYTES ABSOLUTE COUNT (BEAKER) (test mkuz=953) 1.08 K/ L 1.32-3.57 MONOCYTES ABSOLUTE COUNT (BEAKER) (test yfrh=037) 1.12 K/ L 0.30-0.82 EOSINOPHILS ABSOLUTE COUNT (BEAKER) (test txoe=168) 0.04 K/ L 0.04-0.54 BASOPHILS ABSOLUTE COUNT (BEAKER) (test bvgx=316) 0.06 K/ L 0.01-0.08 IMMATURE GRANULOCYTES-RELATIVE PERCENT (BEAKER) (test mvvo=1748) 1 % 0-1 POCT-GLUCOSE [id number] 16:39:00* Test Item Value Reference Range Comments POC-GLUCOSE METER (BEAKER) (test rmak=3693) 129 mg/dL 70-[address] [facility] [address] [facility] [address] [id number] 16:09:00* Test Item Value Reference Range Comments PARTIAL THROMBOPLASTIN TIME (BEAKER) (test ujiy=135) 42.2 seconds 22.5-36.0 PROTHROMBIN [id number] 16:08:00* Test Item Value Reference Range Comments PROTIME (BEAKER) (test mzju=505) 29.4 seconds 11.7-14.7 INR (BEAKER) (test jqns=384) 2.8 <=5.9 RECOMMENDED COUMADIN/WARFARIN INR THERAPY RANGESSTANDARD DOSE: 2.0 - 3.0 Includes: PROPHYLAXIS for venous thrombosis, systemic embolization; TREATMENT for venous thrombosis and/or pulmonary embolus.HIGH RISK: Target INR is 2.5-3.5 for patients with mechanical heart valves.LACTIC ACID, ARTERIAL, WHOLE [id number] 14:58:00* Test Item Value Reference Range Comments LACTATE BLOOD ARTERIAL (2) (BEAKER) (test xfbo=3712) 1.2 mmol/L 0.5-2.2 Effective 02/26/2016: Units/Reference Range ChangeNew: 0.5-2.2 mmol/L Previous: 5 -20 mg/dLCBC W/PLT COUNT & AUTO [id number] 11:51:00* Test Item Value Reference Range Comments WHITE BLOOD CELL COUNT (BEAKER) (test htip=930) 15.4 K/ L 3.5-10.5 RED BLOOD CELL COUNT (BEAKER) (test xlmv=577) 3.24 M/ L 4.63-6.08 HEMOGLOBIN (BEAKER) (test eqxq=802) 8.8 GM/DL 13.7-17.5 HEMATOCRIT (BEAKER) (test givn=160) 27.0 % 40.1-51.0 MEAN CORPUSCULAR VOLUME (BEAKER) (test hhqh=288) 83.3 fL 79.0-92.2 MEAN CORPUSCULAR HEMOGLOBIN (BEAKER) (test qffq=143) 27.2 pg 25.7-32.2 MEAN CORPUSCULAR HEMOGLOBIN CONC (BEAKER) (test crqt=224) 32.6 GM/DL 32.3- 36.5 RED CELL DISTRIBUTION WIDTH (BEAKER) (test tzuj=082) 17.0 % 11.6-14.4 PLATELET COUNT (BEAKER) (test iduv=235) 136 K/CU MM 150-450 MEAN PLATELET VOLUME (BEAKER) (test iyga=465) 11.6 fL 9.4-12.4 NUCLEATED RED BLOOD CELLS (BEAKER) (test dlye=661) 0 /100 WBC 0-0 NEUTROPHILS RELATIVE PERCENT (BEAKER) (test bpvm=510) 91 % LYMPHOCYTES RELATIVE PERCENT (BEAKER) (test squd=831) 3 % MONOCYTES RELATIVE PERCENT (BEAKER) (test ovxi=161) 5 % EOSINOPHILS RELATIVE PERCENT (BEAKER) (test oydo=538) 1 % BASOPHILS RELATIVE PERCENT (BEAKER) (test taaa=747) 0 % NEUTROPHILS ABSOLUTE COUNT (BEAKER) (test gbtx=407) 13.99 K/ L 1.78-5.38 LYMPHOCYTES ABSOLUTE COUNT (BEAKER) (test sjts=947) 0.40 K/ L 1.32-3.57 MONOCYTES ABSOLUTE COUNT (BEAKER) (test xqni=377) 0.73 K/ L 0.30-0.82 EOSINOPHILS ABSOLUTE COUNT (BEAKER) (test ykgb=608) 0.07 K/ L 0.04-0.54 BASOPHILS ABSOLUTE COUNT (BEAKER) (test bkir=232) 0.04 K/ L 0.01-0.08 IMMATURE GRANULOCYTES-RELATIVE PERCENT (BEAKER) (test icjt=8835) 1 % 0-1 POCT-GLUCOSE [id number] 10:39:00* Test Item Value Reference Range Comments POC-GLUCOSE METER (BEAKER) (test zget=1348) 104 mg/dL 70-[address] [facility] [address] [facility] [address] RAD, CHEST, 1 VIEW, NON [id number] 08:42:00Reason for exam:->ETT and Pacemaker placementShould this be performed at the bedside?->YesFINAL REPORT HISTORY : ETT and Pacemaker placement. Comparison: 2017 Comment: Single portable view of the chest was obtained. The cardiac silhouette size is enlarged. There are findings of pulmonary venous congestion. Interstitial prominence may represent interstitial edema. Pneumonitis cannot be excluded. There are small bilateral pleural effusions, right greater than left, with adjacent consolidations. There has been interval placement of a nasogastric tube with the tip not included on the film. The remainder of the support lines and tubes are otherwise not significantly changed. Signed: [facility] Verified Date/Time: 12/23/2017 08:42:58 Reading Location: [facility] Diagnostic Imaging Reading Room - [place] [address] E [id number] 07:39:00* Test Item Value Reference Range Comments CULTURE (BEAKER) (test jvbt=1689) No growth GRAM STAIN RESULT (BEAKER) (test rklh=6286) No WBCs GRAM STAIN RESULT (BEAKER) (test acoc=99370) No organisms seen TROPONIN [id number] 05:36:00* Test Item Value Reference Range Comments TROPONIN I (BEAKER) (test nivb=386) 0.42 ng/mL 0.00-0.03 Troponin I (TnI) levels must be interpreted [...] failure, acidosis, acute neurological disease, and persistent tachyarrhythmia.[id number] 05:29:00* Test Item Value Reference Range Comments MAGNESIUM (BEAKER) (test fsuv=307) 1.9 mg/dL 1.6-2.6 HEPATIC FUNCTION [id number] 05:29:00* Test Item Value Reference Range Comments TOTAL PROTEIN (BEAKER) (test iagz=857) 6.1 gm/dL 6.0-8.3 ALBUMIN (BEAKER) (test qfdb=0423) 2.1 g/dL 3.5-5.0 BILIRUBIN TOTAL (BEAKER) (test jqst=663) 1.5 mg/dL 0.2-1.2 BILIRUBIN DIRECT (BEAKER) (test fuuq=108) 1.1 mg/dL 0.1-0.5 ALKALINE PHOSPHATASE (BEAKER) (test fgbq=507) 91 U/L 40-150 AST (SGOT) (BEAKER) (test fhmx=588) 1734 U/L 5-34 ALT (SGPT) (BEAKER) (test wvda=507) 320 U/L 6-55 CREATINE KINASE (CK), TOTAL AND [id number] 05:27:00* Test Item Value Reference Range Comments CREATINE KINASE TOTAL (BEAKER) (test ghlw=928) 156 U/L 29-200 CREATINE KINASE-MB (BEAKER) (test hkze=880) 8.3 ng/mL 0.0-6.6 CREATINE KINASE-MB INDEX (BEAKER) (test snax=049) 5.3 % CK-MB Reference Range:<6.7 Normal6.7-10.0 Borderline>10.0 AbnormalBASIC METABOLIC [id number] 05:17:00* Test Item Value Reference Range Comments SODIUM (BEAKER) (test zflb=688) 134 meq/L 136-145 POTASSIUM (BEAKER) (test etcx=146) 3.6 meq/L 3.5-5.1 CHLORIDE (BEAKER) (test fady=512) 103 meq/L 98-107 CO2 (BEAKER) (test wnvs=752) 23 meq/L 22-29 BLOOD UREA NITROGEN (BEAKER) (test ibtv=126) 30 mg/dL 7-21 CREATININE (BEAKER) (test mdvv=043) 1.46 mg/dL 0.57-1.25 GLUCOSE RANDOM (BEAKER) (test vtdh=980) 113 mg/dL 70-105 CALCIUM (BEAKER) (test uwfv=667) 7.4 mg/dL 8.4-10.2 EGFR (BEAKER) (test yjgg=9890) 48 mL/min/1.73 sq m ESTIMATED GFR IS NOT ACCURATE CREATININE CLEARANCE IN PREDICTING GLOMERULAR FILTRATION RATE. ESTIMATED GFR IS NOT APPLICABLE FOR DIALYSIS PATIENTS. PROTHROMBIN TIME/[id number] 05:13:00* Test Item Value Reference Range Comments PROTIME (BEAKER) (test tqrg=447) 35.7 seconds 11.7-14.7 INR (BEAKER) (test moko=516) 3.6 <=5.9 RECOMMENDED COUMADIN/WARFARIN INR THERAPY RANGESSTANDARD DOSE: 2.0 - 3.0 Includes: PROPHYLAXIS for venous thrombosis, systemic embolization; TREATMENT for venous thrombosis and/or pulmonary embolus.HIGH RISK: Target INR is 2.5-3.5 for patients with mechanical heart valves.[id number] 05:13:00* Test Item Value Reference Range Comments PARTIAL THROMBOPLASTIN TIME (BEAKER) (test pyjn=858) 52.4 seconds 22.5-36.0 CBC W/PLT COUNT & AUTO [id number] 05:13:00* Test Item Value Reference Range Comments WHITE BLOOD CELL COUNT (BEAKER) (test afhi=752) 12.2 K/ L 3.5-10.5 RED BLOOD CELL COUNT (BEAKER) (test oaqo=276) 3.18 M/ L 4.63-6.08 HEMOGLOBIN (BEAKER) (test qjpa=238) 8.4 GM/DL 13.7-17.5 HEMATOCRIT (BEAKER) (test owmj=574) 25.6 % 40.1-51.0 MEAN CORPUSCULAR VOLUME (BEAKER) (test drrb=765) 80.5 fL 79.0-92.2 MEAN CORPUSCULAR HEMOGLOBIN (BEAKER) (test xwtr=925) 26.4 pg 25.7-32.2 MEAN CORPUSCULAR HEMOGLOBIN CONC (BEAKER) (test jtdj=300) 32.8 GM/DL 32.3- 36.5 RED CELL DISTRIBUTION WIDTH (BEAKER) (test pxvq=220) 16.8 % 11.6-14.4 PLATELET COUNT (BEAKER) (test iohf=952) 152 K/CU MM 150-450 MEAN PLATELET VOLUME (BEAKER) (test uktl=635) 12.4 fL 9.4-12.4 NUCLEATED RED BLOOD CELLS (BEAKER) (test kfcz=456) 0 /100 WBC 0-0 NEUTROPHILS RELATIVE PERCENT (BEAKER) (test bqrc=800) 80 % LYMPHOCYTES RELATIVE PERCENT (BEAKER) (test vtue=726) 12 % MONOCYTES RELATIVE PERCENT (BEAKER) (test gybd=552) 6 % EOSINOPHILS RELATIVE PERCENT (BEAKER) (test olik=142) 1 % BASOPHILS RELATIVE PERCENT (BEAKER) (test hhur=942) 0 % NEUTROPHILS ABSOLUTE COUNT (BEAKER) (test xwqp=909) 9.81 K/ L 1.78-5.38 LYMPHOCYTES ABSOLUTE COUNT (BEAKER) (test tozy=153) 1.47 K/ L 1.32-3.57 MONOCYTES ABSOLUTE COUNT (BEAKER) (test lzwb=895) 0.72 K/ L 0.30-0.82 EOSINOPHILS ABSOLUTE COUNT (BEAKER) (test niam=038) 0.09 K/ L 0.04-0.54 BASOPHILS ABSOLUTE COUNT (BEAKER) (test witk=392) 0.03 K/ L 0.01-0.08 IMMATURE GRANULOCYTES-RELATIVE PERCENT (BEAKER) (test faba=7728) 1 % 0-1 BLOOD GAS, [id number] 05:04:00* Test Item Value Reference Range Comments PH ARTERIAL (BEAKER) (test zshx=321) 7.35 7.35-7.45 PCO2 ARTERIAL (BEAKER) (test pmfd=249) 47 mmHg 35-45 PO2 ARTERIAL (BEAKER) (test pevw=331) 99 mmHg 80-90 O2 SATURATION ARTERIAL (BEAKER) (test rjjt=874) 97.4 % 96.0-97.0 HCO3 ARTERIAL (BEAKER) (test qpqf=019) 25 mmol/L 21-29 BASE EXCESS ARTERIAL (BEAKER) (test dods=119) -0.8 mmol/L -2.0-3.0 PATIENT TEMPERATURE (BEAKER) (test bdzc=4518) 36.2 C FIO2 (BEAKER) (test dvup=1486) 50.0 % CALCIUM, [id number] 05:04:00* Test Item Value Reference Range Comments CALCIUM IONIZED (BEAKER) (test kwfv=112) 1.03 mmol/L 1.12-1.27 PH, BLOOD (BEAKER) (test vmmh=2585) 7.34 LACTIC ACID, ARTERIAL, WHOLE [id number] 04:59:00* Test Item Value Reference Range Comments LACTATE BLOOD ARTERIAL (2) (BEAKER) (test cwvy=1332) 1.0 mmol/L 0.5-2.2 Effective 02/26/2016: Units/Reference Range ChangeNew: 0.5-2.2 mmol/L Previous: 5 -20 mg/dLCBC W/PLT COUNT & AUTO [id number] 00:02:00* Test Item Value Reference Range Comments WHITE BLOOD CELL COUNT (BEAKER) (test xalg=051) 15.0 K/ L 3.5-10.5 RED BLOOD CELL COUNT (BEAKER) (test lwzy=337) 3.15 M/ L 4.63-6.08 HEMOGLOBIN (BEAKER) (test nxeh=054) 8.5 GM/DL 13.7-17.5 HEMATOCRIT (BEAKER) (test eicg=853) 26.0 % 40.1-51.0 MEAN CORPUSCULAR VOLUME (BEAKER) (test pdgo=493) 82.5 fL 79.0-92.2 MEAN CORPUSCULAR HEMOGLOBIN (BEAKER) (test hbre=207) 27.0 pg 25.7-32.2 MEAN CORPUSCULAR HEMOGLOBIN CONC (BEAKER) (test hzby=721) 32.7 GM/DL 32.3- 36.5 RED CELL DISTRIBUTION WIDTH (BEAKER) (test gwpy=979) 16.9 % 11.6-14.4 PLATELET COUNT (BEAKER) (test zpht=830) 139 K/CU MM 150-450 MEAN PLATELET VOLUME (BEAKER) (test ctkf=001) 11.4 fL 9.4-12.4 NUCLEATED RED BLOOD CELLS (BEAKER) (test wood=987) 0 /100 WBC 0-0 NEUTROPHILS RELATIVE PERCENT (BEAKER) (test vvrw=829) 79 % LYMPHOCYTES RELATIVE PERCENT (BEAKER) (test bsfw=306) 14 % MONOCYTES RELATIVE PERCENT (BEAKER) (test chai=019) 5 % EOSINOPHILS RELATIVE PERCENT (BEAKER) (test xrqa=507) 1 % BASOPHILS RELATIVE PERCENT (BEAKER) (test hkkt=478) 0 % NEUTROPHILS ABSOLUTE COUNT (BEAKER) (test awtg=375) 11.95 K/ L 1.78-5.38 LYMPHOCYTES ABSOLUTE COUNT (BEAKER) (test kzrw=600) 2.04 K/ L 1.32-3.57 MONOCYTES ABSOLUTE COUNT (BEAKER) (test jjiy=788) 0.78 K/ L 0.30-0.82 EOSINOPHILS ABSOLUTE COUNT (BEAKER) (test najq=861) 0.07 K/ L 0.04-0.54 BASOPHILS ABSOLUTE COUNT (BEAKER) (test ffac=916) 0.03 K/ L 0.01-0.08 IMMATURE GRANULOCYTES-RELATIVE PERCENT (BEAKER) (test syiv=5233) 1 % 0-1 POCT-GLUCOSE [id number] 22:18:00* Test Item Value Reference Range Comments POC-GLUCOSE METER (BEAKER) (test ivlm=6878) 157 mg/dL 70-[address] [facility] [address] [facility] [address] THROMBOELASTOGRAPH (TEG)2017-12-22 20:30:00* Test Item Value Reference Range Comments TEG ACTIVATED CLOTTING TIME (BEAKER) (test ogem=1727) 7.1 minutes 4.0-7.0 TEG FIBRINOGEN ACTIVITY (BEAKER) (test gxvs=5002) 68.9 degrees 61.0-73.0 TEG PLT. AGGREGATION (BEAKER) (test gycb=4193) 61.7 MM 55.0-65.0 TEG FIBRINOLYSIS (BEAKER) (test nywh=4594) 0.0 % 0.0-5.0 TGH ACTIVATED CLOTTING TIME (BEAKER) (test oumw=6977) 6.5 minutes 4.0-7.0 TGH FIBRINOGEN ACTIVITY (BEAKER) (test lugj=8690) 70.8 degrees 61.0-73.0 TGH PLT. AGGREGATION (BEAKER) (test xjoh=6706) 55.8 MM 55.0-65.0 TGH FIBRINOLYSIS (BEAKER) (test yscq=9314) 0.0 % 0.0-5.0 HEPATIC FUNCTION [id number] 18:48:00* Test Item Value Reference Range Comments TOTAL PROTEIN (BEAKER) (test rbtk=487) 6.4 gm/dL 6.0-8.3 ALBUMIN (BEAKER) (test qqcs=0040) 2.3 g/dL 3.5-5.0 BILIRUBIN TOTAL (BEAKER) (test lopy=722) 1.9 mg/dL 0.2-1.2 BILIRUBIN DIRECT (BEAKER) (test yyhy=082) 1.4 mg/dL 0.1-0.5 ALKALINE PHOSPHATASE (BEAKER) (test pmnf=479) 93 U/L 40-150 AST (SGOT) (BEAKER) (test pref=741) 2394 U/L 5-34 ALT (SGPT) (BEAKER) (test qgdh=071) 495 U/L 6-55 PROTHROMBIN TIME/[id number] 18:28:00* Test Item Value Reference Range Comments PROTIME (BEAKER) (test qdmj=150) 43.4 seconds 11.7-14.7 INR (BEAKER) (test lnkd=521) 4.6 <=5.9 RECOMMENDED COUMADIN/WARFARIN INR THERAPY RANGESSTANDARD DOSE: 2.0 - 3.0 Includes: PROPHYLAXIS for venous thrombosis, systemic embolization; TREATMENT for venous thrombosis and/or pulmonary embolus.HIGH RISK: Target INR is 2.5-3.5 for patients with mechanical heart valves.[id number] 18:22:00* Test Item Value Reference Range Comments PARTIAL THROMBOPLASTIN TIME (BEAKER) (test abqv=102) 57.0 seconds 22.5-36.0 [id number] 18:21:00* Test Item Value Reference Range Comments FIBRINOGEN LEVEL (BEAKER) (test gvke=966) 266 mg/dl 225-434 CALCIUM, [id number] 18:09:00* Test Item Value Reference Range Comments CALCIUM IONIZED (BEAKER) (test hkua=587) 1.07 mmol/L 1.12-1.27 PH, BLOOD (BEAKER) (test kuyn=6692) 7.37 BASIC METABOLIC [id number] 17:23:00* Test Item Value Reference Range Comments SODIUM (BEAKER) (test gtff=870) 133 meq/L 136-145 POTASSIUM (BEAKER) (test dqfj=266) 4.0 meq/L 3.5-5.1 CHLORIDE (BEAKER) (test exvz=448) 102 meq/L 98-107 CO2 (BEAKER) (test vwbb=032) 22 meq/L 22-29 BLOOD UREA NITROGEN (BEAKER) (test lego=731) 30 mg/dL 7-21 CREATININE (BEAKER) (test hrai=622) 1.58 mg/dL 0.57-1.25 GLUCOSE RANDOM (BEAKER) (test gphh=867) 160 mg/dL 70-105 CALCIUM (BEAKER) (test eahj=205) 7.9 mg/dL 8.4-10.2 EGFR (BEAKER) (test ymfk=1245) 44 mL/min/1.73 sq m ESTIMATED GFR IS NOT ACCURATE CREATININE CLEARANCE IN PREDICTING GLOMERULAR FILTRATION RATE. ESTIMATED GFR IS NOT APPLICABLE FOR DIALYSIS PATIENTS. CBC W/PLT COUNT & AUTO [id number] 17:12:00* Test Item Value Reference Range Comments WHITE BLOOD CELL COUNT (BEAKER) (test nxix=627) 19.1 K/ L 3.5-10.5 RED BLOOD CELL COUNT (BEAKER) (test jxbl=196) 3.19 M/ L 4.63-6.08 HEMOGLOBIN (BEAKER) (test dmab=776) 8.4 GM/DL 13.7-17.5 HEMATOCRIT (BEAKER) (test jjzm=944) 26.3 % 40.1-51.0 MEAN CORPUSCULAR VOLUME (BEAKER) (test qayg=880) 82.4 fL 79.0-92.2 MEAN CORPUSCULAR HEMOGLOBIN (BEAKER) (test aysi=329) 26.3 pg 25.7-32.2 MEAN CORPUSCULAR HEMOGLOBIN CONC (BEAKER) (test nvye=069) 31.9 GM/DL 32.3- 36.5 RED CELL DISTRIBUTION WIDTH (BEAKER) (test gnft=973) 16.6 % 11.6-14.4 PLATELET COUNT (BEAKER) (test trkr=945) 113 K/CU MM 150-450 MEAN PLATELET VOLUME (BEAKER) (test vqsw=042) 11.7 fL 9.4-12.4 NUCLEATED RED BLOOD CELLS (BEAKER) (test chik=395) 0 /100 WBC 0-0 NEUTROPHILS RELATIVE PERCENT (BEAKER) (test qhfh=632) 84 % LYMPHOCYTES RELATIVE PERCENT (BEAKER) (test ogak=080) 10 % MONOCYTES RELATIVE PERCENT (BEAKER) (test aiar=984) 4 % EOSINOPHILS RELATIVE PERCENT (BEAKER) (test wrgy=018) 0 % BASOPHILS RELATIVE PERCENT (BEAKER) (test wssh=939) 0 % NEUTROPHILS ABSOLUTE COUNT (BEAKER) (test hcpc=791) 16.02 K/ L 1.78-5.38 LYMPHOCYTES ABSOLUTE COUNT (BEAKER) (test yzej=540) 1.86 K/ L 1.32-3.57 MONOCYTES ABSOLUTE COUNT (BEAKER) (test pbxm=619) 0.85 K/ L 0.30-0.82 EOSINOPHILS ABSOLUTE COUNT (BEAKER) (test knmj=903) 0.04 K/ L 0.04-0.54 BASOPHILS ABSOLUTE COUNT (BEAKER) (test yqbh=972) 0.04 K/ L 0.01-0.08 IMMATURE GRANULOCYTES-RELATIVE PERCENT (BEAKER) (test nphp=2879) 2 % 0-1 [id number] 17:06:00* Test Item Value Reference Range Comments PHOSPHORUS (BEAKER) (test poif=227) 4.6 mg/dL 2.3-4.7 [id number] 17:06:00* Test Item Value Reference Range Comments MAGNESIUM (BEAKER) (test jzyd=516) 1.7 mg/dL 1.6-2.6 LACTIC ACID, ARTERIAL, WHOLE [id number] 17:03:00* Test Item Value Reference Range Comments LACTATE BLOOD ARTERIAL (2) (BEAKER) (test xmfu=4769) 2.4 mmol/L 0.5-2.2 Effective 02/26/2016: Units/Reference Range ChangeNew: 0.5-2.2 mmol/L Previous: 5 -20 mg/dLPT/[id number] 16:57:00* Test Item Value Reference Range Comments PROTIME (BEAKER) (test ovmk=520) 46.5 seconds 11.7-14.7 INR (BEAKER) (test xqqk=890) 5.0 <=5.9 PARTIAL THROMBOPLASTIN TIME (BEAKER) (test gqkj=489) 50.5 seconds 22.5-36.0 RECOMMENDED COUMADIN/WARFARIN INR THERAPY RANGESSTANDARD DOSE: 2.0 - 3.0 Includes: PROPHYLAXIS for venous thrombosis, systemic embolization; TREATMENT for venous thrombosis and/or pulmonary embolus.HIGH RISK: Target INR is 2.5-3.5 for patients with mechanical heart valves.BLOOD GAS, [id number] 16:49:00 * Test Item Value Reference Range Comments PH ARTERIAL (BEAKER) (test pnfp=046) 7.43 7.35-7.45 PCO2 ARTERIAL (BEAKER) (test fkzf=133) 38 mmHg 35-45 PO2 ARTERIAL (BEAKER) (test wyvw=930) 110 mmHg 80-90 O2 SATURATION ARTERIAL (BEAKER) (test kbzh=293) 98.2 % 96.0-97.0 HCO3 ARTERIAL (BEAKER) (test urhv=842) 25 mmol/L 21-29 BASE EXCESS ARTERIAL (BEAKER) (test vnfe=094) 0.1 mmol/L -2.0-3.0 PATIENT TEMPERATURE (BEAKER) (test oosv=4331) 36.3 C FIO2 (BEAKER) (test jrzv=7122) 50.0 % SPIN/CONCENTRATION [id number] 13:34:00* Test Item Value Reference Range Comments CONCENTRATION CHARGED (BEAKER) (test hkml=8763) Done SPIN/CONCENTRATION [id number] 13:34:00* Test Item Value Reference Range Comments CONCENTRATION CHARGED (BEAKER) (test qumt=1201) Done MISCELLANEOUS LAB [id number] 12:54:00* Test Item Value Reference Range Comments SCAN RESULT (test byef=[id number]) Result comments: METHICILLIN-SUSCEPTIBLE STAPH. AUREUS (MSSA) DETECTED Staphylococcus aureus DETECTED MecA NOT DETECTED First line therapy: cefazolin or nafcillin (nafcillin preferred if Central Nervous System Infection) [facility] policy mandates Infectious Disease consultation for all patients with Staph. aureus bacteremia. Other organisms and resistance markers not contained in this PCR panel cannot be excluded and follow-up of traditional culture results is required. This sample was tested at the [facility] using the Confer Blood Culture ID Panel. This test is FDA cleared for in vitro diagnostic use and has been verified and approved by the [facility] laboratory for clinical use. Reference Range: Not DetectedRAD, CHEST, 1 VIEW, NON [id number] 12:04:00Reason for exam:->s/p PPMShould this be performed at the bedside?-> YesFINAL REPORT Chest one view compared to December 22, 2017 Discussion: ET tube, right subclavian line, and presumed temperature probe esophagus are noted unchanged. Right IJ transvenous pacer in place. Left IJ pacer is removed. There is cardiomegaly, central pulmonary edema, and basilar atelectasis. I cannot exclude small effusions. No pneumothorax. IMPRESSIONS: Grossly similar cardiopulmonary appearance. Signed: Liam Perez Verified Date/Time: 12/22/2017 12:04:43 Reading Location: [facility] Radiology Reading Room Electronically signed by: LIAM PEREZ M.D. on 12:04 PM BLOOD [id number] 10:40:00* Test Item Value Reference Range Comments CULTURE (BEAKER) (test jkbc=6542) From Aerobic And Anaerobic Bottles Same organism has been isolated from cultures(s) of the same body site and collection date. Repeat identification and susceptibility testing performed only after consultation with the clinical microbiology laboratory.Refer to previous culture ofStaphylococcus aureus GRAM STAIN RESULT (BEAKER) (test gthq=4506) From aerobic and anaerobic bottles : gram positive cocci in clusters BLOOD [id number] 10:36:00* Test Item Value Reference Range Comments CULTURE (BEAKER) (test otfr=9227) Clindamycin (test code=10) Erythromycin (test code=4) Linezolid (test code=40) Nitrofurantoin (test code=23) Oxacillin (test code=14) Rifampin (test code=43) Tetracycline (test code=2) Trimethoprim + Sulfamethoxazole (test code=47) Vancomycin (test code=13) CULTURE (BEAKER) (test duhw=6816) From Aerobic And Anaerobic Bottles Staphylococcus aureus GRAM STAIN RESULT (BEAKER) (test egmx=2689) From aerobic and anaerobic bottles : gram positive cocci in clusters METHICILLIN-SUSCEPTIBLE STAPH. AUREUS (MSSA) DETECTEDStaphylococcus aureus DETECTED MecA NOT DETECTEDFirst line therapy: cefazolin or nafcillin (nafcillin preferred if Central Nervous System Infection)[facility] policy mandates Infectious Disease consultation for all patients with Staph. aureus bacteremia.Other organisms and resistance markers not contained in this PCR panel cannot be excluded and follow-up of traditional culture results is required. This sample was tested at the [facility] using the [employer] Blood Culture ID Panel. This test is FDA cleared for in vitro diagnostic use and has been verified and approved by the [facility] laboratory for clinical use. Reference Range: Not DetectedRAD, CHEST, 1 VIEW, NON [id number] 05:12:00Reason for exam:-> Tranvenous PM placement Should this be performed at the bedside?->YesFINAL REPORT RAD, CHEST, 1 VIEW, NON DEPT INDICATION: Tranvenous PM placement COMPARISON: Prior day's exam FINDINGS: Portable frontal view of the chest. IMPRESSION: Support Lines: Stable. Lungs and pleura: Interstitial edema has not improved. Primary considerations are edema and atypical infection. Trace effusions. No pneumothorax.Heart and mediastinum: Stable contours. Stable surgical changes.Additional findings: None. Signed: JR Ramy, Nitesh Velasco Verified Date/Time: 12/22/2017 05:12:23 Reading Location: [address] Body Reading Room IUM, [id number] 04:56 :00* Test Item Value Reference Range Comments CALCIUM IONIZED (BEAKER) (test pzcu=904) 1.16 mmol/L 1.12-1.27 PH, BLOOD (BEAKER) (test khgr=2973) 7.31 BLOOD GAS, [id number] 04:27:00* Test Item Value Reference Range Comments PH ARTERIAL (BEAKER) (test vdru=174) 7.33 7.35-7.45 PCO2 ARTERIAL (BEAKER) (test mszv=517) 32 mmHg 35-45 PO2 ARTERIAL (BEAKER) (test gegu=302) 228 mmHg 80-90 O2 SATURATION ARTERIAL (BEAKER) (test dbkj=111) 99.5 % 96.0-97.0 HCO3 ARTERIAL (BEAKER) (test tmjq=028) 17 mmol/L 21-29 BASE EXCESS ARTERIAL (BEAKER) (test ponv=249) -8.6 mmol/L -2.0-3.0 PATIENT TEMPERATURE (BEAKER) (test bqcs=2380) 36.0 C FIO2 (BEAKER) (test cuyk=3954) 70.0 % BASIC METABOLIC [id number] 04:21:00* Test Item Value Reference Range Comments SODIUM (BEAKER) (test etrd=765) 134 meq/L 136-145 POTASSIUM (BEAKER) (test imzb=293) 4.1 meq/L 3.5-5.1 CHLORIDE (BEAKER) (test qyhv=490) 99 meq/L 98-107 CO2 (BEAKER) (test kjwc=671) 15 meq/L 22-29 BLOOD UREA NITROGEN (BEAKER) (test mgqb=789) 22 mg/dL 7-21 CREATININE (BEAKER) (test ofif=818) 1.47 mg/dL 0.57-1.25 GLUCOSE RANDOM (BEAKER) (test epxp=544) 138 mg/dL 70-105 CALCIUM (BEAKER) (test srom=314) 8.9 mg/dL 8.4-10.2 EGFR (BEAKER) (test jfsd=6806) 47 mL/min/1.73 sq m ESTIMATED GFR IS NOT ACCURATE CREATININE CLEARANCE IN PREDICTING GLOMERULAR FILTRATION RATE. ESTIMATED GFR IS NOT APPLICABLE FOR DIALYSIS PATIENTS. CBC W/PLT COUNT & AUTO [id number] 04:10:00* Test Item Value Reference Range Comments WHITE BLOOD CELL COUNT (BEAKER) (test hyni=106) 20.7 K/ L 3.5-10.5 RED BLOOD CELL COUNT (BEAKER) (test iwzg=084) 3.40 M/ L 4.63-6.08 HEMOGLOBIN (BEAKER) (test gget=602) 9.1 GM/DL 13.7-17.5 HEMATOCRIT (BEAKER) (test hocm=921) 28.5 % 40.1-51.0 MEAN CORPUSCULAR VOLUME (BEAKER) (test reew=804) 83.8 fL 79.0-92.2 MEAN CORPUSCULAR HEMOGLOBIN (BEAKER) (test aywv=045) 26.8 pg 25.7-32.2 MEAN CORPUSCULAR HEMOGLOBIN CONC (BEAKER) (test uxxj=518) 31.9 GM/DL 32.3- 36.5 RED CELL DISTRIBUTION WIDTH (BEAKER) (test kybs=576) 16.8 % 11.6-14.4 PLATELET COUNT (BEAKER) (test aogm=114) 141 K/CU MM 150-450 MEAN PLATELET VOLUME (BEAKER) (test gpbv=492) 11.7 fL 9.4-12.4 NUCLEATED RED BLOOD CELLS (BEAKER) (test moge=677) 0 /100 WBC 0-0 NEUTROPHILS RELATIVE PERCENT (BEAKER) (test dcqf=662) 80 % LYMPHOCYTES RELATIVE PERCENT (BEAKER) (test czow=444) 10 % MONOCYTES RELATIVE PERCENT (BEAKER) (test mggp=475) 7 % EOSINOPHILS RELATIVE PERCENT (BEAKER) (test xdxb=742) 0 % BASOPHILS RELATIVE PERCENT (BEAKER) (test lyod=624) 0 % NEUTROPHILS ABSOLUTE COUNT (BEAKER) (test zhfa=702) 16.61 K/ L 1.78-5.38 LYMPHOCYTES ABSOLUTE COUNT (BEAKER) (test yvjv=696) 2.01 K/ L 1.32-3.57 MONOCYTES ABSOLUTE COUNT (BEAKER) (test phwk=548) 1.38 K/ L 0.30-0.82 EOSINOPHILS ABSOLUTE COUNT (BEAKER) (test ziij=244) 0.04 K/ L 0.04-0.54 BASOPHILS ABSOLUTE COUNT (BEAKER) (test ptkp=951) 0.02 K/ L 0.01-0.08 IMMATURE GRANULOCYTES-RELATIVE PERCENT (BEAKER) (test vkdt=9729) 3 % 0-1 LACTIC ACID, ARTERIAL, WHOLE [id number] 01:22:00* Test Item Value Reference Range Comments LACTATE BLOOD ARTERIAL (2) (BEAKER) (test uzow=2437) 6.3 mmol/L 0.5-2.2 Effective 02/26/2016: Units/Reference Range ChangeNew: 0.5-2.2 mmol/L Previous: 5 -20 mg/dLCBC W/PLT COUNT & AUTO [id number] 01:03:00* Test Item Value Reference Range Comments WHITE BLOOD CELL COUNT (BEAKER) (test symc=002) 13.7 K/ L 3.5-10.5 RED BLOOD CELL COUNT (BEAKER) (test fwnc=902) 3.25 M/ L 4.63-6.08 HEMOGLOBIN (BEAKER) (test cbwa=368) 8.8 GM/DL 13.7-17.5 HEMATOCRIT (BEAKER) (test pxfw=433) 27.3 % 40.1-51.0 MEAN CORPUSCULAR VOLUME (BEAKER) (test eyrc=283) 84.0 fL 79.0-92.2 MEAN CORPUSCULAR HEMOGLOBIN (BEAKER) (test mvsg=218) 27.1 pg 25.7-32.2 MEAN CORPUSCULAR HEMOGLOBIN CONC (BEAKER) (test pqwv=039) 32.2 GM/DL 32.3- 36.5 RED CELL DISTRIBUTION WIDTH (BEAKER) (test jiqa=231) 16.4 % 11.6-14.4 PLATELET COUNT (BEAKER) (test lslr=508) 109 K/CU MM 150-450 MEAN PLATELET VOLUME (BEAKER) (test fssj=879) 11.9 fL 9.4-12.4 NUCLEATED RED BLOOD CELLS (BEAKER) (test ujxs=077) 1 /100 WBC 0-0 IMMATURE GRANULOCYTES-RELATIVE PERCENT (BEAKER) (test ghqx=9653) 7 % 0-1 (MANUAL DIFFERENTIAL)2017-12-22 01:03:00* Test Item Value Reference Range Comments NEUTROPHILS - REL (DIFF) (BEAKER) (test ewrb=5384) 76 % LYMPHOCYTES - REL (DIFF) (BEAKER) (test ixjk=6107) 10 % MONOCYTES - REL (DIFF) (BEAKER) (test ioad=8998) 4 % EOSINOPHILS - REL (DIFF) (BEAKER) (test ukau=8433) 1 % METAMYELOCYTES-REL (DIFF) (BEAKER) (test uglc=604) 1 % 0-0 BANDS - REL (DIFF) (BEAKER) (test hffu=4033) 8 % 0-10 NEUTROPHILS - ABS (DIFF) (BEAKER) (test jhgn=8444) 10.41 K/ L 1.80-8.00 LYMPHOCYTES - ABS (DIFF) (BEAKER) (test skry=4686) 1.37 K/ L 1.48-4.50 MONOCYTES - ABS (DIFF) (BEAKER) (test mjmf=4977) 0.55 K/ L 0.00-1.30 EOSINOPHILS - ABS (DIFF) (BEAKER) (test ckav=5409) 0.14 K/ L 0.00-0.50 METAMYELOCTYES - ABS (DIFF) (BEAKER) (test cqxj=118) 0.14 K/ L 0.00-0.00 BANDS-ABS (DIFF) (BEAKER) (test xbwn=9137) 1.1 K/ L 0.0-0.8 TOTAL COUNTED (BEAKER) (test bzhz=8074) 100 BANDS + SEGMENTED NEUTROPHILS (BEAKER) (test wczs=6986) 11.51 WBC MORPHOLOGY (BEAKER) (test dvbu=751) Normal PLT MORPHOLOGY (BEAKER) (test izll=802) Normal ANISOCYTOSIS (BEAKER) (test ocyq=186) 1+ few OVALOCYTES (BEAKER) (test nvsx=932) 1+ few POIKILOCYTES (BEAKER) (test wxfp=677) 1+ few SPHEROCYTES (BEAKER) (test swsh=669) 1+ few BLOOD GAS, [id number] 01:02:00* Test Item Value Reference Range Comments PH ARTERIAL (BEAKER) (test tlio=402) 7.46 7.35-7.45 PCO2 ARTERIAL (BEAKER) (test isfk=286) 33 mmHg 35-45 PO2 ARTERIAL (BEAKER) (test kzqv=839) 252 mmHg 80-90 O2 SATURATION ARTERIAL (BEAKER) (test eaee=415) 99.6 % 96.0-97.0 HCO3 ARTERIAL (BEAKER) (test rzel=190) 23 mmol/L 21-29 BASE EXCESS ARTERIAL (BEAKER) (test mlmu=869) -0.4 mmol/L -2.0-3.0 PATIENT TEMPERATURE (BEAKER) (test tlmj=8595) 36.1 C FIO2 (BEAKER) (test tewc=2583) 100.0 % [id number] 00:59:00* Test Item Value Reference Range Comments FIBRINOGEN LEVEL (BEAKER) (test mwos=464) 301 mg/dl 225-434 RAD, CHEST, 1 VIEW, NON [id number] 00:31:00Reason for exam:->s/p code and intubationShould this be performed at the bedside?->YesFINAL REPORT RAD, CHEST, 1 VIEW, NON DEPT INDICATION: s/p code and intubation COMPARISON: Prior day's exam FINDINGS: Portable frontal view of the chest. IMPRESSION: Support Lines: New endotracheal intubation terminating 5 cm above the panchito. Stable right subclavian central venous catheter. Lungs and pleura: Increased scattered subsegmental atelectasis. Stable effusions. No pneumothorax.Heart and mediastinum: Redemonstration of marked enlargement of the cardiac silhouette. Aortic caliber appears normal. Stable surgical changes.Additional findings: None. Signed: JR Mccann Robert MDReport Verified Date/Time: 12/22/2017 00:31:53 Reading Location: [facility] B1 C013Y CT Body Reading Room ONIN [id number] 00:25:00* Test Item Value Reference Range Comments TROPONIN I (BEAKER) (test cwyj=831) 0.36 ng/mL 0.00-0.03 Troponin I (TnI) levels must be interpreted [...] failure, acidosis, acute neurological disease, and persistent tachyarrhythmia.CREATINE KINASE (CK), TOTAL AND [id number] 00:13:00* Test Item Value Reference Range Comments CREATINE KINASE TOTAL (BEAKER) (test cecy=649) 60 U/L 29-200 CREATINE KINASE-MB (BEAKER) (test isln=578) 3.3 ng/mL 0.0-6.6 CREATINE KINASE-MB INDEX (BEAKER) (test vdld=188) 5.5 % CK-MB Reference Range:<6.7 Normal6.7-10.0 Borderline>10.0 AbnormalCOMPREHENSIVE METABOLIC [id number] 00:09:00* Test Item Value Reference Range Comments TOTAL PROTEIN (BEAKER) (test mmdr=511) 6.8 gm/dL 6.0-8.3 ALBUMIN (BEAKER) (test othl=5717) 2.4 g/dL 3.5-5.0 ALKALINE PHOSPHATASE (BEAKER) (test nfdw=282) 89 U/L 40-150 BILIRUBIN TOTAL (BEAKER) (test ewsq=662) 1.1 mg/dL 0.2-1.2 SODIUM (BEAKER) (test iyfm=392) 133 meq/L 136-145 POTASSIUM (BEAKER) (test gytr=289) 4.6 meq/L 3.5-5.1 CHLORIDE (BEAKER) (test esks=249) 98 meq/L 98-107 CO2 (BEAKER) (test yznp=945) 21 meq/L 22-29 BLOOD UREA NITROGEN (BEAKER) (test gnsp=880) 20 mg/dL 7-21 CREATININE (BEAKER) (test jkbi=553) 1.23 mg/dL 0.57-1.25 GLUCOSE RANDOM (BEAKER) (test qxwi=724) 169 mg/dL 70-105 CALCIUM (BEAKER) (test yckt=610) 8.3 mg/dL 8.4-10.2 AST (SGOT) (BEAKER) (test fsjy=473) 19 U/L 5-34 ALT (SGPT) (BEAKER) (test hveh=559) < U/L 6-55 EGFR (BEAKER) (test xmjy=8699) 58 mL/min/1.73 sq m ESTIMATED GFR IS NOT ACCURATE CREATININE CLEARANCE IN PREDICTING GLOMERULAR FILTRATION RATE. ESTIMATED GFR IS NOT APPLICABLE FOR DIALYSIS PATIENTS. [id number] 00:06:00* Test Item Value Reference Range Comments PHOSPHORUS (BEAKER) (test lkio=906) 3.6 mg/dL 2.3-4.7 [id number] 00:06:00* Test Item Value Reference Range Comments MAGNESIUM (BEAKER) (test txyb=314) 3.2 mg/dL 1.6-2.6 PT/[id number] 00:01:00* Test Item Value Reference Range Comments PROTIME (BEAKER) (test heiw=022) 33.0 seconds 11.7-14.7 INR (BEAKER) (test izad=300) 3.2 <=5.9 PARTIAL THROMBOPLASTIN TIME (BEAKER) (test rnbp=353) 49.6 seconds 22.5-36.0 RECOMMENDED COUMADIN/WARFARIN INR THERAPY RANGESSTANDARD DOSE: 2.0 - 3.0 Includes: PROPHYLAXIS for venous thrombosis, systemic embolization; TREATMENT for venous thrombosis and/or pulmonary embolus.HIGH RISK: Target INR is 2.5-3.5 for patients with mechanical heart valves.POCT-BLOOD GASES, [id number] 23: 50:00* Test Item Value Reference Range Comments TEMP, CELSIUS-POC (BEAKER) (test iwha=2125) 37.0 FIO2-POC (BEAKER) (test umtn=5934) TESTED AT [address] [address] PH, VENOUS-POC (BEAKER) (test tbgz=5928) 7.297 7.320-7.420 PCO2, VENOUS-POC (BEAKER) (test woqu=9017) 49.6 mm Hg 41.0-51.0 PO2, VENOUS-POC (BEAKER) (test mdkq=3526) 49.0 mm Hg 25.0-40.0 SO2, VENOUS-POC (BEAKER) (test dyml=3770) 79.0 % 40.0-70.0 HCO3, VENOUS-POC (BEAKER) (test tylb=8654) 24.3 meq/L 21.0-29.0 BASE EXCESS, VENOUS-POC (BEAKER) (test jdye=0618) -2.0 meq/L -2.0-3.0 [id number] 23:50:00* Test Item Value Reference Range Comments POC-SODIUM (BEAKER) (test rqzh=8988) 133 meq/L 135-148 TESTED AT [address] [address] [id number] 23:50:00* Test Item Value Reference Range Comments POC-POTASSIUM (BEAKER) (test yufz=8610) 4.5 meq/L 3.6-5.5 TESTED AT [address] [address] [id number] 23:50:00* Test Item Value Reference Range Comments POC-GLUCOSE (BEAKER) (test iopz=2359) 163 mg/dL 70-110 TESTED AT [address] [address] POCT-CALCIUM [id number] 23:50:00* Test Item Value Reference Range Comments POC-CALCIUM IONIZED (BEAKER) (test sywc=9151) 1.17 mmol/L 1.12-1.27 TESTED AT [address] [address] [id number] 23:50:00* Test Item Value Reference Range Comments POC-HEMATOCRIT (BEAKER) (test srwa=7170) 28 % 40-50 TESTED AT [place] [id number] [facility] [address] [id number] 23:50:00* Test Item Value Reference Range Comments POC-HEMOGLOBIN (BEAKER) (test kmxh=9002) 9.5 g/dL 13.0-16.8 TESTED AT [address] [address] [id number] 18:27:00* Test Item Value Reference Range Comments PARTIAL THROMBOPLASTIN TIME (BEAKER) (test jioa=632) 48.1 seconds 22.5-36.0 GENTAMICIN LEVEL, [id number] 18:24:00* Test Item Value Reference Range Comments GENTAMICIN TROUGH (BEAKER) (test kthx=396) 1.4 ug/mL 0.5-1.0 Dosing Target Level (mcg/mL)1-1.5 mg/kg q 8-12 HR 0.5- 1.03-7 mg/kg q 24 HR <0.5BASIC METABOLIC [id number] 18:18:00* Test Item Value Reference Range Comments SODIUM (BEAKER) (test jega=804) 135 meq/L 136-145 POTASSIUM (BEAKER) (test nnue=049) 3.3 meq/L 3.5-5.1 CHLORIDE (BEAKER) (test tdoj=705) 99 meq/L 98-107 CO2 (BEAKER) (test kgox=808) 29 meq/L 22-29 BLOOD UREA NITROGEN (BEAKER) (test echu=762) 20 mg/dL 7-21 CREATININE (BEAKER) (test gtvz=071) 0.98 mg/dL 0.57-1.25 GLUCOSE RANDOM (BEAKER) (test kjuw=523) 83 mg/dL 70-105 CALCIUM (BEAKER) (test eodk=554) 7.7 mg/dL 8.4-10.2 EGFR (BEAKER) (test inmu=4182) 76 mL/min/1.73 sq m ESTIMATED GFR IS NOT ACCURATE CREATININE CLEARANCE IN PREDICTING GLOMERULAR FILTRATION RATE. ESTIMATED GFR IS NOT APPLICABLE FOR DIALYSIS PATIENTS. [id number] 18:15:00* Test Item Value Reference Range Comments PHOSPHORUS (BEAKER) (test zbkt=209) 3.1 mg/dL 2.3-4.7 [id number] 18:15:00* Test Item Value Reference Range Comments MAGNESIUM (BEAKER) (test otgg=842) 1.5 mg/dL 1.6-2.6 CBC W/PLT COUNT & AUTO [id number] 18:02:00* Test Item Value Reference Range Comments WHITE BLOOD CELL COUNT (BEAKER) (test xxwn=230) 8.4 K/ L 3.5-10.5 RED BLOOD CELL COUNT (BEAKER) (test qeyw=012) 3.11 M/ L 4.63-6.08 HEMOGLOBIN (BEAKER) (test aikt=823) 8.2 GM/DL 13.7-17.5 HEMATOCRIT (BEAKER) (test tjkf=937) 25.5 % 40.1-51.0 MEAN CORPUSCULAR VOLUME (BEAKER) (test jwqi=926) 82.0 fL 79.0-92.2 MEAN CORPUSCULAR HEMOGLOBIN (BEAKER) (test uswf=385) 26.4 pg 25.7-32.2 MEAN CORPUSCULAR HEMOGLOBIN CONC (BEAKER) (test clzj=250) 32.2 GM/DL 32.3- 36.5 RED CELL DISTRIBUTION WIDTH (BEAKER) (test ussc=737) 16.3 % 11.6-14.4 PLATELET COUNT (BEAKER) (test xhkq=538) 94 K/CU MM 150-450 MEAN PLATELET VOLUME (BEAKER) (test pxxm=820) 11.0 fL 9.4-12.4 NUCLEATED RED BLOOD CELLS (BEAKER) (test kveu=104) 0 /100 WBC 0-0 NEUTROPHILS RELATIVE PERCENT (BEAKER) (test xtcy=194) 76 % LYMPHOCYTES RELATIVE PERCENT (BEAKER) (test ylnu=957) 13 % MONOCYTES RELATIVE PERCENT (BEAKER) (test rumg=300) 7 % EOSINOPHILS RELATIVE PERCENT (BEAKER) (test cnsj=706) 2 % BASOPHILS RELATIVE PERCENT (BEAKER) (test rhxa=666) 0 % NEUTROPHILS ABSOLUTE COUNT (BEAKER) (test qqdl=135) 6.38 K/ L 1.78-5.38 LYMPHOCYTES ABSOLUTE COUNT (BEAKER) (test zjfv=092) 1.11 K/ L 1.32-3.57 MONOCYTES ABSOLUTE COUNT (BEAKER) (test syhn=449) 0.61 K/ L 0.30-0.82 EOSINOPHILS ABSOLUTE COUNT (BEAKER) (test aejr=766) 0.19 K/ L 0.04-0.54 BASOPHILS ABSOLUTE COUNT (BEAKER) (test dnqj=853) 0.01 K/ L 0.01-0.08 IMMATURE GRANULOCYTES-RELATIVE PERCENT (BEAKER) (test dufj=0974) 1 % 0-1 [id number] 16:41:00* Test Item Value Reference Range Comments PROCALCITONIN (BEAKER) (test klin=4182) 1.47 ng/mL <0.05 SEPSIS RISK (ng/mL)Low: 0.05-0.50Intermediate: 0.51-2.00High: > =[id number] 16:26:00* Test Item Value Reference Range Comments FIBRINOGEN LEVEL (BEAKER) (test novr=081) 310 mg/dl 225-434 Prior to initiating [id number] 16:22:00* Test Item Value Reference Range Comments PHOSPHORUS (BEAKER) (test cpbq=103) 3.8 mg/dL 2.3-4.7 [id number] 16:22:00* Test Item Value Reference Range Comments MAGNESIUM (BEAKER) (test fyan=533) 1.6 mg/dL 1.6-2.6 BASIC METABOLIC [id number] 16:22:00* Test Item Value Reference Range Comments SODIUM (BEAKER) (test znka=492) 136 meq/L 136-145 POTASSIUM (BEAKER) (test amry=602) 3.4 meq/L 3.5-5.1 CHLORIDE (BEAKER) (test hchw=483) 99 meq/L 98-107 CO2 (BEAKER) (test cses=068) 27 meq/L 22-29 BLOOD UREA NITROGEN (BEAKER) (test omzi=873) 21 mg/dL 7-21 CREATININE (BEAKER) (test bgxt=920) 0.98 mg/dL 0.57-1.25 GLUCOSE RANDOM (BEAKER) (test kruo=625) 97 mg/dL 70-105 CALCIUM (BEAKER) (test clmy=303) 7.6 mg/dL 8.4-10.2 EGFR (BEAKER) (test wrbe=8109) 76 mL/min/1.73 sq m ESTIMATED GFR IS NOT ACCURATE CREATININE CLEARANCE IN PREDICTING GLOMERULAR FILTRATION RATE. ESTIMATED GFR IS NOT APPLICABLE FOR DIALYSIS PATIENTS. [id number] 16:22:00* Test Item Value Reference Range Comments PARTIAL THROMBOPLASTIN TIME (BEAKER) (test wveu=274) 51.1 seconds 22.5-36.0 Prior to initiating heparinPROTHROMBIN TIME/[id number] 16:21:00* Test Item Value Reference Range Comments PROTIME (BEAKER) (test qafx=501) 26.3 seconds 11.7-14.7 INR (BEAKER) (test gqzq=872) 2.4 <=5.9 RECOMMENDED COUMADIN/WARFARIN INR THERAPY RANGESSTANDARD DOSE: 2.0 - 3.0 Includes: PROPHYLAXIS for venous thrombosis, systemic embolization; TREATMENT for venous thrombosis and/or pulmonary embolus.HIGH RISK: Target INR is 2.5-3.5 for patients with mechanical heart valves.Prior to initiating heparinLACTIC ACID , ARTERIAL, WHOLE [id number] 16:20:00* Test Item Value Reference Range Comments LACTATE BLOOD ARTERIAL (2) (BEAKER) (test crhi=1768) 0.9 mmol/L 0.5-2.2 Effective 02/26/2016: Units/Reference Range ChangeNew: 0.5-2.2 mmol/L Previous: 5 -20 mg/dLCBC W/PLT COUNT & AUTO [id number] 16:02:00* Test Item Value Reference Range Comments WHITE BLOOD CELL COUNT (BEAKER) (test fzxk=654) 7.7 K/ L 3.5-10.5 RED BLOOD CELL COUNT (BEAKER) (test ktbx=312) 3.18 M/ L 4.63-6.08 HEMOGLOBIN (BEAKER) (test zmpf=811) 8.3 GM/DL 13.7-17.5 HEMATOCRIT (BEAKER) (test vpid=980) 26.1 % 40.1-51.0 MEAN CORPUSCULAR VOLUME (BEAKER) (test dxrt=165) 82.1 fL 79.0-92.2 MEAN CORPUSCULAR HEMOGLOBIN (BEAKER) (test kzsm=319) 26.1 pg 25.7-32.2 MEAN CORPUSCULAR HEMOGLOBIN CONC (BEAKER) (test esmq=812) 31.8 GM/DL 32.3- 36.5 RED CELL DISTRIBUTION WIDTH (BEAKER) (test sbxn=082) 16.5 % 11.6-14.4 PLATELET COUNT (BEAKER) (test dfjr=146) 93 K/CU MM 150-450 MEAN PLATELET VOLUME (BEAKER) (test xuae=723) 11.7 fL 9.4-12.4 NUCLEATED RED BLOOD CELLS (BEAKER) (test oujr=624) 0 /100 WBC 0-0 NEUTROPHILS RELATIVE PERCENT (BEAKER) (test ewlr=599) 74 % LYMPHOCYTES RELATIVE PERCENT (BEAKER) (test noax=420) 15 % MONOCYTES RELATIVE PERCENT (BEAKER) (test noim=590) 8 % EOSINOPHILS RELATIVE PERCENT (BEAKER) (test enls=419) 2 % BASOPHILS RELATIVE PERCENT (BEAKER) (test kpbz=326) 0 % NEUTROPHILS ABSOLUTE COUNT (BEAKER) (test qkmj=197) 5.68 K/ L 1.78-5.38 LYMPHOCYTES ABSOLUTE COUNT (BEAKER) (test vdfa=334) 1.12 K/ L 1.32-3.57 MONOCYTES ABSOLUTE COUNT (BEAKER) (test sqqm=912) 0.64 K/ L 0.30-0.82 EOSINOPHILS ABSOLUTE COUNT (BEAKER) (test cizu=997) 0.17 K/ L 0.04-0.54 BASOPHILS ABSOLUTE COUNT (BEAKER) (test yayb=451) 0.01 K/ L 0.01-0.08 IMMATURE GRANULOCYTES-RELATIVE PERCENT (BEAKER) (test vyjc=3682) 1 % 0-1 THROMBOELASTOGRAPH (TEG)2017-12-21 14:17:00* Test Item Value Reference Range Comments TEG ACTIVATED CLOTTING TIME (BEAKER) (test bxsb=1396) 4.2 minutes 4.0-7.0 TEG FIBRINOGEN ACTIVITY (BEAKER) (test aihz=7539) 72.4 degrees 61.0-73.0 TEG PLT. AGGREGATION (BEAKER) (test snrj=3332) 63.6 MM 55.0-65.0 TEG FIBRINOLYSIS (BEAKER) (test vjox=6251) 0.1 % 0.0-5.0 TGH ACTIVATED CLOTTING TIME (BEAKER) (test rjmd=3112) 4.5 minutes 4.0-7.0 TGH FIBRINOGEN ACTIVITY (BEAKER) (test ddce=9829) 71.1 degrees 61.0-73.0 TGH PLT. AGGREGATION (BEAKER) (test wkxi=2349) 57.4 MM 55.0-65.0 TGH FIBRINOLYSIS (BEAKER) (test twtu=2597) 0.0 % 0.0-5.0 RAD, CHEST, 1 VIEW, NON [id number] 13:54:00Reason for exam:->s/p lead extractionShould this be performed at the bedside?->YesFINAL REPORT TECHNIQUE: Frontal chest radiograph dated 12/21/2017. CLINICAL HISTORY: S/P lead extraction COMPARISON STUDY: Chest radiograph dated 12/19/2017 IMPRESSION:There has been interval placement of a right sided central vascular line with the tip in the region of the superior vena cava/right atrial junction. Left-sided pleural air has been removed. A single pacing wire has been placed through the internal jugular vein on the right. There is a new, small right pleural effusion. Small left pleural effusion is unchanged. There are bibasilar airspace opacities. Pneumonia should be excluded clinically. Moderate cardiomegaly is unchanged. No pneumothorax. No pulmonary edema. Midline sternotomy wires are intact and well aligned. No fracture. Signed: Nandini Dianeeport Verified Date/Time: 12/21/2017 13:54:37 Reading Location: [facility] Radiology Reading Room OSE-STAT [id number] 12:48:00* Test Item Value Reference Range Comments GLUCOSE RANDOM (BEAKER) (test swnj=977) 107 mg/dL 70-110 CALCIUM, [id number] 12:48:00* Test Item Value Reference Range Comments CALCIUM IONIZED (BEAKER) (test umab=252) 0.98 mmol/L 1.12-1.27 PH, BLOOD (BEAKER) (test garn=3922) 7.39 SODIUM NA-STAT [id number] 12:48:00* Test Item Value Reference Range Comments SODIUM (BEAKER) (test yoff=067) 133 meq/L 135-148 POTASSIUM-STAT [id number] 12:48:00* Test Item Value Reference Range Comments POTASSIUM (BEAKER) (test obaz=309) 3.1 meq/L 3.6-5.5 HGB/HCT (H&H) - STAT [id number] 12:48:00* Test Item Value Reference Range Comments HEMOGLOBIN (BEAKER) (test zhre=195) 8.9 g/dL 13.0-16.8 HEMATOCRIT (BEAKER) (test qbom=480) 26.0 % 40.0-50.0 OXYGEN SATURATION, [id number] 12:46:00* Test Item Value Reference Range Comments O2 SATURATION (MEASURED) (BEAKER) (test cjex=6371) 69.2 % BLOOD GAS, [id number] 12:28:00* Test Item Value Reference Range Comments PH ARTERIAL (BEAKER) (test unzx=846) 7.35 7.35-7.45 PCO2 ARTERIAL (BEAKER) (test psfl=681) 57 mmHg 35-45 PO2 ARTERIAL (BEAKER) (test xlqi=951) 74 mmHg 80-90 O2 SATURATION ARTERIAL (BEAKER) (test mpca=404) 94.0 % 96.0-97.0 HCO3 ARTERIAL (BEAKER) (test mbiy=684) 31 mmol/L 21-29 BASE EXCESS ARTERIAL (BEAKER) (test hyle=482) 4.5 mmol/L -2.0-3.0 PATIENT TEMPERATURE (BEAKER) (test rwsp=9737) 36.9 C FIO2 (BEAKER) (test pabr=0052) 30.0 % URINE [id number] 09:43:00* Test Item Value Reference Range Comments CULTURE (BEAKER) (test bawu=7688) No growth GRAM STAIN RESULT (BEAKER) (test dbmg=3652) No WBCs GRAM STAIN RESULT (BEAKER) (test mgtd=30426) No organisms seen BASIC METABOLIC [id number] 21:22:00* Test Item Value Reference Range Comments SODIUM (BEAKER) (test eirx=043) 137 meq/L 136-145 POTASSIUM (BEAKER) (test hjel=596) 3.8 meq/L 3.5-5.1 Specimen slightly hemolyzed CHLORIDE (BEAKER) (test gufu=310) 98 meq/L 98-107 CO2 (BEAKER) (test athg=481) 29 meq/L 22-29 BLOOD UREA NITROGEN (BEAKER) (test pdwv=382) 23 mg/dL 7-21 CREATININE (BEAKER) (test mcnh=296) 1.15 mg/dL 0.57-1.25 Specimen slightly hemolyzed GLUCOSE RANDOM (BEAKER) (test otkj=079) 144 mg/dL 70-105 CALCIUM (BEAKER) (test glfv=144) 8.2 mg/dL 8.4-10.2 EGFR (BEAKER) (test qssh=5134) 65 mL/min/1.73 sq m ESTIMATED GFR IS NOT ACCURATE CREATININE CLEARANCE IN PREDICTING GLOMERULAR FILTRATION RATE. ESTIMATED GFR IS NOT APPLICABLE FOR DIALYSIS PATIENTS. Specimen slightly [id number] 21:19:00* Test Item Value Reference Range Comments PARTIAL THROMBOPLASTIN TIME (BEAKER) (test suey=760) 47.8 seconds 22.5-36.0 Prior to initiating [id number] 21:18:00* Test Item Value Reference Range Comments MAGNESIUM (BEAKER) (test dshk=902) 1.7 mg/dL 1.6-2.6 Specimen slightly hemolyzed CBC W/PLT COUNT & AUTO [id number] 12:42:00* Test Item Value Reference Range Comments WHITE BLOOD CELL COUNT (BEAKER) (test ohxj=708) 8.6 K/ L 3.5-10.5 RED BLOOD CELL COUNT (BEAKER) (test yymw=425) 3.85 M/ L 4.63-6.08 HEMOGLOBIN (BEAKER) (test pepd=961) 10.3 GM/DL 13.7-17.5 HEMATOCRIT (BEAKER) (test myig=193) 32.3 % 40.1-51.0 MEAN CORPUSCULAR VOLUME (BEAKER) (test mjgs=824) 83.9 fL 79.0-92.2 MEAN CORPUSCULAR HEMOGLOBIN (BEAKER) (test qkih=504) 26.8 pg 25.7-32.2 MEAN CORPUSCULAR HEMOGLOBIN CONC (BEAKER) (test sqxx=958) 31.9 GM/DL 32.3- 36.5 RED CELL DISTRIBUTION WIDTH (BEAKER) (test ogzc=960) 16.9 % 11.6-14.4 PLATELET COUNT (BEAKER) (test kdjy=776) 99 K/CU MM 150-450 MEAN PLATELET VOLUME (BEAKER) (test sjdj=421) 11.4 fL 9.4-12.4 NUCLEATED RED BLOOD CELLS (BEAKER) (test bxrc=698) 0 /100 WBC 0-0 NEUTROPHILS RELATIVE PERCENT (BEAKER) (test tiao=757) 80 % LYMPHOCYTES RELATIVE PERCENT (BEAKER) (test nzth=539) 10 % MONOCYTES RELATIVE PERCENT (BEAKER) (test tzsc=167) 7 % EOSINOPHILS RELATIVE PERCENT (BEAKER) (test cwlq=564) 3 % BASOPHILS RELATIVE PERCENT (BEAKER) (test hccn=510) 0 % NEUTROPHILS ABSOLUTE COUNT (BEAKER) (test bcpc=171) 6.84 K/ L 1.78-5.38 LYMPHOCYTES ABSOLUTE COUNT (BEAKER) (test nrqv=890) 0.83 K/ L 1.32-3.57 MONOCYTES ABSOLUTE COUNT (BEAKER) (test icvt=929) 0.57 K/ L 0.30-0.82 EOSINOPHILS ABSOLUTE COUNT (BEAKER) (test qybh=906) 0.21 K/ L 0.04-0.54 BASOPHILS ABSOLUTE COUNT (BEAKER) (test uwex=264) 0.02 K/ L 0.01-0.08 IMMATURE GRANULOCYTES-RELATIVE PERCENT (BEAKER) (test lorv=3258) 1 % 0-1 HEMOGLOBIN [id number] 12:17:00* Test Item Value Reference Range Comments HEMOGLOBIN A1C (BEAKER) (test aeut=253) 5.9 % 4.3-6.1 URINALYSIS W/ [id number] 22:24:00* Test Item Value Reference Range Comments COLOR (BEAKER) (test npdt=492) Light Yellow CLARITY (BEAKER) (test ukou=383) Clear SPECIFIC GRAVITY UA (BEAKER) (test iljg=020) 1.005 1.001-1.035 PH UA (BEAKER) (test lopf=390) 5.0 5.0-8.0 PROTEIN UA (BEAKER) (test qjvq=576) Negative Negative GLUCOSE UA (BEAKER) (test eimh=360) Negative Negative KETONES UA (BEAKER) (test dxdg=164) Negative Negative BILIRUBIN UA (BEAKER) (test ljag=259) Negative Negative BLOOD UA (BEAKER) (test vlmc=857) Negative Negative NITRITE UA (BEAKER) (test vprk=210) Negative Negative LEUKOCYTE ESTERASE UA (BEAKER) (test cqll=968) Negative Negative UROBILINOGEN UA (BEAKER) (test lqsm=506) 0.2 mg/dL 0.2-1.0 RBC UA (BEAKER) (test srfc=554) < /HPF WBC UA (BEAKER) (test jwbr=492) < /HPF SOURCE(BEAKER) (test apbh=5593) PROTHROMBIN [id number] 17:42:00* Test Item Value Reference Range Comments PROTIME (BEAKER) (test ehgs=820) 29.8 seconds 11.7-14.7 INR (BEAKER) (test mrrm=507) 2.8 <=5.9 RECOMMENDED COUMADIN/WARFARIN INR THERAPY RANGESSTANDARD DOSE: 2.0 - 3.0 Includes: PROPHYLAXIS for venous thrombosis, systemic embolization; TREATMENT for venous thrombosis and/or pulmonary embolus.HIGH RISK: Target INR is 2.5-3.5 for patients with mechanical heart valves.B-TYPE NATRIURETIC FACTOR (BNP)2017-11 16:33:00* Test Item Value Reference Range Comments B-TYPE NATRIURETIC PEPTIDE (BEAKER) (test wmes=823) 743 pg/mL 0-100 LACTIC ACID, VENOUS, WHOLE [id number] 16:20:00* Test Item Value Reference Range Comments LACTATE BLOOD VENOUS (2) (BEAKER) (test fgpy=4820) 1.2 mmol/L 0.5-2.2 Effective 02/26/2016: Units/Reference Range ChangeNew: 0.5-2.2 mmol/L Previous: 5 -20 mg/[id number] 16:17:00* Test Item Value Reference Range Comments PHOSPHORUS (BEAKER) (test tkyt=942) 3.5 mg/dL 2.3-4.7 [id number] 16:17:00* Test Item Value Reference Range Comments MAGNESIUM (BEAKER) (test xhbs=157) 1.9 mg/dL 1.6-2.6 BASIC METABOLIC [id number] 16:17:00* Test Item Value Reference Range Comments SODIUM (BEAKER) (test vtcw=711) 137 meq/L 136-145 POTASSIUM (BEAKER) (test payt=636) 3.7 meq/L 3.5-5.1 CHLORIDE (BEAKER) (test dktt=504) 103 meq/L 98-107 CO2 (BEAKER) (test gcdz=020) 25 meq/L 22-29 BLOOD UREA NITROGEN (BEAKER) (test ldwf=151) 26 mg/dL 7-21 CREATININE (BEAKER) (test lqdc=887) 0.85 mg/dL 0.57-1.25 GLUCOSE RANDOM (BEAKER) (test qfcs=741) 91 mg/dL 70-105 CALCIUM (BEAKER) (test endl=735) 8.3 mg/dL 8.4-10.2 EGFR (BEAKER) (test ndnw=4684) 92 mL/min/1.73 sq m ESTIMATED GFR IS NOT ACCURATE CREATININE CLEARANCE IN PREDICTING GLOMERULAR FILTRATION RATE. ESTIMATED GFR IS NOT APPLICABLE FOR DIALYSIS PATIENTS. HEPATIC FUNCTION [id number] 16:17:00* Test Item Value Reference Range Comments TOTAL PROTEIN (BEAKER) (test eifz=597) 7.3 gm/dL 6.0-8.3 ALBUMIN (BEAKER) (test dnry=6632) 2.9 g/dL 3.5-5.0 BILIRUBIN TOTAL (BEAKER) (test ysjl=928) 1.2 mg/dL 0.2-1.2 BILIRUBIN DIRECT (BEAKER) (test imkb=917) 0.6 mg/dL 0.1-0.5 ALKALINE PHOSPHATASE (BEAKER) (test azld=337) 94 U/L 40-150 AST (SGOT) (BEAKER) (test rvps=689) 24 U/L 5-34 ALT (SGPT) (BEAKER) (test ccez=013) 14 U/L 6-55 CBC W/PLT COUNT & AUTO [id number] 15:54:00* Test Item Value Reference Range Comments WHITE BLOOD CELL COUNT (BEAKER) (test kmvr=919) 9.6 K/ L 3.5-10.5 RED BLOOD CELL COUNT (BEAKER) (test uose=272) 3.74 M/ L 4.63-6.08 HEMOGLOBIN (BEAKER) (test wwdh=974) 9.9 GM/DL 13.7-17.5 HEMATOCRIT (BEAKER) (test wtbo=744) 30.8 % 40.1-51.0 MEAN CORPUSCULAR VOLUME (BEAKER) (test zeia=085) 82.4 fL 79.0-92.2 MEAN CORPUSCULAR HEMOGLOBIN (BEAKER) (test vzse=064) 26.5 pg 25.7-32.2 MEAN CORPUSCULAR HEMOGLOBIN CONC (BEAKER) (test dkct=199) 32.1 GM/DL 32.3- 36.5 RED CELL DISTRIBUTION WIDTH (BEAKER) (test hhuh=167) 16.7 % 11.6-14.4 PLATELET COUNT (BEAKER) (test fope=693) 102 K/CU MM 150-450 MEAN PLATELET VOLUME (BEAKER) (test looc=330) 12.0 fL 9.4-12.4 NUCLEATED RED BLOOD CELLS (BEAKER) (test jxqe=629) 0 /100 WBC 0-0 NEUTROPHILS RELATIVE PERCENT (BEAKER) (test bzbu=178) 80 % LYMPHOCYTES RELATIVE PERCENT (BEAKER) (test xsnh=647) 9 % MONOCYTES RELATIVE PERCENT (BEAKER) (test qnef=379) 9 % EOSINOPHILS RELATIVE PERCENT (BEAKER) (test ywcu=399) 2 % BASOPHILS RELATIVE PERCENT (BEAKER) (test anea=457) 0 % NEUTROPHILS ABSOLUTE COUNT (BEAKER) (test ntwx=032) 7.63 K/ L 1.78-5.38 LYMPHOCYTES ABSOLUTE COUNT (BEAKER) (test xlpv=142) 0.86 K/ L 1.32-3.57 MONOCYTES ABSOLUTE COUNT (BEAKER) (test gddj=107) 0.83 K/ L 0.30-0.82 EOSINOPHILS ABSOLUTE COUNT (BEAKER) (test prmx=475) 0.18 K/ L 0.04-0.54 BASOPHILS ABSOLUTE COUNT (BEAKER) (test iohu=631) 0.01 K/ L 0.01-0.08 IMMATURE GRANULOCYTES-RELATIVE PERCENT (BEAKER) (test rgyp=4943) 1 % 0-1 BLOOD GAS, [id number] 14:48:00* Test Item Value Reference Range Comments PH ARTERIAL (BEAKER) (test yrfz=529) 7.47 7.35-7.45 PCO2 ARTERIAL (BEAKER) (test hive=765) 34 mmHg 35-45 PO2 ARTERIAL (BEAKER) (test dwiq=656) 73 mmHg 80-90 O2 SATURATION ARTERIAL (BEAKER) (test igkv=234) 96.3 % 96.0-97.0 HCO3 ARTERIAL (BEAKER) (test ojbl=800) 25 mmol/L 21-29 BASE EXCESS ARTERIAL (BEAKER) (test ygzh=821) 1.0 mmol/L -2.0-3.0 PATIENT TEMPERATURE (BEAKER) (test ehwv=5721) 35.8 C FIO2 (BEAKER) (test ktil=4934) 28.0 % RAD, CHEST, 1 VIEW, NON [id number] 14:27:00Reason for exam:->SOBShould this be performed at the bedside?->YesFINAL REPORT Technique: Single view of the chest COMPARISON: None FINDINGS: Cardiac silhouette is markedly enlarged. Some of this could be due to cardiomegaly but pericardial effusion is also suspected. Echocardiogram recommended. Mild vascular congestion identified. Small left pleural effusion with adjacent airspace disease seen. Left-sided pacing device noted. Signed: Iain Phoenix MDReport Verified Date/Time: 12/19/2017 14:27:27 Reading Location: [facility] C013T Transitional Reading Room
[2018-03-12] MEDS ORDERED: BUMETANIDE2 MG PO (14:19)
[2018-03-12] MEDS ORDERED: FERREX 150150 MG PO (14:19)
[2018-03-12] MEDS ORDERED: MILK OF MA2400 MG/10 PO (14:19)
[2018-03-12] MEDS ORDERED: BUSPIRONE HCL5 MG PO (14:19)
[2018-03-12] MEDS ORDERED: COUMADIN4 MG PO (14:19)
[2018-03-12] MEDS ORDERED: CALCIUM-VITAMIN D PO (14:19)
[2018-03-12] MEDS ORDERED: BISACODYL5 MG PO (14:19)
[2018-03-12] MEDS ORDERED: MELATONIN3 MG PO (14:19)
[2018-03-12] MEDS ORDERED: ATROVENT HFA12.9 GM PO (14:19)
[2018-03-12] MEDS ORDERED: MUCINEX DM ER1 EACH PO (14:27)
[2018-03-12] MEDS ORDERED: MIRTAZAPINE15 MG PO (14:27)
[2018-03-12] MEDS ORDERED: PEPTO-BISMOL262 M1 PO (14:27)
[2018-03-12] MEDS ORDERED: MULTI-VITAMIN1 EACH PO (14:27)
[2018-03-12] MEDS ORDERED: PANTOPRAZOLE SO40 MG PO (14:27)
--- NOTE | 2018-03-12 14:38 | Diagnostic Imaging Report ---
Examination: Single AP view of the chest. COMPARISON: CT chest 12/25/2015 INDICATION: Shortness of breath IMPRESSION: 1. Lines and Tubes: Right upper chest single lead cardiac device. 2. Mild bilateral interstitial opacities extending from the casper, consistent with mild interstitial edema. Right-sided pleural effusion and likely associated atelectasis. 3. Markedly enlarged cardiac silhouette. Moderate central pulmonary venous congestion. 4. No acute bony abnormalities. Signed by: Dr. Newton Toro M.D. on 03/12/2018 2:34 PM
[2018-03-12 14:42] LABS: BASOPHILS % 0.5 % (0.0-1.0); EOSINOPHILS # (AUTO) 0.1 (0.0-0.4); EOSINOPHILS % 1.7 % (0.0-6.0); HEMATOCRIT 32.7 % (38.2-49.6); HEMOGLOBIN 10.5 g/dL (14.0-18.0); LYMPHOCYTES # (AUTO) 0.9 (1.0-3.2); LYMPHOCYTES % 21.1 % (18.0-39.1); MEAN CORPUSCULAR HEMOGLOBIN 30.3 pg (28-32); MEAN CORPUSCULAR HGB CONC 32.1 g/dL (31-35); MEAN CORPUSCULAR VOLUME 94.2 fL (81-99); MONOCYTES # (AUTO) 0.5 (0.2-0.8); MONOCYTES % 12.8 % (4.4-11.3); NEUTROPHILS # (AUTO) 2.6 (2.1-6.9); NEUTROPHILS % 63.7 % (38.7-80.0); PLATELET COUNT 102 x10e3/uL (140-360); RED BLOOD COUNT 3.47 x10e6/uL (4.3-5.7)
[2018-03-12 14:46] LABS: INR 2.38; PROTHROMBIN TIME 24.4 seconds (11.9-14.5)
[2018-03-12 14:47] LABS: PARTIAL THROMBOPLASTIN TIME 38.2 seconds (23.8-35.5)
[2018-03-12] MEDS ORDERED: ACETAMINOPHEN500 MG PO (14:51)
[2018-03-12] MEDS ORDERED: XANAX0.25 MG PO (14:51)
[2018-03-12] MEDS ORDERED: TYLENOL WITH C1 EACH PO (14:51)
[2018-03-12] MEDS ORDERED: TEMAZEPAM15 MG PO (14:51)
[2018-03-12] MEDS ORDERED: VITAMIN C PO (14:51)
[2018-03-12 14:54] LABS: ALBUMIN 3.4 g/dL (3.5-5.0); ALBUMIN/GLOBULIN RATIO 0.8 (0.8-2.0); ANION GAP 16.3 mmol/L (8-16); CREATININE, SERUM 1.35 mg/dL (0.72-1.25); MAGNESIUM 1.9 MG/DL (1.3-2.1); POTASSIUM 3.3 mmol/L (3.5-5.1)
[2018-03-12 15:01] LABS: CREATINE KINASE MB 2.3 ng/mL (0-5.0)
[2018-03-12 16:11] LABS: CLARITY,URINE CLEAR (CLEAR); COLOR,URINE YELLOW (YELLOW)
[2018-03-12 16:12] LABS: BILIRUBIN,URINE NEGATIVE (NEGATIVE); KETONES,URINE NEGATIVE (NEGATIVE); LEUKOCYTE ESTERASE ,URINE NEGATIVE (NEGATIVE); NITRITE,URINE NEGATIVE (NEGATIVE); PROTEIN,URINE DIPSTICK 1+ (NEGATIVE); URINE UROBILINOGEN 1 mg/dL (0.2 - 1)
[2018-03-12 16:15] LABS: BACTERIA,URINE RARE /HPF; EPITHELIAL CELLS,URINE RARE /LPF; HYALINE CASTS 0-1 (0-1); RBC,URINE 0-5 /HPF (0-5); WBC,URINE (MAN) 0-5 /HPF (0-5)
[2018-03-12 16:16] LABS: MUCUS,URINE RARE (RARE)
--- OUTSIDE RECORDS SUMMARY | 2018-03-12 16:30 | XMS REPORT | Clinical Summary ---
Author Author [facility] Address Unknown Phone Unavailable Care Team Providers Care Referral Specialist Name Role Phone PCP Unavailable Allergies Active [...] Sepsis due to methicillin susceptible Staphylococcus aureus ([facility]) 12/19/2017 ICD (implantable cardioverter-defibrillator) infection ([facility]) 12/19/2017 Moderate protein-calorie malnutrition ([facility]) 12/19/2017 Chronic atrial fibrillation ([facility]) Coronary artery disease Hypertension Ischemic cardiomyopathy Pulmonary hypertension ([facility]) Resolved Problems Problem Noted Date Resolved Date MARIA ISABEL (acute kidney injury) ([facility]) 01/31/2018 02/17/2018 ICD (implantable cardioverter-defibrillator) malfunction 01/20/20182017 Physical deconditioning 01/20/2018 02/17/2018 Chest pain 01/19/2018 02/17/2018 Shock liver 12/23/2017 02/17/2018 MARIA ISABEL (acute kidney injury) ([facility]) 12/23/2017 02/17/2018 Septic shock ([facility]) 12/23/2017 02/17/2018 Cardiac arrest ([facility]) 12/22/2017 01/20/2018 Acute hypoxemic respiratory failure ([facility]) 12/22/2017 02/17/2018 Acute pulmonary edema (HCC) 12/22/2017 02/17/2018 Respiratory insufficiency 12/21/2017 02/17/2018 Sepsis ([facility]) 12/19/2017 02/17/2018 Encounters Date Type Specialty Care Team Description 02/17/2018 Emergency Emergency Medicine Philip Gonzalez MD Generalized abdominal pain (Primary Dx);History of congestive heart failure;History of constipation;CAD in t[place] artery;Pulmonary hypertension (HCC) 02/17/2018 Office Visit Cardiology Alexander Bradford NP Acute on chronic diastolic heart failure (HCC) (Primary Dx);SOB (shortness of breath);Lower abdominal pain 02/17/2018 Orders Only General Internal Medicine 01/24/2018 Procedure Pass 01/24/2018 Surgery Shannen Robles R & L HEART CATH ONLY - MD Florentin NO ANGIOS 01/18/2018 [facility] Cardiology Milton Weiss MD Chest pain, unspecified [...] Surgery Stevie Garcia MD LASER EXTRACTION,LEAD 12/19/2017 [facility] Cardiology Stiven Ramirez MD Sepsis due to [...] INFLUENZA VACCINE 07/25/2018 Implants Implanted Type Area Mat Weaver Device Expiration Model / Identifier Date Serial / Lot Generator Lead Cardiovasc N/A: Heart MEDTRONIC 11/03/2019 / Implanted: Qty: 1 on 01/12/2018 by alex [id number] Stevie Garcia MD / Env Absrb Antibact Tyrx Lg [id number] Cardiovasc N/A: Chest MEDTRONIC: CARD 01/22/2018 [id number] / - [id number] alex RHY:DISEASE MGT / Implanted: Qty: 1 on 01/12/2018 by [id number] Stevie Garcia MD Icd Visia Af Mri Surescan Df4 Defibrilla N/A: Chest [employer]TR[employer]IC:CARD [id number] / [id number] - [id number] RHY:DISEASE MGT [id number] Implanted: Qty: 1 on 01/12/2018 by / Stevie Garcia MD Lead Pacemkr Capsur Novus [id number] Pacemaker N/A: Heart [employer]TR[employer]IC:CARD [id number] / [id number] - [id number] Lead RHY:DISEASE MGT [id number] Implanted: Qty: 1 on 12/21/2017 by / Stevie Garcia MD X Micra Pacemakers Chest MEDTRONIC 03/21/2019 [id number] Implanted: Qty: 1 on 01/04/2018 by / Stevie Garcia MD [id number] / Procedures Procedure Name Priority Date/Time Associated [...] chest pain INSERTION W/ EXISTING 7:25 AM KENO TERMINAL OPERATOR LEAD (SINGLE) TIA 12/21/2017 ICD POCKET INFECTION 7:30 AM KENO TERMINAL OPERATOR LASER EXTRACTION,LEAD 12/21/2017 ICD POCKET INFECTION 7:30 AM KENO TERMINAL OPERATOR after 03/11/2017 Results * CT abdomen pelvis without contrast (02/17/2018 5:08 PM) Specimen Performing Laboratory Doctor [employer] Demand Narrative FINAL REPORT HISTORY : ABDOMINAL PAIN [...] MD Report Verified Date/Time:02/17/2018 17:19:40 Reading Location: [facility] Diagnostic Imaging Reading Room - [place] [address] 112 Procedure Note Interface, External Ris In [...] Report Verified Date/Time: 02/17/2018 17:19:40 Reading Location: [facility] Diagnostic Imaging Reading Room - [place] [address] 1120 * XR chest PA or AP [...] MD Report Verified Date/Time:02/17/2018 17:11:19 Reading Location: [facility] [employer] Reading Room Procedure Note Interface, External Ris In - 02/17/2018 5:13 PM CDT FINAL REPORT AP chest, two images HISTORY: Evaluate for pulmonary edema COMPARISON: 01/21/2018 IMPRESSION: Marked cardiomegaly similar to previous. AICD present with intact leads. No evidence for significant pulmonary edema. No large effusion. No pneumothorax. Signed: Kris Varghese MD Report Verified Date/Time: 02/17/2018 17:11:19 Reading Location: [facility] [employer] Reading Room * CBC (Hemogram only) (02/17/2018 [...] 0 /100 WBC Specimen Performing Laboratory Blood [address] [address] * B N P (02/17/2018 3:14 PM) Only the most recent of 4 results within the time period is included. Component Value Ref Range BNP 556 (H) 0 - 100 pg/mL Specimen Performing Laboratory Blood [address] [address] * Magnesium (02/17/2018 3:14 PM) Only the most recent of 44 results within the time period is included. Component Value Ref Range Magnesium 2.6 1.6 - 2.6 mg/dL Specimen Performing Laboratory Blood [address] [address] * Basic Metabolic Panel (02/17/2018 3:14 PM) [...] FOR DIALYSIS PATIENTS. Specimen Performing Laboratory Blood [address] [address] * ECG 12 lead (02/17/2018 2:34 PM) Only the most recent of 5 results within the time period is included. Specimen Performing Laboratory GE MUSE Narrative Ventricular Rate 66 BPM Atrial Rate 59 BPM QRS Duration 176 ms Q-T Interval 558 ms QTC Calculation(Bazett) 584 ms R [place] -79 degrees T [place] 103 degrees Ventricular-paced rhythm Abnormal ECG When compared with ECG of 18-JAN-2018 22:30, Vent. rate has increased BY10 BPM Confirmed by MD STEPHANIE, IHAB ([id number]) on 02/17/2018 11:08:42 PM Procedure Note Interface, External Ris In - 02/17/2018 11:08 PM CDT Ventricular Rate 66 BPM Atrial Rate 59 BPM QRS Duration 176 ms Q-T Interval 558 ms QTC Calculation(Bazett) 584 ms R [place] -79 degrees T [place] 103 degrees Ventricular-paced rhythm Abnormal ECG When [...] 1 % Granulocytes-Relative Specimen Performing Laboratory Blood [address] [address] * Daily Prothrombin time/INR while on warfarin (02/01/2018 4:32 AM) Only the most recent of 44 results within the time period is included. Component Value Ref Range Protime 22.6 (H) 11.7 - 14.7 seconds INR 2.0 <=5.9 Specimen Performing Laboratory Blood [address] [address] Narrative RECOMMENDED COUMADIN/WARFARIN INR THERAPY RANGES STANDARD [...] --------- - ------ CBC with platelet count ...[[id number]]AbnormalFinal result Please view results for these tests [...] MD Report Verified Date/Time:01/21/2018 10:10:33 Reading Location: [facility] Radiology Reading Room Procedure Note Interface, [...] Report Verified Date/Time: 01/21/2018 10:10:33 Reading Location: [facility] Radiology Reading Room * Hepatic function [...] - 55 U/L Specimen Performing Laboratory Blood [address] [address] * Phosphorus (01/20/2018 6:34 AM) Only the most recent of 6 results within the time period is included. Component Value Ref Range Phosphorus 3.5 2.3 - 4.7 mg/dL Specimen Performing Laboratory Blood [facility] [address] [place] [address] * Troponin I (01/19/2018 2:35 PM) Only the most recent of 5 results within the time period is included. Component Value Ref Range Troponin I 0.04 (H) 0.00 - 0.03 ng/mL Specimen Performing Laboratory Blood - Central Venous [facility] Line [address] [place] [address] Narrative Troponin I (TnI) levels must be [...] time period is included. Specimen Performing Laboratory Doctor on Demand Narrative FINAL REPORT CT, CHEST WITH IV [...] FINDINGS: Lungs and pleura: Trace left effusion. Vrbvd-bi-yivviojc right effusion. Associated minimal relaxation atelectasis. Remaining [...] MD Report Verified Date/Time:01/19/2018 00:48:46 Reading Location: [facility] C013Y CT Body Reading Room Procedure Note [...] FINDINGS: Lungs and pleura: Trace left effusion. Favsk-rv-eijbsrtr right effusion. Associated minimal relaxation atelectasis. Remaining [...] Report Verified Date/Time: 01/19/2018 00:48:46 Reading Location: [facility] B1 C013Y CT Body Reading Room * PT/PTT (01/18/2018 10:52 PM) Only the most recent of 3 results within the time period is included. Component Value Ref Range Protime 19.7 (H) 11.7 - 14.7 seconds INR 1.7 <=5.9 PTT 32.4 22.5 - 36.0 seconds [place] [address] Narrative RECOMMENDED COUMADIN/WARFARIN INR THERAPY RANGES STANDARD [...] Range POC-Glucose Meter 142 (H)Comment: TESTED AT [address] 70 - 110 mg /dL [place] [address] Specimen Performing [place] [address] * Type and screen, automated (01/12/2018 1:04 AM) Only the most recent of 4 results within the time period is included. Component Value Ref Range ABO/RH AUTOMATED (BEAKER) A POSITIVE Ab Scrn NEGATIVE [place] [address] * Pacemaker Check (01/11/2018 9:40 AM) Narrative Catina Aguero RN 01/11/20189:40 AM Device interrogation performed by Abcam rep.Preliminary report placed under cardiac studies in chart. CATINA AGUERO RN 01/11/2018 9:39 AM [id number] * CT abdomen/pelvis with IV contrast (01/10/2018 3:21 AM) Specimen Performing Laboratory Doctor [employer] Demand Narrative Addendum Begins REPORT STATUS:A / Signed: Todd Hoover MD Report Verified Date/Time:01/10/2018 03:45:00 Reading Location: [address] Reading Room Addendum Ends FINAL REPORT [...] MD Report Verified Date/Time:01/10/2018 03:42:51 Reading Location: [address] Reading Room Procedure Note Interface, External Ris In - 01/10/2018 3:47 AM CDT Addendum Begins REPORT STATUS:A / Signed: Todd Hoover MD Report Verified Date/Time: 01/10/2018 03:45:00 Reading Location: [address] Reading Room Addendum Ends FINAL REPORT [...] Report Verified Date/Time: 01/10/2018 03:42:51 Reading Location: [address] Reading Room * aPTT (01/09/2018 5:30 AM) Only the most recent of 34 results within the time period is included. Component Value Ref Range PTT 36.4 (H) 22.5 - 36.0 seconds Specimen Performing Laboratory Blood - PICC [address] [address] Narrative While on warfarin. * Blood gas, [...] Specimen Performing Laboratory Blood, Arterial - Arm, [facility] Right [address] [place] [address] * BUN and Creatinine (01/06/2018 5:25 AM) [...] FOR DIALYSIS PATIENTS. Specimen [place] [address] * Urinalysis w/Microscopic (01/05/2018 12:35 PM) Only the most recent of 2 results within the time period is included. Component Value Ref Range Color, UA Yellow Clarity, UA Hazy Specific [place], UA 1.018 1.001 - 1.035 pH, UA [...] Specimen Performing Laboratory Urine - [place]rine, [place] [address] * Prepare Leuko-Red RBC (01/04/2018 11:54 PM) Only the most recent of 2 results within the time period is included. Component Value Ref Range CROSSMATCH COMPATIBLE Unit ABO A Pos UNIT NUMBER [id number] Status TRANSFUSED Blood Bank Product RED BLOOD CELLS PRODUCT CODE [id number] Specimen Performing Laboratory Other [employer] [place] * POC ACTIVATED CLOTTING TIME (01/04/2018 12:29 PM) Component Value Ref Range Activated Clotting Time 263Comment: TESTED AT [address] [address] Specimen Performing Laboratory Blood [address] [address] * Transfuse Leuko-Red RBC (01/03/2018 5:06 PM) Only the most recent of 5 results within the time period is included. * IR PICC Line Placement (01/03/2018 9:45 AM) Specimen Performing Laboratory GE RIS Narrative FINAL REPORT Left upper extremity PICC exchange History: Malpositioned left upper cavity PICC. Creative Services Designer:Freddie Schwab MD. Tennis Centre Manager: Gt Cervantes. Modality: Fluoroscopy Sedation: None. Anesthesia:Two [...] over the Glidewire and a new 5 Zimbabwean dual-lumen PICC was trimmed to 43 cm. A 5 Zimbabwean peel-away sheath was placed. The new PICC [...] MD Report Verified Date/Time:01/03/2018 14:30:30 Reading Location: [facility] P048 Angio Body Reading Room Procedure Note Interface, External Ris In - 01/03/2018 2:32 PM CDT FINAL REPORT Left upper extremity PICC exchange History: Malpositioned left upper cavity PICC. Creative Services Designer: Freddie Schwab MD. Tennis Centre Manager: Gt Cervantes. Modality: Fluoroscopy Sedation: None. Anesthesia: [...] over the Glidewire and a new 5 Zimbabwean dual-lumen PICC was trimmed to 43 cm. A 5 Zimbabwean peel-away sheath was placed. The new PICC [...] use. Signed: Freddie Schwab MD Report Verified Date/Time: 01/03/2018 14:30:30 Reading Location: [place] [address] Angio Body Reading Room * Comprehensive metabolic [...] Specimen Performing Laboratory Blood - Arm, Right [address] [address] * Platelet count (01/01/2018 12:14 PM) Component Value Ref Range Platelets 116 (L) 150 - 450 K/CU MM Specimen Performing Laboratory Blood [address] [address] * Vitamin B12 and Folate (01/01/2018 4:21 AM) Component Value Ref Range Vitamin B12 >2000 (H) 213 - 816 pg/mL Folate 8.0 >=7.0 ng/mL Specimen Performing Laboratory Blood - Central Venous [facility] Line [address] [place] [address] * Iron, TIBC, % sat. (without ferritin) (01/01/2018 4:21 AM) Component Value Ref Range Iron 47 40 - 160 ug/dL TIBC 149 (L) 250 - 450 ug/dL Iron % Saturation 32 20 - 55 % Specimen Performing Laboratory Blood - Central Venous [facility] Line [address] [place] [address] * Hemoglobin and hematocrit (12/31/2017 9:05 PM) Component Value Ref Range Hemoglobin 8.1 (L) 13.7 - 17.5 GM/DL Hematocrit 25.4 (L) 40.1 - 51.0 % Specimen Performing Laboratory Blood - Central Venous [facility] Line [address] [place] [address] * Gentamicin level, trough (12/30/2017 9:08 AM) Only the most recent of 2 results within the time period is included. Component Value Ref Range Gentamicin Trough 1.1 (H) 0.5 - 1.0 ug/mL Specimen Performing Laboratory Blood [address] [address] Narrative Dosing Target Level (mcg/mL) 1-1.5 mg/kg q 8-12 HR 0.5-1.0 3-7 mg/kg q 24 HR<0.5 * Potassium (12/28/2017 5:29 PM) Component Value Ref Range Potassium 3.2 (L)Comment: Specimen slightly hemolyzed 3.5 - 5.1 meq/L Specimen Performing Laboratory Blood [address] [address] * Blood culture (12/28/2017 4:59 AM) Only the most recent of 7 results within the time period is included. Component Value Ref Range Result No growth in 5 days Specimen Performing Laboratory Blood - Central Venous [facility] Line [address] [place] [address] * Oxygen saturation, measured (12/24/2017 10:43 AM) Only the most recent of 2 results within the time period is included. Component Value Ref Range O2 Saturation (Measured) 70.4 % Specimen Performing Laboratory Blood - Central Venous [facility] Line [address] [place] [address] * Calcium, Ionized (12/24/2017 7:15 AM) Only the most recent of 5 results within the time period is included. Component Value Ref Range Calcium, Ion 1.07 (L) 1.12 - 1.27 mmol/L pH, Blood 7.38 Specimen Performing Laboratory Blood [address] [address] * Lactic acid, arterial, whole blood (12/23/2017 4:31 PM) Only the most recent of 6 results within the time period is included. Component Value Ref Range Lactate, Art 1.1 0.5 - 2.2 mmol/L Specimen Performing Laboratory Blood, Arterial - Line, [facility] Arterial [address] [place] [address] Narrative Effective 02/26/2016: Units/Reference Range Change New: 0.5-2.2 mmol/LPrevious: 5-20 mg/dL * BCID (12/23/2017 9:33 AM) Only the most recent of 2 results within the time period is included. Component Value Ref Range Scan Result Specimen Performing Laboratory Blood [address] [address] Narrative Result comments: METHICILLIN-SUSCEPTIBLE STAPH. AUREUS (MSSA) DETECTED Staphylococcus aureus DETECTED MecA NOT DETECTED First line therapy: cefazolin or nafcillin (nafcillin preferred if Central Nervous System Infection) [facility] policy mandates Infectious Disease consultation for all patients with Staph. aureus bacteremia. Other organisms and resistance markers not contained in this PCR panel cannot be excluded and follow-up of traditional culture results is required. This sample was tested at the [facility] Clinical Microbiology Laboratory using the [employer] Blood Culture ID Panel. This test is FDA cleared for in vitro diagnostic use and has been verified and approved by the [facility] Clinical Microbiology laboratory for clinical use. Reference Range: Not Detected * Creatine Kinase (CK), Total and MB (12/23/2017 4:30 AM) Only the most recent of 2 results within the time period is included. Component Value Ref Range Total CK 156 29 - 200 U/L CK-MB 8.3 (H) 0.0 - 6.6 ng/mL MB Relative Index 5.3 % Specimen Performing Laboratory Blood - Line, Arterial [address] [address] Narrative CK-MB Reference Range: <6.7Normal 6.7-10.0Borderline >10.0 [...] % Specimen Performing Laboratory Blood - Line, [address] [address] * Fibrinogen (12/22/2017 5:58 PM) Only the most recent of 3 results within the time period is included. Component Value Ref Range Fibrinogen 266 225 - 434 mg/dl Specimen Performing Laboratory Blood - Line, [address] [address] * ECHOCARDIOGRAM REPORT - SCAN (12/22/2017 4:20 PM) Only the most recent of 3 results within the time period is included. * Limited 2D Echocardiogram (12/22/2017 1:05 PM) Component Value Ref Range Ejection Fraction Specimen Performing Laboratory [facility] MKCKESSON CPACS Narrative Transthoracic Echocardiography Report (TTE) Demographics Patient NameAnisha ROBLERO of Study2017 Gender Male Visit [id number] Race Number [id number] Number Date of 1950 Referring PhysicianLeigh Ann CARLSON Age 67 year(s) Edger Operator Aylin Simon [facility] Foxing Painter AriadnaInterpreting Abdulaziz Spence MD ContrerasPhysician Procedure Type [...] External Ris In - 12/22/2017 3:34 PM KENO TERMINAL OPERATOR Transthoracic Echocardiography Report (TTE) Demographics Patient Name RAQUEL ROBLERO Date of Study 12/22/2017 Gender Male Visit Number [id number] Race Room Number [id number] Number Date of 1950 Referring Physician Leigh Ann CARLSON Age 67 year(s) Edger Operator Aylin Simon [facility] Foxing Painter [facility] Interpreting Abdulaziz Spence MD [place] Physician [...] Spherocytes 1+ few Specimen Performing Laboratory Blood [address] [address] * POCT-HEMATOCRIT (12/21/2017 11:46 PM) Component Value Ref Range POC-Hematocrit 28 (L)Comment: TESTED AT [address] 40 - 50 % [place] [address] Specimen Performing Laboratory Blood [address] [address] * POCT-HEMOGLOBIN (12/21/2017 11:46 PM) Component Value Ref Range POC-Hemoglobin 9.5 (L)Comment: TESTED AT [address] 13.0 - 16.8 g/ dL [place] [address] Specimen Performing Laboratory Blood [place] [id number] * POCT-GLUCOSE (12/21/2017 11:46 PM) Component Value Ref Range POC-Glucose 163 (H)Comment: TESTED AT [address] 70 - 110 mg/dL [place] [address] Specimen Performing [place] [address] * POC-Sodium (12/21/2017 11:46 PM) Component Value Ref Range POC-Sodium 133 (L)Comment: TESTED AT [address] 135 - 148 meq/L [place] [address] Specimen Performing [place] [address] * POC-Potassium (12/21/2017 11:46 PM) Component Value Ref Range POC-Potassium 4.5Comment: TESTED AT [address] 3.6 - 5.5 meq/L [place] [address] Specimen Performing [place] [address] * POC-Calcium ionized (12/21/2017 11:46 PM) Component Value Ref Range POC-Calcium Ionized 1.17Comment: TESTED AT [address] 1.12 - 1.27 mmol/L [place] [address] Specimen Performing [place] [address] * POC-Blood gases, venous (12/21/2017 11:46 PM) Component Value Ref Range Temp. Celsius-POC 37.0 FIO2-POC Comment: TESTED AT [place] [address] pH, Venous-POC 7.297 (L) 7.320 - 7.420 PCO2, Venous-POC 49.6 41.0 - 51.0 mm Hg PO2, Venous-POC 49.0 (H) 25.0 - 40.0 mm Hg SO2, Venous-POC 79.0 (H) 40.0 - 70.0 % HCO3, Venous-POC 24.3 21.0 - 29.0 meq/L BE, Venous-POC -2.0 -2.0 - 3.0 meq/L Specimen Performing [place] [address] * Urine culture (12/21/2017 3:59 PM) Only the most recent of 2 results within the time period is included. Component Value Ref Range Result No growth Gram Stain Result No WBCs Gram Stain Result No organisms seen Specimen [place]forming [place] [address] * Potassium-Stat Lab (12/21/2017 12:36 PM) Component Value Ref Range Potassium 3.1 (L) 3.6 - 5.5 meq/L Specimen Performing Laboratory Blood, [address] [address] * Sodium Na-Stat Lab (12/21/2017 12:36 PM) Component Value Ref Range Sodium 133 (L) 135 - 148 meq/L Specimen Performing Laboratory Blood, [address] [address] * Glucose-Stat Lab (12/21/2017 12:36 PM) Component Value Ref Range Glucose 107 70 - 110 mg/dL Specimen Performing Laboratory Blood, [address] [address] * HGB/HCT (H&H)-Stat Lab (12/21/2017 12:36 PM) Component Value Ref Range Hemoglobin 8.9 (L) 13.0 - 16.8 g/dL Hematocrit 26.0 (L) 40.0 - 50.0 % Specimen Performing Laboratory Blood, [address] [address] * Procalcitonin (12/21/2017 12:26 PM) Component Value Ref Range Procalcitonin 1.47 (H) <0.05 ng/mL Specimen Performing [place] [address] Narrative SEPSIS RISK (ng/mL) Low:0.05-0.50 Intermediate: 0.51-2.00 High: >=2.01 * [facility] (ABG,NA,K,H&H,GLUCOSE) (12/21/2017 12:25 PM) Specimen Performing Laboratory Blood, Arterial Narrative The following orders were created for panel order [facility] (ABG,NA,K,H& H,GLUCOSE). Procedure Abnormality Status --------- - ------ Blood gas, arterial[[id number]]Abnormal Final result Sodium Na-Stat Lab[[id number]] Abnormal Final result Potassium-Stat Lab[[id number]] Abnormal Final result Glucose-Stat Lab[[id number]] Normal Final result HGB/HCT (H&H)-Stat Lab[[id number]] Abnormal Final result Please view results for these tests on the individual orders. * Prepare RBC (12/21/2017 12:12 PM) Component Value Ref Range CROSSMATCH COMPATIBLE Unit ABO A Pos UNIT NUMBER [id number] Status RETURNED FROM ISSUE Blood Bank Product RED BLOOD CELLS PRODUCT CODE [id number] CROSSMATCH COMPATIBLE Unit ABO A Pos UNIT NUMBER [id number] Status RETURNED FROM ISSUE Blood Bank Product RED BLOOD CELLS PRODUCT CODE [id number] Specimen Performing Laboratory [employer] [place] * AFB culture + smear (12/21/2017 10:18 AM) Only the most recent of 2 results within the time period is included. Component Value Ref Range Result No acid-fast bacilli isolated in 42 days AFB Smear No acid fast bacilli seen Specimen Performing Laboratory Abscess - Chest, [address] [address] * Anaerobic culture (12/21/2017 10:18 AM) Only the most recent of 2 results within the time period is included. Component Value Ref Range Result No anaerobes isolated Specimen Performing Laboratory Abscess - Chest, [address] [address] * Surgically obtained culture + gram stain [...] seen Specimen Performing Laboratory Abscess - Chest, [address] [address] * Fungus culture + smear (12/21/2017 10:18 AM) Only the most recent of 2 results within the time period is included. Component Value Ref Range Result No fungus isolated in 28 days Fungus Smear No fungi seen Specimen Performing Laboratory Abscess - Chest, [address] [address] * SPIN/CONCENTRATION CHARGE (12/21/2017 10:18 AM) Only the most recent of 2 results within the time period is included. Component Value Ref Range Concentration charged Done Specimen Performing Laboratory Abscess - Chest, Left [facility] [address] [address] * Transesophageal echo (12/20/2017 3:38 PM) Component Value Ref Range Ejection Fraction Specimen Performing Laboratory [facility] MK[facility] CPACS Narrative Transesophageal Echocardiography Report (TIA) Demographics Patient NameRAQUEL ROBLERO Date of Study12/20/2017 Male Visit [id number] Unknown Room NumberSCPR Number Date of 1950Referring Omid Ball Age 67 year(s)Edger Operator Ron Anne Interpreting Sanchez Small MD Physician [...] available views. Atrial septal position continuously bows [id number], consistent with elevated LA pressure . Aortic [...] External Ris In - 12/21/2017 8:09 AM KENO TERMINAL OPERATOR Transesophageal Echocardiography Report (TIA) Demographics Patient Name RAQUEL ROBLERO Date of Study 12/20/2017 Gender Male Visit Number [id number] Race Unknown Room Number SCPR Number Date of 1950 Referring Physician Omid Koehler Age 67 year(s) Edger Operator Ron Anne Interpreting Sanchez Small MD Physician [...] available views. Atrial septal position continuously bows [id number], consistent with elevated LA pressure . 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 Report (TTE) Demographics Patient Name RAQUEL ROBLERO Date of Study 12/19/2017 Gender Male Visit Number [id number] Race Unknown Room Number 1160 Number Date of 1960 Referring Physician Age 57 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
--- OUTSIDE RECORDS SUMMARY | 2018-03-12 16:30 | XMS REPORT | Clinical Summary ---
Author Author [facility] Organization [facility] Address Unknown Phone Unavailable Care Team Providers Care Senior Construction Project Manager Name Role Phone Esequiel Mattson MD PCP [...] Date Type Specialty Care Team Description 08/15/2017 [facility] General Internal Medicine Jeffery Freire, Pneumonia due to - Encounter infectious organism, 08/18/2017 Lindsey Ruth unspecified laterality, MD Priscila unspecified part of lung (Primary Dx); SOB (shortness of breath); Acute bronchitis, unspecified organism 06/29/2017 Patient Quality Hector Dodson, PharmD Outreach 06/18/2017 Procedure Pass Procedural Cardiology 06/18/2017 Surgery Procedural Cardiology Raquel Olmos, Ep ablation av node MD [37770 (CPT )] 06/18/2017 Procedure Pass Procedural Cardiology 06/16/2017 [facility] General Internal Medicine Nayan Saenz MD Atrial fibrillation with - Encounter Lindsey Ruth RVR (Primary Dx); 06/25/2017 MD Priscila Right upper quadrant abdominal pain; Weakness 04/02/2017 Procedure Pass Procedural Cardiology 04/02/2017 Surgery Procedural Cardiology Michael Dhaliwal, Lead Revision and MD generator change out [60142 (CPT )] 04/01/2017 [facility] General Surgery Trisha Banuelos MD - Encounter [...] PNEUMOCOCCAL-13 Completed 06/25/2017 Implants Implanted Type Area Stockroom Associate Device Expiration Model / Identifier Date Serial / Lot Durata Df4 - Active Tbp Single Defibrilla N/A: N/A [employer] 2016 [id number] 65 / Shock, Icd Leads, Model 7120q-65 - tors MEDICAL [id number] Devices / Implanted: 04/02/2017 (Quantity not ICD and [id number] on file) Related Products Dariela Zhong Next Generation Dr DAIGLE N/A: N/A [employer] 11/24/2018 [id number] 40Q 40 Df4 Connector - [id number] CARDIAC MEDICAL / Implanted: 04/02/2017 (Quantity not DEFIB [id number] / on file) [id number] Pacemaker Pacemaker Procedures Procedure Name Priority Date/Time Associated Diagnosis Comments NE CRITICAL CARE, E/M Routine 08/16/2017 Results for this 30-74 MINUTES 3:59 AM CDT procedure are in the results section. EP ABLATION AV NODE Routine 06/18/2017 9:16 AM CDT ECHOCARDIOGRAM 2D Routine 06/17/2017 Results for this COMPLETE W MMODE SPECTRAL 3:58 PM CDT procedure are in the COLOR DOPPLER (40749) results section. EP AICD IMPLANT SINGLE Routine 04/02/2017 DUAL BI VENT 6:53 PM CDT after 03/11/2017 Results * XR Chest 2 Vw (08/18/2017 8:16 AM) Only the most recent of 4 results within the time period is included. Specimen [facility] [address] [place] [address] Narrative Examination: XR CHEST 2 VW Clinical [...] 4. Sternal wires and AICD are stable. [facility]-[id number] Procedure Note Interface, Radiology Results Incoming - [...] 4. Sternal wires and AICD are stable. [facility]-[id number] * Estimated GFR (08/18/2017 6:25 AM) Only [...] and Americans. Specimen Performing Laboratory Plasma specimen [facility] [place] DE[facility] PATHOLOGY AND GENOMIC MEDICINE [address] [place] [address] * Basic metabolic panel (08/18/2017 6:25 AM) [...] 10.7 mg/dL Specimen Performing Laboratory Plasma specimen [facility] [place] [facility] OF PATHOLOGY AND GENOMIC MEDICINE [address] [place] [address] * Prothrombin time with INR (08/17/2017 5:41 [...] values over 4.0. Specimen Performing Laboratory Blood [facility] [place] DE[facility]MENT OF PATHOLOGY AND GENOMIC MEDICINE [address] [place] [address] * CBC with platelet and differential (08/17/2017 [...] - 1.0 % Specimen Performing Laboratory Blood [facility] [place] DE[facility] OF PATHOLOGY AND GENOMIC MEDICINE [address] [place] [address] * B natriuretic peptide (08/17/2017 5:41 AM) Only the most recent of 2 results within the time period is included. Component Value Ref Range BNP 175 (H) 0 - 100 pg/mL Specimen Performing Laboratory [facility] [place] [facility] OF PATHOLOGY AND GENOMIC MEDICINE [address] [place] [address] * Anti Xa, unfractionated (08/16/2017 6:48 PM) Only the most recent of 3 results within the time period is included. Component Value Ref Range Anti Xa, unfractionated <0.10 (L)Comment: Therapeutic Range: 0.30 - 0.70 0.30 - 0.70 U/mL U/mL Specimen Performing Laboratory Blood [facility] [place] DEPARTMENT OF PATHOLOGY AND GENOMIC MEDICINE [address] [place] [address] * Troponin (08/16/2017 5:42 AM) Only the [...] myocardial injury. Specimen Performing Laboratory Plasma specimen [facility] [place] DEPARTMENT OF PATHOLOGY AND GENOMIC MEDICINE [address] [place] [address] * Partial thromboplastin time, activated (08/16/2017 5:42 [...] validate this result. Specimen Performing Laboratory Blood [facility] [place] DEPARTMENT OF PATHOLOGY AND GENOMIC MEDICINE [address] [place] [address] * ECG ED Preliminary Interpretation - NOT AN ORDER (08/16/2017 3:59 AM) Only the most recent of 2 results within the time period is included. Mahamed Freire MD 08/16/20173:59 AM ECG ED Preliminary Interpretation - Not an Order Performed by: CHARANJIT FREIRE Authorized by: CHARANJIT FREIRE ECG reviewed by ED Physician in the absence of a medical assistant instructor: yes Previous ECG: Previous ECG:Unavailable Rate: ECG [...] Chest (08/16/2017 3:28 AM) Specimen Performing Laboratory [facility] [address] [place] [address] Narrative EXAMINATION:CT ANGIOGRAM PE CHEST CLINICAL HISTORY: [...] related to intrinsic hepatic disease or cirrhosis. [facility]-[id number] Procedure Note [facility], Radiology Results Incoming - 08/16/2017 3:43 AM [...] related to intrinsic hepatic disease or cirrhosis. [facility]-[id number] * Blood culture, aerobic & anaerobic (08/16/2017 1:28 AM) Only the most recent of 2 results within the time period is included. Component Value Ref Range Blood culture isolate Staphylococcus epidermidis Aer/Nikkie bottles: The performance characteristics of this assay on this isolate were validated by the Microbiology Laboratory at [facility]. This source has not been approved by [...] Site: L Hand Specimen Performing Laboratory Blood [facility] DEPARTMENT OF PATHOLOGY AND GENOMIC MEDICINE [address] [place] [id number] Organism Antibiotic Method Susceptibility Staphylococcus Ampicillin PAUL [...] sepsis, and malignancies. Specimen Performing Laboratory Blood [facility] [place] DEPARTMENT OF PATHOLOGY AND GENOMIC MEDICINE [facility] [place] [address] * Venous blood gas (08/16/2017 12:24 AM) Component Value Ref Director Apparel JPXG Collection site LAC O2 therapy Room [...] - 18.0 g/dL Specimen Performing Laboratory Blood [facility] [place] DEPARTMENT OF PATHOLOGY AND GENOMIC MEDICINE [address] [place] [address] * Creatine kinase, total (CPK) (08/16/2017 12:24 AM) Component Value Ref Range Creatine kinase 30 (L) 61 - 224 U/L Specimen Performing Laboratory Plasma specimen [facility] [place] DEPARTMENT OF PATHOLOGY AND GENOMIC MEDICINE [address] [place] [address] * Comprehensive metabolic panel (08/16/2017 12:24 AM) [...] 1.2 mg/dL Specimen Performing Laboratory Plasma specimen [facility] [place] DEPARTMENT OF PATHOLOGY AND GENOMIC MEDICINE [address] [place] [address]. [place] [address] * ECG 12 lead (08/16/2017 12:10 AM) [...] significant change was found- Specimen Performing Laboratory [facility] [address] [place] [address] * Manual differential (06/22/2017 4:40 AM) Only [...] few Enlarged platelets rare Specimen Performing Laboratory [facility] [place] DEPARTMENT OF PATHOLOGY AND GENOMIC MEDICINE [address] [place] [address] * CT Cervical Spine Wo Contrast (06/21/2017 6:33 PM) Specimen Performing Laboratory [facility] [address] [place] [address] Narrative EXAMINATION:CT CERVICAL SPINE WO CONTRAST CLINICAL [...] IMPRESSION: No acute cervical spine bony abnormality. [facility]-[id number] Procedure Note Interface, Radiology Results Incoming - [...] IMPRESSION: No acute cervical spine bony abnormality. [facility]-[id number] * T3, free (06/20/2017 6:23 AM) Component Value Ref Range T3, free 1.65 (L) 2.18 - 3.98 pmol/L Specimen Performing Laboratory Plasma specimen [facility] [place] DE[facility]MENT OF PATHOLOGY AND GENOMIC MEDICINE [address] [place] [address] * Thyroid stimulating hormone (06/20/2017 6:23 AM) Only the most recent of 2 results within the time period is included. Component Value Ref Range TSH 2.30 0.38 - 4.82 uIU/mL Specimen Performing Laboratory Plasma specimen [facility] [place] DE[facility]MENT OF PATHOLOGY AND GENOMIC MEDICINE [address] [place] [address] * T4, free (06/20/2017 6:23 AM) Component Value Ref Range T4, free 1.19 0.70 - 1.61 ng/dL Specimen Performing Laboratory Plasma specimen [facility] [place] DEPARTMENT OF PATHOLOGY AND GENOMIC MEDICINE [address] [place] [address] * Cv electrophysiology procedure (06/18/2017 9:16 AM) Specimen Performing Laboratory [facility] [address] [place] [address] * Echocardiogram complete w contrast and 3D [...] R1 7.70 Specimen Performing Laboratory [facility] [address] [place] [address] Narrative The left ventricle chamber size is [...] COMMENTComment: Bacteriuria screen negative. Specimen Performing Laboratory [facility] [place] DEPARTMENT OF PATHOLOGY AND GENOMIC MEDICINE [address] [place] [address] * Urinalysis screen and microscopy, with reflex [...] UA 8 /LPF Specimen Performing Laboratory Urine [facility] [place] DEPARTMENT OF PATHOLOGY AND GENOMIC MEDICINE [address] [place] [address] * CT Abdomen Pelvis W Contrast (06/16/2017 8:35 PM) Specimen Performing Laboratory [address] [address] Narrative EXAMINATION:CT ABDOMEN PELVIS W CONTRAST CLINICAL [...] I/II bilateral renal cysts. Stable hepatitic cirrhosis. [facility]-[id number] Procedure Note [facility], Radiology Results - 06/16/2017 9:00 PM CDT [...] I/II bilateral renal cysts. Stable hepatitic cirrhosis. [facility]-[id number] * Magnesium level (06/16/2017 7:20 PM) Only the most recent of 2 results within the time period is included. Component Value Ref Range Magnesium 2.20 1.60 - 2.40 mg/dL Specimen Performing Laboratory Plasma specimen [facility] [place] DEPARTMENT OF PATHOLOGY AND GENOMIC MEDICINE [address] [place] [address] * CT Abdomen Pelvis Wo Contrast (04/03/2017 6:15 PM) Specimen Performing Laboratory [facility] [address] [place] [address] Narrative EXAMINATION:CT ABDOMEN PELVIS WO CONTRAST CLINICAL [...] blastic bony metastatic lesions may be helpful [facility]-[id number] Procedure Note [facility], Radiology Results - 04/03/2017 6:58 PM CDT [...] blastic bony metastatic lesions may be helpful [facility]-[id number] * XR Chest 1 Vw Portable (04/02/2017 8:13 PM) Specimen Performing Laboratory [facility] [address] [facility] [place] [address] Narrative EXAMINATION:XR CHEST 1 VW PORTABLE CLINICAL HISTORY:Pneumothorax, Post device implant COMPARISON:November 12, 2016 chest radiograph IMPRESSION: Gross cardiac enlargement similar to previous. Left lower lobe atelectasis and small effusion similar as well. AICD has been replaced. Leads extend to the right ventricle. No pneumothorax [facility]-[id number] Procedure Note Interface, Radiology Results Incoming - 04/02/2017 8:19 PM CDT EXAMINATION: XR CHEST 1 VW PORTABLE CLINICAL HISTORY: Pneumothorax, Post device implant COMPARISON: November 12, 2016 chest radiograph IMPRESSION: Gross cardiac enlargement similar to previous. Left lower lobe atelectasis and small effusion similar as well. AICD has been replaced. Leads extend to the right ventricle. No pneumothorax [facility]-[id number] * Cv electrophysiology procedure (04/02/2017 6:53 PM) Specimen Performing Laboratory [facility] [address] [place] [address] * CBC hemogram (04/01/2017 5:17 PM) Component [...] 0.00 /100 WBC Specimen Performing Laboratory Blood [facility] [place] DEPARTMENT OF PATHOLOGY AND GENOMIC MEDICINE [address] [place] [address] after 03/11/2017 Insurance Payer Benefit Subscriber ID Type Phone Address Plan / Group AETNA MEDICARE AETNA xxxxxxxx HMO MEDICARE HMO/PPO [facility] [place] [address]
[2018-03-12 16:48] LABS: CHOL/HDL RATIO 3.1 (3.9-4.7)
[2018-03-12 17:08] LABS: THYROID STIMULATING HORMONE 25.564 uIU/mL (0.350-4.940)
[2018-03-12 17:30] VITALS: BP 144/67
--- NOTE | 2018-03-12 17:41 | History and Physical ---
CHIEF COMPLAINT: Shortness of breath. HISTORY OF PRESENT ILLNESS: This is a 67-year-old man with a history of congestive heart failure, type unknown, and history of aortic valve replacement in December 2014, now developing worsening shortness of breath at the nursing facility. They sent him to the hospital. The patient is a poor historian and unable to provide any history. He was found to have leg edema. He was found to have an enlarged heart. He was admitted for further evaluation and management. PAST MEDICAL HISTORY 1. Congestive heart failure, type unknown. 2. He had a valve replacement with a mechanical valve in December 2014. 3. He is status post likely AICD placement. 4. Cardiac arrhythmia. He was on anticoagulant. 5. Recurrent bronchitis. 6. Asthma. 7. Hypertension. 8. Coronary artery disease. 9. Atrial fibrillation. 10. Community-acquired pneumonia. PAST SURGICAL HISTORY 1. Aortic valve replacement with mechanical valve in December 2014. 2. AICD placement in the left chest, then moved to the right. 3. Inguinal hernia repair. ALLERGIES: PENICILLIN. FAMILY HISTORY AND SOCIAL HISTORY: The patient is a detention resident at [facility]. MEDICATIONS: Per electronic medical record. REVIEW OF SYSTEMS: Denies any chest pain. VITAL SIGNS: Have been reviewed. PHYSICAL EXAMINATION GENERAL: A tired-appearing man resting in bed. HEENT: Anicteric. Pupils are responsive to light. No oral lesions. CARDIOVASCULAR: Normal S1 and S2. He has a 3/6 systolic murmur. He has hollow-sounding heart sounds. LUNGS: He has reduced breath sounds at the bases more prominent. ABDOMEN: Soft, nontender, nondistended. EXTREMITIES: He has 2+ leg edema. He has some hyperemia of the bilateral forelegs. SKIN: Dry. PSYCHIATRIC: Flat affect. NEUROLOGIC: Alert, but to himself only. Moves his extremities. LABS: Reviewed. MEDICATIONS: Reviewed. ASSESSMENT AND PLAN: A 67-year-old man. 1. Acute exacerbation of congestive heart failure. We will obtain a 2-D echocardiogram. Diurese the patient. Monitor renal function while he is being diuresed. Will obtain a TSH. 2. Acute kidney injury. Will monitor renal function and obtain ultrasound if needed. 3. Atrial fibrillation. Currently, his heart rate is controlled. We will monitor his heart rate. His INR is 2.3, which is therapeutic. He was on Coumadin. Will resume and follow his INR daily. 4. Coronary artery disease. Will obtain a lipid panel and treat him with aspirin and statin. 5. History of aortic valve replacement. 6. Ambulatory dysfunction/physical deconditioning. Physical therapy consultation. 7. Overweight state. Will screen him for diabetes and obtain lipid panel. 8. Hypokalemia. Will replace and recheck. 9. Normocytic anemia, mild. Will follow. 10. Thrombocytopenia. Will avoid heparin products. 11. Anxiety disorder. Will continue alprazolam. 12. Constipation. Continue bowel regimen. 13. Insomnia. Will hold his melatonin and mirtazapine. Will also hold temazepam at this point. 14. Prophylaxis: Use PPI while he is on anticoagulation. 15. Disposition: Monitor closely. Sergo. Obtain echocardiogram. Cardiology evaluation. Job#: [id number]
[2018-03-12 17:52] VITALS: BP 144/67
[2018-03-12] MEDS: PANTOPRAZOLE SOD 40 MG TABEC PO SCH (17:55)
[2018-03-12] MEDS: WARFARIN SOD 2 MG TAB PO SCH (17:56)
[2018-03-12 20:00] VITALS: BP 160/67
[2018-03-12] MEDS ORDERED: POTASSIUM CHLORIDE 20 MEQ TAB CR PO NR (20:00)
[2018-03-12 21:00] VITALS: BP 160/67
[2018-03-12] MEDS: FUROSEMIDE INJ 10 MG/ML 2 ML VIAL IV SCH (21:25)
[2018-03-13] VITALS (8 sets, daily range): BP systolic 124–172; BP diastolic 58–70
[2018-03-13 01:37] LABS: CREATINE KINASE MB 1.8 ng/mL (0-5.0)
[2018-03-13] MEDS: FUROSEMIDE INJ 10 MG/ML 2 ML VIAL IV SCH ×3 (05:12→21:23)
[2018-03-13] MEDS: PANTOPRAZOLE SOD 40 MG TABEC PO SCH (07:46)
[2018-03-13 08:52] LABS: BASOPHILS % 0.9 % (0.0-1.0); EOSINOPHILS # (AUTO) 0.1 (0.0-0.4); EOSINOPHILS % 2.6 % (0.0-6.0); HEMATOCRIT 32.4 % (38.2-49.6); HEMOGLOBIN 10.4 g/dL (14.0-18.0); LYMPHOCYTES # (AUTO) 0.9 (1.0-3.2); MEAN CORPUSCULAR HEMOGLOBIN 29.7 pg (28-32); MEAN CORPUSCULAR HGB CONC 32.1 g/dL (31-35); MEAN CORPUSCULAR VOLUME 92.6 fL (81-99); MONOCYTES # (AUTO) 0.4 (0.2-0.8); MONOCYTES % 12.6 % (4.4-11.3); NEUTROPHILS % 57.9 % (38.7-80.0); PLATELET COUNT 88 x10e3/uL (140-360); RED CELL DISTRIBUTION WIDTH 16.8 % (11.7-14.4)
[2018-03-13] MEDS: BISACODYL 5 MG TAB EC PO SCH (09:08)
[2018-03-13] MEDS: ALPRAZOLAM 0.25 MG TAB PO SCH (09:08)
[2018-03-13 09:17] LABS: INR 2.45
[2018-03-13 09:18] LABS: ANION GAP 13.6 mmol/L (8-16); CALCIUM 9.2 mg/dL (8.4-10.2); CREATININE, SERUM 1.3 mg/dL (0.72-1.25); POTASSIUM 3.6 mmol/L (3.5-5.1)
[2018-03-13 09:26] LABS: CREATINE KINASE MB 1.4 ng/mL (0-5.0)
[2018-03-13] MEDS ORDERED: POTASSIUM CHLORIDE 20 MEQ TAB CR PO NR (09:45)
--- NOTE | 2018-03-13 10:16 | Consultation ---
DATE OF CONSULTATION: March 13, 2018 CARDIOLOGY CONSULTATION REASON FOR CONSULTATION: CHF. HPI: This is a 67-year-old male that presented with shortness of breath. According to the patient, for the last 3-4 weeks he has been having shortness of breath, increased bilateral lower extremity edema and dyspnea on exertion. He stated it is gradually increasing and that he was brought in for evaluation. His overcoiler is in the [facility]. He was recently discharged in January when he got his ICD infected with MSSA, and it was reimplanted to the right side. He has a history of chronic systolic CHF and mitral valve replacement in the past. We saw him last in 2015 when he needed a cardiac clearance for gallbladder surgery. He denies any palpitations, any dizziness, any diaphoresis, or any headache. BNP was 367. Chest x-ray showed bilateral interstitial opacities and right-sided pleural effusion. Troponin was negative times 1. His EKG is irregular. PAST MEDICAL HISTORY: Hypertension, systolic CHF, AFib, hyperlipidemia, cirrhosis, pulmonary hypertension, MSSA bacteremia, sepsis, insomnia, constipation, pneumonia, asthma, COPD, CAD. PAST SURGICAL HISTORY: Open heart surgery with mitral valve replacement, hernia repair, recently infected left ICD that was reimplanted to the right side at the [facility]. FAMILY HISTORY: Positive for CAD. SOCIAL HISTORY: He lives at a snf and uses home oxygen. MEDICATIONS: See med list. ALLERGIES: HE IS ALLERGIC TO PENICILLIN. REVIEW OF SYSTEMS: Negative except those mentioned above. He is positive for shortness of breath. PHYSICAL EXAMINATION VITAL SIGNS: Temperature 97, heart rate 68, blood pressure 131/60, respirations 18, oxygen saturation 98% on 2 L nasal cannula. GENERAL: He is awake, alert and oriented times 3. HEENT: Mucous membrane moist. NECK: Supple. LUNGS: Bilateral with decreased breath sounds. CARDIOVASCULAR: Irregular with ventricular pacing. ABDOMEN: Soft. NEUROLOGICAL: Intact. EXTREMITIES: With +2-3 edema. LABS: Sodium 143, potassium 3.3, chloride 101, CO2 29, BUN 22, creatinine 1.35, glucose 116. White blood cells 4.13, hemoglobin 10.5, hematocrit 32.7, and platelets 102,000. PT 24.4, PTT 38.2 and INR 2.38. IMPRESSION 1. Systolic congestive heart failure exacerbation. 2. Atrial fibrillation. 3. Coronary artery disease with automatic implanted cardioverter defibrillator. 4. Hypertension. 5. History of chronic obstructive pulmonary disease with oxygen dependence. 6. Mitral valve replacement and has been on Coumadin. 7. Renal insufficiency. 8. Bilateral lower extremity edema. 9. Elevated thyroid stimulating hormone. ASSESSMENT AND PLAN 1. The last echo on file was done in 2015 with an EF 20% to 25%. Will go ahead and get another echo to reassess the LV function. 2. He was recently discharged from the [facility] after having a MRSA infection and ICD reimplanted on the right side. Will continue beta tra, diuretic and Coumadin. INR therapeutic at 2.38. Due to the renal insufficiency, will go ahead and hold the JANINE inhibitor. Potassium has been replaced. He is requesting to be transferred to his overcoiler in the [facility]. Further cardiac workup pending clinical course. Thank you for this consultation. DICTATED BY JAY JURADO NP Job#: [id number] [place]
[2018-03-13 14:56] LABS: FREE THYROXINE INDEX 1.497 (1.4-3.8)
--- NOTE | 2018-03-13 15:01 | Progress Note ---
DATE: March 13, 2018 TIME: 1415 OVERNIGHT: No acute events. REVIEW OF SYSTEMS: Patient continues to complain of severe fatigue and shortness of breath and edema. Patient denies chest pain, nausea, vomiting, diarrhea. PHYSICAL EXAMINATION VITAL SIGNS: T 95.6, P 62, respirations 20, BP 124/59, pulse ox on room air per observation 100%. GENERAL: This is a very tired-appearing man resting in bed. HEENT: PERRLA. Oral mucosa moist and intact. Normocephalic without sinus tenderness. Nares are patent. CV: S1 and S2 auscultated with a 3/6 diastolic murmur. LUNGS: Bilateral breath sounds reduced in all woods with expiratory wheezes noted to bases. ABDOMEN: Soft, nontender and slightly distended. EXTREMITIES: The patient has 2-3+ pitting leg edema. There is hyperemia of the bilateral lower extremities below the knee. Multiple ecchymosis areas noted to upper extremities. SKIN: Dry. MUSCULOSKELETAL: Bilateral pharmacy clinical coordinator are equal and +1. PSYCHIATRIC: Flat affect with anxiousness. NEUROLOGIC: Alert and oriented to person and place at this time. Gross motor skills are intact. LABS: WBC is 3.5, H and H 10.4 and 32.5 respectively. Platelet count 88,000. Chemistries with sodium of 144, potassium 3.6, chloride 102, CO2 32, gap at 13.6, BUN normal at 21 with slightly elevated creatinine at 1.3. GFR 55. BNP this a.m. at 410.6. INR at 2.45. MEDICATIONS 1. Bisacodyl 5 mg p.o. daily. 2. Xanax 0.25 mg p.o. daily. 3. Protonix 40 mg a.c. breakfast. 4. Coumadin 4 mg daily at 5 o'clock. 5. Potassium chloride 10 mEq every 8 hours. 6. Lasix 40 mg q.8 h. 7. Metoprolol 12.5 mg p.o. daily. ASSESSMENT AND PLAN: This is a 67-year-old man with: 1. Acute exacerbation of congestive heart failure: A 2-D echocardiogram obtained and report pending. Continue with Lasix to diurese the patient. Monitor renal function. TSH markedly elevated this a.m. We are obtaining T3 and T4 values prior to initiation of thyroid medication. 2. Acute kidney injury: Continue to monitor renal function. Consider renal ultrasound. 3. Atrial fibrillation: Rate controlled. Will continue to monitor his heart rate with telemetry monitoring. INR is therapeutic. Continue Coumadin and monitor INR. 4. Coronary artery disease: Lipid panels with triglycerides at 100, cholesterol at 141. LDL at 76. HDL at 45. Hemoglobin A1c was 5.1. Continue ASA and statin. 5. History of aortic valve replacement. 6. Ambulatory dysfunction/physical deconditioning: Physical therapy pending. 7. Overweight state: A1c and lipid panel as above. 8. Hypokalemia, replaced: Within expected values this a.m. Will follow up in the morning again due to diuresis. 9. Normocytic anemia, mild: Continue to follow as needed. 10. Thrombocytopenia: Avoiding heparin products. 11. Anxiety disorder: Alprazolam as above. 12. Constipation: Continue bowel regimen. Positive bowel movement noted this day. 13. Insomnia: Melatonin and mirtazapine is on hold in addition to temazepam. 14. Prophylaxis: Proton pump inhibitor in addition to a.c. regimen. 15. Disposition: Continue diuresis. Echocardiogram report interpretation pending. Cardiology consult review. JANINE inhibitor being held due to kidney issue. Transfer to [facility]. Discussed with the patient and nursing staff. Can address with case management in a.m. for disposition concerning desired transfer as the patient is a [facility] resident. DICTATED BY BINH LOPEZ NP Job#: [id number] [place]
[2018-03-13] MEDS: POTASSIUM CHLORIDE 10 MEQ TABCR PO SCH ×2 (15:05→21:26)
[2018-03-13] MEDS: METOPROLOL TARTRATE 25 MG TAB PO SCH (17:41)
[2018-03-13] MEDS: WARFARIN SOD 2 MG TAB PO SCH (17:42)
[2018-03-13] MEDS: ALBUTEROL SULF 0.083% NEB SOLN 3 ML NEB NEB PRN (20:35)
--- NOTE | 2018-03-13 20:55 | Diagnostic Imaging Report ---
EXAMINATION: CHEST SINGLE (PORTABLE) INDICATION: Shortness of breath, wheezing COMPARISON: 03/12/2018 FINDINGS: TUBES and LINES: AICD is intact. LUNGS: Lungs are not well inflated. There are bibasilar atelectasis. There is perihilar interstitial opacities, consistent with interstitial edema. PLEURA: Small right pleural effusion, slightly increased. HEART AND MEDIASTINUM: The cardiac silhouette size is severely enlarged. Which may represent cardiomegaly versus pericardial effusion. BONES AND SOFT TISSUES: No acute osseous lesion. Soft tissues are unremarkable. UPPER ABDOMEN: No free air under the diaphragm. IMPRESSION: Findings are consistent with persistent worsening cardiogenic pulmonary edema and bilateral pleural effusions right greater than left Signed by: Dr. Gavin Vegas M.D. on 03/13/2018 8:51 PM
[2018-03-14] VITALS (8 sets, daily range): BP systolic 104–156; BP diastolic 54–67
[2018-03-14] MEDS: ALBUTEROL SULF 0.083% NEB SOLN 3 ML NEB NEB PRN (01:10)
[2018-03-14] MEDS: FUROSEMIDE INJ 10 MG/ML 2 ML VIAL IV SCH ×3 (05:37→21:17)
[2018-03-14] MEDS: POTASSIUM CHLORIDE 10 MEQ TABCR PO SCH ×3 (05:40→21:18)
[2018-03-14 07:17] LABS: INR 2.55; PROTHROMBIN TIME 25.8 seconds (11.9-14.5)
[2018-03-14 07:35] LABS: ANION GAP 11.9 mmol/L (8-16); CALCIUM 8.9 mg/dL (8.4-10.2); CREATININE, SERUM 1.31 mg/dL (0.72-1.25); PHOSPHORUS 3.9 MG/DL (2.3-4.7); POTASSIUM 3.9 mmol/L (3.5-5.1)
[2018-03-14] MEDS: PANTOPRAZOLE SOD 40 MG TABEC PO SCH (07:35)
[2018-03-14] MEDS: ALPRAZOLAM 0.25 MG TAB PO SCH (08:15)
[2018-03-14] MEDS: METOPROLOL TARTRATE 25 MG TAB PO SCH (08:15)
[2018-03-14] MEDS: BISACODYL 5 MG TAB EC PO SCH (08:15)
--- NOTE | 2018-03-14 08:25 | Progress Note ---
DATE: March 14, 2018 TIME: 7:45 a.m. OVERNIGHT: Difficulty sleeping. Less short of breath. REVIEW OF SYSTEMS: Denies any dizziness. VITAL SIGNS: Reviewed. PHYSICAL EXAMINATION GENERAL: A tired-appearing man resting in bed. HEENT: Anicteric. CARDIOVASCULAR: Normal S1 and S2. LUNGS: He has reduced breath sounds at the bases. ABDOMEN: Soft, nontender, nondistended. EXTREMITIES: He has 2+ leg edema. SKIN: Dry. PSYCHIATRIC: Flat affect. NEUROLOGIC: Alert and oriented times 3, moves all extremities. LABS: Reviewed. MEDICATIONS: Reviewed. ASSESSMENT AND PLAN: A 67-year-old man. 1. Acute exacerbation of congestive heart failure. 2. Acute kidney injury. 3. Atrial fibrillation. 4. Coronary artery disease. 5. History of aortic valve replacement. 6. Ambulatory dysfunction/physical deconditioning. 7. Overweight state. 8. Insomnia. 9. Hypokalemia. 10. Normocytic anemia. 11. Thrombocytopenia. 12. Anxiety disorder. 13. Constipation. 14. Bilateral pleural effusions. PLAN 1. Follow up echocardiogram report. Last echocardiogram noted by cardiology in 2015 showed ejection fraction of 20% to 25%. 2. Patient already has AICD in place. 3. This is acute exacerbation of systolic congestive heart failure. 4. Continue to follow I's and O's. I's and O's were 440/1070. 5. Continue furosemide 40 IV q.8. 6. Continue beta tra and warfarin. 7. Continue alprazolam. 8. Temazepam for insomnia. 9. INR is therapeutic at 2.55. 10. Initiate physical therapy. 11. Continue PPI while the patient is on anticoagulation. 12. Bilateral pleural effusions, right greater than left. Continue diuretics. 13. Skilled facility evaluation. Job#: [id number]
[2018-03-14] MEDS ORDERED: METOPROLOL TARTRATE 25 MG TAB PO SCH (09:00)
[2018-03-14] MEDS: ACETAMINOPHEN 325 MG TAB PO PRN ×2 (13:10→18:35)
[2018-03-14] MEDS: WARFARIN SOD 2 MG TAB PO SCH (16:27)
[2018-03-14] MEDS ORDERED: TEMAZEPAM 15 MG CAP PO SCH (21:00)
[2018-03-14] MEDS ORDERED: BISMUTH SUBSALICYLATE 262 MG TAB PO PRN (21:30)
[2018-03-15] VITALS: BP 154/66
[2018-03-15] MEDS: ALBUTEROL SULF 0.083% NEB SOLN 3 ML NEB NEB PRN (02:10)
[2018-03-15 04:00] VITALS: BP 141/64
[2018-03-15] MEDS: FUROSEMIDE INJ 10 MG/ML 2 ML VIAL IV SCH ×2 (06:04→16:00)
[2018-03-15] MEDS: POTASSIUM CHLORIDE 10 MEQ TABCR PO SCH ×2 (06:05→16:00)
[2018-03-15 06:52] LABS: INR 2.39; PROTHROMBIN TIME 24.5 seconds (11.9-14.5)
[2018-03-15 08:10] VITALS: BP 147/67
[2018-03-15] MEDS: BISACODYL 5 MG TAB EC PO SCH (08:10)
[2018-03-15] MEDS: ALPRAZOLAM 0.25 MG TAB PO SCH (08:10)
[2018-03-15] MEDS: PANTOPRAZOLE SOD 40 MG TABEC PO SCH (08:10)
[2018-03-15] MEDS: METOPROLOL TARTRATE 25 MG TAB PO SCH (08:15)
[2018-03-15 08:47] LABS: HEMOGLOBIN 9.8 g/dL (14.0-18.0)
[2018-03-15] MEDS: ACETAMINOPHEN 325 MG TAB PO PRN (09:15)
[2018-03-15 11:47] VITALS: BP 123/58
[2018-03-15] MEDS ORDERED: TRAMADOL HCL 50 MG TAB PO PRN (12:00)
[2018-03-15] MEDS ORDERED: LIDOCAINE 5% PATCH TP SCH (12:30)
[2018-03-15 14:08] VITALS: BP 123/58
[2018-03-15] MEDS ORDERED: FUROSEMIDE40 MG PO (15:50)
[2018-03-15 16:22] VITALS: BP 126/60
[2018-03-15] MEDS: WARFARIN SOD 2 MG TAB PO SCH (17:18)
== END 2018-03-15 19:27 | DRG 292 ==
LOC: ER 13:22 → ERHOLD 16:26 → MED/SURG3 16:36
PROVIDERS: ADMIT Internal Medicine; ATTEND Internal Medicine
DX: I11.0 Hypertensive heart disease with heart failure (principal); N17.9 Acute kidney failure, unspecified; I50.23 Acute on chronic systolic (congestive) heart failure; I25.10 Atherosclerotic heart disease of native coronary artery without angina pectoris; Z79.01 Long term (current) use of anticoagulants; Z95.2 Presence of prosthetic heart valve; E87.6 Hypokalemia; I27.20 Pulmonary hypertension, unspecified; R26.9 Unspecified abnormalities of gait and mobility; D64.9 Anemia, unspecified; F41.9 Anxiety disorder, unspecified; E66.3 Overweight; Z68.28 Body mass index [BMI] 28.0-28.9, adult; G47.00 Insomnia, unspecified; K59.00 Constipation, unspecified; Z95.810 Presence of automatic (implantable) cardiac defibrillator; D69.6 Thrombocytopenia, unspecified; R68.89 Other general symptoms and signs; Z66 Do not resuscitate; I25.5 Ischemic cardiomyopathy; I48.2 Chronic atrial fibrillation
CPT/HCPCS: 36415; 71045; 80048; 80053; 80061; 81001; 82150; 82550; 82553; 83036; 83735; 83880; 84100; 84436; 84443; 84479; 84484; 85014; 85018; 85025; 85610; 85730; 93005; 93306; 94640; 99284; J1940

== ENCOUNTER 2018-07-14 20:42 | Inpatient (IN) | payer MEDICARE, OTHER ==
[~2018-07-14] VITALS: Ht 172.7 cm; Wt 85.5 kg
[~2018-07-14 20:42] MED LIST changes: +ACETAMINOPHEN500 MG PO; +ATROVENT HFA12.9 GM PO; +BISACODYL5 MG PO; +BUMETANIDE2 MG PO; +BUSPIRONE HCL5 MG PO; +CALCIUM-VITAMIN D PO; +COUMADIN4 MG PO; +FERREX 150150 MG PO; +FUROSEMIDE40 MG PO; +MELATONIN3 MG PO; +MILK OF MA2400 MG/10 PO; +MIRTAZAPINE15 MG PO; +MUCINEX DM ER1 EACH PO; +MULTI-VITAMIN1 EACH PO; +PANTOPRAZOLE SO40 MG PO; +PEPTO-BISMOL262 M1 PO; +TEMAZEPAM15 MG PO; +TYLENOL WITH C1 EACH PO; +VITAMIN C PO; +XANAX0.25 MG PO
[2018-07-14 21:01] LABS: BASOPHILS % 0.8 % (0.0-1.0); EOSINOPHILS # (AUTO) 0.2 (0.0-0.4); EOSINOPHILS % 2.9 % (0.0-6.0); HEMATOCRIT 33.8 % (38.2-49.6); HEMOGLOBIN 10.9 g/dL (14.0-18.0); MEAN CORPUSCULAR HEMOGLOBIN 28.3 pg (28-32); MEAN CORPUSCULAR HGB CONC 32.2 g/dL (31-35); MEAN CORPUSCULAR VOLUME 87.8 fL (81-99); MONOCYTES # (AUTO) 0.8 (0.2-0.8); MONOCYTES % 14.9 % (4.4-11.3); NEUTROPHILS # (AUTO) 3.2 (2.1-6.9); NEUTROPHILS % 62.2 % (38.7-80.0); PLATELET COUNT 102 x10e3/uL (140-360); RED BLOOD COUNT 3.85 x10e6/uL (4.3-5.7); RED CELL DISTRIBUTION WIDTH 18.1 % (11.7-14.4)
[2018-07-14 21:12] LABS: INR 1.32; PROTHROMBIN TIME 17.5 seconds (11.9-14.5)
[2018-07-14 21:13] LABS: PARTIAL THROMBOPLASTIN TIME 33.4 seconds (23.8-35.5)
[2018-07-14 21:21] LABS: ALBUMIN 3.8 g/dL (3.5-5.0); ALKALINE PHOSPHATASE 91 IU/L (40-150); ANION GAP 13.7 mmol/L (8-16); BLOOD UREA NITROGEN 22 mg/dL (7-26); BUN/CREATININE RATIO 16 (6-25); CARBON DIOXIDE 23 mmol/L (22-29); CHLORIDE 109 mmol/L (98-107); CREATINE KINASE 55 IU/L (30-200); CREATININE, SERUM 1.34 mg/dL (0.72-1.25); EST GLOMERULAR FILTRATION RATE 53 ML/MIN (60-); GLUCOSE 123 mg/dL (74-118); POTASSIUM 3.7 mmol/L (3.5-5.1); SODIUM 142 mmol/L (136-145)
[2018-07-14 21:23] LABS: ALANINE AMINOTRANSFERASE < 6 IU/L (0-55)
--- NOTE | 2018-07-14 21:38 | Diagnostic Imaging Report ---
CHEST SINGLE (PORTABLE), 07/14/2018 8:46 PM Technique: CHEST SINGLE (PORTABLE) Comparison: 03/13/2018 Clinical history: Shortness of breath Findings: See Impression Impression: Limited by portable technique and motion artifact. 1. Lines/Tubes: Stable right chest wall pacer, median sternotomy wires. 2. Stable markedly enlarged cardiac silhouette. 3. Small right effusion. Minimal bibasilar atelectasis. Signed by: Dr Andreea Connelly MD on 07/14/2018 9:34 PM
[2018-07-14 22:27] LABS: CLARITY,URINE CLEAR (CLEAR); COLOR,URINE YELLOW (YELLOW)
[2018-07-14 22:28] LABS: BILIRUBIN,URINE 1+ (NEGATIVE); KETONES,URINE NEGATIVE (NEGATIVE); LEUKOCYTE ESTERASE ,URINE NEGATIVE (NEGATIVE); NITRITE,URINE NEGATIVE (NEGATIVE); PROTEIN,URINE DIPSTICK 1+ (NEGATIVE); URINE UROBILINOGEN 4 mg/dL (0.2 - 1)
[2018-07-14 22:35] LABS: BACTERIA,URINE FEW /HPF; MUCUS,URINE FEW (RARE); RENAL EPITHELIAL CELLS,URINE FEW; WBC,URINE (MAN) 0-5 /HPF (0-5)
[2018-07-14] MEDS ORDERED: SODIUM CHLORIDE FLUSH 10 ML SYR INJ PRN (22:45)
[2018-07-15] VITALS (18 sets, daily range): BP systolic 92–129; BP diastolic 40–80
[2018-07-15] MEDS ORDERED: ACETAZOLAMIDE250 MG PO (00:37)
[2018-07-15] MEDS ORDERED: CHLORASEPTIC S1 EACH PO (01:03)
[2018-07-15] MEDS ORDERED: SPIRONOLACTONE25 MG PO (01:03)
[2018-07-15] MEDS ORDERED: LEVOTHYROXINE50 MCG PO (01:03)
[2018-07-15] MEDS ORDERED: COLACE100 MG PO (01:03)
[2018-07-15] MEDS ORDERED: SIMETHICONE80 MG PO (01:03)
[2018-07-15] MEDS ORDERED: CARVEDILOL3.125 MG PO (01:03)
[2018-07-15] MEDS ORDERED: IPRAT-ALBUT 0.5-3 ML IH (01:03)
[2018-07-15] MEDS ORDERED: MAGNESIUM400 MG PO (01:03)
[2018-07-15] MEDS ORDERED: TORSEMIDE10 MG PO (01:03)
[2018-07-15] MEDS ORDERED: lidocaine patch 5% (01:03)
[2018-07-15] MEDS ORDERED: POLYETHYLENE GL17 GM PO (01:03)
[2018-07-15] MEDS ORDERED: SENNA LAXATIVE1 EACH PO (01:03)
[2018-07-15 05:10] LABS: BASOPHILS % 0.6 % (0.0-1.0); EOSINOPHILS # (AUTO) 0.2 (0.0-0.4); EOSINOPHILS % 3.6 % (0.0-6.0); HEMATOCRIT 30.3 % (38.2-49.6); HEMOGLOBIN 9.7 g/dL (14.0-18.0); LYMPHOCYTES # (AUTO) 0.9 (1.0-3.2); MEAN CORPUSCULAR HEMOGLOBIN 28.1 pg (28-32); MEAN CORPUSCULAR VOLUME 87.8 fL (81-99); MONOCYTES # (AUTO) 0.9 (0.2-0.8); MONOCYTES % 17.6 % (4.4-11.3); NEUTROPHILS % 59.8 % (38.7-80.0); RED BLOOD COUNT 3.45 x10e6/uL (4.3-5.7)
[2018-07-15 05:38] LABS: ALBUMIN 3.4 g/dL (3.5-5.0); ALKALINE PHOSPHATASE 81 IU/L (40-150); ANION GAP 14.6 mmol/L (8-16); BLOOD UREA NITROGEN 21 mg/dL (7-26); BUN/CREATININE RATIO 16 (6-25); CALCIUM 8.6 mg/dL (8.4-10.2); CARBON DIOXIDE 23 mmol/L (22-29); CHLORIDE 109 mmol/L (98-107); CREATINE KINASE 41 IU/L (30-200); EST GLOMERULAR FILTRATION RATE 55 ML/MIN (60-); GLUCOSE 87 mg/dL (74-118); POTASSIUM 3.6 mmol/L (3.5-5.1); SODIUM 143 mmol/L (136-145)
[2018-07-15 05:39] LABS: ALANINE AMINOTRANSFERASE < 6 IU/L (0-55)
[2018-07-15 06:17] LABS: PLATELET COUNT 95 x10e3/uL (140-360)
[2018-07-15 06:19] LABS: ANISOCYTOSIS SLIG; HYPOCHROMASIA SLIGHT; MICROCYTOSIS SLIGHT; PLATELET ESTIMATE SLIGHTLY DECREASED; PLATELET MORPHOLOGY COMMENT FEW LARGE; POIKILOCYTOSIS SLIGHT; RBC MORPHOLOGY COMMENT NORMAL
[2018-07-15] MEDS ORDERED: SIMETHICONE 80 MG CHEW PO PRN (08:45)
[2018-07-15] MEDS: NYSTATIN 15 GM POWDER UD BTL TOP SCH ×2 (08:48→16:04)
[2018-07-15] MEDS: PANTOPRAZOLE SOD 40 MG TABEC PO SCH (09:00)
[2018-07-15] MEDS ORDERED: FUROSEMIDE INJ 10 MG/ML 2 ML VIAL IV SCH ×3 (09:00→15:00)
[2018-07-15] MEDS ORDERED: TORSEMIDE 10 MG TAB PO SCH (09:00)
[2018-07-15] MEDS ORDERED: ALBUTEROL/IPRATROPIUM 3 ML NEB NEB PRN (09:15)
--- NOTE | 2018-07-15 10:03 | History and Physical ---
CHIEF COMPLAINT: Shortness of breath on BiPAP. HPI: This is a 67-year-old male with history of dementia, AFib, hyperlipidemia, history of CHF, aortic valve replacement and also CKD, who comes in to the ED from the [facility] after found to be short of breath requiring BiPAP support. Patient was seen here at the ED and was found to be in significant anasarca. Patient has a history of CHF with an EF of 20% to 25%. Patient was evaluated at bedside in the IMU, currently on BiPAP. He is short of breath. He does have significant anasarca. He does have an abdominal distention concerning for underlying ascites. There is no report of any history of cirrhosis in the past. Patient was seen and evaluated at bedside on the medical floor, currently on BiPAP with no other issues. Patient is a very poor historian due to his underlying dementia. Information being obtained is from the ED note as well as the [facility] notes. REVIEW OF SYSTEMS: Pertinent positives: Shortness of breath, anasarca. Pertinent negatives: No reports of any chest pain, palpitations, nausea, vomiting, diarrhea, dysuria, hematuria, frequency, urgency, lightheadedness, dizziness, abdominal pain, headache, cough, congestion, fever or any other complaints. The rest of the 14-point review of systems are reviewed with the patient and are negative. ALLERGIES: PENICILLIN, CLARITHROMYCIN. HOME MEDICATIONS 1. Diamox 250 mg p.o. t.i.d. 2. Xanax 0.25 mg daily. 3. Warfarin 4 mg daily. 4. Carvedilol 3.125 mg p.o. b.i.d. 5. Levothyroxine 50 mcg daily. 6. Protonix 40 mg daily. 7. Simethicone 80 mg chewable q.12 h. p.r.n. upset stomach. 8. Aldactone 25 mg daily. 9. Torsemide 10 mg daily. PAST MEDICAL HISTORY: Has history of CHF with an EF of 20% to 25%, systolic dysfunction. Has a history of aortic valve replacement in the past. Also has AFib, hyperlipidemia, history of dementia, history of insomnia, history of CKD stage 3. PAST SURGICAL HISTORY: Aortic valve replacement in the past. FAMILY HISTORY: Hypertension, diabetes. SOCIAL HISTORY: No drugs. No alcohol. He does not smoke. Good social support. He is currently in a [facility]. VITAL SIGNS: Temperature is 97.6. Pulse is 59. Respiratory rate is 19. Blood pressure is 128/61. Pulse ox is 100%, and he is currently on BiPAP 60% FiO2. LAB FINDINGS: White count 5, hemoglobin 9.7, hematocrit is 30, platelets of 95. Coagulation: PT 17, INR 1.3, PTT 33.4. Chemistry: Sodium 143, potassium 3.6, chloride is 109, bicarb 23, anion gap of 14. BUN 21, creatinine 1.3. His GFR is 55. Glucose is 87. Calcium 8.6. Total bilirubin 0.2, AST 13, ALT 6, CK-MB 1.3. BNP 370. Albumin is 3.4. Urinalysis: Leukocyte esterase negative, 0-5 WBCs, negative nitrite. MICROBIOLOGY: None. IMAGING STUDIES: Chest x-ray shows evidence of cardiomegaly and mild right pleural effusion. PHYSICAL EXAMINATION GENERAL: He is alert and oriented times 2. He has dementia and is a very poor historian. He has BiPAP currently. HEENT: Head is normocephalic and atraumatic. Eyes: Pupils are equal, round, and reactive to light bilaterally. The extraocular movements are intact bilaterally. NECK: Supple. Good range of motion. THROAT: No evidence of any erythema or exudates in the posterior pharynx, has poor dentition. PULMONARY: Clear to auscultation bilaterally. No wheezing, no rales, no rhonchi, no crackles appreciated. CARDIOVASCULAR: Positive S1 and S2. No murmurs, rubs or gallops appreciated. ABDOMEN: Soft. Nondistended and nontender to palpation. Bowel sounds present. MUSCULOSKELETAL: Strength is 5/5 throughout. No evidence of muscle deficit on examination. No weakness appreciated. NEUROLOGIC: Cranial nerves II through XII grossly intact. No evidence of any neurological deficit on exam. SKIN: Intact. Warm to touch. Good cap refill. PSYCHIATRIC: Baseline dementia. EXTREMITIES: He has significant anasarca. ASSESSMENT AND PLAN 1. Acute exacerbation of congestive heart failure with history of systolic dysfunction with ejection fraction of 20% to 25%. Will get cardiology consultation, IV diuretics, Aldactone orally. Monitor urine output and chemistry. 2. History of atrial fibrillation. Currently, his rate is controlled but he is not on any warfarin. I am not sure exactly the reasoning, but we will get cardiology consultation. 3. Hyperlipidemia. Continue the same home medications. 4. History of aortic valve replacement. Once again, he is apparently not on any warfarin. I am not sure the reasoning, but we will get cardiology consultation. 5. Acute hypoxemic respiratory distress. Currently, he is on BiPAP, which we are going to try to wean off. Put on DuoNeb. Start on IV diuretic. If no improvement, we will consider getting a pulmonary consultation. 6. Abdominal distention. There is no report of any history of liver cirrhosis, though the ER physician insists that there is. I looked at the [facility] notes. There are no reports of any of that. There is no imaging here to state that he has liver cirrhosis. Will get an abdominal ultrasound to evaluate for ascites and to evaluate for any cirrhosis. If he does have cirrhosis, will get GI consultation. 7. Prophylaxis: Lovenox. 8. Fluids, electrolytes and nutrition: Heart healthy diet. No IV fluids at this time. 9. PT/OT: Evaluate and treat. 10. Disposition: IMU. Cardiology consulted. May need GI consultation once imaging studies are back and also may need pulmonary in order for us to wean him off the BiPAP. Job#: [id number]
[2018-07-15] MEDS: SPIRONOLACTONE 25 MG TAB PO SCH (11:03)
[2018-07-15] MEDS: CARVEDILOL 3.125 MG TAB PO SCH ×2 (11:04→20:45)
--- NOTE | 2018-07-15 11:18 | Consultation ---
DATE OF CONSULTATION: July 15, 2018 CARDIOLOGY CONSULTATION REQUESTING PHYSICIAN: Dr. Lynn. REASON FOR CONSULTATION: Congestive heart failure. HISTORY OF PRESENT ILLNESS: This is a 67-year-old man with history of aortic valve replacement, chronic systolic heart failure status post ICD (reportedly [employer], per patient), atrial fibrillation, hyperlipidemia, chronic kidney disease, and dementia, who presented to the ER from his alf due to shortness of breath. He was placed on BiPAP support and found to have significant edema, for which patient was admitted. Patient is an extremely poor historian due to his underlying dementia, but he denies chest pain or shortness of breath. He does endorse edema and orthopnea, but unable to specify how long these have been ongoing. REVIEW OF SYSTEMS: Negative except as per HPI. PAST MEDICAL HISTORY: 1. Aortic valve replacement. 2. Chronic systolic heart failure with ejection fraction of 20% to 25%, status post ICD implant. 3. Atrial fibrillation. 4. Hyperlipidemia. 5. Chronic kidney disease. 6. Dementia. 7. Hypertension. 8. Coronary artery disease. PAST SURGICAL HISTORY: 1. Aortic valve replacement, reportedly mechanical per prior notes. 2. AICD extraction secondary to MSSA bacteremia, with now right-sided ICD. 3. Inguinal hernia repair. ALLERGIES: PLEASE SEE EMR. MEDICATIONS: Please see medication reconciliation. SOCIAL HISTORY: No tobacco, alcohol, or illicit drugs. He is living in a alf. FAMILY HISTORY: Noncontributory to current illness. PHYSICAL EXAMINATION: VITAL SIGNS: Temperature 97.6 degrees, pulse 59, respiratory rate 19, blood pressure 128/61. Oxygen saturation 100% on BiPAP. GENERAL: Well-developed, well-nourished man. No acute distress. HEENT: Normocephalic, atraumatic. On BiPAP. Pupils equal. No scleral icterus. NECK: Supple. No thyromegaly or cervical lymphadenopathy. No carotid bruits. LUNGS: Clear to auscultation bilaterally. No wheezes or crackles. CARDIOVASCULAR: Normal rate, regular rhythm. A 2/6 systolic murmur was appreciated. ABDOMEN: Soft, nontender, distended. EXTREMITIES: Pitting 1+ edema diffusely. NEUROLOGIC: Nonfocal. LABORATORIES: WBC 5.06, hemoglobin 9.7, hematocrit 30.3, platelets 95. Sodium 143, potassium 3.6, chloride 109, CO2 23, BUN 21, creatinine 1.3. BNP 370. Troponin I 0.037. Chest x-ray: Stable right chest wall pacer. Median sternotomy wire, stable. Markedly enlarged cardiac silhouette. Small right effusion. Minimal bibasilar atelectasis. EKG: Electronic ventricular pacemaker. IMPRESSION: 1. Acute on chronic severe systolic heart failure with poor ejection fraction of 20% to 25%. 2. Status post aortic valve replacement. 3. Atrial fibrillation. 4. Coronary artery disease. 5. Hypertension. 6. Hyperlipidemia. 7. Anasarca. 8. Chronic kidney disease. RECOMMENDATIONS: Agree with diuretics. Monitor response. Repeat echocardiogram to evaluate LV function and status of prosthetic valve. It is unclear if patient had a mitral or aortic valve replacement, as there is discrepancy in the records. Attempt to evaluate with echocardiogram. Patient was not on warfarin on admission. Unclear if patient's prosthetic valve is mechanical. We will attempt to obtain records. Interrogate patient's ICD. Monitor patient on telemetry. Continue home cardiac medications. Thank you for this consult. We will continue to follow. Job#: [id number] PR
[2018-07-15] MEDS ORDERED: HEPARIN SOD (PORCINE) 5,000 UNIT/ML VIAL IV ONE (11:25)
[2018-07-15] MEDS ORDERED: HEPARIN 25,000U/0.45% NS 250ML 900 UNIT in SODIUM CHLORIDE 0.9% 250ML 0 ML IV SCH (11:30)
[2018-07-15] MEDS ORDERED: FUROSEMIDE INJ 100 MG in SODIUM CHLORIDE 0.9% 100 ML 90 ML IV SCH (14:45)
[2018-07-15] MEDS ORDERED: ALBUMIN 25% 25GM 0.25 GM/ML BTL IV ONE ×2 (16:15→16:30)
[2018-07-15] MEDS ORDERED: ENOXAPARIN SOD INJ 40 MG/0.4 ML SYR SC SCH (17:00)
[2018-07-15 18:12] LABS: INR 1.43; PROTHROMBIN TIME 18.6 seconds (11.9-14.5)
[2018-07-16] VITALS (8 sets, daily range): BP systolic 107–123; BP diastolic 52–68
[2018-07-16 06:43] LABS: BASOPHILS % 0.6 % (0.0-1.0); EOSINOPHILS # (AUTO) 0.1 (0.0-0.4); HEMATOCRIT 31.6 % (38.2-49.6); HEMOGLOBIN 9.9 g/dL (14.0-18.0); LYMPHOCYTES # (AUTO) 0.8 (1.0-3.2); LYMPHOCYTES % 17.2 % (18.0-39.1); MEAN CORPUSCULAR HEMOGLOBIN 27.9 pg (28-32); MEAN CORPUSCULAR HGB CONC 31.3 g/dL (31-35); MONOCYTES # (AUTO) 0.8 (0.2-0.8); MONOCYTES % 17.4 % (4.4-11.3); NEUTROPHILS # (AUTO) 2.9 (2.1-6.9); NEUTROPHILS % 61.6 % (38.7-80.0); PLATELET COUNT 87 x10e3/uL (140-360); RED BLOOD COUNT 3.55 x10e6/uL (4.3-5.7); RED CELL DISTRIBUTION WIDTH 17.8 % (11.7-14.4)
[2018-07-16] MEDS: LEVOTHYROXINE SODIUM 50 MCG TAB PO SCH (07:02)
[2018-07-16 07:03] LABS: ANION GAP 13.5 mmol/L (8-16); BLOOD UREA NITROGEN 17 mg/dL (7-26); BUN/CREATININE RATIO 14 (6-25); CALCIUM 8.3 mg/dL (8.4-10.2); CARBON DIOXIDE 22 mmol/L (22-29); CHLORIDE 108 mmol/L (98-107); CREATININE, SERUM 1.18 mg/dL (0.72-1.25); EST GLOMERULAR FILTRATION RATE > 60 ML/MIN (60-); GLUCOSE 88 mg/dL (74-118); POTASSIUM 3.5 mmol/L (3.5-5.1); SODIUM 140 mmol/L (136-145)
[2018-07-16] MEDS: PANTOPRAZOLE SOD 40 MG TABEC PO SCH (08:30)
[2018-07-16] MEDS: CARVEDILOL 3.125 MG TAB PO SCH ×2 (08:48→20:32)
[2018-07-16] MEDS: SPIRONOLACTONE 25 MG TAB PO SCH (08:48)
[2018-07-16] MEDS: NYSTATIN 15 GM POWDER UD BTL TOP SCH ×2 (08:49→17:27)
[2018-07-16] MEDS ORDERED: HYDROCODONE/APAP 5MG-325MG TAB PO PRN (09:00)
--- NOTE | 2018-07-16 09:39 | Diagnostic Imaging Report ---
EXAMINATION: Abdominal ultrasound. CLINICAL INDICATION: Ascites, cirrhosis COMPARISON: None DISCUSSION: Transverse and longitudinal images of the upper abdomen were obtained. The liver is normal in size measuring 16.9 centimeters in length in the right midclavicular line and shows heterogeneous echogenicity and nodular contour. No focal masses are seen in the liver. There is no intrahepatic biliary dilatation. The common bile duct is not well visualized. The main portal vein is normal in caliber and measures 1.1 cm with normal hepatopetal flow. The gallbladder is not well visualized. The visualized portions of the pancreatic body are unremarkable. The spleen is normal in echogenicity and size measuring 12.7 centimeters in length. The right kidney measures 9.8 centimeters in length and the left kidney measures 9.1 centimeters. There is normal renal cortical echogenicity and no hydronephrosis, solid mass or shadowing calculi. Simple cyst 2 cm mid kidney and 2.8 cm inferior kidney. The visualized portions of the great vessels are normal. Ascites within the abdomen and pelvis most prominent in the right upper quadrant. IMPRESSION: Cirrhotic liver morphology. Gallbladder not visualized. Large volume ascites throughout the abdomen. Signed by: Dr. Vimal Vargas M.D. on 07/16/2018 9:37 AM
[2018-07-16] MEDS: MORPHINE SULFATE INJ 4 MG/ML INJ IV PRN (10:21)
[2018-07-16] MEDS: FUROSEMIDE INJ 10 MG/ML 4 ML VIAL IV SCH ×3 (10:21→17:27)
--- NOTE | 2018-07-16 10:52 | Progress Note ---
DATE: July 16, 2018 INTERNAL MEDICINE PROGRESS NOTE SUBJECTIVE: Patient is doing much better now. He is awake, alert, and he is oriented. He is sitting in a lazy boy. He does have a Esparza, is kind of more darkish color, concerning for underlying hematuria. He is making good urine output though. He had approximately 8 liters paracentesis performed yesterday removed. He is now off of BiPAP, currently only on nasal cannula approximately 2 to 3 liters. OBJECTIVE/PHYSICAL EXAMINATION: VITAL SIGNS: Temperature is 97.9, pulse 60, respiratory rate is 16, blood pressure 117/54. He is on 99% three liters nasal cannula. Urine output reported 1 liter in 24 hours. Paracentesis fluid 8 liters removed. GENERAL: Not in acute distress, alert and oriented x3, cooperative on examination, on nasal cannula. HEENT: Head: Normocephalic, atraumatic. Eyes: Pupils equal, round, and reactive to light bilaterally. Extraocular movements intact bilaterally. Throat: No evidence of any erythema or exudates in the posterior pharynx. Has poor dentition. NECK: Supple with good range of motion. PULMONARY: Clear to auscultation bilaterally. No wheezing, no rales, no rhonchi, no crackles appreciated. CARDIOVASCULAR: Positive S1 and S2. No murmurs, rubs, or gallops appreciated. ABDOMEN: Soft, nondistended, nontender to palpation. Bowel sounds present. MUSCULOSKELETAL: Strength is 5/5 throughout. No evidence of any musculoskeletal deficit on examination. No weakness appreciated. NEUROLOGICAL: Cranial nerves II through XII are grossly intact. No evidence of any neurological deficits on exam. SKIN: Intact. Warm to touch. Good cap refill. PSYCHIATRIC: Normal affect and mood. EXTREMITIES: He does have 1+ to 2+ pedal edema. Good range of motion throughout. LAB FINDINGS: Showed white count 4.7, hemoglobin 9.9, hematocrit 32, platelets of 87,000. Coagulation: He is currently on a heparin drip. Chemistry: Sodium 140, potassium 3.5, chloride 108, bicarb 22, anion gap of 13, BUN 17, creatinine is 1.1, calcium is 8.3. Troponins were negative. Urinalysis none. LDH fluid was found to be 100. MICROBIOLOGY: Gram stain of ascites fluid shows no growth. IMAGING STUDIES: Abdominal ultrasound pending. ASSESSMENT AND PLAN: 1. Acute exacerbation of congestive heart failure with history of systolic dysfunction, ejection fraction of 20% to 25%--cardiology consulted, Lasix 40 mg intravenously q.6. x6 doses, daily Aldactone, currently on heparin drip. Will follow with cardiology recommendations. 2. History of atrial fibrillation--currently on heparin drip, cardiology following, rate is controlled. 3. Hyperlipidemia. Continue with same home medications. 4. History of aortic valve replacement--cardiology consulted and currently on heparin drip. 5. Acute hypoxemic respiratory distress--he is off of bilevel positive airway pressure, on 3 liters nasal cannula, continue with intravenous Lasix. If no improvement, will consider get a pulmonary consultation. 6. Abdominal distention, concerning for underlying cirrhosis--abdominal ultrasound is pending, gastroenterology consulted, 8 liters paracentesis removed on July 15, 2018. His blood pressure is stable. His ascites cultures are negative. There is no evidence of spontaneous bacterial peritonitis. 7. Questionable hematuria--we are going to do a flushing the Esparza. I discussed this with the nurse. If this is hematuria, will need to consider stopping the heparin drip and get a urology consultation. His hemoglobin is stable though, so will continue to monitor very closely. 8. Prophylaxis. Heparin drip. 9. Fluids, electrolytes, nutrients--heart healthy diet. No need for intravenous fluids. 10. Physical therapy, occupational therapy evaluation. 11. Disposition. Intermediate medicine unit--cardiology and gastroenterology consulted. He is currently breathing much better. DISCHARGE PLANNING: Patient will likely be here for several more days. He is still requiring some oxygen requirement. I did consult with cardiology and GI. He may need urology consultation if the patient continues to have this questionable hematuria. Job#: [id number]
--- NOTE | 2018-07-16 11:49 | Progress Note ---
DATE: July 16, 2018 CARDIOLOGY PROGRESS NOTE SUBJECTIVE: No major events overnight. Had paracentesis done yesterday. OBJECTIVE VITAL SIGNS: Temperature 97.9, pulse 60, respiratory rate 16, blood pressure 117/54, satting 100% on 3 L nasal cannula. GENERAL: Ill-appearing, thin white man in mild distress. CARDIOVASCULAR: Normal rate and rhythm. Difficult exam. No mechanical heart sounds. There is a 1/6 diastolic murmur heard at the right upper sternal border. Palpable carotid pulses. Palpable radial pulses. LUNGS: Clear to auscultation anteriorly. No wheezes or crackles. ABDOMEN: Soft. Mild diffuse tenderness. Very distended with shifting dullness. EXTREMITIES: Diffuse 1+ anasarca. NEUROLOGIC: The patient is confused. A and O times 2. LABORATORY DATA: Reviewed. IMAGING DATA: Reviewed. TELEMETRY DATA: Reviewed. Shows paced rhythm. ECHOCARDIOGRAM: Reviewed. Very abnormal heart. He has massively enlarged left atrium measuring more than 9 cm. Has a bioprosthetic mitral valve, small LV cavity with EF around 40% with moderate to severe aortic insufficiency. Also has significant right atrial enlargement. ASSESSMENT AND PLAN 1. Chronic systolic and diastolic heart failure. 2. Status post mitral valve replacement, bioprosthetic-appearing by echocardiogram. 3. Atrial fibrillation. 4. Coronary artery disease. 5. Hypertension. 6. Hyperlipidemia. 7. Anasarca. 8. Chronic kidney disease. RECOMMENDATIONS: The patient continues to bleed from his paracentesis site. He was started on heparin as it was unclear whether he had a mechanical valve or not. At this point, it is okay to stop the heparin given that the patient has a bioprosthetic valve by echocardiogram. Continue diuresis as tolerated. ICD interrogation is still pending. On telemetry, has a paced rhythm. Will try to obtain records from his primary rn lactation, Dr. Mattson. Thank you for this consult. Will continue to follow. Job#: [id number]
--- NOTE | 2018-07-16 14:06 | Consultation ---
DATE OF CONSULTATION: GASTROENTEROLOGY CONSULTATION REFERRING PHYSICIAN: Dr. Lynn REASON FOR CONSULTATION: Cirrhosis. HISTORY OF PRESENT ILLNESS: Mr. Gonzalez is a very pleasant, 67-year-old man with considerable past medical history, here with abdominal distention. He had shortness of breath, requiring BiPAP initially. He was found to have significant ascites as well as anasarca. He is now status post 8-liter paracentesis with albumin given. He has a significant cardiac history. He was told in 2016 when he had the pacemaker defibrillator that his medications had caused damage to his liver. Since then, he has been aware of a diagnosis of liver disease. It does not seem he has been following regularly with any leather leveler or internal communications manager. He thought at that time he had an evaluation, and what they came up with was just that it was related to medications. He has not had any upper GI bleeding or history of varices. His does not appear to have a history of encephalopathy. He does have significant overload. He is not currently short of breath, although he does have pain at the right lower quadrant where he had the paracentesis done. He is also having hematuria, and heparin has been stopped. He has had some oozing on the paracentesis dressing. Full fluid studies of the ascitic fluid are pending. Ultrasound shows a nodular liver contour concerning for cirrhosis. PAST MEDICAL HISTORY 1. CHF with EF of 20%. 2. Aortic valve replacement, bioprosthetic. 3. Atrial fibrillation. 4. Dyslipidemia. 5. Dementia. 6. Insomnia. 7. Chronic kidney disease. 8. Per his report, chronic liver disease may be related to medications. MEDICATIONS AND ALLERGIES: REVIEWED. PLEASE SEE MAR MEDICATION RECONCILIATION FORM. SOCIAL HISTORY: No tobacco history ever. No illicit substances. Does not smoke. Has good social support. FAMILY HISTORY: Negative for any liver disease. REVIEW OF SYSTEMS: Twelve-system review is positive for that mentioned in HPI, otherwise unremarkable. PHYSICAL EXAMINATION GENERAL: He is alert and pleasant, in no acute distress. HEENT: Pupils are equal, round and react to light. NECK: Supple. LUNGS: Decreased at the bases. CARDIOVASCULAR: S1 and S2. He has a right upper chest device. ABDOMEN: Soft with still significant ascites. , otherwise normal bowel sounds. He has a clean dressing applied to the right lower quadrant of his abdomen, and it is tender around the area to deep palpation. He has subcutaneous edema as well. EXTREMITIES: He has woody lower extremity edema bilaterally. PSYCH: Calm, cooperative. NEUROLOGIC: Alert, oriented. HEM-ONC: A little bit of discoloration or bruising at the right lower quadrant and IV site. SKIN: There is no rash. The electronic health record was reviewed for laboratory and radiologic studies as well as history. ASSESSMENT AND PLAN: Based on imaging and labs as well as physical examination, it does seem he has cirrhosis. He apparently carries a history of liver disease for a couple of years. He has been told in the past it might be related to medications. However, I suspect cardiac cirrhosis is more likely. At the current time, we will add on some labs to assist in evaluation. We will need a serum albumin ascites gradient. Will also check cell count, diff and culture. We will check an AFP and basic hepatitis panel. He was instructed not to consume shellfish, and we will try to avoid hepatotoxic medications. Thank you very much for asking me to see Mr. Gonzalez. Any questions or concerns, please do not hesitate to contact me. I will follow along with you. Job#: [id number]
[2018-07-16 15:28] LABS: BODY FLUID COLOR RED; BODY FLUID TYPE PERITONEAL
[2018-07-16 15:29] LABS: BODY FLUID APPEARANCE CLOUDY
[2018-07-16 15:31] LABS: WBC,BODY FLUID 110 cells/uL
[2018-07-16 15:35] LABS: RBC,BODY FLUID 4712400 cells/uL
--- NOTE | 2018-07-16 17:06 | Diagnostic Imaging Report ---
EXAMINATION: CT of the abdomen and pelvis without contrast. TECHNIQUE: Helical CT images of the abdomen and pelvis were performed from the lung bases to the lesser trochanters. No intravenous contrast was given. Coronal and sagittal reformatted images were obtained. COMPARISON: None. CLINICAL HISTORY:Abdominal pain DISCUSSION: ABSENCE OF INTRAVENOUS CONTRAST DECREASES SENSITIVITY FOR DETECTION OF FOCAL LESIONS AND VASCULAR PATHOLOGY. ABDOMEN/PELVIS: LOWER THORAX: Severe cardiomegaly with coronary artery calcifications. Partially visualized cardiac leads. Bilateral effusions. HEPATOBILIARY:Cirrhotic liver morphology with nodular contour and enlarged left lobe and caudate. Gallbladder decompressed. SPLEEN: No splenomegaly. PANCREAS: No focal masses or ductal dilatation. ADRENALS: No adrenal nodules. KIDNEYS/URETERS: Right renal cysts including a hyperdense cyst measuring 1.6 cm and a simple cyst measuring 2 cm. Left renal cysts simple measuring 1.3 cm. No hydronephrosis. PELVIC ORGANS/BLADDER: Esparza catheter within the decompressed bladder. PERITONEUM/RETROPERITONEUM: No free air or fluid. LYMPH NODES: No intra-abdominal,retroperitoneal, pelvic or inguinal lymphadenopathy. VESSELS: Vascular calcifications. GI TRACT: No distention or wall thickening. BONES AND SOFT TISSUES: Asymmetric edema and fluid involving the right lateral abdomen/pelvis subcutaneous tissues. IMPRESSION: Bilateral effusions and abdominal ascites, decreased from ultrasound. Extensive fluid and edema along the right lateral abdominal wall and subcutaneous tissues. Signed by: Dr. Vimal Vargas M.D. on 07/16/2018 5:04 PM
[2018-07-16 17:15] LABS: LYMPHOCYTES,BODY FLUID 21 %; MONO/MACROPHG,BODY FLUID 73 %; NEUTROPHILS,BODY FLUID 6 %
[2018-07-16 18:30] LABS: HEMATOCRIT 32.2 % (38.2-49.6); HEMOGLOBIN 10.1 g/dL (14.0-18.0)
[2018-07-16] MEDS: ACETAMINOPHEN 325 MG TAB PO PRN (22:53)
[2018-07-17] VITALS (8 sets, daily range): BP systolic 93–114; BP diastolic 49–67
[2018-07-17 04:59] LABS: BASOPHILS % 0.5 % (0.0-1.0); EOSINOPHILS # (AUTO) 0.2 (0.0-0.4); EOSINOPHILS % 3.5 % (0.0-6.0); HEMATOCRIT 32.2 % (38.2-49.6); HEMOGLOBIN 10.2 g/dL (14.0-18.0); LYMPHOCYTES # (AUTO) 0.7 (1.0-3.2); LYMPHOCYTES % 16.5 % (18.0-39.1); MEAN CORPUSCULAR HGB CONC 31.7 g/dL (31-35); MEAN CORPUSCULAR VOLUME 88.5 fL (81-99); MONOCYTES # (AUTO) 0.6 (0.2-0.8); MONOCYTES % 14.9 % (4.4-11.3); NEUTROPHILS # (AUTO) 2.8 (2.1-6.9); NEUTROPHILS % 64.4 % (38.7-80.0); PLATELET COUNT 77 x10e3/uL (140-360); RED BLOOD COUNT 3.64 x10e6/uL (4.3-5.7); RED CELL DISTRIBUTION WIDTH 17.5 % (11.7-14.4)
[2018-07-17 05:15] LABS: INR 1.28; PROTHROMBIN TIME 17.1 seconds (11.9-14.5)
[2018-07-17 05:16] LABS: PARTIAL THROMBOPLASTIN TIME 34.3 seconds (23.8-35.5)
[2018-07-17 05:27] LABS: ANION GAP 12.3 mmol/L (8-16); BLOOD UREA NITROGEN 15 mg/dL (7-26); BUN/CREATININE RATIO 13 (6-25); CARBON DIOXIDE 24 mmol/L (22-29); CHLORIDE 106 mmol/L (98-107); CREATININE, SERUM 1.13 mg/dL (0.72-1.25); EST GLOMERULAR FILTRATION RATE > 60 ML/MIN (60-); GLUCOSE 95 mg/dL (74-118); POTASSIUM 3.3 mmol/L (3.5-5.1); SODIUM 139 mmol/L (136-145)
[2018-07-17] MEDS: FUROSEMIDE INJ 10 MG/ML 4 ML VIAL IV SCH ×2 (05:53)
[2018-07-17] MEDS: LEVOTHYROXINE SODIUM 50 MCG TAB PO SCH (05:54)
--- NOTE | 2018-07-17 06:46 | Diagnostic Imaging Report ---
CHEST SINGLE (PORTABLE), 07/17/2018 7:00 AM Technique: CHEST SINGLE (PORTABLE) Comparison: 07/14/2018 Clinical history: Shortness of breath Findings: See Impression Impression: 1. Lines/Tubes: Stable right chest wall ICD, median sternotomy wires. 2. Stable markedly enlarged cardiac silhouette. 3. Increased diffuse opacities, favor layering right greater than left pleural effusions with associated atelectasis and/or edema. Signed by: Dr Andreea Connelly MD on 07/17/2018 6:41 AM
[2018-07-17] MEDS: PANTOPRAZOLE SOD 40 MG TABEC PO SCH (08:31)
[2018-07-17] MEDS: NYSTATIN 15 GM POWDER UD BTL TOP SCH ×2 (08:31→16:56)
[2018-07-17] MEDS: SPIRONOLACTONE 25 MG TAB PO SCH (08:36)
[2018-07-17] MEDS: CARVEDILOL 3.125 MG TAB PO SCH ×2 (08:37→20:45)
[2018-07-17] MEDS ORDERED: POTASSIUM CHLORIDE 20 MEQ TAB CR PO NR ×2 (09:00→16:00)
--- NOTE | 2018-07-17 09:49 | Progress Note ---
DATE: July 17, 2018 SUBJECTIVE: Patient is doing well, sitting in a chair, breathing well with no complaints. His Vital signs were stable when I evaluated him. He did have some hematuria in the Esparza; but in looking at his hemoglobin, it maintains stable. I am not sure if he had just a small amount of clots that were in his bladder, now currently clearing up. Heparin drip was stopped by GI yesterday as well as cardiology. OBJECTIVE VITAL SIGNS: Temperature is 97.4, pulse 60, respiratory rate 24, blood pressure 114/50. Pulse ox is 100%, and he is on room air now. No nasal cannula. LAB FINDINGS: White count 4.3, hemoglobin 10.2, hematocrit 32, platelets 77. Coagulation: PT 17, INR 1.2, PTT 34. Chemistry: Sodium 139, potassium 3.3, chloride 106, bicarb 24, anion gap 12, BUN 15, creatinine 1.1, calcium 8. Urinalysis: None. Paracentesis fluid was kind of red and cloudy but had a significant amount of RBCs in it. Neutrophils were 6. Hepatitis panel is pending. MICROBIOLOGY: Gram stain: No organisms. No growth. IMAGING: Chest x-ray on 07/17/2018 shows evidence of pulmonary edema. PHYSICAL EXAMINATION GENERAL: Not in acute distress, alert and oriented x3, cooperative on examination. HEENT: Head: Normocephalic, atraumatic. Eyes: Pupils are equal, round, and reactive to light bilaterally. Extraocular movements are intact bilaterally. NECK: Supple with good range of motion. THROAT: No evidence of any erythema or exudates in the posterior pharynx, has poor dentition. PULMONARY: Clear to auscultation bilaterally. No wheezing, no rales, no rhonchi, no crackles appreciated. CARDIOVASCULAR: Positive S1 and S2. No murmurs, rubs, or gallops appreciated. ABDOMEN: Soft, nondistended, nontender to palpation. Bowel sounds are present. MUSCULOSKELETAL: Strength is 5/5 throughout. No evidence of any muscle deficit on examination. No weakness appreciated. NEUROLOGICAL: Cranial nerves II through XII are grossly intact. No evidence of any neurological deficits on exam. SKIN: Intact. Warm to touch. Good cap refill. PSYCHIATRIC: Normal affect and mood. EXTREMITIES: No edema. Good range of motion throughout. ASSESSMENT AND PLAN 1. Acute exacerbation of congestive heart failure with systolic dysfunction: Unknown type of aortic valve. Cardiology is requesting records from the primary transitions rn care coordinator. They feel like it is bioprosthetic. Heparin drip was stopped due to the hematuria. We are going to continue to follow cardiology's recommendations. We are going to put him on Lasix drip 10 mg per hour as the chest x-ray shows pulmonary edema. 2. History of atrial fibrillation: Heparin drip was stopped due to hematuria. Rate is controlled. Cardiology is following. 3. Hyperlipidemia: Continue with same home medications. 4. History of aortic valve: Seems to be bioprosthetic. Per cardiology, they are trying to get the records form the primary transitions rn care coordinator. Heparin drip was held due to hematuria. 5. History of hypoxemic respiratory distress: Chest x-ray shows evidence of pulmonary edema, but now the patient is on room air and breathing well. We will put him on a Lasix drip at 10 mg per hour for diuresing and get chest x-ray in the morning. 6. Abdominal distention, status post paracentesis: Eight liters were removed via paracentesis on July 15, 2018. GI is following. Cultures have been negative. Acute hepatitis panel is pending. 7. Hematuria: His hemoglobin has maintained stable. He may have just developed small amounts of clots. Heparin drip was stopped. His urine is now clearing up. I am going to discuss with cardiology the need of anticoagulation upon discharge. 8. Prophylaxis: Hold anticoagulation due to hematuria. 9. Fluids, electrolytes, nutrients: Heart healthy diet. Encourage oral hydration. 10. Physical therapy/occupational therapy: Evaluate and treat. 11. Disposition: IMU. Cardiology and GI consulted. 12. Discharge planning: I need to discuss with cardiology about anticoagulation therapy, if the patient needs it in relation to his AFib or his aortic valve or both. This is the determining factor in order for the patient to be discharged. At this time, I do not know the answer. I will discuss this with cardiology once the primary transitions rn care coordinator is available tomorrow. Otherwise, his labs have been very stable. I did put in a case management consult in terms of the patient going back to the shelter versus correction. Job#: [id number]
[2018-07-17] MEDS: FUROSEMIDE INJ 100 MG in SODIUM CHLORIDE 0.9% 100 ML 90 ML IV SCH ×2 (10:46→20:47)
[2018-07-17] MEDS: MORPHINE SULFATE INJ 4 MG/ML INJ IV PRN ×2 (11:16→23:12)
--- NOTE | 2018-07-17 18:12 | Progress Note ---
DATE: July 17, 2018 CARDIOLOGY PROGRESS NOTE SUBJECTIVE: No major events. Continues to have drainage from his abdominal paracentesis site. Confused and lethargic. OBJECTIVE VITAL SIGNS: Temperature 97.7, heart rate 65, respiratory rate 20, blood pressure 103/67, satting 100% on 3 L nasal cannula. GENERAL: Ill-appearing, thin, cachectic white man, in mild distress. CARDIOVASCULAR: Normal rate and rhythm. Difficult exam. A 1/6 diastolic murmur heard at the right upper sternal border. A 3/6 systolic murmur heard throughout the precordium. Palpable carotid pulses. Palpable radial pulses. LUNGS: Clear to auscultation anteriorly. No wheezes or crackles. ABDOMEN: Soft, very distended with shifting dullness. Mild diffuse tenderness with some guarding, but no rebound. EXTREMITIES: Diffuse 2+ anasarca. NEUROLOGIC: Patient is confused, A and O x2. LABORATORY DATA: Reviewed. IMAGING DATA: Reviewed. TELEMETRY DATA: Reviewed, shows paced rhythm. ASSESSMENT AND PLAN 1. Chronic systolic and diastolic heart failure. 2. Status post mitral valve replacement, bioprosthetic mitral valve. 3. Status post aortic valve replacement, bioprosthetic aortic valve with [id number] perivalvular regurgitation. 4. Atrial fibrillation with massive biatrial dilation. 5. Coronary artery disease. 6. Hypertension. 7. Hyperlipidemia. 8. Anasarca. 9. Ascites. 10. Severe tricuspid regurgitation. 11. Chronic kidney disease. 12. Altered mental status. RECOMMENDATIONS: Agree with IV Lasix drip. We will attempt diuresis. He may need more paracentesis to remove more fluid from his belly. Overall, patient has multiple comorbidities including multiple cardiovascular issues as described above. Overall, his prognosis is poor given multiple comorbidities and cardiac issues that are not amenable to medical therapy given his [id number] AI and severe TR with massive biatrial dilation with resulting RV failure and volume overload. Will continue to follow; however, overall prognosis is very poor. Thank you for this consult. Job#: [id number] PRANAV
[2018-07-17] MEDS ORDERED: FUROSEMIDE INJ 10 MG/ML 10 ML VIAL ONE (19:36)
[2018-07-18] VITALS: BP 109/60
[2018-07-18] MEDS: ONDANSETRON HCL INJ 2 MG/ML VIAL IV PRN (00:40)
[2018-07-18] MEDS: LEVOTHYROXINE SODIUM 50 MCG TAB PO SCH (05:17)
[2018-07-18] MEDS: ACETAMINOPHEN 325 MG TAB PO PRN (05:17)
[2018-07-18 05:49] LABS: BASOPHILS % 0.3 % (0.0-1.0); EOSINOPHILS # (AUTO) 0.2 (0.0-0.4); EOSINOPHILS % 2.8 % (0.0-6.0); HEMATOCRIT 32.9 % (38.2-49.6); HEMOGLOBIN 10.4 g/dL (14.0-18.0); LYMPHOCYTES # (AUTO) 0.8 (1.0-3.2); LYMPHOCYTES % 13.6 % (18.0-39.1); MEAN CORPUSCULAR HEMOGLOBIN 28.3 pg (28-32); MEAN CORPUSCULAR HGB CONC 31.6 g/dL (31-35); MEAN CORPUSCULAR VOLUME 89.6 fL (81-99); MONOCYTES # (AUTO) 0.9 (0.2-0.8); MONOCYTES % 15.6 % (4.4-11.3); NEUTROPHILS # (AUTO) 4.1 (2.1-6.9); NEUTROPHILS % 67.5 % (38.7-80.0); PLATELET COUNT 86 x10e3/uL (140-360); RED BLOOD COUNT 3.67 x10e6/uL (4.3-5.7); RED CELL DISTRIBUTION WIDTH 17.4 % (11.7-14.4)
--- NOTE | 2018-07-18 06:47 | Diagnostic Imaging Report ---
EXAM: CHEST SINGLE (PORTABLE), AP 1 view INDICATION: Pulmonary edema COMPARISON: AP view of the chest July 17, 2018 FINDINGS: LINES/TUBES: Stable position of right approach single lead cardiac device. LUNGS: Stable vascular congestion and bibasilar atelectasis PLEURA: Small bilateral pleural effusions. HEART AND MEDIASTINUM: Severe cardiomegaly. Stable median sternotomy wires. Loop recorder projects over the left lower chest. BONES AND SOFT TISSUES: No acute findings. IMPRESSION: No interval change. Signed by: Dr. Rica Spencer M.D. on 07/18/2018 6:42 AM
[2018-07-18] MEDS: FUROSEMIDE INJ 100 MG in SODIUM CHLORIDE 0.9% 100 ML 90 ML IV SCH (06:52)
[2018-07-18 07:45] VITALS: BP 108/51
[2018-07-18 08:37] LABS: ANION GAP 12.8 mmol/L (8-16); BLOOD UREA NITROGEN 12 mg/dL (7-26); BUN/CREATININE RATIO 11 (6-25); CALCIUM 8.1 mg/dL (8.4-10.2); CARBON DIOXIDE 27 mmol/L (22-29); CHLORIDE 101 mmol/L (98-107); CREATININE, SERUM 1.13 mg/dL (0.72-1.25); EST GLOMERULAR FILTRATION RATE > 60 ML/MIN (60-); GLUCOSE 109 mg/dL (74-118); POTASSIUM 3.8 mmol/L (3.5-5.1); SODIUM 137 mmol/L (136-145)
[2018-07-18] MEDS: CARVEDILOL 3.125 MG TAB PO SCH ×2 (08:45→20:26)
[2018-07-18] MEDS: NYSTATIN 15 GM POWDER UD BTL TOP SCH ×2 (09:00→20:27)
--- NOTE | 2018-07-18 09:37 | Progress Note ---
DATE: July 18, 2018 SUBJECTIVE: The patient is doing much better today. He is breathing well. Urine output has been recorded at 2.6 L. He is on Lasix drip 15 mg per hour. Discussed with cardiology at this time. It seems like he has a bioprosthetic valve and no need for anticoagulation at this time. His urine is still very jayla in color, but his hemoglobin is stable. PHYSICAL EXAMINATION VITAL SIGNS: Temperature is 98.4, pulse 59, respiratory rate 18, blood pressure 109/60, pulse ox 94%. He was on room air when I evaluated him. GENERAL: Not in acute distress. Alert and oriented times 3. Cooperative on examination. HEENT: Head is normocephalic and atraumatic. Eyes: Pupils equal, round and reactive to light bilaterally. Extraocular movements intact bilaterally. NECK: Supple. Good range of motion. Throat with no evidence of any erythema or exudates in the posterior pharynx. Has poor dentition. PULMONARY: Clear to auscultation bilaterally. No wheezing. No rales. No rhonchi. No crackles appreciated. CARDIOVASCULAR: Positive S1 and S2. No murmurs, rubs or gallops appreciated. ABDOMEN: Soft, nondistended and nontender to palpation. Bowel sounds present. MUSCULOSKELETAL: Strength is 5/5 throughout. No evidence of any muscle deficit on examination. No weakness appreciated. NEUROLOGICAL: Cranial nerves II-XII are grossly intact. No evidence of any neurological deficits on exam. SKIN: Intact. Warm to touch. Good cap refill. PSYCHIATRIC: Normal affect and mood. EXTREMITIES: He has 1+ pedal edema of bilateral lower extremities. Good range of motion throughout. LAB FINDINGS: Shows sodium 137, potassium 3.8, chloride 101, bicarb 27, anion gap of 12.8, BUN is 12, creatinine is 1.1, and glucose 109. Calcium 8.1. Alpha fetoprotein level is pending. White count 6, hemoglobin 10.4, hematocrit 33, and platelets of 86,000. Coagulation: PT 17, INR 1.28 and PTT 34.3. Hepatitis panel is pending. MICROBIOLOGY: None. IMAGING STUDIES: Chest x-ray from this morning shows no interval change. There is evidence of pulmonary edema. ASSESSMENT AND PLAN 1. Acute exacerbation of congestive heart failure with systolic dysfunction: I discussed this case with cardiology. They feel like this patient likely as a bioprosthetic valve. At this time, there is probably no indication for any kind of heparin or any anticoagulation. Heparin drip was stopped due to hematuria over the weekend. His hemoglobin has maintained stable. At this time per cardiology, just recommend just aspirin and hold anticoagulation for now. We are going to continue with the Lasix drip as well. Chest x-ray shows no change. We are going to get a.m. labs and repeat chest x-ray in the morning. 2. History of atrial fibrillation: Currently, he is not in atrial fibrillation, but the rate is controlled. We stopped heparin drip due to concerns of hematuria. Cardiology is following. At this time, would just recommend just aspirin. 3. Hyperlipidemia: Continue same home medications. 4. History of aortic valve plus also mitral valve: Per cardiology, it seems to be bioprosthetic. No indication right now at this time for any anticoagulation. At this time, will continue to monitor off of anticoagulation, and he will likely be discharged without any kind of anticoagulation per cardiology. 5. History of hypoxemic respiratory failure secondary to pulmonary edema: Chest x-ray shows the same, but he is currently on room air. We are going to continue to monitor off of oxygen right now. 6. Abdominal distention: Status post paracentesis. Eight liters of fluid removed from paracentesis on July 15, 2018. We are still waiting for acute hepatitis panel. His cultures have been negative. 7. Hematuria: His hemoglobin is stable. It seems to have cleared up a bit, but we are going to monitor it closely. He is off heparin drip for now. If he continues to have more evidence of hematuria, we are going to get a urology consultation to evaluate further. At this time per cardiology, the patient does not need anticoagulation. 8. Prophylaxis: Hold anticoagulation due to hematuria. 9. Fluids, electrolytes and nutrients: Heart-healthy diet. Encourage oral hydration. 10. Physical therapy/occupational therapy eval and treat. 11. Case management: They have been consulted. snf facility placement versus long-term to care home. 12. Disposition: IMU. Cardiology and gastroenterology consulted. 13. Discharge planning: Per cardiology, the patient does not need any anticoagulation at this time. It is felt that the patient has a bioprosthetic valve. Also, because of his is questionable hematuria, we are going to hold anticoagulation even though he may had a history of atrial fibrillation. He will be discharged on oral aspirin. In relation to gastroenterology, he seems to have been cleared though there are still labs pending. Right now what is pending is placement, and either he goes to [facility] versus care home. If he continues to have hematuria, we are going to get a urology consultation, which I discussed with the nursing staff. I spent more than 35 minutes of critical care time on this case. Job#: [id number] RAKESH
[2018-07-18] MEDS: SPIRONOLACTONE 25 MG TAB PO SCH (10:00)
[2018-07-18] MEDS: PANTOPRAZOLE SOD 40 MG TABEC PO SCH (10:00)
--- NOTE | 2018-07-18 11:04 | Progress Note ---
DATE: July 18, 2018 CARDIOLOGY PROGRESS NOTE SUBJECTIVE: The patient denies chest pain or shortness of breath. He remains confused. OBJECTIVE VITAL SIGNS: Temperature 98.4 degrees, pulse 59, respiratory rate 18, blood pressure 98/53. Oxygen saturation is 94% on 3 L nasal cannula. GENERAL: Chronically ill-appearing man in no acute distress. LUNGS: Clear to auscultation bilaterally. No wheezes or crackles. CARDIOVASCULAR: Normal rate, regular rhythm. A 3/6 systolic murmur. ABDOMEN: Soft, nontender. EXTREMITIES: Diffuse edema 2+. CARDIAC MEDICATIONS 1. Spironolactone 25 mg p.o. daily. 2. Furosemide 10 mg an hour. 3. Levothyroxine 50 mcg p.o. daily. 4. Carvedilol 3.125 mg p.o. q.12 h. LABS: WBC 6.03, hemoglobin 10.4, hematocrit 32.9, platelets 86. Sodium 137, potassium 3.8, chloride 101, CO2 27, BUN 12, creatinine 1.13. TELEMETRY: Paced rhythm. IMPRESSION 1. Chronic systolic and diastolic heart failure. 2. Status post bioprosthetic mitral valve replacement. 3. Status post bioprosthetic aortic valve replacement with moderate to severe perivalvular regurgitation. 4. Atrial fibrillation with massive biatrial dilation. 5. Coronary artery disease. 6. Hypertension. 7. Hyperlipidemia. 8. Severe tricuspid regurgitation. 9. Chronic kidney disease. 10. Anasarca. 11. Ascites. 12. Altered mental status. RECOMMENDATIONS: Continue diuretics. The patient remains volume overloaded. Continue current cardiac medications. The patient has significant comorbid conditions including multiple cardiovascular comorbidities. His prognosis is poor. Heparin drip was discontinued due to hematuria as the patient does not appear to have mechanical valve replacements. Hold anticoagulation pending further evaluation of hematuria. Thank you for this consult. We will continue to follow. Job#: [id number]
[2018-07-18 12:30] VITALS: BP 107/49
[2018-07-18] MEDS ORDERED: FUROSEMIDE INJ 100 MG in SODIUM CHLORIDE 0.9% 100 ML 90 ML IV SCH (15:00)
[2018-07-18] MEDS ORDERED: MIDODRINE HCL 5 MG TABLET PO ONE (17:58)
[2018-07-18] MEDS ORDERED: MIDODRINE 2.5 MG TAB PO SCH ×2 (18:00→18:15)
[2018-07-18 19:32] VITALS: BP 113/59
[2018-07-18] MEDS: MORPHINE SULFATE INJ 4 MG/ML INJ IV PRN (20:26)
[2018-07-18 20:56] VITALS: BP 100/50
[2018-07-19 01:01] VITALS: BP 106/71
[2018-07-19] MEDS: ONDANSETRON HCL INJ 2 MG/ML VIAL IV PRN (03:51)
[2018-07-19 04:45] VITALS: BP 107/51
[2018-07-19] MEDS: LEVOTHYROXINE SODIUM 50 MCG TAB PO SCH (04:56)
[2018-07-19 05:08] LABS: BASOPHILS % 0.6 % (0.0-1.0); EOSINOPHILS # (AUTO) 0.2 (0.0-0.4); EOSINOPHILS % 3.7 % (0.0-6.0); HEMATOCRIT 32.1 % (38.2-49.6); HEMOGLOBIN 10.1 g/dL (14.0-18.0); LYMPHOCYTES # (AUTO) 0.9 (1.0-3.2); LYMPHOCYTES % 17.5 % (18.0-39.1); MEAN CORPUSCULAR HEMOGLOBIN 28.2 pg (28-32); MEAN CORPUSCULAR HGB CONC 31.5 g/dL (31-35); MEAN CORPUSCULAR VOLUME 89.7 fL (81-99); MONOCYTES # (AUTO) 0.9 (0.2-0.8); MONOCYTES % 17.7 % (4.4-11.3); NEUTROPHILS # (AUTO) 3.1 (2.1-6.9); NEUTROPHILS % 60.3 % (38.7-80.0); PLATELET COUNT 87 x10e3/uL (140-360); RED BLOOD COUNT 3.58 x10e6/uL (4.3-5.7); RED CELL DISTRIBUTION WIDTH 17.3 % (11.7-14.4)
[2018-07-19 05:32] LABS: CALCIUM 8.4 mg/dL (8.4-10.2); CREATININE, SERUM 1.21 mg/dL (0.72-1.25)
--- NOTE | 2018-07-19 06:02 | Diagnostic Imaging Report ---
CHEST SINGLE (PORTABLE), 07/19/2018 7:00 AM Technique: CHEST SINGLE (PORTABLE) Comparison: Previous day Clinical history: Shortness of breath Findings: See Impression Impression: 1. Lines/Tubes: Stable right chest wall ICD, median sternotomy wires. 2. Stable markedly enlarged cardiac silhouette. 3. Persistent central vascular congestion with bibasilar atelectasis and underlying pleural effusions. Signed by: Dr Andreea Connelly MD on 07/19/2018 5:58 AM
[2018-07-19] MEDS: MORPHINE SULFATE INJ 4 MG/ML INJ IV PRN (06:38)
[2018-07-19 07:30] VITALS: BP 114/56
[2018-07-19] MEDS: PANTOPRAZOLE SOD 40 MG TABEC PO SCH (08:26)
[2018-07-19] MEDS: CARVEDILOL 3.125 MG TAB PO SCH (08:45)
[2018-07-19] MEDS: SPIRONOLACTONE 25 MG TAB PO SCH (09:00)
[2018-07-19 09:01] VITALS: BP 114/56
[2018-07-19] MEDS: NYSTATIN 15 GM POWDER UD BTL TOP SCH (09:26)
--- NOTE | 2018-07-19 10:54 | Discharge Summary ---
FINAL DISCHARGE DIAGNOSES 1. Acute exacerbation of congestive heart failure with systolic dysfunction. 2. History of atrial fibrillation. 3. Hyperlipidemia. 4. History of aortic valve and mitral valve, seems to be bioprosthetic according to cardiology. 5. Acute hypoxemic respiratory failure secondary pulmonary edema. 6. Abdominal distention, status post paracentesis concern for underlying liver cirrhosis. 7. Hematuria, resolved. 8. Medically debilitated. 9. Baseline dementia. CONSULTANTS: We had cardiology and GI. VITAL SIGNS: Temperature is 97.9, pulse 59, respiratory rate 16, blood pressure was 114/56, pulse ox 98%. He is on room air nasal cannula. LAB FINDINGS: Show white count is 5, hemoglobin 10.1, hematocrit 32, and platelets of 87,000. Coagulation: PT 17, INR 1.2 and PTT 34. Chemistry: Sodium 135, potassium 4, chloride 99, bicarb 25, anion gap of 15, BUN is 14, creatinine 1.2, glucose 96. Calcium 8.4. Alpha fetoprotein level is pending. Urinalysis was found to be negative. Body fluid found to be negative for any source of infection. It was cloudy and red in color. Hepatitis panel pending. MICROBIOLOGY: Gram stain of the ascites fluid was negative. Blood fluid culture was no growth. IMAGING STUDIES: Chest x-ray on admission showed some evidence of pulmonary edema. Abdominal ultrasound consistent with large lung ascites. There is liver cirrhosis seen. CT of abdomen and pelvis showed bilateral effusions and abdominal ascites. Extensive fluid edema along the lateral abdominal wall and subcutaneous tissues. Repeat chest x-ray on July 19, 2018, some vascular congestion, but much improved. HOSPITAL COURSE: This is a 67-year-old male who lives in a senior living and has baseline dementia due to history of chronic alcohol abuse, who came into the ED with underlying respiratory distress requiring BiPAP and admitted to [facility]. Patient initially was on BiPAP and required IV diuretics. His chest x-ray was consistent with pulmonary edema. Patient was treated for underlying acute exacerbation of CHF with systolic dysfunction. Cardiology was consulted. Patient's cardiac enzymes were found to be negative. In relation to cardiology, the patient also has an aortic and a mitral valve presumed to be from bioprosthetic. Initially, we were not sure exactly the type of valve he had. The patient was on heparin drip. During the hospital stay, the patient developed hematuria in which heparin drip was stopped. Patient's hematuria resolved prior to discharge home. In further discussion with cardiology, it was felt that the patient likely has a bioprosthetic valve, and recommended no anticoagulation at this time except for aspirin. Patient's respiratory status improved throughout the hospital course. Currently, on room air. Patient also has a history of atrial fibrillation, and his rate was well controlled. He will be discharged on aspirin and beta blockers. Patient had hematuria. Again, as described above, and was felt by cardiology just aspirin will be the only recommendation at this time, and can be further evaluated as an outpatient in 2-3 weeks. In relation to the acute hypoxic respiratory failure, it improved with IV diuretics. Patient also had some abdominal distention, which could have led also to his underlying shortness of breath in which the patient had a status post paracentesis performed with 8 L removed on July 15, 2018. GI was consulted. Hepatitis panel was pending. Alpha fetoprotein. level was pending. Imaging studies were consistent with liver cirrhosis. Patient was advised to follow up with GI as an outpatient in their office for further management and care, and also results all his labs findings. Patient also developed hematuria, but resolved after the heparin drip was stopped. He will need outpatient followup with urology in the event he continues to have hematuria , but on discharge no hematuria was present. Patient had PT and OT while here in the hospital. He will be discharged later today to a senior living. Patient has been cleared by the consultants for discharge home. On the day of discharge, vital signs stable, labs reviewed and stable. The patient was seen, evaluated and examined thoroughly on the day of discharge. No other complaints. The patient verbalized understanding and agrees to plan of care to follow up accordingly as an outpatient with primary care physician in 1 week, certified massage therapist in 2 weeks, and GI in 2 weeks' time. MEDICATIONS: See med reconciliation form includin. Lasix 40 mg 1 tab p.o. b.i.d., quantity 60 and refills zero. 2. Aspirin 81 mg 1 tab p.o. daily, quantity 30. DISPOSITION: To senior living. CONDITION: Stable. DIET: Heart-healthy. In the even of any worsening symptoms, the patient was advised to come back to the ED for further evaluation. Discharge summary took greater than 35 minutes. NALDO SOMMER MD Job#: [id number] [place]
[2018-07-19 13:01] VITALS: BP 103/43
--- NOTE | 2018-07-20 07:36 | Diagnostic Imaging Report ---
Procedure: Ultrasound-guided diagnostic and therapeutic paracentesis inserting machine operator: Funmi Fung MD Pre-operative diagnosis: Ascites Post-operative diagnosis: Ascites Local sedation was administered. The patient's heart rate and pulse oximetry were continuously monitored by the IR nurse. Medications: Lidocaine 1% for local anesthesia Complications: No immediate complications Specimens: 8150 cc of serosanguinous ascites Implants: None TECHNIQUE/FINDINGS: Informed consent was obtained from the patient and documented in the medical record. The patient was placed in the supine position. Initial ultrasound demonstrated ascites. The right lower abdomen was prepped and draped in standard sterile fashion. 1% lidocaine was infiltrated into the skin and subcutaneous tissues for local anesthesia. Then under continuous sonographic guidance, a 5 Fr catheter was advanced into the peritoneal space. The catheter was connected to vacuum bottle with subsequent evacuation of 8150 cc of serous fluid. The catheter was removed. Sterile dressing was applied. Sample was sent to the lab. The patient tolerated the procedure well. IMPRESSION: Ultrasound-guided paracentesis with removal of 8150 cc of serosanguinous fluid. Signed by: Dr. Funmi Fung MD on 07/20/2018 7:32 AM
== END 2018-07-19 15:00 | DRG 291 ==
LOC: ER 20:42 → IMCU 23:01
PROVIDERS: ADMIT Internal Medicine; ATTEND Internal Medicine
PROC: 0W9G3ZX Drainage of Peritoneal Cavity, Percutaneous Approach, Diagnostic (ICD-10-PCS; principal; 2018-07-15)
PROC: 5A09457 Assistance with Respiratory Ventilation, 24-96 Consecutive Hours, Continuous Positive Airway Pressure (ICD-10-PCS; 2018-07-15)
DX: I13.0 Hypertensive heart and chronic kidney disease with heart failure and stage 1 through stage 4 chronic kidney disease, or unspecified chronic kidney disease (principal); I50.43 Acute on chronic combined systolic (congestive) and diastolic (congestive) heart failure; J96.01 Acute respiratory failure with hypoxia; R18.8 Other ascites; N18.9 Chronic kidney disease, unspecified; I25.10 Atherosclerotic heart disease of native coronary artery without angina pectoris; K74.60 Unspecified cirrhosis of liver; Z95.810 Presence of automatic (implantable) cardiac defibrillator; Z95.2 Presence of prosthetic heart valve; Z82.49 Family history of ischemic heart disease and other diseases of the circulatory system; Z88.1 Allergy status to other antibiotic agents; Z88.0 Allergy status to penicillin; E87.8 Other disorders of electrolyte and fluid balance, not elsewhere classified; F03.90 Unspecified dementia, unspecified severity, without behavioral disturbance, psychotic disturbance, mood disturbance, and anxiety; Z79.01 Long term (current) use of anticoagulants; I48.91 Unspecified atrial fibrillation; E78.5 Hyperlipidemia, unspecified; R14.0 Abdominal distension (gaseous); R31.9 Hematuria, unspecified; I36.1 Nonrheumatic tricuspid (valve) insufficiency; R41.82 Altered mental status, unspecified
CPT/HCPCS: 36415; 49083; 51700; 71045; 74176; 74470; 76700; 80048; 80053; 81001; 82040; 82105; 82550; 82553; 83615; 83880; 84157; 84484; 85014; 85018; 85025; 85610; 85730; 86704; 86706; 86708; 86803; 87070; 87205; 87340; 88112; 88305; 89051; 93005; 93306; 94660; 96361; 96365; 97139; 99284; J1644; J1940; J2270; J2405; J7050; P9047